=== PATIENT | female | born 1960 | race Caucasian/White ===

== ENCOUNTER 2019-08-06 09:40 | Outpatient (CLI) | payer MEDICARE, SELFPAY ==
[2019-08-06 11:06] LABS: Alanine Aminotransferase 41 U/L (14-59); Albumin Level 3.7 g/dL (3.4-5.0); Alkaline Phosphatase 76 U/L (46-116); Aspartate Amino Transferase 30 U/L (15-37); Bilirubin Direct 0.1 mg/dL (0-0.2); Bilirubin,Total 0.2 mg/dL (0.00-1.00); Cholesterol 179 mg/dL (0-200); HDL Direct 41 mg/dL (40-60); LDL Cholesterol Calculated 104 mg/dL (<130); Total Protein 7.3 g/dL (6.4-8.2); Triglycerides 171 mg/dL (0-150)
== END 2019-08-06 09:41 | disposition home or self-care (01) ==
LOC: CHSLAB 09:43
PROVIDERS: PCP Internal Medicine Cardiovascular Disease; Visit Provider Internal Medicine Cardiovascular Disease
DX: E78.5 Hyperlipidemia, unspecified (principal); E11.69 Type 2 diabetes mellitus with other specified complication
CPT/HCPCS: 36415; 80061; 80076

== ENCOUNTER 2019-09-21 10:28 | Outpatient (CLI) | payer MEDICARE, SELFPAY ==
[2019-09-21 11:21] LABS: Alanine Aminotransferase 48 U/L (14-59); Albumin Level 3.8 g/dL (3.4-5.0); Alkaline Phosphatase 85 U/L (46-116); Aspartate Amino Transferase 45 U/L (15-37); Bilirubin Direct 0.1 mg/dL (0-0.2); Bilirubin,Total 0.3 mg/dL (0.00-1.00); Total Protein 7.7 g/dL (6.4-8.2)
== END 2019-09-21 10:29 | disposition home or self-care (01) ==
LOC: CHSLAB 10:30
PROVIDERS: PCP Internal Medicine; Visit Provider Internal Medicine Gastroenterology
DX: K76.0 Fatty (change of) liver, not elsewhere classified (principal)
CPT/HCPCS: 36415; 80076

== ENCOUNTER 2019-12-10 10:49 | Outpatient (CLI) | payer MEDICARE, SELFPAY ==
[2019-12-10 13:11] LABS: Creatinine Urine 120.44 mg/dL (40-278); MALB Creatinine Ratio 7.2 mg/g (0-30); Microalbumin Urine Random 8.7 mg/L
[2019-12-10 13:45] LABS: Alanine Aminotransferase 43 U/L (14-59); Albumin Level 3.5 g/dL (3.4-5.0); Alkaline Phosphatase 77 U/L (46-116); Anion Gap 13.5 mmol/L (7-16); Aspartate Amino Transferase 34 U/L (15-37); Bilirubin,Total 0.3 mg/dL (0.00-1.00); Blood Urea Nitrogen 13 mg/dL (7-18); Calcium 8.6 mg/dL (8.5-10.1); Carbon Dioxide 31 mmol/L (21-32); Chloride 102 mmol/L (98-108); Cholesterol 179 mg/dL (0-200); Estimated Glomerular Filt Rate > 60; Glucose 115 mg/dL (70-99); HDL Direct 42 mg/dL (40-60); LDL Cholesterol Calculated 104 mg/dL (<130); Osmolality Calculated 295 mOsm/kg (285-295); Potassium 4.5 mmol/L (3.5-5.1); Sodium 142 mmol/L (136-145); Thyroid Stimulating Hormone 1.06 uIU/mL (0.36-3.74); Total Protein 7.2 g/dL (6.4-8.2); Triglycerides 164 mg/dL (0-150); Vitamin B12 409 pg/mL (193-986)
== END 2019-12-10 10:50 | disposition home or self-care (01) ==
PROVIDERS: PCP Internal Medicine; Visit Provider Internal Medicine Endocrinology, Diabetes & Metabolism
DX: G35 Multiple sclerosis (principal); Z79.899 Other long term (current) drug therapy; E11.59 Type 2 diabetes mellitus with other circulatory complications; I10 Essential (primary) hypertension; E78.5 Hyperlipidemia, unspecified
CPT/HCPCS: 36415; 80053; 80061; 82043; 82607; 84443

== ENCOUNTER 2019-12-17 14:38 | Outpatient (CLI) | payer MEDICARE, SELFPAY ==
--- NOTE | ~2019-12-17 | XR_ITS ---
XR hand RT min 3V 12/17/2019 15:07 Indication: Right hand pain Procedure: 3 views right hand Comparison: No prior studies for comparison. Findings: Mild-moderate polyarticular osteoarthritis. Osteopenia. No acute fracture or traumatic jaspal lignment. No erosive changes. No focal soft tissue abnormality. No foreign bodies. Impression: 1: No acute fracture. 2: Mild-moderate polyarticular osteoarthritis. Reviewed, dictated and finalized at location A. Impression: 1: No acute fracture. 2: Mild-moderate polyarticular osteoarthritis.
== END 2019-12-17 14:39 | disposition home or self-care (01) ==
PROVIDERS: PCP Internal Medicine; Visit Provider Internal Medicine
DX: S69.91XA Unspecified injury of right wrist, hand and finger(s), initial encounter (principal)
CPT/HCPCS: 73130

== ENCOUNTER 2019-12-20 15:20 | Emergency (ER) | payer MEDICARE, SELFPAY ==
--- NOTE | ~2019-12-20 | XR_ITS ---
EXAMINATION: XR chest 2V 12/20/2019 15:43 INDICATION: Cough for 2 days PROCEDURE: 2 view chest COMPARISON: Comparison to multiple prior studies sequentially, with oldest reviewed study dated 06/13. FINDINGS: The lungs are clear. The cardiomediastinal silhouette is within normal limits. There are no pleural effusions. There is no pneumothorax suspected. IMPRESSION: 1: NO ACUTE CARDIOPULMONARY DISEASE. Reviewed, dictated and finalized at location A.
[2019-12-20 15:26] VITALS: BP 117/50; PULSE 85; RESP 19; TEMP 36.6; O2SAT 96
--- NOTE | 2019-12-20 16:04 | ECG_ITS ---
Measurements Intervals [place] Rate: 80 P: 54 NE: 160 QRS: -5 QRSD: 134 T: 6 QT: 400 QTc: 462 Interpretive Statements SINUS RHYTHM RIGHT BUNDLE BRANCH BLOCK ABNORMAL ECG Electronically Signed On 12-20-2019 16:31:46 CDT by Deo Caballero D.O.
[2019-12-20 16:25] VITALS: BP 131/76; PULSE 82; RESP 20; O2SAT 91
--- NOTE | 2019-12-20 16:30 | ED.URI ---
HPI - URI/Sore Throat General Chief Complaint: Upper Respiratory Infection Stated Complaint: COUGH, SINUS ISSUES Time Seen by Provider: 12/20/19 15:27 Source: patient Mode of arrival: ambulatory Limitations: no limitations History of Present Illness HPI Narrative: This is a 59 year old female that presents to the ER for cold symptoms x 2 days. Reports cough, congestion and sinus pain. Reports history of chronic sinusitis. Reports she recently ran out of her Singulair. Reports she was told by her PCP to come to the ER to be evaluated for COVID. Reports shortness of breath that is chronic for her. Also reports some substernal chest pain for the last couple of days that is worse with cough. Denies fever or lower extremity edema. Related Data Home Medications Medication Instructions Recorded Confirmed aspirin [Aspir-81] 12/20/19 cholecalciferol (vitamin D3) 125 mcg PO DAILY 12/20/19 12/20/19 [Vitamin D3] cyclobenzaprine 10 mg PO HS 12/20/19 12/20/19 diphenhydramine-acetaminophen tablet 12/20/19 [Allergy Severe] fexofenadine [Reyna Allergy] 180 mg PO DAILY 12/20/19 12/20/19 furosemide 12/20/19 gabapentin 12/20/19 glatiramer [Copaxone] mg SUBCUT 12/20/19 losartan 12/20/19 magnesium oxide 400 mg PO DAILY 12/20/19 12/20/19 metformin 500 mg PO BID 12/20/19 12/20/19 metoprolol succinate PO 12/20/19 montelukast [Singulair] 10 mg PO DAILY 12/20/19 12/20/19 nitrofurantoin macrocrystal 12/20/19 pantoprazole 40 mg PO BID 12/20/19 12/20/19 potassium chloride meq 12/20/19 simvastatin mg 12/20/19 zolpidem [Ambien] 12/20/19 Allergies Allergy/AdvReac Type Severity Reaction Status Date / Time No Known Allergies Allergy Mild Unverified 12/20/19 15:28 Review of Systems Review of Systems: Narrative: CONSTITUTIONAL: Denies fever ENT: Reports rhinorrhea, congestion, sore throat CARDIOVASCULAR: Reports chest pain. Denies edema. RESPIRATORY: Reports cough and dyspnea. All systems reviewed & are unremarkable except as noted in HPI and below PMFSH Social History Social History (Updated 06/10/19 @ 22:41 by Bekah Greene) Smoking status: Never smoker Gender identity (if verbalized by the patient): Female Exam Narrative: Exam Narrative: GENERAL: Well-appearing, well-nourished, and in no acute distress. HEAD: Normocephalic, atraumatic. EYES: EOMI. ENT: Turbinates swollen and pale. Tender palpation of the frontal sinuses bilaterally. Mucous membranes moist. Oropharynx without tonsillar hypertrophy exudate or other lesions. Bilateral TMs pearly brooks non-bulging NECK: Supple. No adenopathy or masses. CHEST: Clear to auscultation. No respiratory distress. No wheezes rales or rhonchi HEART: Regular rate and rhythm. No murmur heard. Normal peripheral pulses. EXTREMITIES: Normal range of motion. No edema. SKIN: Warm, dry, no rash. NEURO: No focal deficits. Alert and oriented x3. PSYCH: Normal mood and affect Course Vital Signs Vital signs: Vital Signs Temperature 97.8 F 12/20/19 15:26 Pulse Rate 85 12/20/19 15:26 Respiratory Rate 19 12/20/19 15:26 Blood Pressure 117/50 L 12/20/19 15:26 Pulse Oximetry 96 12/20/19 15:26 Temperature 97.8 F 12/20/19 15:26 Pulse Rate 85 12/20/19 15:26 Respiratory Rate 19 12/20/19 15:26 Blood Pressure 117/50 L 12/20/19 15:26 Pulse Oximetry 96 12/20/19 15:26 MDM - URI/Sore Throat MDM Narrative Medical decision making narrative: Patient presents to the emergency department for cold symptoms x2 days. She is afebrile and nontoxic-appearing. Oxygen saturation normal on room air. CBC and metabolic panel without concerning findings. EKG without concerning changes. Troponin is negative. Chest x-ray without acute findings. SARS-CoV-2 sent. Able to ambulate in the halls and maintain oxygen saturation. Patient does report history of sinus problems. Will be treated for acute sinusitis. Patient is stable and felt appropriate for further outpatient
[2019-12-20 16:32] VITALS: BP 127/77; PULSE 82; RESP 17; O2SAT 97
[2019-12-20 16:34] LABS: Basophils Percent Auto 0.4 % (0.2-1.2); Eosinophils Absolute Auto 0.2 K/mm3 (0-0.3); Eosinophils Percent Auto 1.9 % (0-4.4); Hematocrit 37.6 % (37.0-47.0); Hemoglobin 12.3 g/dL (12.0-15.0); Immature Granulocyte Absolute 0.04 K/mm3 (0.00-0.031); Immature Granulocyte Percent A 0.4 % (0-0.5); Lymphocytes Absolute Auto 2.23 K/mm3 (0.9-3.2); Lymphocytes Percent Auto 22.4 % (18.3-44.2); Mean Corpuscular HGB Conc 32.7 g/dl (32-36); Mean Corpuscular Hemoglobin 30.6 pg (26-34); Mean Corpuscular Volume 93.5 fl (80-100); Mean Platelet Volume 9.7 fl (7.4-10.4); Monocytes Absolute Auto 0.6 K/mm3 (0.1-0.6); Monocytes Percent Auto 5.7 % (2.6-8.5); Neutrophils Absolute Auto 6.9 K/mm3 (1.3-6.7); Neutrophils Percent Auto 69.2 % (45.5-73.1); Platelet Count Result 232 k/mm3 (150-375); Red Blood Count 4.02 M/mm3 (4.2-5.4); Red Cell Distribution Width 12.9 % (11.5-14.5)
[2019-12-20 16:43] LABS: Partial Thromboplastin Time 28.6 SECONDS (22.3-36.8)
[2019-12-20 16:47] VITALS: BP 121/76; PULSE 80; RESP 16; O2SAT 96
[2019-12-20 16:47] LABS: Alanine Aminotransferase 44 U/L (4-35); Albumin Level 4.2 g/dL (3.5-5.1); Alkaline Phosphatase 85 U/L (38-126); Anion Gap 12.9 mmol/L (7-16); Aspartate Amino Transferase 51 U/L (14-36); Bilirubin,Total 0.3 mg/dL (0.2-1.3); Blood Urea Nitrogen 10 mg/dL (7-17); CRP 2.2 mg/dL (<1.0); Calcium 8.7 mg/dL (8.4-10.2); Carbon Dioxide 28 mmol/L (22-30); Chloride 102 mmol/L (98-107); Estimated CRCL calculation 83 ml/min; Estimated Glomerular Filt Rate > 60; Glucose 112 mg/dL (65-105); Lactate Dehydrogenase 518 U/L (313-618); Potassium 3.9 mmol/L (3.4-5.0); Sodium 139 mmol/L (137-145)
[2019-12-20 16:56] LABS: Troponin I < 0.012 ng/mL (0.000-0.034)
[2019-12-20 17:02] VITALS: BP 119/65; PULSE 79; RESP 18; O2SAT 96
[2019-12-20 18:09] VITALS: BP 117/64; PULSE 66; RESP 17; O2SAT 98
[2019-12-21 02:02] LABS: SARS-CoV-2 RNA PCR Negative
== END 2019-12-20 18:11 | disposition home or self-care (01) ==
PROVIDERS: Physician Assistant; Emergency Provider Emergency Medicine; PCP Internal Medicine
DX: J01.11 Acute recurrent frontal sinusitis (principal); Z20.828 Contact with and (suspected) exposure to other viral communicable diseases; Z79.84 Long term (current) use of oral hypoglycemic drugs; I45.10 Unspecified right bundle-branch block; R06.02 Shortness of breath
CPT/HCPCS: 36415; 71046; 80053; 83615; 84484; 85025; 85610; 85730; 86140; 87635; 93005; 99284; C9803; U0003

== ENCOUNTER 2020-01-24 09:40 | Outpatient (CLI) | payer MEDICARE, SELFPAY ==
--- NOTE | ~2020-01-24 | CT_ITS ---
EXAMINATION: CT sinus wo con DATE: 01/24/2020 10:21 INDICATION: Chronic sinusitis, unspecified TECHNIQUE: Computed tomography (CT) of the paranasal sinuses was performed without intravenous contra st. The dose-length product (DLP) was 257.43 mGy-cm. Iterative reconstruction was used. COMPARISON: 02/21/2004 FINDINGS: There is normal development and pneumatization of the paranasal sinuses. There are surgical changes in the medial wall of the right maxillary sinus. The frontal, sphenoid, ethmoid, and maxilla ry sinuses are clear. The bilateral ostiomeatal complexes are patent. Visualized soft tissues are unr emarkable. There are 2 mm of chronic leftward deviation of the nasal septum. IMPRESSION: 1. 2 mm of chronic leftward deviation of the nasal septum. Reviewed, dictated and finalized at location A.
== END 2020-01-24 09:41 | disposition home or self-care (01) ==
PROVIDERS: PCP Internal Medicine; Visit Provider Otolaryngology
DX: J32.9 Chronic sinusitis, unspecified (principal); J34.2 Deviated nasal septum
CPT/HCPCS: 70486

== ENCOUNTER 2020-03-11 08:25 | Outpatient (CLI) | payer MEDICARE, SELFPAY ==
[2020-03-11 09:31] LABS: Alanine Aminotransferase 39 U/L (14-59); Albumin Level 3.8 g/dL (3.4-5.0); Alkaline Phosphatase 104 U/L (46-116); Aspartate Amino Transferase 27 U/L (15-37); Bilirubin Direct 0.1 mg/dL (0-0.2); Bilirubin,Total 0.3 mg/dL (0.00-1.00); Total Protein 7.5 g/dL (6.4-8.2)
== END 2020-03-11 08:26 | disposition home or self-care (01) ==
LOC: CHSLAB 08:28
PROVIDERS: PCP Internal Medicine
DX: K76.0 Fatty (change of) liver, not elsewhere classified (principal)
CPT/HCPCS: 36415; 80076

== ENCOUNTER 2020-05-19 12:44 | Outpatient (CLI) | payer MEDICARE, SELFPAY ==
[2020-05-19 13:20] LABS: Creatinine Urine < 13.00 mg/dL (40-278); Microalbumin Urine Random < 13.0 mg/L
== END 2020-05-19 12:45 | disposition home or self-care (01) ==
LOC: CHSLAB 12:48
PROVIDERS: PCP Internal Medicine; Visit Provider Internal Medicine Endocrinology, Diabetes & Metabolism
DX: E11.59 Type 2 diabetes mellitus with other circulatory complications (principal); I10 Essential (primary) hypertension
CPT/HCPCS: 82043

== ENCOUNTER 2020-09-27 09:26 | Outpatient (CLI) | payer MEDICARE, SELFPAY ==
[2020-09-27 09:43] LABS: Basophils Absolute Auto 0.03 K/mm3 (0.00-0.10); Basophils Percent Auto 0.4 % (0.0-1.0); Eosinophils Absolute Auto 0.14 K/mm3 (0.02-0.50); Eosinophils Percent Auto 1.8 % (1.0-6.0); Hematocrit 40.5 % (35.0-49.0); Hemoglobin 13.2 g/dL (12.0-15.0); Immature Granulocyte Absolute 0.04 K/mm3 (0.00-0.00); Immature Granulocyte Percent A 0.5 % (0.0-0.0); Lymphocytes Absolute Auto 2.72 K/mm3 (1.10-4.50); Lymphocytes Percent Auto 35.8 % (18.0-42.0); Mean Corpuscular HGB Conc 32.6 g/dL (32.0-36.0); Mean Corpuscular Hemoglobin 31.7 pg (27.0-31.0); Mean Corpuscular Volume 97.1 fL (78.0-102.0); Mean Platelet Volume 9.5 fl (9.2-11.8); Monocytes Absolute Auto 0.38 K/mm3 (0.10-0.90); Neutrophils Absolute Auto 4.3 K/mm3 (1.7-7.2); Neutrophils Percent Auto 56.5 % (50.0-70.0); Platelet Count Result 225 K/mm3 (150-420); Red Blood Count 4.17 M/mm3 (4.20-5.40); Red Cell Distribution Width 12.9 % (11.6-14.4); White Blood Count 7.6 K/mm3 (4.8-10.8)
[2020-09-27 09:49] LABS: Add Urine Microscopic? YES; Appearance Urine Clear (Clear); Bilirubin Urine Negative (Negative); Blood Urine Negative (Negative); Color Urine Yellow (Yellow); Glucose Urine UA 3+ (Negative); Ketones Urine Trace (Negative); Leukocyte Esterase Ur Negative (Negative); Nitrate Urine Negative (Negative); Protein Urine Negative (Negative); Specific Grav Ur 1.015 (1.010-1.020); Urobilinogen Urine 0.2 mg/dL (0.2-1.0)
[2020-09-27 09:53] LABS: Bacteria Urine 1+ /hpf; RBC Urine None seen /hpf (0-2); Squamous Epithelial Cell Urine Moderate /hpf (Few); WBC Urine 0-3 /hpf (0-3)
[2020-09-27 10:03] LABS: Microalbumin Urine Random < 13.0 mg/L
[2020-09-27 10:16] LABS: Hemoglobin A1C 5.7 % (<5.7)
[2020-09-27 10:54] LABS: Alanine Aminotransferase 30 U/L (14-59); Albumin Level 3.6 g/dL (3.4-5.0); Alkaline Phosphatase 94 U/L (46-116); Anion Gap 8 mmol/L (8-16); Aspartate Amino Transferase 11 U/L (15-37); Bilirubin Direct 0.1 mg/dL (0-0.2); Bilirubin,Total 0.3 mg/dL (0.00-1.00); Blood Urea Nitrogen 17 mg/dL (7-18); Calcium 9.1 mg/dL (8.5-10.1); Carbon Dioxide 31 mmol/L (21-32); Chloride 102 mmol/L (98-108); Cholesterol 219 mg/dL (0-200); Estimated Glomerular Filt Rate > 60; Ferritin 30 ng/mL (8-252); Free T3 2.57 pg/mL (2.18-3.98); Free T4 Free Thyroxine 1.14 ng/dL (0.76-1.46); Glucose 129 mg/dL (70-99); HDL Direct 42 mg/dL (40-60); Iron 49 ug/dL (50-170); LDL Cholesterol Calculated 147 mg/dL (<130); NT Pro B Type Natriuretic Pept 89 pg/mL (0-125); Osmolality Calculated 295 mOsm/kg (285-295); Percent Iron Saturation 17 % (12-57); Potassium 3.7 mmol/L (3.5-5.1); Sodium 141 mmol/L (136-145); Thyroid Stimulating Hormone 0.45 uIU/mL (0.36-3.74); Total Protein 7.3 g/dL (6.4-8.2); Triglycerides 148 mg/dL (0-150); Vitamin B12 581 pg/mL (193-986)
[2020-09-30 11:05] LABS: Vitamin D 25 Hydroxy 54 ng/mL (30-100)
== END 2020-09-27 09:27 | disposition home or self-care (01) ==
LOC: CHSLAB 09:31
PROVIDERS: PCP Internal Medicine
DX: K76.0 Fatty (change of) liver, not elsewhere classified (principal); D64.9 Anemia, unspecified; E11.9 Type 2 diabetes mellitus without complications; I42.9 Cardiomyopathy, unspecified; N30.00 Acute cystitis without hematuria; G35 Multiple sclerosis; R06.02 Shortness of breath; E55.9 Vitamin D deficiency, unspecified
CPT/HCPCS: 36415; 80053; 80061; 81001; 82043; 82248; 82306; 82607; 82728; 83036; 83540; 83550; 83880; 84439; 84443; 84481; 85025; 87086; 87088

== ENCOUNTER 2020-10-08 09:11 | Outpatient (CLI) | payer MEDICARE, SELFPAY ==
--- NOTE | 2020-10-08 09:17 | ECHO_ITS ---
Patient Info Name: Fadia Davis Age: 59 years : 1960 Gender: Female Ht: 62 in Wt: 223 lbs BSA: 2.16 m2 HR: 93 bpm BP: 135 / 67 mmHg Heart Rhythm: Sinus Rhythm Technical Quality: Fair Exam Date: 10/08/2020 9:09 AM Exam Location: [facility] Patient Status: Outpatient Admit Date: 10/08/2020 Staff Ordering Physician: José Miguel Page MD Program Professional: Grisel Zhong RDCS Attending Provider: José Miguel Page MD Referring Physician: Camilo DE LEÓN; Exam Type: CA echo doppler color flow Study Info Indications I50.9 - Heart failure, unspecified Complete two-dimensional, color flow and Doppler transthoracic echocardiogram is performed. Strain analysis performed. History/Risk Factors Hypertension: Yes Dyslipidemia: Yes Congenital Heart Disease (CHD): No Diabetic Therapy: Oral Peripheral Arterial Disease (PAD): No Myocardial Infarction ([place]): No Chronic Lung Disease: No Obesity: Yes Renal Disease: No Coronary Artery Disease (CAD) No Congestive Heart Failure (CHF): Hx CHF Cardiomyopathy/LV Systolic Dysfunction: Yes Diabetes Mellitus: Type II COPD: No Tobacco Use: Former Cerebrovascular Disease: No Family History: Diabetes Mellitus, Coronary Artery Disease Deep Vein Thrombosis (DVT): None Dialysis: None Frailty Scale (CSHA): 2: Well Cardiac Arrest: No Summary 1. Complete two-dimensional, color flow and Doppler transthoracic echocardiogram is performed. 2. Left ventricular chamber dimension is normal. 3. Left ventricular systolic function is normal, estimated at 55-60%. 4. The left ventricular diastolic function is grade I diastolic dysfunction. 5. E/e' 14 is mildly elevated. 6. Global longitudinal strain is abnormal at -14.1%. Recommendations * Continue medical therapy for diabetes. Left Ventricle E/e' 14 is mildly elevated. Global longitudinal strain is abnormal at -14.1%. Left ventricular chamber dimension is normal. Left ventricular systolic function is normal, estimated at 55-60%. The left ventricular diastolic function is grade I diastolic dysfunction. Right Ventricle Right ventricular chamber dimension is normal. Right ventricular systolic function is normal. Left Atria Left atrial chamber dimension is normal. Right Atria Right atrial chamber dimension is normal. Aortic Valve The aortic valve is trileaflet. There is no aortic valve stenosis. There is no aortic valve regurgitation. Pulmonic Valve There is no pulmonic regurgitation. Mitral Valve There is no mitral valve stenosis. There is no mitral valve regurgitation. Tricuspid Valve There is no tricuspid valve regurgitation. Pericardium/Pleural There is no pericardial effusion. Inferior Vena Cava Normal inferior vena cava with >50% collapse upon inspiration consistent with normal right atrial pressure, 5 mmHg. Aorta The aortic root size at the sinus of Valsalva is normal. Left Ventricular Outflow Tract Name Value Normal LVOT 2D LVOT Diameter 1.8 cm LVOT Doppler LVOT Peak Velocity
== END 2020-10-08 09:12 | disposition home or self-care (01) ==
LOC: CHSIMG 09:14
PROVIDERS: PCP Internal Medicine; Visit Provider Internal Medicine
DX: I50.9 Heart failure, unspecified (principal)
CPT/HCPCS: 93306

== ENCOUNTER 2020-11-06 15:32 | Outpatient (CLI) | payer MEDICARE, SELFPAY ==
--- NOTE | ~2020-11-06 | XR_ITS ---
EXAMINATION: XR foot LT min 3V DATE: 11/06/2020 15:51 INDICATION: Dorsal lateral left foot pain TECHNIQUE: Dorsoplantar, two oblique and lateral views of the left foot were obtained. COMPARISON: 12/21/2016 FINDINGS: Alignment is normal. No fracture. Polyarticular osteoarthritis throughout the left foot, moderate sev erity at several of the tarsal metatarsal and distal interphalangeal joints and mild at the remaining joints in the left foot as well as the left ankle joint. Moderate-sized Achilles and plantar calcane al spurs. Again seen is a prominent hypertrophic osteophytes extending anteriorly from the dorsolater al aspect of the anterior process of the calcaneus. IMPRESSION: 1. No acute osseous abnormality. 2. Mild to moderate polyarticular osteoarthritis throughout the left foot and ankle most prominent at the tarsometatarsal and distal interphalangeal joints. Reviewed, dictated and finalized at location A. IMPRESSION: 1. No acute osseous abnormality. 2. Mild to moderate polyarticular osteoarthritis throughout the left foot and a nkle most prominent at the tarsometatarsal and distal interphalangeal joints.
== END 2020-11-06 15:33 | disposition home or self-care (01) ==
LOC: CHSIMG 15:35
PROVIDERS: PCP Internal Medicine; Visit Provider Internal Medicine
DX: M79.672 Pain in left foot (principal); M15.9 Polyosteoarthritis, unspecified
CPT/HCPCS: 73630

== ENCOUNTER 2021-01-06 10:11 | Outpatient (CLI) | payer MEDICARE, SELFPAY ==
[2021-01-06 10:25] LABS: Basophils Absolute Auto 0.02 K/mm3 (0.00-0.10); Basophils Percent Auto 0.2 % (0.0-1.0); Eosinophils Absolute Auto 0.11 K/mm3 (0.02-0.50); Eosinophils Percent Auto 1.4 % (1.0-6.0); Hematocrit 40.1 % (35.0-49.0); Hemoglobin 13.1 g/dL (12.0-15.0); Immature Granulocyte Absolute 0.03 K/mm3 (0.00-0.00); Immature Granulocyte Percent A 0.4 % (0.0-0.0); Lymphocytes Absolute Auto 2.54 K/mm3 (1.10-4.50); Lymphocytes Percent Auto 31.6 % (18.0-42.0); Mean Corpuscular HGB Conc 32.7 g/dL (32.0-36.0); Mean Corpuscular Hemoglobin 31.5 pg (27.0-31.0); Mean Corpuscular Volume 96.4 fL (78.0-102.0); Mean Platelet Volume 9.4 fl (9.2-11.8); Monocytes Absolute Auto 0.37 K/mm3 (0.10-0.90); Monocytes Percent Auto 4.6 % (2.0-11.0); Neutrophils Percent Auto 61.8 % (50.0-70.0); Platelet Count Result 242 K/mm3 (150-420); Red Blood Count 4.16 M/mm3 (4.20-5.40); Red Cell Distribution Width 12.6 % (11.6-14.4)
[2021-01-06 10:26] LABS: Add Urine Microscopic? YES; Appearance Urine Clear (Clear); Bilirubin Urine Negative (Negative); Blood Urine Negative (Negative); Color Urine Dark Yellow (Yellow); Glucose Urine UA Negative (Negative); Ketones Urine Trace (Negative); Leukocyte Esterase Ur Negative (Negative); Nitrate Urine Negative (Negative); Protein Urine Negative (Negative); Specific Grav Ur 1.015 (1.010-1.020); Urobilinogen Urine 0.2 mg/dL (0.2-1.0); pH Urine 6.5 (5.0-8.0)
[2021-01-06 10:30] LABS: RBC Urine None seen /hpf (0-2); Squamous Epithelial Cell Urine Moderate /hpf (Few); WBC Urine 0-3 /hpf (0-3)
[2021-01-06 10:31] LABS: Bacteria Urine Trace /hpf
[2021-01-06 11:55] LABS: Alanine Aminotransferase 33 U/L (14-59); Albumin Level 3.8 g/dL (3.4-5.0); Alkaline Phosphatase 104 U/L (46-116); Anion Gap 12 mmol/L (8-16); Aspartate Amino Transferase 17 U/L (15-37); Bilirubin,Total 0.3 mg/dL (0.00-1.00); Blood Urea Nitrogen 11 mg/dL (7-18); Calcium 8.9 mg/dL (8.5-10.1); Carbon Dioxide 28 mmol/L (21-32); Chloride 103 mmol/L (98-108); Cholesterol 187 mg/dL (0-200); Estimated Glomerular Filt Rate > 60; Ferritin 47 ng/mL (8-252); Glucose 126 mg/dL (70-99); HDL Direct 51 mg/dL (40-60); Iron 57 ug/dL (50-170); LDL Cholesterol Calculated 99 mg/dL (<130); Osmolality Calculated 297 mOsm/kg (285-295); Percent Iron Saturation 22 % (12-57); Potassium 4.3 mmol/L (3.5-5.1); Sodium 143 mmol/L (136-145); Total Protein 7.5 g/dL (6.4-8.2); Triglycerides 183 mg/dL (0-150)
== END 2021-01-06 10:12 | disposition home or self-care (01) ==
LOC: CHSLAB 10:13
PROVIDERS: PCP Internal Medicine; Visit Provider Internal Medicine
DX: E11.65 Type 2 diabetes mellitus with hyperglycemia (principal); E78.5 Hyperlipidemia, unspecified; E61.1 Iron deficiency
CPT/HCPCS: 36415; 80053; 80061; 81001; 82728; 83036; 83540; 83550; 85025

== ENCOUNTER 2021-01-31 11:11 | Emergency (ER) | payer MEDICARE, SELFPAY ==
--- NOTE | ~2021-01-31 | XR_ITS ---
EXAMINATION: XR hand LT 2V, XR wrist LT 2V EXAM DATE: 01/31/2021 11:56 (accession [id number]), 01/31/2021 11:58 (accession [id number]) INDICATION: Initial encounter following injury, with pain of the left hand, wrist. TECHNIQUE: Frontal and lateral projections of the left hand. Frontal and lateral projections left w rist. There are no prior studies for comparison. FINDINGS: There is mild left hand polyarticular interphalangeal primary osteoarthritis. There are n o acute fractures or dislocations identified. There is no subcutaneous gas. The soft tissue is unre markable. There are no radiopaque foreign bodies. Scapholunate space maintained. IMPRESSION: 1. Left hand, wrist exam without acute osseous findings. Reviewed, dictated and finalized at location A. IMPRESSION: 1. Left hand, wrist exam without acute osseous findings.
--- NOTE | ~2021-01-31 | XR_ITS ---
EXAMINATION: XR ribs LT 2V EXAM DATE: 01/31/2021 11:57 INDICATION: left rib injury, pain. Initial encounter. TECHNIQUE: Frontal projection of the upper left ribs, frontal projection of the lower left ribs, obli que projection of the left ribs, without chest x-ray(s) for interpretation. Correlation is made to est x-ray 12/20/2019. FINDINGS: There are no displaced acute left rib fractures identified. There is no soft tissue abnor mality seen. IMPRESSION: No displaced left rib fractures. Reviewed, dictated and finalized at location A.
[2021-01-31 11:31] VITALS: BP 125/81; PULSE 84; RESP 16; TEMP 36.9; O2SAT 96
[2021-01-31] MEDS: KETOROLAC (*BKC) 60 MG/2 ML VIAL IM (11:55)
--- NOTE | 2021-01-31 12:16 | ED.FALL ---
HPI - Fall General Chief Complaint: Fall Stated Complaint: fall at 1am, L-sided thumb, wrist and rib pain Source: patient Mode of arrival: ambulatory Limitations: no limitations History of Present Illness HPI Narrative: this is a 60-year-old female that presents after she tripped and fell earlier today causing pain and left rib area, left wrist and thumb area with some point tenderness in the left mid ribs with no shortness of breath no bruising has good range of motion of her left wrist and thumb strong brisk radial pulse on the left with no numbness or tingling no bruising. complaint: fall Onset (ago): hour(s) Fall from: standing Fall witnessed: no Place fall occurred: home Loss of consciousness: none Prolonged down time: no Symptoms prior to fall: none Context: tripped/slipped Related Data Home Medications Medication Instructions Recorded Confirmed aspirin [Aspir-81] 12/20/19 cholecalciferol (vitamin D3) 125 mcg PO DAILY 12/20/19 12/20/19 [Vitamin D3] cyclobenzaprine 10 mg PO HS 12/20/19 12/20/19 furosemide 12/20/19 gabapentin 12/20/19 glatiramer [Copaxone] mg SUBCUT 12/20/19 losartan 12/20/19 magnesium oxide 400 mg PO DAILY 12/20/19 12/20/19 metformin 500 mg PO BID 12/20/19 12/20/19 metoprolol succinate PO 12/20/19 montelukast [Singulair] 10 mg PO DAILY 12/20/19 12/20/19 nitrofurantoin macrocrystal 12/20/19 pantoprazole 40 mg PO BID 12/20/19 12/20/19 potassium chloride meq 12/20/19 simvastatin mg 12/20/19 zolpidem [Ambien] 12/20/19 B-complex with vitamin C 1 tablet PO DAILY 12/27/19 carbamazepine 100 mg 100 mg PO Q12H 12/27/19 capsule,extended release [id number] ferrous sulfate 325 mg (65 mg 325 mg PO DAILY 12/27/19 iron) tablet multivitamin 1 tablet PO DAILY 12/27/19 vit C 250 mg-vit E 90 mg-zinc 40 1 tablet PO BID 12/27/19 mg-copper 1 [id number] capsule Allergies Allergy/AdvReac Type Severity Reaction Status Date / Time lisinopril Allergy Severe cough Verified 04/14/20 08:38 Review of Systems Review of Systems: All systems reviewed & are unremarkable except as noted in HPI and below PMFSH Past Medical History Medical History Cardiomyopathy Deviated septum Finger fracture Headache Nasal polyps Neuritis optic right nerve Ovarian cyst Polyps of both external auditory canals Sinus problem Wears glasses Surgical History Surgical History H/O dilation and curettage H/O nasal septoplasty History of appendectomy History of bladder surgery A&P repair History of cardiac cath Hx of cholecystectomy Family History Family History Mother Acute myocardial infarction Family history of renal failure Family history of type 2 diabetes mellitus Father Family history of type 2 diabetes mellitus Social History Social History Smoking status: Never smoker Second hand tobacco smoke exposure: Yes Alcohol intake: former Substance use: never Gender identity (if verbalized by the patient): Female Exam Const: General: no acute distress and alert Orientation/consciousness: patient oriented x3 HENMT: Head: normal to inspection Eyes: Conjunctivae: conjunctivae normal Pupils: Equal, round and reactive pupils present Neck: Neck: normal visual inspection, no lymphadenopathy and no meningeal signs Chest: Chest palpation & inspection: normal inspection of the chest Other: Point tenderness to left mid rib area with palpation Resp: Effort & Inspection: normal respiratory effort Cardio: Rate: regular rate Rhythm: regular rhythm GI: Auscultation: normal bowel sounds : General: Yes no CVA tenderness Skin: General skin exam: normal color Rashes: no rashes Neuro: General: patient oriented x3 and moves all extremities Extr
== END 2021-01-31 12:22 | disposition home or self-care (01) ==
PROVIDERS: Emergency Provider Emergency Medicine; PCP Internal Medicine
DX: S23.41XA Sprain of ribs, initial encounter (principal); S63.502A Unspecified sprain of left wrist, initial encounter; W01.0XXA Fall on same level from slipping, tripping and stumbling without subsequent striking against object, initial encounter; I42.9 Cardiomyopathy, unspecified
CPT/HCPCS: 71100; 73100; 73120; 96372; 99283; 99284; J1885

== ENCOUNTER 2021-02-02 14:09 | Outpatient (CLI) | payer MEDICARE, SELFPAY ==
--- NOTE | ~2021-02-02 | CT_ITS ---
EXAMINATION: CT wrist LT wo con EXAM DATE: 02/02/2021 14:30 INDICATION: L wrist pain, injury on 01/31/21. Persistent pain. TECHNIQUE: Spiral CT wrist LT wo con was performed left wrist Axial, coronal and sagittal images wer e reviewed. The dose-length product (DLP) for this examination was 395.48 mGy-cm. The exposure was tailored according to patient size (auto mA exposure control), and iterative reconstruction (ASIR) wa s used as additional dose reduction technique. There is no prior study for comparison. FINDINGS: There is acute closed posttraumatic nondisplaced fracture through the tip of the radial sty loid. These are usually treated nonsurgically. Immobilization with splint or cast, and follow-up woul d be appropriate. Carpal and metacarpal bones are unremarkable. IMPRESSION: Acute nondisplaced left radial styloid fracture. Reviewed, dictated and finalized at location B.
== END 2021-02-02 14:10 | disposition home or self-care (01) ==
LOC: CHSIMG 14:10
PROVIDERS: PCP Internal Medicine; Visit Provider Internal Medicine
DX: M25.532 Pain in left wrist (principal); S52.92XA Unspecified fracture of left forearm, initial encounter for closed fracture
CPT/HCPCS: 73200

== ENCOUNTER 2021-02-16 14:02 | Outpatient (CLI) | payer MEDICARE, SELFPAY ==
--- NOTE | ~2021-02-16 | DEXA_ITS ---
Bone Density Report Name: Fadia Davis Age: 60 Sex: Female Ethnicity: White Date of : 1960 Indication: postmenopausal; screening for osteoporosis; Referring Provider: Wily, Sandra Paul Study: Bone densitometry was performed. Exam Date: February 16, 2021 Accession number: [id number] Bone Density: Region BMD T-score Z-score Classification AP Spine(L1, L2, L3) 0.995 -0.2 1.3 Normal Femoral Neck (Left) 0.750 -0.9 0.4 Normal Total Hip (Left) 0.955 0.1 1.1 Normal Femoral Neck (Right) 0.794 -0.5 0.8 Normal Total Hip (Right) 0.963 0.2 1.2 Normal Femoral Neck Mean 0.772 -0.7 0.6 Normal Total Hip Mean 0.959 0.1 1.2 Normal World Health Organization criteria for BMD impression classify patients as: Normal (T-score at or above -1.0), Osteopenia (T-score between -1.0 and -2.5), or Osteoporosis (T-score at or below -2.5). 10-year Fracture Risk: FRAX not reported because: All T-scores for Spine Total, Hip Total, Femoral Neck at or above -1.0 Previous Exams: Region Exam Age BMD T-score BMD Change BMD Change Date g/cm2 vs Baseline vs Previous AP Spine (L1-L3) 02/16/2021 60 0.995 -0.2 0.043 (4.5%)# 0.043 (4.5%)# 09/05/2018 57 0.952 -0.6 Total Hip(Left) 02/16/2021 60 0.955 0.1 -0.081 (-7.8%) -0.081 (-7.8%) 09/05/2018 57 1.036 0.8 Total Hip(Right) 02/16/2021 60 0.963 0.2 -0.004 (-0.4%) -0.004 (-0.4%) 09/05/2018 57 0.967 0.2 *Denotes significance at 95% confidence level, LSC for AP Spine = 0.022 g/cm2, LSC for Total Hip = 0.027 g/cm2 # Denotes dissimilar scan types or analysis methods Clinical Information Provided by Patient: Has used the following medications: Vitamin D No regular weight bearing exercise Does not regularly consume dairy products Drinks caffeinated beverages Onset of menses at age 13 Number of children 2 Impression: The patient has normal bone mass. No significant bone loss was observed. Discussion: BONE DENSITY IS ABOVE THE MINIMUM DESIRABLE LEVEL AT ALL SKELETAL SITES TESTED. This patient?s bone mineral density is above the minimum desirable level (T-score -1.0 or better) at all sites measured. The patient should follow a healthful lifestyle (good nutrition with adequate calcium and vitamin D, and appropriate weight-bearing exercise). Follow-Up: Consider repeating this study in 5 years or sooner if there is some new clinical indication. Reported by: Dr. Nathanael Omalley on
--- NOTE | ~2021-02-16 | XR_ITS ---
XR wrist LT 2V DATE: 02/16/2021 14:50 INDICATION: Distal radial fracture TECHNIQUE: AP and lateral views COMPARISON: 01/21/2021 left wrist 02/02/2021 CT left wrist FINDINGS: There is a fiberglass cast overlying the wrist, obscuring underlying bony detail. No signif icant displacement or angulation is evident the previously reported nondisplaced radial styloid fract ure. Normal alignment. IMPRESSION: No significant displacement at casted linear nondisplaced radial styloid fracture Reviewed, dictated and finalized at location B. IMPRESSION: No significant displacement at casted linear nondisplaced radial st yloid fracture
--- NOTE | ~2021-02-16 | US_ITS ---
EXAMINATION: US pelvic complete w TV DATE: 02/16/2021 14:32 INDICATION: Dysfunctional uterine bleeding TECHNIQUE: Multiple transabdominal and endovaginal sonographic images of the pelvis were obtained. COMPARISON: None. FINDINGS: The uterus measures 6.8 x 2.9 x 3.1 cm. The endometrial complex measures 4 mm. The left ova ry is not visualized however no left adnexal abnormality is seen. The right ovary measures 2.1 x 0.9 x 1.8 cm. There is normal vascular flow in the right ovary. There is no free fluid in the pelvis. IMPRESSION: 1. No sonographic correlate for the patient's symptoms. Reviewed, dictated and finalized at location A.
== END 2021-02-16 14:03 | disposition home or self-care (01) ==
LOC: CHSIMG 14:04
PROVIDERS: PCP Internal Medicine; Visit Provider Nurse Practitioner Family
DX: S52.502D Unspecified fracture of the lower end of left radius, subsequent encounter for closed fracture with routine healing (principal); N93.8 Other specified abnormal uterine and vaginal bleeding; Z78.0 Asymptomatic menopausal state
CPT/HCPCS: 73100; 76830; 76856; 77080

== ENCOUNTER 2021-03-27 10:46 | Outpatient (CLI) | payer MEDICARE, SELFPAY ==
--- NOTE | ~2021-03-27 | XR_ITS ---
EXAMINATION: XR wrist LT min 3V DATE: 03/27/2021 11:04 INDICATION: Left distal radius fracture follow-up TECHNIQUE: Posteroanterior, ulnar deviation, oblique, and lateral views of the left wrist were obtain ed. COMPARISON: 02/16/2021 FINDINGS: The previously described radial styloid fracture is less evident than on comparison examina tions. No acute osseous abnormality is identified. Bone alignment is normal. The soft tissues are unr emarkable. IMPRESSION: 1. Radial styloid fracture with routine healing. Reviewed, dictated and finalized at location B.
== END 2021-03-27 10:47 | disposition home or self-care (01) ==
LOC: CHSIMG 10:48
PROVIDERS: PCP Internal Medicine; Visit Provider Internal Medicine
DX: S52.502D Unspecified fracture of the lower end of left radius, subsequent encounter for closed fracture with routine healing (principal)
CPT/HCPCS: 73110

== ENCOUNTER 2021-06-10 11:59 | Outpatient (CLI) | payer MEDICARE, SELFPAY ==
[2021-06-10 12:14] LABS: Basophils Absolute Auto 0.02 K/mm3 (0.00-0.10); Basophils Percent Auto 0.3 % (0.0-1.0); Eosinophils Absolute Auto 0.11 K/mm3 (0.02-0.50); Eosinophils Percent Auto 1.5 % (1.0-6.0); Hematocrit 39.8 % (35.0-49.0); Hemoglobin 13.1 g/dL (12.0-15.0); Immature Granulocyte Absolute 0.01 K/mm3 (0.00-0.00); Immature Granulocyte Percent A 0.1 % (0.0-0.0); Lymphocytes Absolute Auto 3.02 K/mm3 (1.10-4.50); Lymphocytes Percent Auto 40.6 % (18.0-42.0); Mean Corpuscular HGB Conc 32.9 g/dL (32.0-36.0); Mean Corpuscular Volume 97.3 fL (78.0-102.0); Mean Platelet Volume 9.4 fl (9.2-11.8); Monocytes Absolute Auto 0.42 K/mm3 (0.10-0.90); Monocytes Percent Auto 5.7 % (2.0-11.0); Neutrophils Absolute Auto 3.9 K/mm3 (1.7-7.2); Neutrophils Percent Auto 51.8 % (50.0-70.0); Platelet Count Result 237 K/mm3 (150-420); Red Blood Count 4.09 M/mm3 (4.20-5.40); Red Cell Distribution Width 12.7 % (11.6-14.4); White Blood Count 7.4 K/mm3 (4.8-10.8)
[2021-06-10 12:29] LABS: Add Urine Microscopic? NO; Appearance Urine Clear (Clear); Bilirubin Urine Negative (Negative); Blood Urine Negative (Negative); Color Urine Yellow (Yellow); Glucose Urine UA Negative (Negative); Ketones Urine Negative (Negative); Leukocyte Esterase Ur Negative LEU/UL (Negative); Nitrate Urine Negative (Negative); Protein Urine Negative (Negative); Urobilinogen Urine 0.2 mg/dL (0.2-1.0)
[2021-06-10 14:19] LABS: Alanine Aminotransferase 42 U/L (14-59); Alkaline Phosphatase 109 U/L (46-116); Amylase 21 U/L (25-115); Anion Gap 12 mmol/L (8-16); Aspartate Amino Transferase 25 U/L (15-37); Bilirubin,Total 0.3 mg/dL (0.00-1.00); Blood Urea Nitrogen 13 mg/dL (7-18); Calcium 8.8 mg/dL (8.5-10.1); Carbon Dioxide 29 mmol/L (21-32); Chloride 101 mmol/L (98-108); Estimated Glomerular Filt Rate > 60; Glucose 143 mg/dL (70-99); Lipase 204 U/L (73-393); Osmolality Calculated 296 mOsm/kg (285-295); Sodium 142 mmol/L (136-145); Total Protein 7.7 g/dL (6.4-8.2)
[2021-06-15 15:28] LABS: Hemoglobin A1C 5.9 % (<5.7)
== END 2021-06-10 12:00 | disposition home or self-care (01) ==
LOC: CHSLAB 12:01
PROVIDERS: PCP Internal Medicine; Visit Provider Internal Medicine
DX: R10.9 Unspecified abdominal pain (principal); R73.01 Impaired fasting glucose
CPT/HCPCS: 36415; 80053; 81003; 82150; 83036; 83690; 85025

== ENCOUNTER 2021-06-11 11:13 | Outpatient (CLI) | payer MEDICARE, SELFPAY ==
[2021-06-11 11:39] LABS: Creatinine Urine 15.79 mg/dL (40-278); MALB Creatinine Ratio 82.3 mg/g (0-30); Microalbumin Urine Random < 13.0 mg/L
[2021-06-11 13:59] LABS: Cholesterol 180 mg/dL (0-200); Creatine Kinase 173 U/L (26-192); Ferritin 58 ng/mL (8-252); HDL Direct 50 mg/dL (40-60); Iron 70 ug/dL (50-170); LDL Cholesterol Calculated 94 mg/dL (<130); NT Pro B Type Natriuretic Pept 126 pg/mL (0-125); Triglycerides 180 mg/dL (0-150)
[2021-06-14 06:39] LABS: Vitamin D 25 Hydroxy 35 ng/mL (30-100)
== END 2021-06-11 11:14 | disposition home or self-care (01) ==
LOC: CHSLAB 11:14
PROVIDERS: PCP Internal Medicine; Visit Provider Internal Medicine
DX: E78.2 Mixed hyperlipidemia (principal); I10 Essential (primary) hypertension; I42.9 Cardiomyopathy, unspecified; E55.9 Vitamin D deficiency, unspecified; E61.1 Iron deficiency; I50.9 Heart failure, unspecified
CPT/HCPCS: 36415; 80061; 82043; 82306; 82550; 82728; 83540; 83880

== ENCOUNTER 2021-06-12 08:35 | Outpatient (CLI) | payer MEDICARE, SELFPAY ==
--- NOTE | ~2021-06-12 | CT_ITS ---
EXAMINATION: CT abdomen pelvis w con INDICATION: Generalized abdominal pain TECHNIQUE: Computed tomographic images of the abdomen and pelvis were obtained after the administrati on of 100 cc of Omnipaque 350 intravenous contrast. The dose-length product (DLP) was 1467.24 mGy-cm. Automated exposure control and iterative reconstruction technique were employed. COMPARISON: None available FINDINGS: Minimal dependent atelectasis is present in the lung bases. The heart size is normal. There is a 12 mm soft tissue density in the lower inner left breast. The liver, spleen, pancreas, and adre nal glands are normal. The gallbladder is surgically absent. Cysts of the kidneys measure up to 1.9 c m on the right. There is calcified atherosclerosis of the aorta and many of the other arteries. No pa thologically enlarged abdominal or pelvic lymph nodes are identified. There is no free intraperitonea l gas or evidence of bowel obstruction. There are multiple tiny epigastric hernias containing fat. Th ere is moderate lumbar spondylosis. IMPRESSION: 1. No CT correlate for the patient's symptoms. 2. Multiple tiny epigastric hernias containing fat. 3. Soft tissue density of the lower inner left breast. Correlation with mammographic history is recom mended. Reviewed, dictated and finalized at location F. CARRIER INSPECTOR IMPRESSION: 1. No CT correlate for the patient's symptoms. 2. Multiple tiny epigastric hernias containing fat. 3. Soft tissue density of the lower inner left breast. Correlation with mammogr aphic history is recommended.
== END 2021-06-12 08:36 | disposition home or self-care (01) ==
LOC: CHSIMG 08:36
PROVIDERS: PCP Internal Medicine; Visit Provider Internal Medicine
DX: R10.9 Unspecified abdominal pain (principal)
CPT/HCPCS: 74177; Q9967

== ENCOUNTER 2021-11-11 13:32 | Outpatient (CLI) | payer MEDICARE, SELFPAY ==
--- NOTE | ~2021-11-11 | XR_ITS ---
XR chest 2V DATE: 11/11/2021 14:07 INDICATION: Cough for 3 weeks. Breast cancer. TECHNIQUE: 2 views COMPARISON: 12/20/2019 PA and lateral chest FINDINGS: Normal heart size. Aortic arch calcification. Right Port-A-Cath catheter tip overlies the l ower aspect of the superior vena cava. No pulmonary infiltrate or consolidation, pleural effusion or pulmonary vascular congestion or pneumo thorax is detected. IMPRESSION: No active cardiopulmonary disease Aortic atherosclerosis Right Port-A-Cath Reviewed, dictated and finalized at location A.
[2021-11-11 13:55] LABS: Hematocrit 30.8 % (35.0-49.0); Hemoglobin 10.2 g/dL (12.0-15.0); Mean Corpuscular HGB Conc 33.1 g/dL (32.0-36.0); Mean Corpuscular Hemoglobin 32.7 pg (27.0-31.0); Mean Corpuscular Volume 98.7 fL (78.0-102.0); Mean Platelet Volume 10.1 fl (9.2-11.8); Platelet Count Result 189 K/mm3 (150-420); Red Blood Count 3.12 M/mm3 (4.20-5.40); Red Cell Distribution Width 14.7 % (11.6-14.4); White Blood Count 8.7 K/mm3 (4.8-10.8)
[2021-11-11 14:56] LABS: Band Neutrophils Percent 1 % (0-6); Basophils Percent Manual 0 % (0-1); Eosinophils Percent Manual 0 % (1-6); Lymphocytes Absolute Manual 1.39 K/mm3 (1.1-4.5); Lymphocytes Percent Manual 16 % (18-44); Monocytes Absolute Manual 0.43 K/mm3 (0.1-0.90); Monocytes Percent Manual 5 % (3-9); Neutrophils Absolute Manual 6.69 K/mm3 (1.7-7.2); Neutrophils Percent Manual 76 % (46-73); Total Cells Counted 100
[2021-11-11 14:57] LABS: Metamyelocytes Percent 2 %; Nucleated Red Blood Cells 1 %; Platelet Estimate Adequate (Adequate)
== END 2021-11-11 13:33 | disposition home or self-care (01) ==
LOC: CHSLAB 13:37
PROVIDERS: PCP Internal Medicine; Visit Provider Internal Medicine
DX: R05.9 Cough, unspecified (principal)
CPT/HCPCS: 36415; 71046; 85025

== ENCOUNTER 2021-12-01 11:10 | Outpatient (CLI) | payer MEDICARE, SELFPAY ==
--- NOTE | ~2021-12-01 | XR_ITS ---
XR chest 2V DATE: 12/01/2021 11:54 INDICATION: Cough since November 24, 2021. No fever. TECHNIQUE: PA and lateral views COMPARISON: 11/11/2021 2 view chest FINDINGS: Right Port-A-Cath catheter tip is situated near the superior cavoatrial junction. Normal heart size. Aortic arch calcification. No hilar or mediastinal enlargement. No pulmonary infiltrate or consolidation, pleural effusion or pulmonary vascular congestion or pneumo thorax is detected. Osteopenia. Diffuse idiopathic skeletal hyperostosis of the thoracic spine. IMPRESSION: No active cardiopulmonary disease Aortic atherosclerosis Right Port-A-Cath Reviewed, dictated and finalized at location A.
[2021-12-01 11:31] LABS: Hematocrit 31.7 % (35.0-49.0); Hemoglobin 10.2 g/dL (12.0-15.0); Mean Corpuscular HGB Conc 32.2 g/dL (32.0-36.0); Mean Corpuscular Hemoglobin 32.5 pg (27.0-31.0); Mean Platelet Volume 9.6 fl (9.2-11.8); Platelet Count Result 180 K/mm3 (150-420); Red Blood Count 3.14 M/mm3 (4.20-5.40); Red Cell Distribution Width 15.6 % (11.6-14.4); White Blood Count 10.6 K/mm3 (4.8-10.8)
[2021-12-01 12:03] LABS: Band Neutrophils Percent 6 % (0-6); Basophils Percent Manual 0 % (0-1); Eosinophils Percent Manual 0 % (1-6); Lymphocytes Percent Manual 18 % (18-44); Metamyelocytes Percent 6 %; Monocytes Absolute Manual 0.42 K/mm3 (0.1-0.90); Monocytes Percent Manual 4 % (3-9); Myelocytes Percent 5 %; Neutrophils Percent Manual 61 % (46-73); Platelet Estimate Adequate (Adequate); Total Cells Counted 100
== END 2021-12-01 11:11 | disposition home or self-care (01) ==
LOC: CHSLAB 11:14
PROVIDERS: PCP Internal Medicine; Visit Provider Internal Medicine
DX: R05.9 Cough, unspecified (principal)
CPT/HCPCS: 36415; 71046; 85025

== ENCOUNTER 2021-12-18 13:18 | Outpatient (CLI) | payer MEDICARE, SELFPAY ==
--- NOTE | ~2021-12-18 | XR_ITS ---
EXAMINATION: XR chest 2V 12/18/2021 13:38 INDICATION: Cough. Upper respiratory infection. PROCEDURE: 2 view chest COMPARISON: Comparison to multiple prior studies sequentially, with oldest reviewed study dated 12/19. FINDINGS: The lungs are clear. The cardiomediastinal silhouette is within normal limits. There are no pleural effusions. There is no pneumothorax suspected. IMPRESSION: 1: NO ACUTE CARDIOPULMONARY DISEASE. Reviewed, dictated and finalized at location A.
[2021-12-18 13:30] LABS: Basophils Absolute Auto 0.02 K/mm3 (0.00-0.10); Basophils Percent Auto 0.3 % (0.0-1.0); Eosinophils Absolute Auto 0.15 K/mm3 (0.02-0.50); Eosinophils Percent Auto 2.6 % (1.0-6.0); Hematocrit 34.7 % (35.0-49.0); Hemoglobin 11.3 g/dL (12.0-15.0); Immature Granulocyte Absolute 0.01 K/mm3 (0.00-0.00); Immature Granulocyte Percent A 0.2 % (0.0-0.0); Lymphocytes Percent Auto 31.1 % (18.0-42.0); Mean Corpuscular HGB Conc 32.6 g/dL (32.0-36.0); Mean Corpuscular Hemoglobin 32.8 pg (27.0-31.0); Mean Corpuscular Volume 100.6 fL (78.0-102.0); Mean Platelet Volume 9.4 fl (9.2-11.8); Monocytes Absolute Auto 0.56 K/mm3 (0.10-0.90); Monocytes Percent Auto 9.7 % (2.0-11.0); Neutrophils Absolute Auto 3.2 K/mm3 (1.7-7.2); Neutrophils Percent Auto 56.1 % (50.0-70.0); Platelet Count Result 236 K/mm3 (150-420); Red Blood Count 3.45 M/mm3 (4.20-5.40); Red Cell Distribution Width 14.6 % (11.6-14.4); White Blood Count 5.8 K/mm3 (4.8-10.8)
[2021-12-18 13:54] LABS: Strep Group A RT-PCR Negative (Negative)
[2021-12-18 14:07] LABS: SARS-CoV-2 RNA PCR Negative (Negative)
[2021-12-18 14:49] LABS: Influenza A QL RT-PCR Negative (Negative); Influenza B QL RT-PCR Negative (Negative)
== END 2021-12-18 13:19 | disposition home or self-care (01) ==
LOC: CHSIMG 13:20
PROVIDERS: PCP Internal Medicine; Visit Provider Internal Medicine
DX: R05.9 Cough, unspecified (principal); J06.9 Acute upper respiratory infection, unspecified; Z20.822 Contact with and (suspected) exposure to COVID-19
CPT/HCPCS: 36415; 71046; 85025; 87502; 87651; C9803; U0003; U0005

== ENCOUNTER 2022-02-11 07:05 | Outpatient (CLI) | payer MEDICARE, SELFPAY ==
[2022-02-11 07:31] LABS: Basophils Absolute Auto 0.02 K/mm3 (0.00-0.10); Basophils Percent Auto 0.3 % (0.0-1.0); Eosinophils Absolute Auto 0.16 K/mm3 (0.02-0.50); Eosinophils Percent Auto 2.4 % (1.0-6.0); Hematocrit 36.1 % (35.0-49.0); Hemoglobin 11.7 g/dL (12.0-15.0); Immature Granulocyte Absolute 0.02 K/mm3 (0.00-0.00); Immature Granulocyte Percent A 0.3 % (0.0-0.0); Lymphocytes Absolute Auto 1.69 K/mm3 (1.10-4.50); Lymphocytes Percent Auto 25.4 % (18.0-42.0); Mean Corpuscular HGB Conc 32.4 g/dL (32.0-36.0); Mean Corpuscular Hemoglobin 31.5 pg (27.0-31.0); Mean Platelet Volume 9.5 fl (9.2-11.8); Monocytes Absolute Auto 0.46 K/mm3 (0.10-0.90); Monocytes Percent Auto 6.9 % (2.0-11.0); Neutrophils Absolute Auto 4.3 K/mm3 (1.7-7.2); Neutrophils Percent Auto 64.7 % (50.0-70.0); Platelet Count Result 238 K/mm3 (150-420); Red Blood Count 3.72 M/mm3 (4.20-5.40); Red Cell Distribution Width 12.3 % (11.6-14.4); White Blood Count 6.7 K/mm3 (4.8-10.8)
[2022-02-11 07:46] LABS: Add Urine Microscopic? YES; Appearance Urine Clear (Clear); Bilirubin Urine Negative (Negative); Blood Urine Negative (Negative); Color Urine Yellow (Yellow); Glucose Urine UA Negative (Negative); Ketones Urine Negative (Negative); Leukocyte Esterase Ur Trace LEU/UL (Negative); Nitrate Urine Negative (Negative); Protein Urine Negative (Negative); Specific Grav Ur <= 1.005 (1.010-1.020); Urobilinogen Urine 0.2 mg/dL (0.2-1.0)
[2022-02-11 07:50] LABS: Hemoglobin A1C 5.7 % (<5.7)
[2022-02-11 08:08] LABS: Bacteria Urine Trace /hpf; RBC Urine None seen /hpf (0-2); Squamous Epithelial Cell Urine Moderate /hpf (Few); WBC Urine 0-3 /hpf (0-3)
[2022-02-11 08:23] LABS: Alanine Aminotransferase 24 U/L (14-59); Albumin Level 3.5 g/dL (3.4-5.0); Alkaline Phosphatase 108 U/L (46-116); Anion Gap 7 mmol/L (8-16); Aspartate Amino Transferase 17 U/L (15-37); Bilirubin,Total 0.2 mg/dL (0.00-1.00); Blood Urea Nitrogen 10 mg/dL (7-18); Calcium 8.7 mg/dL (8.5-10.1); Carbon Dioxide 31 mmol/L (21-32); Chloride 101 mmol/L (98-108); Cholesterol 185 mg/dL (0-200); Creatine Kinase 66 U/L (26-192); Estimated Glomerular Filt Rate > 60; Ferritin 38 ng/mL (8-252); Free T3 2.45 pg/mL (2.18-3.98); Free T4 Free Thyroxine 0.89 ng/dL (0.76-1.46); Glucose 112 mg/dL (70-99); HDL Direct 45 mg/dL (40-60); Iron 53 ug/dL (50-170); LDL Cholesterol Calculated 91 mg/dL (<130); NT Pro B Type Natriuretic Pept 128 pg/mL (0-125); Osmolality Calculated 288 mOsm/kg (285-295); Percent Iron Saturation 21 % (12-57); Sodium 139 mmol/L (136-145); Thyroid Stimulating Hormone 1.33 uIU/mL (0.36-3.74); Total Protein 6.9 g/dL (6.4-8.2); Triglycerides 246 mg/dL (0-150); Vitamin B12 275 pg/mL (193-986)
[2022-02-16 12:19] LABS: Vitamin D 25 Hydroxy 38 ng/mL (30-100)
== END 2022-02-11 07:06 | disposition home or self-care (01) ==
LOC: CHSLAB 07:07
PROVIDERS: PCP Internal Medicine; Visit Provider Internal Medicine
DX: E78.2 Mixed hyperlipidemia (principal); E11.9 Type 2 diabetes mellitus without complications; I10 Essential (primary) hypertension; G35 Multiple sclerosis; N30.01 Acute cystitis with hematuria; I50.9 Heart failure, unspecified; E61.1 Iron deficiency; E55.9 Vitamin D deficiency, unspecified
CPT/HCPCS: 36415; 80053; 80061; 81001; 82306; 82550; 82607; 82728; 83036; 83540; 83550; 83880; 84439; 84443; 84481; 85025

== ENCOUNTER 2022-08-02 15:00 | Outpatient (CLI) | payer MEDICARE, SELFPAY ==
--- NOTE | ~2022-08-02 | XR_ITS ---
EXAM: XR knee LT 3V DATE: 08/02/2022 15:24 HISTORY: fall 3 days ago with ant knee pain and difficulty bending . COMPARISON: None available. FINDINGS: Decreased mineralization. Vertically oriented nondisplaced fracture of the patella. No lyt ic or blastic lesion. Moderate left knee osteoarthritis. Quadriceps enthesopathy. No erosion or perio steal change. Mild anterior soft tissue swelling. Moderate volume joint fluid. IMPRESSION: Vertically oriented, nondisplaced fracture of the left patella. Moderate left knee joint effusion. Reviewed, dictated and finalized at location K. IMPRESSION: Vertically oriented, nondisplaced fracture of the left patella. Mod erate left knee joint effusion.
== END 2022-08-02 15:01 | disposition home or self-care (01) ==
PROVIDERS: PCP Internal Medicine; Visit Provider Internal Medicine
DX: S82.092A Other fracture of left patella, initial encounter for closed fracture (principal); M25.462 Effusion, left knee
CPT/HCPCS: 73562

== ENCOUNTER 2022-08-30 10:03 | Outpatient (CLI) | payer MEDICARE, SELFPAY ==
--- NOTE | ~2022-08-30 | XR_ITS ---
Left Knee Technique: AP, lateral, and sunrise views were obtained. Clinical History: Patellar fracture COMPARISON: 08/02/2022 Findings: Vertically oriented nondisplaced fracture of the lateral aspect of the patella again noted on sunrise view, with partial interval healing. Osseous alignment is anatomic. Minimal tricompartment al degenerative change noted. Soft tissues are unremarkable. No joint effusion is seen. Impression: Healing vertically oriented fracture of the patella, nondisplaced. Mild tricompartmental degenerative change. Reviewed, dictated and finalized at location M. Impression: Healing vertically oriented fracture of the patella, nondisplaced. Mild tricompartmental degenerative change.
[2022-08-30 10:20] LABS: Basophils Absolute Auto 0.02 K/mm3 (0.00-0.10); Basophils Percent Auto 0.3 % (0.0-1.0); Eosinophils Absolute Auto 0.08 K/mm3 (0.02-0.50); Eosinophils Percent Auto 1.3 % (1.0-6.0); Hematocrit 35.1 % (35.0-49.0); Hemoglobin 11.6 g/dL (12.0-15.0); Immature Granulocyte Absolute 0.02 K/mm3 (0.00-0.00); Immature Granulocyte Percent A 0.3 % (0.0-0.0); Lymphocytes Absolute Auto 2.07 K/mm3 (1.10-4.50); Lymphocytes Percent Auto 34.6 % (18.0-42.0); Mean Corpuscular Hemoglobin 32.1 pg (27.0-31.0); Mean Corpuscular Volume 97.2 fL (78.0-102.0); Mean Platelet Volume 9.1 fl (9.2-11.8); Monocytes Absolute Auto 0.32 K/mm3 (0.10-0.90); Monocytes Percent Auto 5.3 % (2.0-11.0); Neutrophils Absolute Auto 3.5 K/mm3 (1.7-7.2); Neutrophils Percent Auto 58.2 % (50.0-70.0); Platelet Count Result 194 K/mm3 (150-420); Red Blood Count 3.61 M/mm3 (4.20-5.40); Red Cell Distribution Width 13.1 % (11.6-14.4)
[2022-08-30 10:28] LABS: Appearance Urine Clear (Clear); Bilirubin Urine Negative (Negative); Blood Urine Negative (Negative); Color Urine Yellow (Yellow); Glucose Urine UA Negative (Negative); Ketones Urine Negative (Negative); Leukocyte Esterase Ur 1+ LEU/UL (Negative); Nitrate Urine Negative (Negative); Protein Urine Negative (Negative); Urobilinogen Urine 0.2 mg/dL (0.2-1.0); pH Urine 6.5 (5.0-8.0)
[2022-08-30 10:41] LABS: Add Urine Microscopic? YES; RBC Urine None seen /hpf (0-2)
[2022-08-30 10:42] LABS: Bacteria Urine 1+ /hpf; Renal Epithelial Cells Urine Few /hpf; Squamous Epithelial Cell Urine Few /hpf (Few)
[2022-08-30 11:20] LABS: Alanine Aminotransferase 27 U/L (14-59); Albumin Level 3.4 g/dL (3.4-5.0); Alkaline Phosphatase 84 U/L (46-116); Anion Gap 8 mmol/L (8-16); Aspartate Amino Transferase 17 U/L (15-37); Bilirubin,Total 0.3 mg/dL (0.00-1.00); Blood Urea Nitrogen 9 mg/dL (7-18); Calcium 8.6 mg/dL (8.5-10.1); Carbon Dioxide 31 mmol/L (21-32); Chloride 106 mmol/L (98-108); Cholesterol 165 mg/dL (0-200); Creatine Kinase 69 U/L (26-192); Estimated Glomerular Filt Rate > 60; Ferritin 39 ng/mL (8-252); Glucose 119 mg/dL (70-99); HDL Direct 44 mg/dL (40-60); Iron 56 ug/dL (50-170); LDL Cholesterol Calculated 87 mg/dL (<130); Osmolality Calculated 299 mOsm/kg (285-295); Sodium 145 mmol/L (136-145); Total Protein 7.2 g/dL (6.4-8.2); Triglycerides 172 mg/dL (0-150)
[2022-08-30 11:30] LABS: Hemoglobin A1C 5.8 % (<5.7)
[2022-09-02 17:04] LABS: Vitamin D 25 Hydroxy 39 ng/mL (30-100)
== END 2022-08-30 10:04 | disposition home or self-care (01) ==
LOC: CHSLAB 10:06
PROVIDERS: PCP Internal Medicine; Visit Provider Internal Medicine
DX: E78.2 Mixed hyperlipidemia (principal); E11.42 Type 2 diabetes mellitus with diabetic polyneuropathy; E55.9 Vitamin D deficiency, unspecified; E61.1 Iron deficiency; N39.0 Urinary tract infection, site not specified; S82.002D Unspecified fracture of left patella, subsequent encounter for closed fracture with routine healing
CPT/HCPCS: 36415; 73562; 80053; 80061; 81001; 82306; 82550; 82728; 83036; 83540; 85025; 87077; 87086; 87088; 87186

== ENCOUNTER 2022-09-22 10:28 | Outpatient (CLI) | payer MEDICARE, SELFPAY ==
--- NOTE | ~2022-09-22 | XR_ITS ---
EXAMINATION: XR patella LT DATE: 09/22/2022 10:59 INDICATION: Follow-up patellar fracture from one month prior TECHNIQUE: Lateral and sunrise views of the left patella were obtained. COMPARISON: 08/30/2022 and 08/02/2022 FINDINGS: Again seen is a minimally displaced sagittally oriented fracture at the lateral side of the lateral p atellar facet. There is approximately 1.5 mm fracture gap and 1 mm step-off along the articular armida x. Continued decreasing lucency along the fracture plane suggesting interval healing. No other fractu res identified. Small patellar marginal osteophytes consistent with mild patellofemoral osteoarthriti s. Enthesophytes at the patellar insertion of the distal quadriceps tendon and at the anterior tibial tuberosity insertion of the distal patellar tendon. No left knee joint effusion. IMPRESSION: 1. No significant change in minimal displacement of a healing intra-articular fracture at the lateral patellar facet. Reviewed, dictated and finalized at location B. IMPRESSION: 1. No significant change in minimal displacement of a healing intra-articular f racture at the lateral patellar facet.
== END 2022-09-22 10:29 | disposition home or self-care (01) ==
LOC: CHSIMG 10:31
PROVIDERS: PCP Internal Medicine; Visit Provider Internal Medicine
DX: S82.002D Unspecified fracture of left patella, subsequent encounter for closed fracture with routine healing (principal)
CPT/HCPCS: 73560

== ENCOUNTER 2022-11-10 17:59 | Outpatient (CLI) | payer MEDICARE, SELFPAY ==
[2022-11-10 18:20] LABS: Basophils Absolute Auto 0.03 K/mm3 (0.00-0.10); Basophils Percent Auto 0.4 % (0.0-1.0); Eosinophils Absolute Auto 0.25 K/mm3 (0.02-0.50); Eosinophils Percent Auto 3.2 % (1.0-6.0); Immature Granulocyte Absolute 0.03 K/mm3 (0.00-0.00); Immature Granulocyte Percent A 0.4 % (0.0-0.0); Lymphocytes Absolute Auto 2.56 K/mm3 (1.10-4.50); Lymphocytes Percent Auto 33.2 % (18.0-42.0); Mean Corpuscular HGB Conc 32.4 g/dL (32.0-36.0); Mean Corpuscular Hemoglobin 32.3 pg (27.0-31.0); Mean Corpuscular Volume 99.7 fL (78.0-102.0); Mean Platelet Volume 9.1 fl (9.2-11.8); Monocytes Absolute Auto 0.47 K/mm3 (0.10-0.90); Monocytes Percent Auto 6.1 % (2.0-11.0); Neutrophils Absolute Auto 4.4 K/mm3 (1.7-7.2); Neutrophils Percent Auto 56.7 % (50.0-70.0); Platelet Count Result 229 K/mm3 (150-420); Red Blood Count 3.71 M/mm3 (4.20-5.40); Red Cell Distribution Width 12.8 % (11.6-14.4); White Blood Count 7.7 K/mm3 (4.8-10.8)
[2022-11-10 18:21] LABS: Appearance Urine Clear (Clear); Bilirubin Urine Negative (Negative); Blood Urine Negative (Negative); Color Urine Light Yellow (Yellow); Glucose Urine UA Negative (Negative); Ketones Urine Negative (Negative); Leukocyte Esterase Ur 3+ (Negative); Nitrate Urine Positive (Negative); Protein Urine Negative (Negative); Urobilinogen Urine 0.2 mg/dL (0.2-1.0)
[2022-11-10 18:27] LABS: Add Urine Microscopic? YES; Bacteria Urine 3+ /hpf; RBC Urine 0-2 /hpf (0-2); Squamous Epithelial Cell Urine Rare /hpf (Few)
[2022-11-10 19:09] LABS: Alanine Aminotransferase 31 U/L (14-59); Albumin Level 3.3 g/dL (3.4-5.0); Alkaline Phosphatase 92 U/L (46-116); Anion Gap 8 mmol/L (8-16); Aspartate Amino Transferase 14 U/L (15-37); Bilirubin,Total 0.2 mg/dL (0.00-1.00); Blood Urea Nitrogen 11 mg/dL (7-18); Calcium 8.4 mg/dL (8.5-10.1); Carbon Dioxide 31 mmol/L (21-32); Chloride 101 mmol/L (98-108); Estimated Glomerular Filt Rate > 60; Ferritin 34 ng/mL (8-252); Free T3 2.44 pg/mL (2.18-3.98); Free T4 Free Thyroxine 0.77 ng/dL (0.76-1.46); Glucose 109 mg/dL (70-99); Iron 47 ug/dL (50-170); Magnesium 2.1 mg/dL (1.8-2.4); NT Pro B Type Natriuretic Pept 127 pg/mL (0-125); Osmolality Calculated 290 mOsm/kg (285-295); Sodium 140 mmol/L (136-145); Thyroid Stimulating Hormone 0.77 uIU/mL (0.36-3.74)
--- NOTE | 2022-12-13 11:54 | WPDHOLTEREM ---
Holter/Event Monitor Holter/Event Monitor Date of procedure: 11/10/22 Holter/Event Procedure: Event Monitor Indications: Palpitations Conclusion: 1. 30 day event monitor between 11/10/22-12/09/22. Th is a symptom or auto trigger monitor only. There are 4 available transmissions for analysis. 2. Underlying rhythm is sinus rhythm. HR range 83-101 bpm. 3. There are no premature supraventricular complexes. No supraventricular tachycardia. 4. There are 2 episodes of premature ventricular complexes. No ventricular tachycardia. 5. No significant pauses greater than 2 seconds. 6. Patient reports 1 episode of symptom other than listed which demonstrates sinus rhythm at 98 bpm with a PVC.
== END 2022-11-10 18:00 | disposition home or self-care (01) ==
LOC: CHSLAB 18:02
PROVIDERS: PCP Internal Medicine; Visit Provider Internal Medicine
DX: R00.2 Palpitations (principal); E61.1 Iron deficiency; I42.9 Cardiomyopathy, unspecified; R30.0 Dysuria; I50.9 Heart failure, unspecified
CPT/HCPCS: 36415; 80053; 81001; 82728; 83540; 83735; 83880; 84439; 84443; 84481; 85025; 87077; 87086; 87088; 87186; 93270

== ENCOUNTER 2023-03-01 10:02 | Outpatient (CLI) | payer MEDICARE, SELFPAY ==
[2023-03-01 10:27] LABS: Appearance Urine Clear (Clear); Basophils Absolute Auto 0.03 K/mm3 (0.00-0.10); Basophils Percent Auto 0.4 % (0.0-1.0); Bilirubin Urine 1+ (Negative); Blood Urine Negative (Negative); Eosinophils Absolute Auto 0.16 K/mm3 (0.02-0.50); Eosinophils Percent Auto 2.4 % (1.0-6.0); Glucose Urine UA Negative (Negative); Hematocrit 38.4 % (35.0-49.0); Hemoglobin 12.9 g/dL (12.0-15.0); Immature Granulocyte Absolute 0.03 K/mm3 (0.00-0.00); Immature Granulocyte Percent A 0.4 % (0.0-0.0); Ketones Urine Trace (Negative); Leukocyte Esterase Ur Trace LEU/UL (Negative); Lymphocytes Absolute Auto 2.19 K/mm3 (1.10-4.50); Lymphocytes Percent Auto 32.6 % (18.0-42.0); Mean Corpuscular HGB Conc 33.6 g/dL (32.0-36.0); Mean Corpuscular Hemoglobin 32.4 pg (27.0-31.0); Mean Corpuscular Volume 96.5 fL (78.0-102.0); Mean Platelet Volume 9.1 fl (9.2-11.8); Monocytes Absolute Auto 0.41 K/mm3 (0.10-0.90); Monocytes Percent Auto 6.1 % (2.0-11.0); Neutrophils Absolute Auto 3.9 K/mm3 (1.7-7.2); Neutrophils Percent Auto 58.1 % (50.0-70.0); Nitrate Urine Negative (Negative); Platelet Count Result 224 K/mm3 (150-420); Protein Urine 1+ (Negative); Red Blood Count 3.98 M/mm3 (4.20-5.40); Red Cell Distribution Width 12.2 % (11.6-14.4); Urobilinogen Urine 0.2 mg/dL (0.2-1.0); White Blood Count 6.7 K/mm3 (4.8-10.8); pH Urine 6.5 (5.0-8.0)
[2023-03-01 10:30] LABS: Add Urine Microscopic? YES; Bacteria Urine Trace /hpf; Color Urine Dark Yellow (Yellow); RBC Urine None seen /hpf (0-2); Renal Epithelial Cells Urine Few /hpf; Squamous Epithelial Cell Urine Few /hpf (Few); WBC Urine 0-3 /hpf (0-3)
[2023-03-01 10:43] LABS: Hemoglobin A1C 5.3 % (<5.7)
[2023-03-01 11:07] LABS: Alanine Aminotransferase 27 U/L (14-59); Albumin Level 3.5 g/dL (3.4-5.0); Alkaline Phosphatase 91 U/L (46-116); Anion Gap 9 mmol/L (8-16); Aspartate Amino Transferase 20 U/L (15-37); Bilirubin,Total 0.3 mg/dL (0.00-1.00); Blood Urea Nitrogen 11 mg/dL (7-18); Calcium 9.1 mg/dL (8.5-10.1); Carbon Dioxide 30 mmol/L (21-32); Chloride 101 mmol/L (98-108); Cholesterol 179 mg/dL (0-200); Creatine Kinase 59 U/L (26-192); Estimated Glomerular Filt Rate > 60; Ferritin 47 ng/mL (8-252); Glucose 112 mg/dL (70-99); HDL Direct 41 mg/dL (40-60); Iron 64 ug/dL (50-170); LDL Cholesterol Calculated 94 mg/dL (<130); Osmolality Calculated 290 mOsm/kg (285-295); Sodium 140 mmol/L (136-145); Triglycerides 221 mg/dL (0-150)
[2023-03-03 12:19] LABS: Vitamin D 25 Hydroxy 38 ng/mL (30-100)
== END 2023-03-01 10:03 | disposition home or self-care (01) ==
PROVIDERS: PCP Internal Medicine; Visit Provider Internal Medicine
DX: N39.0 Urinary tract infection, site not specified (principal); E78.2 Mixed hyperlipidemia; E11.42 Type 2 diabetes mellitus with diabetic polyneuropathy; E55.9 Vitamin D deficiency, unspecified; E61.1 Iron deficiency
CPT/HCPCS: 36415; 80053; 80061; 81001; 82306; 82550; 82728; 83036; 83540; 85025

== ENCOUNTER 2023-08-31 07:40 | Outpatient (CLI) | payer MEDICARE, SELFPAY ==
[2023-08-31 08:19] LABS: Basophils Absolute Auto 0.03 K/mm3 (0.00-0.10); Basophils Percent Auto 0.4 % (0.0-1.0); Eosinophils Absolute Auto 0.13 K/mm3 (0.02-0.50); Eosinophils Percent Auto 1.8 % (1.0-6.0); Hematocrit 37.4 % (35.0-49.0); Hemoglobin 12.2 g/dL (12.0-15.0); Immature Granulocyte Absolute 0.02 K/mm3 (0.00-0.00); Immature Granulocyte Percent A 0.3 % (0.0-0.0); Lymphocytes Absolute Auto 2.62 K/mm3 (1.10-4.50); Lymphocytes Percent Auto 36.7 % (18.0-42.0); Mean Corpuscular HGB Conc 32.6 g/dL (32-36); Mean Corpuscular Hemoglobin 32.2 pg (27.0-31.0); Mean Corpuscular Volume 98.7 fL (78.0-102.0); Mean Platelet Volume 9.3 fl (9.2-11.8); Monocytes Absolute Auto 0.44 K/mm3 (0.10-0.90); Monocytes Percent Auto 6.2 % (2.0-11.0); Neutrophils Percent Auto 54.6 % (50.0-70.0); Platelet Count Result 243 K/mm3 (150-420); Red Blood Count 3.79 M/mm3 (4.20-5.40); Red Cell Distribution Width 12.5 % (11.6-14.4); White Blood Count 7.1 K/mm3 (4.8-10.8)
[2023-08-31 08:29] LABS: Appearance Urine Clear (Clear); Bilirubin Urine 1+ (Negative); Blood Urine Negative (Negative); Color Urine Dark Yellow (Yellow); Glucose Urine UA Negative (Negative); Ketones Urine Trace (Negative); Leukocyte Esterase Ur 1+ LEU/UL (Negative); Nitrate Urine Negative (Negative); Protein Urine Trace (Negative); Specific Grav Ur 1.015 (1.010-1.020); Urobilinogen Urine 0.2 mg/dL (0.2-1.0)
[2023-08-31 08:44] LABS: Add Urine Microscopic? YES; Bacteria Urine 1+ /hpf; RBC Urine 0-2 /hpf (0-2); Squamous Epithelial Cell Urine Few /hpf (Few); WBC Urine 0-3 /hpf (0-3)
[2023-08-31 15:17] LABS: Alanine Aminotransferase 27 U/L (14-59); Albumin Level 3.4 g/dL (3.4-5.0); Alkaline Phosphatase 74 U/L (46-116); Anion Gap 4 mmol/L (4-12); Aspartate Amino Transferase 17 U/L (15-37); Bilirubin,Total 0.2 mg/dL (0.00-1.00); Blood Urea Nitrogen 8 mg/dL (7-18); Calcium 8.4 mg/dL (8.5-10.1); Carbon Dioxide 33 mmol/L (21-32); Chloride 105 mmol/L (98-108); Cholesterol 187 mg/dL (0-200); Creatine Kinase 57 U/L (26-192); Estimated Glomerular Filt Rate > 60; Free T3 2.45 pg/mL (2.18-3.98); Free T4 Free Thyroxine 0.72 ng/dL (0.76-1.46); Glucose 102 mg/dL (70-99); HDL Direct 51 mg/dL (40-60); LDL Cholesterol Calculated 99 mg/dL (<130); NT Pro B Type Natriuretic Pept 133 pg/mL (0-125); Osmolality Calculated 292 mOsm/kg (285-295); Potassium 4.1 mmol/L (3.5-5.1); Sodium 142 mmol/L (136-145); Thyroid Stimulating Hormone 1.55 uIU/mL (0.36-3.74); Total Protein 6.5 g/dL (6.4-8.2); Triglycerides 184 mg/dL (0-150)
[2023-08-31 15:51] LABS: Hemoglobin A1C 5.4 % (<5.7)
[2023-09-02 02:00] LABS: Vitamin D 25 Hydroxy 44 ng/mL (30-100)
== END 2023-08-31 07:41 | disposition home or self-care (01) ==
LOC: CHSLAB 07:46
PROVIDERS: PCP Internal Medicine; Visit Provider Internal Medicine
DX: E78.2 Mixed hyperlipidemia (principal); E11.9 Type 2 diabetes mellitus without complications; I10 Essential (primary) hypertension; I42.9 Cardiomyopathy, unspecified; I50.9 Heart failure, unspecified; G35 Multiple sclerosis; E61.1 Iron deficiency; R30.0 Dysuria; E11.42 Type 2 diabetes mellitus with diabetic polyneuropathy; E55.9 Vitamin D deficiency, unspecified; N39.0 Urinary tract infection, site not specified; R82.90 Unspecified abnormal findings in urine
CPT/HCPCS: 36415; 80053; 80061; 81001; 82306; 82550; 83036; 83880; 84439; 84443; 84481; 85025; 87086

== ENCOUNTER 2024-02-01 16:31 | Outpatient (CLI) | payer MEDICARE, SELFPAY ==
[2024-02-01 16:59] LABS: Hematocrit 38.6 % (35.0-49.0); Hemoglobin 12.7 g/dL (12.0-15.0); Mean Corpuscular HGB Conc 32.9 g/dL (32-36); Mean Corpuscular Hemoglobin 31.9 pg (27.0-31.0); Mean Platelet Volume 9.3 fl (9.2-11.8); Platelet Count Result 235 K/mm3 (150-420); Red Blood Count 3.98 M/mm3 (4.20-5.40); Red Cell Distribution Width 12.2 % (11.6-14.4); White Blood Count 8.1 K/mm3 (4.8-10.8)
[2024-02-01 17:33] LABS: Alanine Aminotransferase 27 U/L (14-59); Albumin Level 3.8 g/dL (3.4-5.0); Alkaline Phosphatase 87 U/L (46-116); Anion Gap 6 mmol/L (4-12); Aspartate Amino Transferase 19 U/L (15-37); Bilirubin,Total 0.2 mg/dL (0.00-1.00); Blood Urea Nitrogen 11 mg/dL (7-18); Carbon Dioxide 37 mmol/L (21-32); Chloride 100 mmol/L (98-108); Estimated Glomerular Filt Rate > 60; Glucose 92 mg/dL (70-99); Osmolality Calculated 295 mOsm/kg (285-295); Potassium 3.9 mmol/L (3.5-5.1); Sodium 143 mmol/L (136-145); Total Protein 7.3 g/dL (6.4-8.2)
== END 2024-02-01 16:32 | disposition home or self-care (01) ==
LOC: CHSLAB 16:32
PROVIDERS: PCP Internal Medicine; Visit Provider Internal Medicine
DX: R10.31 Right lower quadrant pain (principal)
CPT/HCPCS: 36415; 80053; 85027

== ENCOUNTER 2024-02-03 07:21 | Outpatient (CLI) | payer MEDICARE, SELFPAY ==
--- NOTE | ~2024-02-03 | CT_ITS ---
EXAMINATION: CT abdomen pelvis w con DATE: 02/03/2024 08:05 INDICATION: Right lower quadrant abdominal pain TECHNIQUE: Computed tomography (CT) of the abdomen and pelvis was performed with 100 mL Omnipaque-350 intravenous contrast. Automated exposure control and iterative reconstruction technique were employe d. The dose-length product was 1098.36 mGy-cm. COMPARISON: 06/12/2021 FINDINGS: Minimal discoid atelectasis/scarring at the lingula. Arch size normal. No pericardial or pleural effu audra. Ill-defined approximately 1.4 cm hypodense lesion in segment IVb of the liver. Gallbladder surg ically absent. Spleen, pancreas and bilateral adrenal glands are normal. Bilateral renal cysts the la rgest on the right measuring 1.5 cm. Small fat-containing umbilical and 2 separate supraumbilical mathew tral hernias. There are few scattered colonic diverticula without adjacent inflammatory stranding. No bowel obstruction. The appendix is not visualized. No pericecal inflammatory change to suggest acute appendicitis. Bladder, anteverted uterus and bilateral adnexa are unremarkable. No free intraperiton eal gas or fluid. No pathologically enlarged abdominal or pelvic lymphadenopathy. Mild lumbar and low er thoracic spondylosis.. IMPRESSION: 1. No acute intra-abdominal/pelvic process. 2. Indeterminate 1.4 cm subtle hypodense lesion in segment IVb of the liver. Recommend further evalua tion with pre and postcontrast MRI. 3. Small fat-containing umbilical and supraumbilical ventral hernias. Reviewed, dictated and finalized at location B. IMPRESSION: 1. No acute intra-abdominal/pelvic process. 2. Indeterminate 1.4 cm subtle hypodense lesion in segment IVb of the liver. Re commend further evaluation with pre and postcontrast MRI. 3. Small fat-containing umbilical and supraumbilical ventral hernias.
== END 2024-02-03 07:22 | disposition home or self-care (01) ==
LOC: CHSIMG 07:23
PROVIDERS: PCP Internal Medicine; Visit Provider Internal Medicine
DX: R10.31 Right lower quadrant pain (principal); K76.9 Liver disease, unspecified; K42.9 Umbilical hernia without obstruction or gangrene
CPT/HCPCS: 74177; Q9967

== ENCOUNTER 2024-02-09 08:12 | Outpatient (CLI) | payer MEDICARE, SELFPAY ==
--- NOTE | ~2024-02-09 | MR_ITS ---
EXAMINATION: MR abdomen wo/w con DATE: 02/09/2024 11:49 INDICATION: Liver lesion. 6 weeks of right upper quadrant abdominal pain. TECHNIQUE: Magnetic resonance imaging (MRI) of the abdomen was performed without and with 20 mL Multi marcial intravenous contrast. Sequences included coronal T2-weighted SS-FSE, coronal and axial FS 2D-F IESTA, axial STIR FSE, axial T2-weighted SS-FSE, axial T2-weighted FS SS-FSE, axial diffusion-weighte d SE, axial dual-echo T1-weighted FSPGR, and axial and coronal T1-weighted LAVA. Postcontrast axial T 1-weighted LAVA images were obtained in a time course. Postcontrast coronal T1-weighted LAVA images w ere obtained. COMPARISON: CT dated 02/03/2024 FINDINGS: Heart size is normal. No pericardial or pleural effusion. Small region of signal dropout on opposed p hase images in segment IVb of the liver corresponding to the hypodense region on prior CT consistent with focal hepatic steatosis. Liver is otherwise normal with no abnormally enhancing lesions. Status post cholecystectomy. Spleen, pancreas and bilateral adrenal glands are normal. Again seen are bilate ral T2 hyperintense nonenhancing renal cysts. No bowel obstruction. No pathologically enlarged abdomi nal lymphadenopathy. Bones are unremarkable with normal marrow signal throughout. Again seen are smal l fat-containing umbilical and supraumbilical ventral hernias. IMPRESSION: 1. Small region of signal dropout on opposed phase images correspond to the hypodense lesion in segme nt IVb of the liver consistent with focal hepatic steatosis. Reviewed, dictated and finalized at location B. IMPRESSION: 1. Small region of signal dropout on opposed phase images correspond to the hyp odense lesion in segment IVb of the liver consistent with focal hepatic steatos is.
== END 2024-02-09 08:13 | disposition home or self-care (01) ==
LOC: CHSIMG 08:15
PROVIDERS: PCP Internal Medicine; Visit Provider Internal Medicine
DX: K76.9 Liver disease, unspecified (principal)
CPT/HCPCS: 74183; A9577

== ENCOUNTER 2024-02-23 08:28 | Outpatient (CLI) | payer MEDICARE, SELFPAY ==
--- NOTE | ~2024-02-23 | MR_ITS ---
MRI of the lumbar spine Clinical History: Back pain Technique: Axial T2-weighted images, and sagittal T1-weighted, T2-weighted, and T2 fat-sat images wer e acquired. Findings: There is no fracture or subluxation of the lumbar spine. Vertebral bodies maintain normal h eight and alignment. There is intraosseous hemangioma in the L1 vertebral body. No suspicious bone ma rrow signal abnormality seen. At L1-L2, there is no disc bulge or herniation. No spinal canal stenosis or neural foraminal narrowin g. At L2-L3, there is no significant disc bulge or herniation. No spinal canal stenosis or neural forami nal narrowing. At L3-L4, there is minimal disc bulge and mild facet arthropathy. No central canal stenosis or neural foraminal narrowing. At L4-L5, there is minimal disc bulge with moderate facet arthropathy. No stephan central canal stenosi s or neural foraminal narrowing. At L5-S1, there is mild disc bulge and mild facet arthropathy. No central canal stenosis or definite neural foraminal narrowing. Paravertebral soft tissues are unremarkable. Impression: Mild degenerative spondylosis. Reviewed, dictated and finalized at location . Impression: Mild degenerative spondylosis.
--- NOTE | ~2024-02-23 | MR_ITS ---
MRI of the thoracic spine Clinical History: Back pain Technique: Axial T2-weighted and gradient images, and sagittal T1-weighted, T2-weighted, and STIR ap ges were acquired. Findings: There is no fracture or subluxation of the thoracic spine. Vertebral bodies maintain normal height and alignment. No bone marrow signal abnormality seen. Intervertebral disc spaces are relatively well preserved throughout the thoracic spine. No significan t disc bulge or herniation identified. No spinal canal stenosis or cord compression identified. Neura l foramina are preserved. No abnormal signal seen in the spinal cord. Paravertebral soft tissues are unremarkable. Impression: Unremarkable exam. Reviewed, dictated and finalized at location . Impression: Unremarkable exam.
== END 2024-02-23 08:29 | disposition home or self-care (01) ==
LOC: CHSIMG 08:30
PROVIDERS: PCP Internal Medicine; Visit Provider Internal Medicine
DX: M54.50 Low back pain, unspecified (principal); M43.06 Spondylolysis, lumbar region
CPT/HCPCS: 72146; 72148

== ENCOUNTER 2024-03-13 11:07 | Outpatient (CLI) | payer MEDICARE, SELFPAY ==
[2024-03-13 11:21] LABS: Basophils Absolute Auto 0.01 K/mm3 (0.00-0.10); Basophils Percent Auto 0.1 % (0.0-1.0); Eosinophils Absolute Auto 0.11 K/mm3 (0.02-0.50); Eosinophils Percent Auto 1.6 % (1.0-6.0); Hematocrit 38.6 % (35.0-49.0); Hemoglobin 12.8 g/dL (12.0-15.0); Immature Granulocyte Absolute 0.02 K/mm3 (0.00-0.00); Immature Granulocyte Percent A 0.3 % (0.0-0.0); Lymphocytes Percent Auto 29.5 % (18.0-42.0); Mean Corpuscular HGB Conc 33.2 g/dL (32-36); Mean Corpuscular Hemoglobin 32.1 pg (27.0-31.0); Mean Corpuscular Volume 96.7 fL (78.0-102.0); Mean Platelet Volume 9.2 fl (9.2-11.8); Monocytes Absolute Auto 0.34 K/mm3 (0.10-0.90); Neutrophils Absolute Auto 4.29 K/mm3 (1.70-7.20); Neutrophils Percent Auto 63.5 % (50.0-70.0); Platelet Count Result 225 K/mm3 (150-420); Red Blood Count 3.99 M/mm3 (4.20-5.40); White Blood Count 6.8 K/mm3 (4.8-10.8)
[2024-03-13 11:22] LABS: Add Urine Microscopic? YES; Appearance Urine Clear (Clear); Bilirubin Urine Negative (Negative); Blood Urine Negative (Negative); Color Urine Light Yellow (Yellow); Glucose Urine UA Negative (Negative); Ketones Urine Trace (Negative); Leukocyte Esterase Ur 3+ LEU/UL (Negative); Nitrate Urine Negative (Negative); Protein Urine 1+ (Negative); Urobilinogen Urine 0.2 mg/dL (0.2-1.0)
[2024-03-13 11:28] LABS: Bacteria Urine Trace /hpf; RBC Urine None seen /hpf (0-2); Squamous Epithelial Cell Urine Rare /hpf (Few); WBC Urine 31-50 /hpf (0-3)
[2024-03-13 11:31] LABS: Creatinine Urine 196.65 mg/dL (40-278); MALB Creatinine Ratio 19.8 mg/g (0-30); Microalbumin Urine Random 39.1 mg/L
[2024-03-13 11:33] LABS: Hemoglobin A1C 5.3 % (<5.7)
[2024-03-13 13:06] LABS: Alanine Aminotransferase 26 U/L (14-59); Albumin Level 3.5 g/dL (3.4-5.0); Alkaline Phosphatase 87 U/L (46-116); Anion Gap 9 mmol/L (4-12); Aspartate Amino Transferase 13 U/L (15-37); Bilirubin,Total 0.3 mg/dL (0.00-1.00); Blood Urea Nitrogen 12 mg/dL (7-18); Calcium 8.8 mg/dL (8.5-10.1); Carbon Dioxide 31 mmol/L (21-32); Chloride 101 mmol/L (98-108); Cholesterol 209 mg/dL (0-200); Estimated Glomerular Filt Rate > 60; Ferritin 55 ng/mL (8-252); Free T4 Free Thyroxine 0.69 ng/dL (0.76-1.46); Glucose 124 mg/dL (70-99); HDL Direct 50 mg/dL (40-60); Iron 81 ug/dL (50-170); LDL Cholesterol Calculated 113 mg/dL (<130); Magnesium 2.6 mg/dL (1.8-2.4); NT Pro B Type Natriuretic Pept 116 pg/mL (0-125); Osmolality Calculated 292 mOsm/kg (285-295); Potassium 4.5 mmol/L (3.5-5.1); Sodium 141 mmol/L (136-145); Thyroid Stimulating Hormone 0.53 uIU/mL (0.36-3.74); Total Protein 7.1 g/dL (6.4-8.2); Triglycerides 228 mg/dL (0-150)
== END 2024-03-13 11:08 | disposition home or self-care (01) ==
PROVIDERS: PCP Internal Medicine; Visit Provider Internal Medicine
DX: I10 Essential (primary) hypertension (principal); I42.9 Cardiomyopathy, unspecified; J32.4 Chronic pansinusitis; E78.2 Mixed hyperlipidemia; I50.9 Heart failure, unspecified; D64.9 Anemia, unspecified; E11.42 Type 2 diabetes mellitus with diabetic polyneuropathy
CPT/HCPCS: 36415; 80053; 80061; 81001; 82043; 82728; 83036; 83540; 83735; 83880; 84439; 84443; 85025; 87086; 87186

== ENCOUNTER 2024-03-28 09:39 | Outpatient (CLI) | payer MEDICARE, SELFPAY ==
[2024-03-28 10:00] LABS: Add Urine Microscopic? YES; Appearance Urine Clear (Clear); Bilirubin Urine Negative (Negative); Blood Urine Negative (Negative); Color Urine Light Yellow (Yellow); Glucose Urine UA Negative (Negative); Ketones Urine Negative (Negative); Leukocyte Esterase Ur Trace (Negative); Nitrate Urine Negative (Negative); Protein Urine Negative (Negative); Specific Grav Ur <= 1.005 (1.010-1.020); Urobilinogen Urine 0.2 mg/dL (0.2-1.0)
[2024-03-28 10:06] LABS: Bacteria Urine Rare /hpf; RBC Urine None seen /hpf (0-2); Squamous Epithelial Cell Urine Rare /hpf (Few); WBC Urine 0-3 /hpf (0-3)
== END 2024-03-28 09:40 | disposition home or self-care (01) ==
LOC: CHSLAB 09:43
PROVIDERS: PCP Internal Medicine; Visit Provider Internal Medicine
DX: N39.0 Urinary tract infection, site not specified (principal)
CPT/HCPCS: 81001; 87086

== ENCOUNTER 2024-07-23 01:46 | Day surgery (SDC) | payer MEDICARE, SELFPAY ==
[2024-07-20 14:22] VITALS: BMI 35.4
[2024-07-23] VITALS (10 sets, daily range): BP systolic 103–132; BP diastolic 53–69; PULSE 72–91; RESP 12–18; TEMP 36.8; O2SAT 96–100; BMI 35.2
[2024-07-23 07:30] LABS: Basophils Percent Auto 0.3 % (0.2-1.2); Eosinophils Absolute Auto 0.1 K/mm3 (0-0.3); Eosinophils Percent Auto 1.7 % (0-4.4); Hematocrit 38.9 % (37.0-47.0); Immature Granulocyte Absolute 0.02 K/mm3 (0.00-0.031); Immature Granulocyte Percent A 0.3 % (0-0.5); Lymphocytes Absolute Auto 2.27 K/mm3 (0.9-3.2); Lymphocytes Percent Auto 34.8 % (18.3-44.2); Mean Corpuscular HGB Conc 33.4 g/dl (32-36); Mean Corpuscular Hemoglobin 32.4 pg (26-34); Mean Platelet Volume 9.2 fl (7.4-10.4); Monocytes Absolute Auto 0.4 K/mm3 (0.1-0.6); Monocytes Percent Auto 6.1 % (2.6-8.5); Neutrophils Absolute Auto 3.7 K/mm3 (1.3-6.7); Neutrophils Percent Auto 56.8 % (45.5-73.1); Platelet Count Result 218 k/mm3 (150-375); Red Blood Count 4.01 M/mm3 (4.2-5.4); Red Cell Distribution Width 12.3 % (11.5-14.5); White Blood Count 6.5 K/mm3 (4.5-10.0)
[2024-07-23 07:41] LABS: Anion Gap 8 mmol/L (4-12); Blood Urea Nitrogen 13 mg/dL (7-17); Carbon Dioxide 33 mmol/L (22-30); Chloride 100 mmol/L (98-107); Estimated CRCL calculation 88 ml/min; Estimated Glomerular Filt Rate > 60; Glucose 99 mg/dL (65-110); Potassium 3.7 mmol/L (3.4-5.0); Sodium 141 mmol/L (137-145)
--- NOTE | 2024-07-23 09:42 | WPDHPUPDATE1 ---
History and Physical Update Update Date/Time: 07/23/24 08:42 History and Physical has been reviewed, including an updated exam of the patient. There are NO changes in the patient's condition. Risks, benefits, and alternatives have been discussed and questions answered. Patient agrees to proceed with procedure.
--- NOTE | 2024-07-23 09:42 | WPDMODSED ---
Moderate Sedation Note-Pt Data Patient Data Allergies Allergy/AdvReac Type Severity Reaction Status Date / Time lisinopril Allergy Severe cough Verified 07/20/24 12:57 adhesive tape Allergy Mild Rash Verified 07/23/24 07:32 Home Medications ?Medication ?Instructions ?Recorded ?Confirmed ?Type aspirin 81 mg tablet,delayed 81 mg PO DAILY 12/20/19 07/23/24 History release (Aspir-) cholecalciferol (vitamin D3) 125 125 mcg PO EVERY OTHER DAY 12/20/19 07/20/24 History mcg (5,000 unit) tablet (Vitamin D3) cyclobenzaprine 10 mg tablet 10 mg PO HS 12/20/19 07/20/24 History furosemide 40 mg tablet 40 mg PO DAILY 12/20/19 07/20/24 History gabapentin 100 mg capsule See Rx Instructions .Route .COMPLEX 12/20/19 07/20/24 History losartan 25 mg tablet 25 mg PO DAILY 12/20/19 07/23/24 History magnesium oxide 400 mg PO BID 12/20/19 07/20/24 History metformin 500 mg tablet 1,000 mg PO HS 12/20/19 07/20/24 History metoprolol succinate 100 mg 100 mg PO DAILY 12/20/19 07/20/24 History tablet,extended release 24 hr montelukast 10 mg tablet 10 mg PO QPM 12/20/19 07/20/24 History (Singulair) pantoprazole 40 mg tablet,delayed 40 mg PO BID 12/20/19 07/20/24 History release zolpidem 5 mg tablet (Ambien) 5 mg PO HS 12/20/19 07/20/24 History B-complex with vitamin C (Super B 1 tablet PO DAILY 12/27/19 07/20/24 History Complex-Vitamin C tablet) carbamazepine 100 mg 100 mg PO Q12H 12/27/19 07/20/24 History capsule,extended release [id number] ferrous sulfate 325 mg (65 mg 325 mg PO DAILY 12/27/19 07/20/24 History iron) tablet (Feosol) vit C 250 mg-vit E 90 mg-zinc 40 1 tablet PO BID 12/27/19 07/20/24 History mg-copper 1 [id number] capsule (PreserVision AREDS-2) anastrozole 1 mg tablet 1 mg PO HS 07/20/24 07/20/24 History atorvastatin 40 mg tablet 40 mg PO QPM 07/20/24 07/23/24 History carbamazepine 200 mg 200 mg PO Q12H 07/20/24 07/20/24 History tablet,extended release,12 hr cetirizine 10 mg capsule 10 mg PO DAILY 07/20/24 07/20/24 History famotidine 20 mg tablet 20 mg PO DAILY PRN nausea 07/20/24 07/20/24 History methenamine hippurate 1 gram tablet 1 g PO BIDAC 07/20/24 07/20/24 History nitroglycerin 0.4 mg sublingual 0.4 mg sublingual Q5M PRN chest 07/20/24 07/20/24 History tablet pain ondansetron HCl 4 mg tablet 4 mg PO TID PRN nausea and vomiting 07/20/24 07/20/24 History semaglutide 2 mg/dose (8 mg/3 mL) 2 mg subcut WEEKLY 07/20/24 07/20/24 History subcutaneous pen injector (Ozempic) sennosides 8.6 mg-docusate sodium 2 tab-cap PO BID 07/20/24 07/20/24 History 50 mg tablet (Senna Plus) Current Medications: Active Medications Sodium Chloride (Normal Saline Iv) 500 mls @ 100 mls/hr IV CONT .Q5H MICHELLE Sedation/Anesthesia: No previous sedation/anesthesia problems (including family history). [facility] Past Medical History Medical History Cardiomyopathy Deviated septum Finger fracture Headache Nasal polyps Neuritis optic right nerve Ovarian cyst Polyps of both external auditory canals Sinus problem Wears glasses Surgical History Surgical History H/O dilation and curettage H/O nasal septoplasty History of appendectomy History of bladder surgery A&P repair History of cardiac cath Hx of cholecystectomy Family History Family History Mother Acute myocardial infarction Family history of renal failure Family history of type 2 diabetes mellitus Father Family history of type 2 diabetes mellitus Social History Social History Smoking status: Never smoker Second hand tobacco smoke exposure: Yes Alcohol intake: former Substance use: never Living arrangements: with family Gender identity (if verbalized by the patient): Female Mod Sed Physical Exam Physical Exam Pre Procedural Exam: Normal: Lungs, Heart Rate and Heart Rhythm Hours since solid foods: 12 Hours since liquid intake: 12 Mallampati Classification: class III Internal Medicine - PN: Obj Da Vital Signs Vital Signs: Vital Signs - 24 hr 07/23/24 07:00 Temperature 36.8 C Pulse Rate 75 Respiratory Rate 16 Blood Pressure 119/69 Pulse Oximetry 99 Oxygen Delivery Room Air Meds/Results Medications: Active Medications Generic Name Dose Route Start Last Admin Trade Name Freq PRN Reason Stop Dose Admin Sodium Chloride 500 mls @ 100 mls/hr 07/20/24 13:50 Normal Saline Iv IV CONT .Q5H MICHELLE Labs 07/23/24 07:18 07/23/24 07:18 Labs: Laboratory Results - last 24 hr 07/23/24 07:18 WBC 6.5 RBC 4.01 L Hgb 13.0 Hct 38.9 MCV 97.0 MCH 32.4 MCHC 33.4 RDW 12.3 Plt Count 218 MPV 9.2 Immature Gran % (Auto) 0.3 Neut % (Auto) 56.8 Lymph % (Auto) 34.8 [place] % (Auto) 6.1 Eos % (Auto) 1.7 Baso % (Auto) 0.3 Lymph # (Auto) 2.27 [place] # (Auto) 0.4 Eos # (Auto) 0.1 Baso # (Auto) 0.0 Abs Immat Gran (auto) 0.02 Absolute Neuts (auto) 3.7 Absolute Nucleated RBC 0.000 Nucleated RBC % 0.0 Sodium 141 Potassium 3.7 Chloride 100 Carbon Dioxide 33 H Anion Gap 8 BUN 13 Creatinine 0.58 L Estim Creat Clear Calc 88 Estimated GFR > 60 Glucose 99 Calcium 9.0 ASA Classification/Sedation ASA Classification/Sedation ASA Class: III Emergent: No Risks: Risks, benefits and alternatives explained and patient/family accepted plan for sedation. Patient re-evaluated immediately prior to sedation.
--- NOTE | 2024-07-23 09:43 | WPDCARDPROC ---
Cardiac Cath Procedure Note Date of procedure:: 07/23/24 Performing physician:: CATHETERIZATION LABORATORY REPORT Procedure Date:07/23/2024 Referring Physician: Dr. Falcon Anesthesia: Versed and Fentanyl were ordered and given in my presence at 0903, procedure ended at 0926. Supervision of nurse, Sera Sandoval, monitored moderate sedation with 2mg Versed and 50mcg Fentanyl was provided for 23 minutes. Pre-op Diagnosis: Chest Pain Post-op Diagnosis: Chest Pain Procedure(s): Left heart catheterization with coronary angiography Access Site: Right radial artery attempted and under ultrasound, vessel is small with intimal/media thickening Conversion to right [employer] Brief History and Clinical Indications: 63-year-old woman with diabetes, hypertension, hyperlipidemia, and coronary artery disease with persistent chest discomfort here to define her coronary anatomy. All risks, benefits and alternatives to left heart catheterization with or without percutaneous coronary intervention was discussed at length with the patient. Risk of complications including but not limited to bleeding, infection, arrhythmia, stroke, worsening kidney function, blood loss, groin hematoma, limb loss, emergency coronary artery bypass grafting, and even were discussed with the patient and all questions were answered. The patient understood and wished to proceed. Time out called, patient name, date of , medical record number, allergies, procedure performed, identify Manuscripts Curator, patient and staff member concurred with accurate data, procedure carried on. Findings: LEFT HEART CATHETERIZATION FINDINGS: 1. Left main: The left main coronary artery is widely patent without any significant obstructive disease. 2. Left anterior descending: The LAD is small vessel that tapers into a submillimeter vessel before reaching the apex. The LAD and the diagonal branches have mild luminal irregularities without any significant obstructive angiographic disease. 3. Left circumflex: The left circumflex artery and the main marginal branches have mild luminal irregularities without any significant obstructive angiographic disease. 4. Right coronary artery: The RCA has mild luminal irregularities without any significant obstructive angiographic disease. The RCA is the dominant vessel. 5. Left ventricle: A. End-diastolic pressure 18 mmHg. B. LV gram deferred. C. No significant gradient across aortic valve on catheter pullback. 6. Opening AO pressure 153/79 and closing AO pressure 144/66 Description of Procedure: Informed consent signed and placed in the chart. Patient transferred to outside laborer room. Prepped and draped in usual sterile fashion. 2% lidocaine injected subcutaneous a and right wrist area. 22 gauge micropuncture needle accessed the right radial artery however, the micropuncture wire did not enter smoothly and was thus withdrawn. A higher access site was obtained with similar resistance to wire entry. Under ultrasound imaging, it was noted that the vessel lumen was small with thick vessel hector. The procedure at this time was converted to femoral approach. 2% lidocaine in right groin area. Micropuncture needle used to access right common femoral artery with Seldinger technique under ultrasound and fluoroscopic guidance. J wire advanced, micropuncture cannula placed. Right iliofemoral angiogram performed, access confirmed and micropuncture cannula exchanged for 5-FR sheath. JL4 diagnostic catheter engaged Left Main Coronary Artery. JR4 diagnostic catheter engaged Right Coronary Artery. Multiple orthogonal angiogram obtained and reviewed 5F Pigtail diagnostic catheter crossed aortic valve to obtain LVEDP, LV angiogram deferred. Hemostasis was achieved by Angioseal Assessment: Mild luminal irregularities. Post Operative Condition: Stable No significant blood loss Disposition: Home Plan: Chest pain is unlikely cardiac in nature. The patient will be monitored in the recovery area. Continue aggressive medical therapy and risk factor modification. Chito Ayala Interventional Cardiology
[2024-07-23] MEDS: SODIUM CHLORIDE 0.9% IV 1,000 ML 125 ML IV CONT (10:11)
== END 2024-07-23 14:45 | disposition home or self-care (01) ==
PROVIDERS: PCP Internal Medicine; Visit Provider Internal Medicine
PROC: 4A023N7 Measurement of Cardiac Sampling and Pressure, Left Heart, Percutaneous Approach (ICD-10-PCS; CPT 93452; principal; 2024-07-23 08:30)
DX: R07.9 Chest pain, unspecified (principal); I25.10 Atherosclerotic heart disease of native coronary artery without angina pectoris; I10 Essential (primary) hypertension; E11.9 Type 2 diabetes mellitus without complications; E78.5 Hyperlipidemia, unspecified
CPT/HCPCS: 36415; 80048; 85025; 93458; C1760; C1769; C1887; C1894; G0269; J1644; J2003; J2250; J2305; J3010; J7030; J7040

== ENCOUNTER 2024-10-18 12:18 | Outpatient (CLI) | payer MEDICARE, SELFPAY ==
--- OUTSIDE RECORDS SUMMARY | 2024-10-18 12:23 | XMS_ITS | Encounter Summary ---
Author Organization [facility] Address [address] [place] [address] Phone Care Team Providers Care Core Assembly Supervisor Name Role Phone José Miguel Page MD Primary Care Provider Esteban Ritter MD Unavailable Juarez Guy MD Unavailable Bill Romo MD Unavailable Anne-Marie Mireles MD PhD Unavaila ble Encounter Details Date Type Department Care Team (Late st Contact Info) Description 10/17/2024 11:30 AM CDT Office Visit [facility] On[facility] [address] [facility] [address] [place] [address] Juarez Guy MD [address] [place], [place] [id number] Malignant neoplasm of lower-inner quadrant of left breast in female, estrogen receptor positive (HCC) Social History Tobacco Use Types Packs/Day Years Used Date Smoking Tobacco: Former Cigarettes 0.8 19.2 0 05/23/1973 - 08/21/1992 Smokeless Tobacco: Never Alcohol Use Standard Drinks/Week Comments Yes 0 (1 standard drink = 0.6 oz pur e alcohol) AUDIT-C Answer Date Recorded Q1: How often do you have a drink containing alc ohol? Monthly or less 07/09/2024 Q2: How many drinks containi ng alcohol do you have on a typical day when you are drinking? 1 or 2 07/09/2024 Frequency of Binge Drinking Not on file 06/23 PHQ-2 Answer Date Recorded PHQ-2 Total Score (If total score is 3 or more points, staff should administer the PHQ-9) 0 02/10/2023 Personal Safety Answer Date Recorded Have you ever been in or are you currently in a harmful physical or emotional relationship or is someone making you feel afraid or unsafe? 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 Gender Identity Female 02/22/2024 11:51 AM CDT Sexual Orientation Straight 08/29/2018 12 :15 PM CDT Occupation Industry Job Start Date Job End Date disabled Not on file Not on file Not on file documented as of this encounter Last Filed Vital Signs Vital Sign Reading Time Taken Comments Blood Pressure 107/73 10/17/2024 11:32 AM CDT Pulse 91 10/17/2024 11:32 AM CDT Temperature 36.7 C (98 F) 10/17/2024 11:32 AM CDT Respiratory Rate 20 10/17/2024 11:32 AM CDT Oxygen Saturation 100% 10/17/2024 11:32 AM CDT Inhaled Oxygen Concentration - - Weight 89.4 kg (197 lb) 10/17/2024 11:32 AM CDT Height - - Body Mass Index 36.03 10/16/2024 9:39 AM CDT documented in this encounter Ordered Prescriptions Prescription Sig Dispense Quantity Refills Last Filled Start Date End Date anastrozole (ARIMIDEX) 1 mg tabletIndications:M alignant neoplasm of lower-inner quadrant of left breast in female, estrogen receptor positive (HCC) Take 1 tablet (1 mg total) by mouth daily 90 tablet 3 10/17/2024 documented in this encounter Progress Notes * Abida Wallace NP - 10/17/2024 11:30 AM CDT CHIEF COMPLAINT/DIAGNOSIS: HR+ HER2 negative early-stage breast cancer Patient Care Team: José Miguel Page MD as PCP - General (Internal Medicine) Esteban Ritter MD as Consulting Physician (Cardiology) Juarez Guy MD as Consulting Physician (Medical Oncology) Bill Romo MD as Radiation Oncologist (Radiation Oncology) Anne-Marie Mireles MD PhD as Surgeon (Surgical Oncology) HISTORY OF PRESENT ILLNESS: Fadia Davis is a 63 y.o. postmenopausal female with DM, mild systolic heart failure, depression, and multiple sclerosis. Her current cancer history is as follows: She had a screening mammogram on 12/29/20 that showed a possible asymmetry in her left breat. However, diagnostic imaging was benign. On 06/12/21, a CT scan was performed for abdominal pain and a suspicious left breast lesion was incidentally detected. This was followed by further diagnostic imaging on 07/01/21 that demonstrated a 10 mm mass at the 6:30 position, approximately 9 cm from the nipple. Nosuspicious lymph nodes were visualized. Core needle biopsy demonstrated invasive ductal carcinoma, ER positive (8/8), OH positive (4/8), HER2 negative. On 08/07/21, a left partial mastectomy with sentinel lymph node biopsy was performed. Tumor measured 12 mm. No lymph nodes were involved (0/3). Pathological staging was [id number]. Oncotype score was 26. Received adjuvant systemic therapy with Tcx4 completed November 20 2021 then received adjuvant xrt completed January 08, 2022, she then initiated anastrozole 01/26/22. INTERVAL HISTORY Fadia presents today for routine follow up on endocrine therapy. She is tolerating anastrozole well. Denies any particular side effects. She is due for zometa today. No new bone pain, chest pain, shortness of breath, headache, fevers or chills. Repeat dexa last April showed Osteopenia. Last had breast imaging done in January that was benign. Labs reviewed and labs meet the recommended treatment parameters to proceed with therapy. REVIEW OF SYSTEMS: As per interval history/HPI. All other systems negative. PAST MEDICAL HISTORY: Past Medical History: Diagnosis Date Anemia Breast cancer (HCC) Cardiomyopathy (HCC) Cardiomyopathy (HCC) Cataract CHF (congestive heart failure) (HCC) Depression Dysphagia Gastroesophageal reflux disease acid reflux Headache Heart disease cardiomyopathy HX OTHER MEDICAL sinus headaches HX OTHER MEDICAL cardiomyopathy HX OTHER MEDICAL Arrhythmias freq PVC's with h/o ablation HX OTHER MEDICAL MS HX OTHER MEDICAL Claustrophobic; Comments: [facility] 12/18/2013 - Hyperlipidemia Hyperlipidemia Hypertension Hypertension Liver disease Motion sickness Multiple sclerosis (HCC) Multiple Sclerosis Neuromuscular disorder (HCC) Multiple Scelrosis Obesity Overweight PONV (postoperative nausea and vomiting) Sleep apnea CPAP (kind of hit and miss, not every night) Smoking Quit in Type 2 diabetes mellitus (HCC) 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 She had a uterine ablation in 2008 for heavy menses, breast fed Yes , hormone replacement therapy No PAST SURGICAL HISTORY: Past Surgical History: Procedure Laterality Date ABDOMINAL SURGERY Gallbladder 1990 APPENDECTOMY 1980 BLADDER SURGERY 1995 a & p repair BREAST BIOPSY Left 07/08/2021 CARDIAC CATHETERIZATION 2006 CARDIAC ELECTROPHYSIOLOGY MAPPING AND ABLATION 2007 CARPAL TUNNEL RELEASE Bilateral 03/2015, 11/2014 right first then left CATARACT EXTRACTION Right 05/28/2021 CATARACT EXTRACTION W/ INTRAOCULAR LENS IMPLANT Left 07/30/2021 SECTION 1992 SECTION 05/18/93 CHOLECYSTECTOMY 1981 COLONOSCOPY last one 07/2020 few ENDOMETRIAL ABLATION 2005 uterine ablation ESOPHAGOGASTRODUODENOSCOPY last one 05/2018 multiple ESOPHAGOGASTRODUODENOSCOPY 06/2021 MASTECTOMY PARTIAL / LUMPECTOMY Left 07/2021 MASTECTOMY, PARTIAL 2020 OTHER SURGICAL HISTORY 2006 adhesions, lap. OTHER SURGICAL HISTORY 2012 spinal tap, x2 OTHER SURGICAL HISTORY last on 06/01/21 multiple, botox injections, urinary incontinence PORTACATH PLACEMENT 08/2021 SEPTOPLASTY 1991 TUBAL LIGATION 1994 UPPER GASTROINTESTINAL ENDOSCOPY 07/09/2024 difficulty swallowing meat/ GERD- hx esophgeral cancer FAMILY HISTORY: Brother with gastroesophageal cancer. Brother with prostate cancer. Sister with metastatic breast cancer. at age 60. 6 total siblings. Parents of cardiac issues. No cancer. SOCIAL HISTORY: Disabled. with 4 children (2 biological and 2 step daughters). Smoked 1.5 PPD x 15 years. Quit in 1992. Drinks socially 0-1 drinks per week. ALLERGIES: Allergies Allergen Reactions Adhesive Rash Nylon tape/ Paper tape is OK Adhesive Tape-Silicones Rash Latex Rash Lisinopril Cough MEDICATIONS: Current Outpatient Medications: anastrozole (ARIMIDEX) 1 mg tablet aspirin 81 mg chewable tablet atorvastatin (LIPITOR) 40 mg tablet carBAMazepine XR (TEGretol XR) 100 mg 12 hr tablet carBAMazepine XR (TEGretol XR) 200 mg 12 hr tablet cetirizine 10 mg capsule cholecalciferol (VITAMIN D3) 5,000 unit tablet cyclobenzaprine (FLEXERIL) 10 mg tablet ergocalciferol (VITAMIN D) 50,000 unit capsule famotidine (PEPCID) 20 mg tablet ferrous sulfate 325 mg (65 mg of elemental iron) tablet furosemide (LASIX) 40 mg tablet gabapentin (NEURONTIN) 100 mg capsule LORazepam (ATIVAN) 0.5 mg tablet losartan (COZAAR) 25 mg tablet magnesium oxide 400 mg capsule melatonin 10 mg capsule metFORMIN XR (GLUCOPHAGE XR) 500 mg 24 hr tablet methenamine (HIPREX) 1 gram tablet metoprolol XL (TOPROL-XL) 100 mg 24 hr tablet montelukast (SINGULAIR) 10 mg tablet Mounjaro 15 mg/0.5 mL pen injector injection multivitamin capsule nitrofurantoin monohydrate (MACROBID) 100 mg capsule nitroglycerin (NITROSTAT) 0.4 mg SL tablet onabotulinumtoxin A (Botox) 100 unit recon soln Ozempic 2 mg/dose (8 mg/3 mL) pen injector injection pantoprazole DR (PROTONIX) 40 mg EC tablet saliva stimulant agent (Biotene Moisturizing Mouth) spray,non-aerosol vit C/E/Zn/coppr/lutein/zeaxan (PRESERVISION AREDS-2 ORAL) zoledronic acid 4 mg recon soln zolpidem (AMBIEN) 5 mg tablet No current facility-administered medications for this visit. Facility-Administered Medications Ordered in Other Visits: zoledronic acid 4 mg/100 mL (premix) 4 mg, 4 mg, intravenous, Once PHYSICAL EXAM: Vitals BP 107/73 (BP Location: Right arm) Pulse 91 Temp 36.7 ??C (98 ??F) (Oral) Resp 20 Wt 89.4 kg (197 lb) LMP 04/02/2005 (Approximate) SpO2 100% BMI 36.03 kg/m?? ECO - Symptomatic but completely ambulatory CONSTITUTIONAL: Appears generally well; well developed, well nourished HEENT: Sclera anicteric, oropharynx clear without visible lesions LYMPHATICS: No palpable cervical, supraclavicular or axillary adenopathy CARDIOVASCULAR: Regular rate and rhythm. No edema. RESPIRATORY: Lungs are clear to ausculation GASTROINTESTINAL: Abdomen is soft, non tender, no masses appreciated. There is no hepatomegaly. MUSCULOSKELETAL: Normal muscle tone. SKIN: No rashes or lesions. NEUROLOGIC: No focal motor or sensory deficits. Gait and speech are normal. PSYCHIATRIC: Mood and affect are normal. BREAST/CHEST WALL: Bilateral breasts/chest wall without abnormal skin changes or masses present. Noaxillary lymphadenopathy LABS: I have reviewed the pertinent laboratory studies including those documented below Lab Results Component Value Date WBC 5.72 10/17/2024 HGB 13.0 10/17/2024 HCT 38.3 10/17/2024 MCV 94.1 10/17/2024 LABPLAT 238 10/17/2024 Chemistry Component Value Date/Time SODIUM 142 10/17/2024 1039 POTASSIUM 4.2 10/17/2024 1039 POTASSIUM 4.3 09/09/2016 2000 CHLORIDE 103 10/17/2024 1039 CO2 30 10/17/2024 1039 BUNSER 9 10/17/2024 1039 CREATININE 0.73 10/17/2024 1039 CREATININE 0.81 09/27/2020 0937 GLUCOSE 95 10/17/2024 1039 Component Value Date/Time CALCIUM 9.2 10/17/2024 1039 ALKPHOS 90 10/17/2024 1039 AST 22 10/17/2024 1039 ALT 22 10/17/2024 1039 BILITOT 0.2 10/17/2024 1039 PATHOLOGY: Pathology results were personally reviewed by me and are summarized in the HPI and noted below 07/08/21: DIAGNOSIS: Breast, left, core biopsy: - Invasive ductal carcinoma - Intermediate grade (Godwin score of 7) - Nuclear score 3/3 - Tubular score 3/3 - Mitotic score 1/3 (6 mitoses in 10 high-power york; microscopic field diameter = 0.55 mm) - 0.6 cm - Lymphvascular invasion not identified - Calcifications not identified - Necrosis not identified - Minimal lymphocytic response - Immunohistochemical prognostic markers: - ER positive (Nitesh score: proportion 5/5 + intensity 3/3 = 8) - OH positive (Nitesh score: proportion 2/5 + intensity 2/3 = 4) - Her-2 pending at [facility]; result to be reported in an addendum 08/07/21: Diagnosis: A. Breast, left, wire-guided partial mastectomy - Invasive ductal carcinoma - Greatest microscopic dimension = 12 mm - Histologic grade = 2/3 (score: tub3 + nuc2 + mit1 = 6/9) - Positive for lymphovascular invasion, focal - Surgical margins positive: posterior over a distance of 4 mm, discontinuous - Also 1 mm from anterior - Biopsy site changes with clips - See synoptic report B. Lymph node, left axillary, sentinel, excision - No evidence of malignancy in three nodes (0/3) RADIOLOGY: Breast imaging including mammogram and ultrasound were personally reviewed and are summarized in the HPI and noted below 05/09/24 Dexa scan SUMMARY: Bone mineral density shows evidence of low bone mass at the proximal femur and moderately increased fracture risk (Osteopenia). There has been a significant increase in bone density since previous measurement. Diagnostic mmg 01/26/24 IMPRESSION: 1. Posttreatment changes of left breast conservation therapy. No new suspicious abnormality in EITHER breast on mammogram. 2. No sonographic abnormality in the subareolar left breast. SEQUENCING: Germline: Tissue: Blood: ASSESSMENT AND PLANS: Fadia Davis is a 63 y.o. postmenopausal woman early- stage HR+ HER2 negative breast cancer. [id number] with Oncotype 26 She completed adjuvant TC x4 cycles November 20, 2021 and radiation therapy January 08, 2022. She initiated AI January 26 2022. She was initiated on zometa and is tolerating this well. She is currently without evidence of disease. Her exam is benign. I reassured her that based on my clinical examination there is no evidence of any recurrent diseaseor new abnormalities. I encouraged her to resume her breast self-examinations on a monthly basis and to alert me of any changes. Today we discussed the indication for Breast Cancer Index testing to help us determine if she wouldbenefit from extended endocrine therapy and she was agreeable to this testing. We discussed the patient's readiness to transition to survivorship clinic. We will follow up with her BCI results. If the results come back as she would not benefit than she could be done with Anastrozole January2027. Plan was discussed with the primary oncologist Dr. Guy and we are in agreement. PLAN Continue anastrozole, which was started 01/2022. Tentative plan for 5 years of therapy. Bci testing ordered 2. Zometa Q6 months. Due today. Continue calcium and vitamin d. 3. Continue annual mammogram. 4. Dexa next due April 2026 Comorbid conditions: -Congestive heart failure - EF in the mid 40s. Follows with cardiology -Type II DM -Depression -NAFLD -Multiple sclerosis -Osteopenia - repeat DEXA due 03/2024. Currently on zometa. RTC in 6 months in survivorship clinic Abida Wallace, MSN, ADAPTIVE PHYSICAL EDUCATION SPECIALIST, AGNP-C Nurse Practitioner, Medical Oncology [facility] documented in this encounter Plan of Treatment Scheduled Orders Name Type Priority Associated Diagnoses Orde r Schedule Comprehensive metabolic panel Lab Routine Malignant neoplasm of lower-inner quadrant of left breast in female, estrogen receptor positive (HCC) Expected: 04/26/2025, Expires: 10/12/2025 CBC with auto differential Lab Routine Malignant neoplasm of lower-inner quadrant of left breast in female, estrogen receptor positive (HCC) Expected: 04/26/2025, Expires: 10/12/2025 documented as of this encounter Visit Diagnoses Diagnosis Malignant neoplasm of lower-inner quadrant of left breast in female, estrogen receptor positive (HCC) documented in this encounter Discontinued Medications Medication Sig Discontinue Reason Start Date End Da te anastrozole (ARIMIDEX) 1 mg tabletIndications:Malign ant neoplasm of lower-inner quadrant of left breast in female, estrogen receptor positive (HCC) TAKE ONE TABLET BY MOUTH DAILY Reorder 12/12/2023 10/12/2024 documented as of this encounter Orders Appointment Requests Count Last Ordered Date Fi rst Ordered Date INFUSION APPT REQUEST 60 MIN 1 10/17/2024 [facility] CLINIC APPOINTMENT REQUEST 2 025 ON[facility] LAB APPOINTMENT 1 10/17/2024 documented in this encounter Care Teams Core Assembly Supervisor Relationship Specialty Start Date End Date José Miguel Page MD PCP - General Internal Medicine 09/05/18 Esteban Ritter MD Consulting Physician Cardiology 06/18/21 Juarez Guy MD [address] [place] [address] Consulting Physician Medical Oncology 08/31/21 Bill Romo MD [address] [facility] [address] [place], [place] [id number] Radiation Oncologist Radiation Oncology 09/11/21 Anne-Marie Mireles MD PhD [address] [facility] [id number] [place], [place] [phone] Surgeon Surgical Oncology 09/11/21 documented as of this encounter
--- OUTSIDE RECORDS SUMMARY | 2024-10-18 12:23 | XMS_ITS | Encounter Summary ---
Author Organization [facility] Address [address] [place] [address] Care Team Providers Care Senior Support Analyst Name Role Phone José Miguel Page MD Primary Care Provider Esteban Ritter MD Unavailable Juarez Guy MD Unavailable Bill Romo MD Unavailable Anne-Marie Mireles MD PhD Unavaila ble Encounter Details Date Type Department Care Team (Late st Contact Info) Description 10/17/2024 Telephone [facility] Care [address] [facility] [address], [place] [address] Yves Munoz MD [address] [facility] [address] [place] [address] Social History Tobacco Use Types Packs/Day Years [...] on file 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 Gender Identity Female 02/22/2024 11:51 AM CDT Sexual Orientation Straight 08/29/2018 12 :15 PM CDT Occupation Industry Job Start Date Job End Date disabled Not on file Not on file Not on file documented as of this encounter Miscellaneous Notes * Telephone Encounter - Laura Reynoso MA - 10/17/2024 7:08 AM CDT Faxed referral to Dr Milligan office [phone] as requested * Telephone Encounter - Laura Reynoso MA - 10/17/2024 7:08 AM CDT ----- Message from Yves Munoz MD sent at 10/16/2024 4:16 PM CDT ----- Regarding: Fax orthopedic referral Please fax the referral to orthopedic surgery to the office of Dr. Tariq Milligan at documented in this encounter Plan of Treatment Not on file documented as of this encounter Visit Diagnoses Not on filedocumented in this encounter Care Teams Senior Support Analyst Relationship Specialty Start Date End Date José Miguel Page MD PCP - General Internal Medicine 09/05/18 Esteban Ritter MD Consulting Physician Cardiology 06/18/21 Juarez Guy MD [address] [place] [address] Consulting Physician Medical Oncology 08/31/21 Bill Romo MD [address] [facility] [address] [place] [address] Radiation Oncologist Radiation Oncology 09/11/21 Anne-Marie Mireles MD PhD [address] [facility] [phone] [place] [address] Surgeon Surgical Oncology 09/11/21 documented as of this encounter
--- OUTSIDE RECORDS SUMMARY | 2024-10-18 12:23 | XMS_ITS | Encounter Summary ---
Author Organization [facility] Address [address] [place] [address] Care Team Providers Care Acid Regenerator Name Role Phone José Miguel Page MD Primary Care Provider Esteban Ritter MD Unavailable [phone] Juarez Guy MD Unavailable Bill Romo MD Unavailable Anne-Marie Mireles MD PhD Unavaila ble Reason for Visit * Reason Onset Date Comments orthopedics 10/17/2024 Schedule an apt Encounter Details Date Type Department Care Team (Late st Contact Info) Description 10/17/2024 Telephone [facility] [address] [place] [address] [place] [phone] Tariq Milligan MD [phone] [address] orthopedics (Schedule an apt) Social History Tobacco Use Types Packs/Day Years [...] on file 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 Milligan, called to schedule an apt and advised that Dr. Milligan is retiring in February. Pt is going to speak with her PCP and see how she should proceed. documented in this encounter Plan of Treatment Not on file documented as of this encounter Visit Diagnoses Not on filedocumented in this encounter Care Teams Acid Regenerator Relationship Specialty Start Date End Date José Miguel Page MD PCP - General Internal Medicine 09/05/18 Esteban Ritter MD Consulting Physician Cardiology 06/18/21 Juarez Guy MD [address] [place] [address] Consulting Physician Medical Oncology 08/31/21 Bill Romo MD [address] [facility] [address] [place] [address] Radiation Oncologist Radiation Oncology 09/11/21 Anne-Marie Mireles MD PhD [address] [facility] [phone] [place] [address] Surgeon Surgical Oncology 09/11/21 documented as of this encounter
--- OUTSIDE RECORDS SUMMARY | 2024-10-18 12:23 | XMS_ITS | Encounter Summary ---
Author Organization [facility] Healthcare Address [address] [place] [address] Care Team Providers Care Bobbin Washer Name Role Phone José Miguel Page MD Primary Care Provider [phone] Esteban Ritter MD Unavailable [phone] Juarez Guy MD Unavailable Bill Romo MD Unavailable Anne-Marie Mireles MD PhD Unavaila ble Reason for Visit * Episode Based Medications (Routine) - Authorized Specialty Diagnoses / Procedures Referred By Contac t Referred To Contact Diagnoses Malignant neoplasm of lower-inner quadrant of left breast in female, estrogen receptor positive (HCC) senior care current use 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 inhibitor Bone disorder Procedures [place] ZOLEDRONIC ACID 1MG Juarez Guy MD [address] [place] [address] Phone: tel: fax: [facility] [address] [facility] Advanced Medicine 7th [place] [address] Phone: tel: Referral ID Status Reason Start Date Expiration Date V isits Requested Visits Authorized [id number] Authorized 01/22/2022 12/20/2025 1 12 Encounter Details Date Type Department Care Team (Late st Contact Info) Description 10/17/2024 1:00 PM CDT Infusion [facility] - Infusion [address] [facility] [address] [place] [address] senior care current use 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 inhibitor (Primary Dx); Malignant neoplasm of lower-inner quadrant of left breast in female, estrogen receptor positive (HCC); Bone disorder Social History Tobacco Use Types Packs/Day Years [...] on file 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 female who presents for treatment 6 zometa Pre-treatment Nursing Assessment Nursing Assessment LOC: Alert, Awake Fatigue: None Any falls since your last visit?: No Orientation: Oriented x4 Behavior: Calm Speech: Clear Language: No aphasia Vision: At baseline Peripheral Neuropathy: No Oral Mucosa Grade: Normal (0) Pt states has potential to be ?: No Shortness of Breath?: No Lungs auscultated PRN: No Pt is on oxygen?: No Cough: Absent Appetite: Good Have You Recently Lost Weight Without Trying?: No Have you been eating poorly because of a decreased appetite?: No Malnutrition Screening Tool (MST) Score: 0 Nausea/Vomiting: No Abdomen: Soft Diarrhea: No Constipation: No Skin Condition/Temp: Warm, Dry Swelling: No Additional Notes: Encounter Vitals BP: 107/73 (10/17/2024 11:32 AM) Pulse: 91 (10/17/2024 11:32 AM) Resp: 20 (10/17/2024 11:32 AM) Temp: 36.7 ??C (98 ??F) (10/17/2024 11:32 AM) Temp src: Oral (10/17/2024 11:32 AM) SpO2: 100 % (10/17/2024 11:32 AM) Weight: 89.4 kg (197 lb) (10/17/2024 11:32 AM) Height: 157.5 cm (5' 2) (10/16/2024 9:39 AM) Pain Score: 0 - No pain Treatment Patient: met treatment parameters Pre blood return: Franca Davis tolerated treatment well. Patient was frequently observed and monitored throughout the administration of their treatment. Additional Notes: Post blood return: Brisk IV access post infusion: NS Patient Education Treatment Education: Information/teaching given to patient including symptom management, process and procedure related to today's visit, and when to notify MD Response: Verbalizes understanding Discharge Plan Discharge instructions given to patient. Future appointments given and reviewed with treatment plan. 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 If creatinine clearance is between 50 and 60 mL/min administer 3.5 mg dose. If creatinine clearance is between 40 and 49 mL/min administer 3.3 mg dose. If creatinine clearance is between 30-39 ml/min administer 3 mg dose. If creatinine clearance is less than 30 ml/min Hold Dose of Zometa and notify MD/MICHAEL If Ca++ < 7.0 , Notify MDIndications:Malignant neoplasm of lower-inner quadrant of left breast in female, estrogen receptor positive (HCC),senior care current use 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 inhibitor,Bone disorder New Bag 10/17/2024 3:25 PM CDT 4 mg 200 mL/ hr documented in this encounter Orders Medications Ordered That Michael ht Not Have Been Administered Count Last Ordered Date First Ordered Date zoledronic acid 4 mg/100 mL (premix) 4 mg 1 10/17/2024 Appointment Requests Count Last Ordered Date Fi rst Ordered Date ONCBCN INFUSION APPT REQUEST 1 10/17/2024 documented in this encounter Care Teams Bobbin Washer Relationship Specialty Start Date End Date José Miguel Page MD PCP - General Internal Medicine 09/05/18 Esteban Ritter MD Consulting Physician Cardiology 06/18/21 Juarez Guy MD [address] [place] [address] Consulting Physician Medical Oncology 08/31/21 Bill Romo MD [address] [facility] [address] [place] [address] Radiation Oncologist Radiation Oncology 09/11/21 Anne-Marie Mireles MD PhD [id number] [place] [address] Surgeon Surgical Oncology 09/11/21 documented as of this encounter
--- OUTSIDE RECORDS SUMMARY | 2024-10-18 12:23 | XMS_ITS | Clinical Summary ---
Author Organization [facility] Administrative Offices Address [address] [place] [id number] Care Team Providers Care Mails Supervisor Name Role Phone José Miguel Page MD Primary Care Provider + Active Problems No known active problems Social History Tobacco Use Types Packs/Day Years Used Date Smoking Tobacco: Never Assessed Comments Unknown Sex and Gender Information Value Date Recorded Sex Assigned at Not on file Legal Sex Female 1:23 PM CDT Gender Identity Not on file Sexual Orientation Not on file Plan of Treatment Health Maintenance Due Date Last Done Comments DIABETES ANNUAL FOOT EXAM 10/25/1977 DIABETES ANNUAL RETINAL EXAM 10/25/1977 DIABETES MICROALBUMIN ANNUAL SCREEN 10/25/1977 LDL CHOLESTEROL ANNUAL 10/25/1977 DTAP/TDAP/TD VACCINES (1 - Tdap) 10/25/1978 HPV/Cotest (21-29) 10/25/1980 CERVICAL CANCER SCREENING 10/25/1989 HPV/Cotest (30-65) 10/25/1989 PAP SMEAR 10/25/1989 BREAST CANCER SCREENING 1999 COLORECTAL SCREENING 10/25/2004 Colorectal Cancer Screening 10/25/2004 FIT-DNA Q 3 years 10/25/2004 FIT/FOBT Q 1 year 10/25/2004 Flex Sig/CT Colonography Q 5 years 10/25/2004 ZOSTER VACCINE (1 of 2) 10/25/2009 DIABETES HBA1C Q 6 MONTHS 11/09/2019 05/10/2019, INFLUENZA VACCINE (#1) 2023 RSV VACCINE (60+ or ) (1 - 1-dose 75+ series) 10/25/2034 Insurance MEDICARE PART A AND B [employer] MEDICARE SUPP AESSI Care Teams Mails Supervisor Relationship Specialty Start Date End Date José Miguel Page MD [address] [place] [phone] PCP - General Internal Medicine 10/31/18
--- OUTSIDE RECORDS SUMMARY | 2024-10-18 12:23 | XMS_ITS | Encounter Summary ---
Author Organization [facility] Healthcare Address [address] [place] [address] Care Team Providers Care Supervisor Model Making Name Role Phone José Miguel Page MD Primary Care Provider Esteban Ritter MD Unavailable [phone] Juarez Guy MD Unavailable Bill Romo MD Unavailable Anne-Marie Mireles MD PhD Unavaila ble Encounter Details Date Type Department Care Team (Late st Contact Info) Description 10/17/2024 10:30 AM CDT Lab [facility] - Lab Collection [address] [facility] [address] [place] [address] Malignant neoplasm of lower-inner quadrant of left [...] on file 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 Gender Identity Female 02/22/2024 11:51 AM CDT Sexual Orientation Straight 08/29/2018 12 :15 PM CDT Occupation Industry Job Start Date Job End Date disabled Not on file Not on file Not on file documented as of this encounter Plan of Treatment Not on file documented as of this encounter Procedures Procedure Name Priority Date/Time Associated Diagnosis Comments EGFR Routine 10/17/2024 10:39 AM CDT Malignant neoplasm of lower-inner quadrant of left breast in female, estrogen receptor positive (HCC) DIFFERENTIAL AUTO Routine 10/17/2024 10: 39 AM CDT Malignant neoplasm of lower-inner quadrant of left breast in female, estrogen receptor positive (HCC) CBC WITH AUTO DIFFERENTIAL Routine 10/17/2024 10:39 AM CDT Malignant neoplasm of lower-inner quadrant of left breast in female, estrogen receptor positive (HCC) COMPREHENSIVE METABOLIC PANEL Routine 10/17/2024 10:39 AM CDT Malignant neoplasm of lower-inner quadrant of left breast in female, estrogen receptor positive (HCC) documented in this encounter Results * eGFR (10/17/2024 10:39 AM CDT) eGFR >90 >=60 mL/min/1. 73 m2 Comment: Interpretive Data Reference Interval Normal >/= 90 mL/min/1.73m2 Mildly decreased* 60 - 89 mL/min/1.73m2 Mildly to moderately decreased 45 - 59 mL/min/1.73m2 Moderately to severely decreased 30 - 44 mL/min/1.73m2 Severely decreased 15 - 29 mL/min/1.73m2 Kidney Failure < 15 mL/min/1.73m2 *Relative to young adult level Estimated glomerular filtration rate is determined by the 2020 CKD-EPI equation recommended by the National Kidney Foundation (A Unifying Approach to GFR Estimation: Recommendations of the NKF-ASK Task Force on Reassessing the Inclusion of Race in Diagnosing Kidney Disease, JASN 2020). The CKD-EPI equation should not be used for patients with unstable renal function and has not been validated in children and those over 70. Current interpretive data was last reviewed 2021. Blood 10/17/2024 10:3 9 AM CDT 10/17/2024 10:49 AM CDT us Juarez Guy MD LAB BLOOD ORDERAB LES Final Result [facility] Department [place] [address] * Differential, auto (10/17/2024 10:39 AM CDT) Neutrophil abs 3.14 1.50 - 6.50 K/cumm Comment:Testing performed by : [facility], [address] [place], [place] [phone] Lymphocyte abs 2.03 0.80 - 3.30 K/cumm [facility] Comment:Testing performed by : [facility], [address] [place] [phone] Monocyte abs 0.44 0.20 - 0.80 K/cumm [facility] Comment:Testing performed by : [facility], [address] [place] [address] Eosinophil abs 0.10 0.00 - 0.50 K/cumm [facility] Comment:Testing performed by : [facility], [address] [place] [address] Basophil abs 0.02 0.00 - 0.10 K/cumm [facility] Comment:Testing performed by : [facility], [address] [place] [phone] Neutrophil pct 54.9 % [facility] Comment: Interpretive Data Percent cell count reference ranges are not reported, since discordance with absolute values may lead to misinterpretation of CBC data. Current Interpretive Data was last revised on 2017. Testing performed by: [facility], [address] [place] [phone] Lymphocyte pct 35.4 % [facility] Comment: Interpretive Data Percent cell count reference ranges are not reported, since discordance with absolute values may lead to misinterpretation of CBC data. Current Interpretive Data was last revised on 2017. Testing performed by: [facility], [address] [place] [phone] Monocyte pct 7.6 % [facility] Comment: Interpretive Data Percent cell count reference ranges are not reported, since discordance with absolute values may lead to misinterpretation of CBC data. Current Interpretive Data was last revised on 2017. Testing performed by: [facility], [address] [place] [phone] Eosinophil pct 1.7 % [facility] Comment: Interpretive Data Percent cell count reference ranges are not reported, since discordance with absolute values may lead to misinterpretation of CBC data. Current Interpretive Data was last revised on 2017. Testing performed by: [facility], [address] [place] [phone] Basophil pct 0.3 % [facility] Comment: Interpretive Data Percent cell count reference ranges are not reported, since discordance with absolute values may lead to misinterpretation of CBC data. Current Interpretive Data was last revised on 2017. Testing performed by: [facility], [address] [place] [phone] Blood 10/17/2024 10:3 9 AM CDT 10/17/2024 10:49 AM CDT us Juarez Guy MD LAB BLOOD ORDERAB LES Final Result [facility] [place] [address] * CBC with auto differential (10/17/2024 10:39 AM CDT) WBC 5.72 3.80 - 9.90 K/cumm Comment:Testing performed by : [facility], [address] [place] [address] Hgb 13.0 11.9 - 15.5 g/dL [facility] Comment:Testing performed by : [facility], [address] [place] [address] Hct 38.3 35.6 - 45.5 % [facility] Comment:Testing performed by : [facility], [address] [place] [address] Plt 238 150 - 400 K/cumm [facility] Comment:Testing performed by : [facility], [address] [place] [address] MPV 7.3 6.8 - 10.4 fL [facility] Comment:Testing performed by : [facility], [address] [place] [address] RBC 4.07 3.90 - 5.20 M/cumm [facility] Comment:Testing performed by : [facility], [address] [place] [address] MCV 94.1 81.3 - 96.4 fL [facility] Comment:Testing performed by : [facility], [address] [place] [address] MCH 31.9 27.1 - 33.3 pg [facility] Comment:Testing performed by : [facility], [address] [place] [address] MCHC 33.9 32.3 - 35.7 g/dL [facility] Comment:Testing performed by : [facility], [address] [place] [address] RDW CV 12.3 11.1 - 14.9 % [facility] Comment:Testing performed by : [facility], [address] [place] [address] NRBC abs 0.00 0.00 - 0.01 K/cumm [facility] Comment:Testing performed by : [facility], [address] [place] [phone] Blood 10/17/2024 10:3 9 AM CDT 10/17/2024 10:49 AM CDT Juarez Guy MD LAB BLOOD ORDERAB LES Final Result [facility] [place] [address] * Comprehensive metabolic panel (10/17/2024 10:39 AM CDT) Sodium 142 135 - 145 mmol/L Potassium, pl 4.2 3.3 - 4.9 mmol/L [facility] Chloride 103 97 - 110 mmol/L [facility] CO2 30 22 - 32 mmol/L [facility] Anion gap 9 2 - 15 mmol/L [facility] BUN 9 6 - 25 mg/dL [facility] Creatinine 0.73 0.60 - 1.10 mg/dL [facility] Glucose 95 70 - 199 mg/dL [facility] Comment: Interpretive Data Fasting glucose >/= 126 mg/dl is diagnostic for diabetes. Fasting is defined as no caloric intake for at least 8 hours. Fasting glucose between 100 mg/dl to 125 mg/dl is diagnostic of prediabetes. In a patient with classic symptoms of hyperglycemia or hyperglycemic crisis, a random glucose >/= 200 mg/dl is diagnostic for diabetes. In the absence of unequivocal hyperglycemia, results should be confirmed by repeat testing. The classification and Diagnosis of Diabetes Diabetes Care 202; 46: S19-S40. Current interpretive data was last revised 2022. Calcium 9.2 8.5 - 10.3 mg/dL [facility] Bilirubin, total 0.2 0.1 - 1.2 mg/dL [facility] Protein, pl 7.6 6.5 - 8.5 g/dL [facility] Albumin 4.3 3.5 - 5.0 g/dL [facility] Alk phos 90 40 - 130 Units/L [facility] ALT 22 7 - 45 Units/L [facility] AST 22 10 - 45 Units/L [facility] Blood 10/17/2024 10:3 9 AM CDT 10/17/2024 10:49 AM CDT Juarez Guy MD LAB BLOOD ORDERAB LES Final Result [facility] Department [place] [address] documented in this encounter Visit Diagnoses Diagnosis Malignant neoplasm of lower-inner quadrant of left breast in female, estrogen receptor positive (HCC) documented in this encounter Orders Appointment Requests Count Last Ordered Date Fi rst Ordered Date ONCBCN LAB APPOINTMENT 1 10/17/2024 documented in this encounter Care Teams Supervisor Model Making Relationship Specialty Start Date End Date José Miguel Page MD PCP - General Internal Medicine 09/05/18 Esteban Ritter MD Consulting Physician Cardiology 06/18/21 Juarez Guy MD [address] [place] [address] Consulting Physician Medical Oncology 08/31/21 Bill Romo MD [address] [facility] [address] [place] [address] Radiation Oncologist Radiation Oncology 09/11/21 Anne-Marie Mireles MD PhD [address] [facility] [phone] [place] [address] Surgeon Surgical Oncology 09/11/21 documented as of this encounter
--- OUTSIDE RECORDS SUMMARY | 2024-10-18 12:24 | XMS_ITS | Clinical Summary ---
Author Organization [facility] Address [address] [place] [address] Care Team Providers Care Secretary To The Vice President Name Role Phone José Miguel Page MD Primary Care Provider Esteban Ritter MD Unavailable [phone] Juarez Guy MD Unavailable Bill Romo MD Unavailable Anne-Marie Mireles MD PhD Unavaila ble Allergies Active Allergy Reactions Criticality Noted Date Comments Adhesive Rash Medium 11/02/2018 Nylon tape/ Paper tape is OK Adhesive Tape-Silicones Rash Medium 10/16/2024 Latex Rash Medium 10/16/2024 Lisinopril Cough Low 01/25/2019 Medications magnesium oxide 400 mg capsule take 1 by Oral route 2 times every day 0 0 09/04/19 16 Active aspirin 81 mg chewable tablet chew 1 tablet by oral route every day 0 0 09/04/19 16 Active cholecalciferol (VITAMIN D3) 5,000 unit tablet take 1 po QD 0 0 09/04/19 16 Active montelukast (SINGULAIR) 10 mg tablet take 1 tablet by oral route every day in the evening 0 0 09/04/19 16 Active ferrous sulfate 325 mg (65 mg of elemental iron) tabletIndications :Iron Deficiency Anemia Take 1 tablet (65 mg of elemental iron total) by mouth daily with breakfast Active cyclobenzaprine (FLEXERIL) 10 mg tabletIndications :Muscle Spasm Take 1 tablet (10 mg total) by mouth nightly 05/17/20 19 Active gabapentin (NEURONTIN) 100 mg capsuleIndication s:Neuropathic Pain Take by mouth 2 (two) times a day Take 1 capsule during the day and 6 capsules at night Active vit C/E/Zn/coppr/lute in/zeaxan (PRESERVISION AREDS-2 ORAL)Indications: supplement Take 1 tablet by mouth 2 (two) times a day 11/29/19 20 Active atorvastatin (LIPITOR) 40 mg tabletIndications :hyperlipidemia Take 1 tablet (40 mg total) by mouth nightly 10/04/19 21 Active cetirizine 10 mg capsuleIndication s:Allergic Rhinitis Take 10 mg by mouth every morning Active metFORMIN XR (GLUCOPHAGE XR) 500 mg 24 hr tabletIndications :type 2 diabetes mellitus Take 1 tablet (500 mg total) by mouth daily 02/20/20 21 Active multivitamin capsuleIndication s:Vitamin Deficiency Prevention Take 1 capsule by mouth every morning Active nitroglycerin (NITROSTAT) 0.[address] 1 tablet (0.4 mg total) under the tongue every 5 (five) minutes as needed for chest pain Max 3 doses. 30 tablet 3 09/06/19 24 2025 Active methenamine (HIPREX) 1 gram tablet Take 1 tablet (1 g total) by mouth 2 (two) times a day with meals 10/03/19 24 Active Ozempic 2 mg/dose (8 mg/3 mL) pen injector injection 09/16/19 24 Active zolpidem (AMBIEN) 5 mg tablet 09/26/19 24 Active metoprolol XL (TOPROL-XL) 100 mg 24 hr tabletIndications :Nonischemic cardiomyopathy (HCC) TAKE 1 TABLET BY MOUTH EVERY DAY 90 tablet 3 12/12/19 24 Active losartan (COZAAR) 25 mg tabletIndications :Nonischemic cardiomyopathy (HCC) TAKE 1 TABLET BY MOUTH EVERY DAY IN THE MORNING 90 tablet 3 12/12/19 24 Active furosemide (LASIX) 40 mg tablet Take 1 tablet (40 mg total) by mouth every morning 90 tablet 3 02/27/20 24 Active zoledronic acid 4 mg recon soln Infuse into a venous catheter every 6 (six) months Active pantoprazole DR (PROTONIX) 40 mg EC tablet Take 1 tablet (40 mg total) by mouth daily 30 tablet 11 05/29/19 25 Active famotidine (PEPCID) 20 mg tablet Take 1 tablet (20 mg total) by mouth daily Take daily or as needed for nausea/post- meal nausea 30 tablet 11 05/29/19 25 Active carBAMazepine XR (TEGretol XR) 200 mg 12 hr tablet TAKE ONE TABLET BY MOUTH TWICE A DAY 60 tablet 5 07/18/19 25 Active nitrofurantoin monohydrate (MACROBID) 100 mg capsule Take 1 capsule (100 mg total) by mouth as needed 05/14/20 24 Active carBAMazepine XR (TEGretol XR) 100 mg 12 hr tablet TAKE ONE TABLET BY MOUTH TWICE A DAY WITH 200 MG TABLET 60 tablet 1 09/21/19 25 Active Mounjaro 15 mg/0.5 mL pen injector injection Inject 0.5 mL (15 mg total) under the skin once a week 09/03/19 25 Active anastrozole (ARIMIDEX) 1 mg tabletIndications :Malignant neoplasm of lower-inner quadrant of left breast in female, estrogen receptor positive (HCC) Take 1 tablet (1 mg total) by mouth daily 90 tablet 3 10/18/19 25 Active onabotulinumtoxin A (Botox) 100 unit recon soln 100 (100 UNIT) Active melatonin 10 mg capsule Take by mouth Active ergocalciferol (VITAMIN D) 50,000 unit capsule Take 1 capsule (50,000 Units total) by mouth every other day Active saliva stimulant agent (Biotene Moisturizing Mouth) spray,non-aerosol Take by mouth Active LORazepam (ATIVAN) 0.5 mg tablet Take 1-2 tablets (0.5-1 mg total) by mouth as needed for anxiety 1-2 by mouth 30 minutes prior to MRI for claustrophob ia/anxiety. Can take another pill 30 minutes after initial pill if symptoms persists 3 tablet 10/17/19 25 Active anastrozole (ARIMIDEX) 1 mg tabletIndications :Malignant neoplasm of lower-inner quadrant of left breast in female, estrogen receptor positive (HCC) TAKE ONE TABLET BY MOUTH DAILY 30 tablet 11 12/12/19 24 2024 Discontinued(R eorder) carBAMazepine XR (TEGretol XR) 100 mg 12 hr tablet TAKE ONE TABLET BY MOUTH TWICE A DAY WITH 200 MG TABLET 60 tablet 1 08/07/19 25 2024 Discontinued Active Problems Problem Noted Date Diagnosed Date Coronary artery disease of n ative artery of [place] heart with stable angina pectoris 07/11/2024 RBBB 07/11/2024 Dyssynergic defecation 06/26/2024 MAYRA (stress urinary incontinence, female) 2024 Pelvic floor dysfunction 06/26/2024 Nausea without vomiting 05/29/2024 Assessment & Plan (05/29/2024 11:11 AM ALUMINUM CONTAINER TESTER): Broad differential for longstanding nausea. Patient reports this has been present since her breast cancer treatment. Could be medication related. Requires periodic Zofran. Recommend EGD to further assess, as above. If EGD is unremarkable, would recommend GES given DM history. Would recommend refraining from Zofran use given QTc 486 on EKG 01/2024. Patient understood. Instead, can try trial of Pepcid 20 mg daily / as needed for post-meal related nausea. Constipation 05/29/2024 Assessment & Plan (05/29/2024 10:41 AM ALUMINUM CONTAINER TESTER): Alternating constipation with episodes of fecal smearing/incontinence. She also reports bladder incontinence for which she receives Botox injections for. Suspect a component of opioid induced constipation, given she takes narcotics for back pain daily. Recent TSH WNL. Patient advised to refrain from using stimulant laxative daily. Instead, recommend MiraLAX daily. May start with 1-2 capfuls per day to help produce normal, daily BMs. Increase fluid intake and daily exercise/movement. Patient advised to follow up if her symptoms do not improve with above recommendations. She is due for colonoscopy in 2025, however can consider doing earlier if ongoing issues/symptoms. Right sided abdominal pain 05/29/2024 Assessment & Plan (05/29/2024 10:56 AM ALUMINUM CONTAINER TESTER): Intermittent. Worse with movement. Associated low back pain and flank pain. Exam today is non-tender and benign. Recent work up has included UA, lab work and extensive back and abdominal imaging. Imaging detailed below. Patient brought in outside lab and imaging reports with her today and I reviewed them. No acute intra-abdominal process or infectious etiology found. Patient is s/p CCY. Suspect her pain is largely related to referred back pain as she states pain is worse with movement and improves after she takes her pain medication. Monitor symptoms and follow up with her PCP. 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 06/2021 Bone disorder 01/22/2022 Dehydration 09/25/2021 Trigeminal neuralgia 09/19/2021 Numbness of toes 09/19/2021 Malignant neoplasm of lower- inner quadrant of left breast in female, estrogen receptor positive 09/04/2021 Cancer Staging:Clinical stage from 07/08/2021:Stage IA(cT1, cN0, cM0, G3, ER+, AL+, HER2-) - Unsigned Pathologic stage from 08/07/2021:Stage IA(pT1c, pN0(sn), cM0, G3, ER+, AL+, HER2- ) - Unsigned Generalized abdominal pain 06/18/2021 Overview (06/18/2021): Added automatically from request for surgery [id number] H/O cardiomyopathy 11/14/2020 Chronic heart failure with preserved ejection fr action 11/14/2020 Other optic atrophy, right eye 10/16/2020 Assessment & Plan (03/21/2023 11:02 AM CDT): From previous optic neuritis, no pain or visual changes No sign of active inflammation both eyes (OU) , stable RNFL both eyes (OU) , monitor Assessment & Plan (03/04/2022 8:56 AM CDT): From previous optic neuritis, no pain or visual changes No sign of active inflammation both eyes (OU) Assessment & Plan (03/16/2021 5:57 PM CDT): Patient aware this will limit her visual potential OD Still wants to proceed with OD first Assessment & Plan (10/16/2020 3:03 PM CDT): From previous optic neuritis, no pain or visual changes No sign of active inflammation both eyes (OU) Fecal smearing 07/29/2020 Assessment & Plan (05/29/2024 11:08 AM ALUMINUM CONTAINER TESTER): Fecal incontinence with urge incontinence and passage of liquid/solid stool. Last visit was recommended to try fiber supplement. She cannot tolerate Metamucil, makes her feel sick/vomit. Discussed other ways to increase daily fiber intake. Could also try pill or gummy form of Metamucil. Recommend and discussed further work up with anorectal manometry. Ordered today. Further recommendations pending results. Colonoscopy due in 2025, can consider earlier if ongoing issues/symptoms despite today's recommendations. Pseudophakia of both eyes 11/28/2019 Assessment & Plan (03/26/2024 12:42 PM ALUMINUM CONTAINER TESTER): Lenses centered and stable with clear capsules, monitor Assessment & Plan (03/21/2023 11:02 AM CDT): Lenses centered and stable with clear capsules, monitor Assessment & Plan (03/04/2022 8:55 AM CDT): Lenses centered and stable with clear capsules, monitor Assessment & Plan (08/31/2021 3:56 PM CDT): POM#1 s/p CEIOL OS - doing well with no concerns - denies pain - follow with Dr. Keene Assessment & Plan (08/10/2021 7:36 AM CDT): POW1 Extraction Cataract - Phacoemulsification And Lens Implant - Left Postoperative instructions were given. The patient is to use: Taper PF 3-2-1 D/C Moxi Signs, symptoms of retinal detachment, tear, hole, and endophthalmitis and hypotony were reviewed and the patient is to call immediately for concerns. They can resume normal activity. We discussed that things should improve until they stabilize. Should there be any worsening of pain, vision, or redness the patient is to call. Assessment & Plan (07/31/2021 10:32 AM ALUMINUM CONTAINER TESTER): POD1 Extraction Cataract - Phacoemulsification And Lens Implant - Left Doing well. IOP and VA as expected Postoperative instructions were given. The patient is to use: ofloxacin QID X 1 week OS Prednisolone Acetate 1% QID OS Patient is to wear the shield at bedtime X 1 week. Signs, symptoms of retinal detachment, tear, hole, and endophthalmitis were reviewed and the patient is to call immediately for concerns. We discussed that things should improve until they stabilize. Should there be any worsening of pain, vision, or redness the patient is to call. Followup 1 week or sooner for concerns. Assessment & Plan (07/06/2021 2:12 PM ALUMINUM CONTAINER TESTER): POM#1 s/p CEIOL OD - doing well with no concerns - denies pain - off all drops - pleased with vision - CEIOL OS scheduled for July Assessment & Plan (06/05/2021 10:48 AM ALUMINUM CONTAINER TESTER): POW1 Extraction Cataract - Phacoemulsification And Lens Implant - Right Postoperative instructions were given. The patient is to use: Taper PF 3-2-1 D/C Moxi Signs, symptoms of retinal detachment, tear, hole, and endophthalmitis and hypotony were reviewed and the patient is to call immediately for concerns. They can resume normal activity. We discussed that things should improve until they stabilize. Should there be any worsening of pain, vision, or redness the patient is to call. Assessment & Plan (05/29/2021 8:14 AM ALUMINUM CONTAINER TESTER): POD1 Extraction Cataract - Phacoemulsification And Lens Implant - Right Postoperative instructions were given. The patient is to use: ofloxacin QID X 1 week Prednisolone Acetate 1% QID Patient is to wear the shield at bedtime X 1 week. Signs, symptoms of retinal detachment, tear, hole, and endophthalmitis were reviewed and the patient is to call immediately for concerns. We discussed that things should improve until they stabilize. Should there be any worsening of pain, vision, or redness the patient is to call. Followup 1 week or sooner for concerns. Assessment & Plan (03/16/2021 5:55 PM CDT): VS both eyes OD then OS The patient understands the risks, benefits, alternatives and wishes to proceed with cataract surgery. We discussed the target and the patient elects target plano. We discussed toric and multifocal lens options as well as laser assisted wounds however I prefer a manual technique here. The patient understands glasses are a possibility and is comfortable proceeding with a monofocal lens. Discussed risk of bleeding, infection, need for another surgery and rarely vision loss. Flomax: no Dilation: 8mm Need for perioperative steroids: no Book Phaco/IOL/ right then left eye. Assessment & Plan (10/16/2020 3:01 PM CDT): Visually significant, refer for cataract extraction (CE) Ou Assessment & Plan (11/28/2019 5:12 PM CDT): Not visually significant ou Drusen (degenerative) of macula, left eye 2019 Assessment & Plan (03/21/2023 11:01 AM CDT): No sign of wet changes Areds/amsler reccommended Assessment & Plan (03/04/2022 8:54 AM CDT): No sign of wet changes Areds/amsler reccommended Assessment & Plan (10/16/2020 3:01 PM CDT): No sign of wet changes Areds/amsler reccommended Assessment & Plan (11/28/2019 5:14 PM CDT): No sign of wet changes Areds reccommended Abnormal findings on diagnostic imaging of latia t 11/02/2018 Esophageal dysphagia 06/13/2018 Overview (06/13/2018): Added automatically from request for surgery [id number] Assessment & Plan (05/29/2024 10:16 AM ALUMINUM CONTAINER TESTER): Longstanding dysphagia symptoms. Prior EGDs and manometry testing were unrevealing. Symptoms suspected to possibly be related to her multiple sclerosis. Recent modified barium swallow study detailed below. Subsequent [facility] evaluation - per their note unremarkable oropharyngeal swallow function. Suspect symptoms may be related to GERD or esophageal dysphagia. Rec f/u with GI. GERD seems well controlled with Pantoprazole. She has daily nausea which requires Zofran. Recommend updating EGD to further assess. The procedure risks including, but not limited to perforation infection bleeding and anesthetic complications were discussed and the patient verbalized understanding and agreed to proceed. Other dysphagia 11/08/2017 Non-alcoholic fatty liver disease 11/08/2017 Assessment & Plan (05/29/2024 10:46 AM ALUMINUM CONTAINER TESTER): Seen on previous imaging. With normal LFTs. Recent CT imaging in January 2024 revealed indeterminate 1.4 cm hypodense lesion in segment IVb of liver. However, subsequent MRI of abdomen confirmed this is focal hepatic steatosis. LFTs continue to remain normal. Discussed fatty liver and possible progression into fibrosis or cirrhosis and recommend FibroScan today to assess for underlying fibrosis. Patient declined. Fatty liver recommendations discussed today: Weight loss (weight loss up to 3-5% of body weight can improve fat in the liver and up to 10% can improve inflammation) Diet and exersise Mediterranean diet is recommended. This is a diet high in fruits and vegetables and low in red meat. We also recommend eating fish instead of red meat. Increased black coffee consumption (2-4 cups per day) also helps improve fat deposition in the liver. Increase physical activity and set a weight loss goal through exercise and nutrition Assessment & Plan (09/24/2019 7:32 PM CDT): Stable with relatively normal liver biochemistries. I stressed the importance of weight loss is the most effective means of decreasing hepatic fat. Ongoing hepatic fat can result in hepatic inflammation and subsequent hepatic fibrosis. I gave her a goal of losing 10-20 lb in the next year. She will return on an annual basis or when clinically indicated. Assessment & Plan (09/26/2018 11:30 AM CDT): Stable. The presence of normal liver enzymes is consistent with a lack of hepatic inflammation. However, I stressed the importance of weight loss as the most dependable means of decreasing hepatic fat. I gave her a weight loss goal of 15- 20 lb over the course of the next year through a combination of caloric restriction and an exercise program. Mixed diabetic hyperlipidemi a associated with type 2 diabetes mellitus ([facility]) 10/27/2017 Assessment & Plan (11/01/2019 10:04 AM CDT): Goal of treatment , LDL cholesterol less than 100 ( less than 70 in patients with history of heart attacks and / or strokes ) NonHDL cholesterol ( total cholesterol minus HDL cholesterol ) goal less than 130 ( less than 100 in patients with history of heart attacks and / or strokes ) Low cholesterol, low fat diet was discussed and advised. Daily exercise On statin therapy Not at goal Recheck fasting lipids Assessment & Plan (05/09/2018 11:27 AM ALUMINUM CONTAINER TESTER): Goal of treatment , LDL cholesterol less than 100 ( less than 70 in patients with history of heart attacks and / or strokes ) NonHDL cholesterol ( total cholesterol minus HDL cholesterol ) goal less than 130 ( less than 100 in patients with history of heart attacks and / or strokes ) Low cholesterol, low fat diet was discussed and advised. Daily exercise On statin therapy Check TSH, CMP Assessment & Plan (10/27/2017 11:35 AM CDT): Goal of treatment , LDL cholesterol less than 100 ( less than 70 in patients with history of heart attacks and / or strokes ) NonHDL cholesterol ( total cholesterol minus HDL cholesterol ) goal less than 130 ( less than 100 in patients with history of heart attacks and / or strokes ) Low cholesterol, low fat diet was discussed and advised. Daily exercise On statin therapy Gastroesophageal reflux disease without esophagi tis 04/07/2017 Assessment & Plan (05/29/2024 10:22 AM ALUMINUM CONTAINER TESTER): Currently well controlled. Recommend decreasing Pantoprazole to once daily dosing and see how she does. EGD is recommended as above for dysphagia and nausea. Patient educated on lifestyle modification including avoiding known dietary triggers (acidic foods, alcohol, carbonated beverages), sit upright after eating, avoid large meals before bed, and elevate head of bed. Morbid obesity with BMI of 40.0-44.9, adult 10/21 Awareness of heartbeats 08/31/2016 Overview (10/15/2016): Palpitations Chest heaviness 01/27/2016 Overview (08/27/2016): Chest pain of uncertain etiology Nonischemic cardiomyopathy (CMS/HCC) 09/09/2015 Type 2 diabetes mellitus with hyperglycemia 08/21 Assessment & Plan (03/26/2024 12:42 PM ALUMINUM CONTAINER TESTER): No diabetic retinopathy (DR) . Stressed importance of tight blood glucose control/ diet/exercise and A1C <7% to reduce the risk of diabetic complications. Report sent to PCP/endo. Assessment & Plan (03/21/2023 11:02 AM CDT): No diabetic retinopathy (DR) . Stressed importance of tight blood glucose control/ diet/exercise and A1C <7% to reduce the risk of diabetic complications. Report sent to PCP/endo. Assessment & Plan (03/04/2022 8:56 AM CDT): No diabetic retinopathy (DR) . Stressed importance of tight blood glucose control/ diet/exercise and A1C <7% to reduce the risk of diabetic complications. Report sent to PCP/endo. Assessment & Plan (10/16/2020 3:02 PM CDT): No diabetic retinopathy (DR) . Stressed importance of tight blood glucose control/ diet/exercise and A1C <7% to reduce the risk of diabetic complications. Report sent to PCP/endo. Assessment & Plan (05/08/2020 12:20 PM ALUMINUM CONTAINER TESTER): Will add Lo pt with CHF SE discussed Pt to call if any Might d/c metformin Assessment & Plan (11/28/2019 5:13 PM CDT): No diabetic retinopathy (DR) . Stressed importance of tight blood glucose control/ diet/exercise and A1C <7% to reduce the risk of diabetic complications. Report sent to PCP/endo. Assessment & Plan (11/01/2019 10:05 AM CDT): Hba1c was Lab Results Component Value Date HGBA1C 6.2 11/01/2019 today, indicating adequate DM control 1800 calorie, consistent carb diet recommended, no more than 3-45 grams of carbs per meal, avoiding concentrated sweet drinks and rapid absorption carbs. 25-45 min daily aerobic and resistance exercise recommended Medications: Continue Metformin Assessment & Plan (05/10/2019 2:49 PM ALUMINUM CONTAINER TESTER): Hba1c was Lab Results Component Value Date HGBA1C 5.5 05/10/2019 today, indicating adequate DM control 1800 calorie, consistent carb diet recommended, no more than 3-45 grams of carbs per meal, avoiding concentrated sweet drinks and rapid absorption carbs. 25-45 min daily aerobic and resistance exercise recommended Medications: Continue Metformin Assessment & Plan (11/09/2018 12:20 PM CDT): Hba1c was Lab Results Component Value Date HGBA1C 5.8 % 11/09/2018 today, indicating Adequate DM control 1800 calorie, consistent carb diet recommended 25-45 min daily aerobic and resistance exercise recommended Prevention and treatment of hyypoglcyemia discussed. Oral medications: continue Metformin Assessment & Plan (05/09/2018 11:26 AM ALUMINUM CONTAINER TESTER): Hba1c was Lab Results Component Value Date HGBA1C 6.1 05/09/2018 today, indicating adequate DM control 1800 calorie, consistent carb diet recommended 25-45 min daily aerobic and resistance exercise recommended Prevention and treatment of hyypoglcyemia discussed. Blood glucose monitoring with fingers sticks 1-2 x day . Oral medications: continue Metformin Obesity with body mass index 30 or greater 08/03 Overview (08/27/2016): Obesity (BMI 35.0-39.9 without comorbidity) Abnormal liver function tests 03/03/2015 Overview (08/27/2016): Elevated liver function tests PVC's (premature ventricular contractions) 03/03 Overview (08/27/2016): PVC's (premature ventricular contractions) Multiple sclerosis 10/09/2014 Overview (08/13/2024): MS Medication History: RRMS Symptom onset/Diagnosis:1998 ON 1. 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 She reports that since her last visit she has been largely stable. She reports ongoing left Achilles pain which has painful both with movement and touch. She also reports some residual intermittent shock-like sensations in her right lower extremity, balance issues, bladder symptoms, and ongoing cognitive issues. She takes gabapentin 100 mg in the morning and 600 mg at night, carbamazepine 300 mg twice daily for trigeminal neuralgia, Flexeril 10 mg at night, and pinprick daily for UTI prevention. She also gets Botox injections by Urology every three months with good benefit. Her neurological exam shows some difficulty with gait but no new deficits. We discussed ongoing management of her multiple sclerosis. Given the lack of clinical evidence of new disease activity recommended continuing to monitor the patient off disease modifying therapy. We discussed a referral to Orthopedic surgery for further evaluation of her left ankle pain. We will place a referral and provide the patient with a number to call and schedule an appointment. I will continue the patient on gabapentin 100 mg in the morning and 600 mg at night, carbamazepine 300 mg twice daily, Flexeril 10 mg at night, and Zyprexa daily for UTI prevention. We will obtain an updated brain and cervical MRI for further evaluation of new disease activity. The patient is currently taking vitamin-D 5000 units every other day. Counseled her to follow up with her PCP to determine the appropriate dose. I will see the patient back in follow up instructed her to reach out if any questions arise before next visit. Assessment & Plan (10/16/2020 3:03 PM CDT): Pt states has been in remission for years Carpal tunnel syndrome 10/09/2014 Meralgia paresthetica 10/07/2014 Overview (08/27/2016): Meralgia paresthetica of right side Obstructive sleep apnea 07/18/2014 Overview (08/27/2016): Obstructive sleep apnea syndrome Hypersomnia with sleep apnea 07/18/2014 Overview (08/27/2016): Hypersomnia with sleep apnea Hypertension associated with diabetes 11/22/2013 Overview (08/27/2016): HTN (hypertension), benign Assessment & Plan (05/08/2020 12:20 PM ALUMINUM CONTAINER TESTER): Goal blood pressure is less than 140/85 Low salt diet was discussed andd recommended The importance of daily aerobic exercise was also emphasized. Continue current meds, including MICHAEL-I or ARB, e.g. Losartan Check microalbumin Assessment & Plan (11/01/2019 10:05 AM CDT): Goal blood pressure is less than 140/85 Low salt diet recommended Daily aerobic exercise Continue current meds, including MICHAEL-I or ARB Check microalbumin Assessment & Plan (05/10/2019 2:50 PM ALUMINUM CONTAINER TESTER): Goal blood pressure is less than 140/85 Low salt diet recommended Daily aerobic exercise Continue current meds, including MICHAEL-I or ARB Assessment & Plan (11/09/2018 12:20 PM CDT): Goal blood pressure is less than 140/85 Low salt diet recommended Daily aerobic exercise Continue current meds, including MICHAEL-I or ARB Assessment & Plan (05/09/2018 11:26 AM ALUMINUM CONTAINER TESTER): Goal blood pressure is less than 140/85 Low salt diet recommended Daily aerobic exercise Continue current meds, including MICHAEL-I or ARB Check microalbumin Assessment & Plan (10/27/2017 11:35 AM CDT): Goal blood pressure is less than 140/85 Low salt diet recommended Daily aerobic exercise Continue current meds, including MICHAEL-I or ARB Shortness of breath 11/22/2013 Overview (08/27/2016): Dyspnea Disease of spinal cord 12/12/2012 Overview (08/25/2016): Myelopathy Unspecified optic neuritis 12/12/2012 Overview (08/25/2016): Optic neuritis Assessment & Plan (03/26/2024 12:42 PM ALUMINUM CONTAINER TESTER): Residual optic atrophy right eye (OD) No sign of active inflammation both eyes (OU) Assessment & Plan (11/28/2019 5:12 PM CDT): Residual optic atrophy right eye (OD) No sign of active inflammation both eyes (OU) Impaired cognition 12/12/2012 Overview (08/26/2016): Cognitive impairment Resolved Problems Problem Noted Date Diagnosed Date Resolved Date Encounter for [facility] 09/10/2021 09/06/2023 Breast cancer 07/17/2021 09/22/2021 Overview (07/17/2021): Added automatically from request for surgery [id number] Fecal smearing 01/31/2020 09/06/2023 Encounter for screening colonoscopy 11/08/2017 09/06/2023 Dyslipidemia associated with type 2 diabetes mellitus ([facility]) 08/31/2016 11/25/2021 Overview (10/15/2016): DM type 2 with diabetic dyslipidemia Assessment & Plan (05/10/2019 2:50 PM ALUMINUM CONTAINER TESTER): .Goal of treatment , LDL cholesterol less than 100 ( less than 70 in patients with history of heart attacks and / or strokes ) NonHDL cholesterol ( total cholesterol minus HDL cholesterol ) goal less than 130 ( less than 100 in patients with history of heart attacks and / or strokes ) Low cholesterol, low fat diet was discussed and advised. Daily exercise Increase Pravachol to 40 mg daily Assessment & Plan (04/19/2017 11:32 AM ALUMINUM CONTAINER TESTER): Hba1c was 5.7 today, indicating adequate DM control 1800 calorie, consistent carb diet recommended 30 min daily aerobic and resistance exercise recommended Prevention and treatment of hyypoglcyemia discussed. Blood glucose monitoring with fingers sticks 1-2 x day . Foot care was discussed. Body mass index 40+ - severely obese 01/27/2016 09/19/2021 Overview (08/27/2016): Morbid obesity with BMI of 40.0-44.9, adult Hyperlipidemia 09/09/2015 11/25/2021 Assessment & Plan (04/19/2017 11:31 AM ALUMINUM CONTAINER TESTER): Goal of treatment , LDL cholesterol less than 100 ( less than 70 in patients with history of heart attacks and / or strokes ) NonHDL cholesterol goal less than 130 ( less than 100 in patients with history of heart attacks and / or strokes ) Continue statin therapy Nonalcoholic steatohepatitis (VALDEZ) 09/08/2015 09/26/2018 Sleep apnea 10/09/2014 03/16/2022 Chronic combined systolic an d diastolic heart failure, NYHA class 2 11/22/2013 11/14/2020 Overview (08/27/2016): Chronic diastolic heart failure Encounters Date Type Department Care Team Description 10/17/2024 1:00 PM CDT Infusion [facility] - Infusion [address] [facility] [place], [place] Floor [address] [place] [address]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 current use 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 inhibitor (Primary Dx); Malignant neoplasm of lower-inner quadrant of left breast in female, estrogen receptor positive (HCC); Bone disorder 10/17/2024 11:30 AM CDT Office Visit [facility] Oncology [address] [facility] Floor [address] [place] [id number] Juarez Guy MD Malignant neoplasm of lower-inner quadrant of left breast in female, estrogen receptor positive (HCC) 10/17/2024 10:30 AM CDT Lab [facility] - Lab Collection [address] [facility] [place] [place] Floor [address] [place] [address] Malignant neoplasm of lower-inner quadrant of left breast in female, estrogen receptor positive (HCC) 10/17/2024 Telephone [facility] [address] [place] [address] Tariq Milligan MD orthopedics (Schedule an apt) 10/17/2024 Telephone [facility] [address] [place] [address] Yves Munoz MD 10/16/2024 10:00 AM CDT Office Visit [facility] [place] [facility] [address] [phone] Yves Munoz MD Multiple sclerosis (HCC) (Primary Dx); Acute left ankle pain 09/21/2024 2:45 PM CDT Office Visit [facility] Cardiology at [address] [place] [address] Kael Falcon MD 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 (Primary Dx); Hypertension associated with diabetes (CMS/HCC); Mixed diabetic hyperlipidemia associated with type 2 diabetes mellitus (CMS/HCC) (HCC); Nonischemic cardiomyopathy (CMS/HCC) (HCC); PVC's (premature ventricular contractions); Obstructive sleep apnea 09/18/2024 Telephone [facility] [place] [facility] [address] [phone] Ofelia Saavedra MD 08/13/2024 10:00 AM CDT Office Visit [address] [phone] Ofelia Saavedra MD Multiple sclerosis (HCC) (Primary Dx); Encounter for medication management; Falls infrequently; Dysphagia, unspecified type 07/21/2024 Results Follow-Up [facility] Gastroenterology at [address], [place] [phone] Markus Becerra MD Surgical pathology from Last 3 Months Immunizations Immunization Administration Dates Next Due Influenza, Quadrivalent, Spl it, Preservative Free, Intramuscular 01/22/2021,03/07/2019 Pfizer SARS-CoV-2 Monovalent Vaccination (12+ Yrs) PURPLE 08/01/2020,07/11/2020 ZOSTER Recombinant 04/07/2020,03/07/2019 Surgical History Surgery Date Site/Laterality Comments CHOLECYSTECTOMY 05/23/1980 - 05/22/1981 SECTION 05/23/1992 - 05/22/1993 ENDOMETRIAL ABLATION 05/23/2004 - 05/22/2005 uterine ablation CARDIAC CATHETERIZATION 05/23/2005 - 05/22/2006 TUBAL LIGATION 05/23/1994 - 05/22/1995 APPENDECTOMY 05/23/1980 - 05/22/1981 COLONOSCOPY last one 07/2020 few CARPAL TUNNEL RELEASE 03/2015, 11/2014 Bilateral right first then left SEPTOPLASTY 05/23/1991 - 05/22/1992 ESOPHAGOGASTRODUODENOSCOPY last one 05/2018 multiple CATARACT EXTRACTION 05/28/2021 Right BLADDER SURGERY 05/23/1994 - 05/22/1995 a & p repair OTHER SURGICAL HISTORY 05/23/2005 - 05/22/2006 adhesions, lap. OTHER SURGICAL HISTORY 05/23/2012 - 05/22/2013 spinal tap, x2 CARDIAC ELECTROPHYSIOLOGY MA PPING AND ABLATION 05/23/2006 - 05/22/2007 OTHER SURGICAL HISTORY last on 06/01/21 multiple, botox injections, urinary incontinence BREAST BIOPSY 07/08/2021 Left CATARACT EXTRACTION W/ INTRAOCULAR LENS IMPLANT 07/30/2021 Left MASTECTOMY, PARTIAL 05/23/2020 - 05/22/2021 ESOPHAGOGASTRODUODENOSCOPY 06/23/2021 - 07/20/2021 MASTECTOMY PARTIAL / LUMPECTOMY 07/21/2021 - 08/20/2021 Left PORTACATH PLACEMENT 08/21/2021 - 09/19/2021 SECTION 05/18/93 ABDOMINAL SURGERY Gallbladder 1990 UPPER GASTROINTESTINAL ENDOSCOPY 07/09/2024 difficulty swallowing meat/ GERD- hx esophgeral cancer Medical History Medical History Date Comments Gastroesophageal reflux disease acid reflux Hx Other Medical sinus headaches Hx Other Medical cardiomyopathy Hypertension Hypertension Hyperlipidemia Hyperlipidemia Hx Other Medical Arrhythmias kasey q PVC's with h/o ablation Hx Other Medical MS Multiple sclerosis (HCC) Multipl e Sclerosis Hx Other Medical Claustrophobic; Comments: GFC 12/18/2013 - PONV (postoperative nausea a nd vomiting) Anemia Dysphagia Liver disease CHF (congestive heart failur e) (HCC) Cardiomyopathy (HCC) Cardiomyopathy (HCC) Headache Depression Type 2 diabetes mellitus (HCC) Overweight Heart disease cardiomyopathy Neuromuscular disorder (HCC) Multiple Scelrosis Smoking Quit in Motion sickness Sleep apnea CPAP (kind of hi t and miss, not every night) Breast cancer (HCC) Cataract Obesity Family History Medical History Relation Name Comments Prostate cancer Brother 1 esohageal cancer Brother 1 Cancer Brother 2 Jace Mays Cancer Brother 3 Huber Mays Cardiomyopathy Father Jace Mays Cardio myopathy; Cause of : Cardiomyopathy Diabetes Father Jace Mays Diabetes mellitus; Heart disease Father Jace Mays Skin cancer Father Jace Mays Heart disease Maternal Grandfather Aftab Celis Arthritis Mother Barb Mays Diabetes Mother Barb Mays Diabetes m ellitus; Heart attack Mother Barb Mays Myocardial Infarction; Hypertension Mother Barb Mays Hypertensi on; Kidney disease Mother Barb Mays Obesity Mother Barb Mays Stent Mother Barb Mays Coronary S tent Placement; Cancer Mother's Brother 1 Bird Celis COPD Mother's Brother 2 Sabas Celis Cancer Other 1 Family history of Cancer; Diabetes Other 2 Family history of Diabetes mellitus; Hypertension Other 3 Family history of Hypertension; Breast cancer Sister 1 Cancer Sister 2 Malina Torres Diabetes Sister 2 Malina Torres Heart disease Sister 2 Malina Torres Kidney disease Sister 2 Mlaina Torres Anesthesia problems Neg Hx Endometrial cancer Neg Hx Ovarian cancer Neg Hx Thyroid cancer Neg Hx Relation Name Status Comments Brother 1 Brother 2 Jace Mays Brother 3 Huber Davon Father Jace Mays Maternal Grandfather Aftab Celis Mother Barb Mays Alive Mother's Brother 1 Bird Celis Mother's Brother 2 Sabas Celis Other 1 Other 2 Other 3 Sister 1 Sister 2 Malina Torres Social History Tobacco Use Types Packs/Day Years Used Date Smoking Tobacco: Former Cigarettes 0.8 19.2 0 05/23/1973 - 08/21/1992 Smokeless Tobacco: Never Tobacco Cessation:Counseling Given: Not Answered Alcohol Use Standard Drinks/Week Comments Yes 0 [...] on file Legal Sex Female 9:07 AM ALUMINUM CONTAINER TESTER Gender Identity Female 02/22/2024 11:51 AM CDT Sexual Orientation Straight 08/29/2018 12 :15 PM CDT Occupation Industry Job Start Date Job End Date disabled Not on file Not on file Not on file Obstetrics History Para Term AB IAB SAB Ectopic Multiple Livin g Live Births 2 2 2 Date Outcome GA Total Labor Labor/2nd/3rd Weight Sex Type Anes PTL Agnes A1 A5 Name Clin Term Term Last Filed Vital Signs Vital Sign Reading Time Taken Comments Blood Pressure 107/73 10/17/2024 11:32 AM CDT Pulse 91 10/17/2024 11:32 AM CDT Temperature 36.7 C (98 F) 10/17/2024 11:32 AM CDT Respiratory Rate 20 10/17/2024 11:32 AM CDT Oxygen Saturation 100% 10/17/2024 11:32 AM CDT Inhaled Oxygen Concentration - - Weight 89.4 kg (197 lb) 10/17/2024 11:32 AM CDT Height 157.5 cm (5' 2) 10/16/2024 9:39 AM CDT Body Mass Index 36.03 10/16/2024 9:39 AM CDT Plan of Treatment Health Maintenance Due Date Last Done Comments Cervical Cancer Screening 1960 DTaP/Tdap/Td Vaccine (1 - Tdap) 10/25/1970 Hepatitis B Screening 10/25/1977 Regular Well Visit/Exam 18-64 10/25/1977 Pneumococcal vaccine <65 (1 of 2 - PCV) 10/25/1978 Foot Exam 10/31/2020 11/01/2019, 10/21, 05/10/2019, Additional history exists Hemoglobin A1C 03/30/2021 09/27/2020, 04/22, 11/01/2019, Additional history exists Albumin Creatinine Ratio, Urine 09/27/2021 , 05/19/2020 Covid-19 Vaccine (2023-2 5 season) 2024 04/07/2021, 08/01/2020, 07/11/2020 Depression Screening 02/11/2024 02/10/2023, 02/11/2022, 02/12/2021, Additional history exists Influenza Vaccine (Season Ended) 2025 01/23/20, 03/07/2019 Breast Cancer Screening-Mammogram 01/25/2025 01/26/2024, 02/03/2023, 02/18/2022, Additional history exists Dilated Eye Exam 03/26/2025 03/26/2024, , 03/04/2022, Additional history exists Lipid Panel 09/21/2025 09/21/2024, 08/21, 03/01/2023, Additional history exists eGFR 10/17/2025 10/17/2024, 03/24, 04/03/2024, Additional history exists Colon Cancer Screening-Colonoscopy 08/13/2030 08/13/2020 Hepatitis C Screening Completed 04/03/2015 Zoster Vaccine Completed 04/07/2020, 03/07/2019 Colon Cancer Screening-CT Colonography Discontinued 08/13/2020 Colon Cancer Screening-DNA Stool Discontinued 08/14/19 Colon Cancer Screening-FIT Discontinued 08/13/2020 Colon Cancer Screening-Sigmoidoscopy Discontinued 08/13/2020 Medical Devices Implanted Type Area Gps Navigation Installer Device Identifier Shelf Expiration Date Model / Serial / Lot [employer] Peripheral Vascular Powerport Clearvue Airguard 8fr 1 Lumen Lightweight Intermediate Latex Free [id number] - [id number] Implanted:Qty: 1 on 09/14/2021 by Anne-Marie Mireles MD PhD at [facility] Catheter Right: Clavicle [employer] [id number] 06/22/2022 [id number] / / [id number] Description:Right mid clavic ular region in the IJ [employer] [id number] - [id number] - [id number] Implanted:Qty: 1 on 05/28/2021 by Sarah Correa MD at [facility] Lens Right: Eye [employer] [id number] 11/20/2023 [id number] / [id number] / [id number] Description:[id number] 21.5D Righ t eye [employer] [id number] - [id number] - [id number] Implanted:Qty: 1 on 07/30/2021 by Sarah Correa MD at [facility] Lens Left: Lens [employer] [id number] 11/20/2023 [id number] / [id number] / Bard Peripheral Vascular [id number] Ghiatas 20ga 20cm 7cm Beaded Needle Breast Wire Localization - [id number] Implanted:Qty: 1 on 08/07/2021 at [facility] Peripheral Vascular [id number] / / Procedures Procedure Name Priority Date/Time Associated Diagnosis Comments EGFR Routine 10/17/2024 10:39 AM CDT Malignant neoplasm of lower-inner quadrant of left breast in female, estrogen receptor positive (HCC) DIFFERENTIAL AUTO Routine 10/17/2024 10:39 AM CDT Malignant neoplasm [...] breast in female, estrogen receptor positive (HCC) POCT LIPID PANEL Routine 09/21/2024 2:46 PM CDT 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 DIAGNOSTIC MAMMOGRAM BILATERAL W SHERMAN Schedule Routine, Read Routine (OP Routine) 01/26/2024 11:07 AM CDT Encounter for follow-up surveillance of breast cancer History of partial mastectomy of left breast Hx of lymph node excision Malignant neoplasm of lower-inner quadrant of left breast in female, estrogen receptor positive (HCC) Vascular insufficiency Encounter for postoperative wound check Malignant neoplasm of left female breast, unspecified estrogen receptor status, unspecified site of breast (HCC) HEMOGLOBIN A1C Routine 09/27/2020 9:37 AM CDT ALBUMIN CREATININE RATIO, URINE Routine 09/27/2020 9:37 AM CDT COLONOSCOPY 08/13/2020 12:02 PM CDT DIABETIC EYE EXAM Routine 12/27/2018 SERUM HEPATITIS PANEL Routine 04/03/2015 7:47 AM ALUMINUM CONTAINER TESTER from Last 3 Months or Most Recently Relevant to Health Maintenance Results * eGFR (10/17/2024 10:39 AM CDT) [...] LAB BLOOD ORDERAB LES Final Result [facility] [place] [address] * Differential, auto (10/17/2024 10:39 AM CDT) Neutrophil abs 3.14 1.50 - 6.50 K/cumm Comment:Testing performed by : [facility], [address] [place], [place] [id number] Lymphocyte abs 2.03 0.80 - 3.30 K/cumm [facility] Comment:Testing performed by : [facility], [address] [place], [place] [id number] Monocyte abs 0.44 0.20 - 0.80 K/cumm [facility] Comment:Testing performed by : [facility], [address] [place], [place] [id number] Eosinophil abs 0.10 0.00 - 0.50 K/cumm [facility] Comment:Testing performed by : [facility], [address] [place], [place] [id number] Basophil abs 0.02 0.00 - 0.10 K/cumm [facility] Comment:Testing performed by : [facility], [address] [place], [place] [id number] Neutrophil pct 54.9 % [facility] Comment: Interpretive Data Percent cell count reference ranges are not reported, since discordance with absolute values may lead to misinterpretation of CBC data. Current Interpretive Data was last revised on 2017. Testing performed by: [facility], [address] [place], [place] [id number] Lymphocyte pct 35.4 % [facility] Comment: Interpretive Data Percent cell count reference ranges are not reported, since discordance with absolute values may lead to misinterpretation of CBC data. Current Interpretive Data was last revised on 2017. Testing performed by: [facility], [address] [place], [place] [id number] Monocyte pct 7.6 % [facility] Comment: Interpretive Data Percent cell count reference ranges are not reported, since discordance with absolute values may lead to misinterpretation of CBC data. Current Interpretive Data was last revised on 2017. Testing performed by: [facility], [address] [place], [place] [id number] Eosinophil pct 1.7 % [facility] Comment: Interpretive Data Percent cell count reference ranges are not reported, since discordance with absolute values may lead to misinterpretation of CBC data. Current Interpretive Data was last revised on 2017. Testing performed by: [facility], [address] [place] [address] Basophil pct 0.3 % CERY[facility] Comment: Interpretive Data Percent cell count reference ranges are not reported, since discordance with absolute values may lead to misinterpretation of CBC data. Current Interpretive Data was last revised on 2017. Testing performed by: [facility], [address] [place] [address] Blood 10/17/2024 10:3 9 AM CDT 10/17/2024 10:49 AM CDT Juarez Guy MD LAB BLOOD ORDERAB LES Final Result [facility] Department [place] [address] * CBC with auto differential (10/17/2024 10:39 AM CDT) WBC 5.72 3.80 - 9.90 K/cumm Comment:Testing performed by : [facility], [address] [place] [address] Hgb 13.0 11.9 - 15.5 g/dL [facility] Comment:Testing performed by : [facility], [address] [place] [address] Hct 38.3 35.6 - 45.5 % [facility] Comment:Testing performed by : [facility], [address] [place] [address] Plt 238 150 - 400 K/cumm [facility] Comment:Testing performed by : [facility], [address] [place] [address] MPV 7.3 6.8 - 10.4 fL [facility] Comment:Testing performed by : [facility], [address] [place] [address] RBC 4.07 3.90 - 5.20 M/cumm [facility] Comment:Testing performed by : [facility], [address] [place] [address] MCV 94.1 81.3 - 96.4 fL [facility] Comment:Testing performed by : [facility], [address] [place] [address] MCH 31.9 27.1 - 33.3 pg [facility] Comment:Testing performed by : [facility], [address] [place] [address] MCHC 33.9 32.3 - 35.7 g/dL [facility] Comment:Testing performed by : [facility], [address] [place] [address] RDW CV 12.3 11.1 - 14.9 % [facility] Comment:Testing performed by : [facility], [address] [place] [address] NRBC abs 0.00 0.00 - 0.01 K/cumm [facility] Comment:Testing performed by : [facility], [address] [place] [address] Blood 10/17/2024 10:3 9 AM CDT 10/17/2024 10:49 AM CDT Juarez Guy MD LAB BLOOD ORDERAB LES Final Result [facility] Department [place] [address] * Comprehensive metabolic panel (10/17/2024 10:39 AM CDT) Sodium 142 135 - 145 mmol/L Potassium, pl 4.2 3.3 - 4.9 mmol/L [facility] Chloride 103 97 - 110 mmol/L [facility] CO2 30 22 - 32 mmol/L [facility] Anion gap 9 2 - 15 mmol/L [facility] BUN 9 6 - 25 mg/dL [facility] Creatinine 0.73 0.60 - 1.10 mg/dL [facility] Glucose 95 70 - 199 mg/dL [facility] Comment: Interpretive Data Fasting glucose [...] classification and Diagnosis of Diabetes Diabetes Care 2021; 46: S19-S40. Current interpretive data was last revised 2022. Calcium 9.2 8.5 - 10.3 mg/dL [facility] Bilirubin, total 0.2 0.1 - 1.2 mg/dL [facility] Protein, pl 7.6 6.5 - 8.5 g/dL [facility] Albumin 4.3 3.5 - 5.0 g/dL [facility] Alk phos 90 40 - 130 Units/L [facility] ALT 22 7 - 45 Units/L [facility] AST 22 10 - 45 Units/L [facility] Blood 10/17/2024 10:3 9 AM CDT 10/17/2024 10:49 AM CDT us Juarez Guy MD LAB BLOOD ORDERAB LES Final Result [facility] Department [place] [address] * (ABNORMAL) POCT lipid panel (09/21/2024 2:46 PM CDT) Cholesterol, POC 180 <200 MG/DL HDL, POC 40 >=40 mg/dL Triglycerides, POC 237(A) <=149 mg/dL LDL Cholesterol POC 93 <=129 mg/dL Chol/HDL Ratio, POC 4.5 NONE Non-HDL Cholesterol, POC 140 NONE mg/dL Cholesterol Total, POC 180 30 - 199 mg/dL Capillary blood 09/21/2024 2 :46 PM CDT us Kael Falcon MD POINT OF CARE TEST ORDERA BLES Final Result * Diagnostic Mammogram Bilateral W Sherman (01/26/2024 11:07 AM CDT) Anatomical Region Laterality Modality Breast Bilateral Mammography 01/26/2024 1:21 PM CDT Impressions 01/26/2024 1:23 PM CDT 1. Posttreatment changes of left breast conservation therapy. No new suspicious abnormality in EITHER breast on mammogram. 2. No sonographic abnormality in the subareolar left breast. OVERALL FINAL ASSESSMENT: BI-RADS Category 2: Benign. RECOMMENDATION: Annual screening mammography is recommended. Dictated by: Moriah Newton MD The radiology attending physician has personally reviewed this study, and had reviewed and/or edited this written report and agrees with it. Electronically signed by: Anay Thibodeaux M.D. Narrative 01/26/2024 1:23 PM CDT EXAMINATION: BILATERAL DIGITAL DIAGNOSTIC MAMMOGRAM INCLUDING CAD AND BILATERAL DIGITAL BREAST TOMOSYNTHESIS; LEFT BREAST SONOGRAM HISTORY: 63-year-old woman with history of left breast invasive ductal carcinoma status post breast conservation therapy in 2021. She presents for annual diagnostic mammography. At time of exam patient notes intermittent left nipple inversion. COMPARISON: Diagnostic mammogram 02/03/2023 and multiple priors TECHNIQUE: Full field digital mammographic views of BOTH breasts were performed, including computer aided detection (CAD) and BILATERAL digital breast tomosynthesis (DBT). Directed ultrasound evaluation of the LEFT breast was performed. BREAST PARENCHYMAL COMPOSITION: There are scattered areas of fibroglandular density. MAMMOGRAM FINDINGS: In the left breast, there are changes of previous breast conservation therapy. No new suspicious abnormality in the LEFT breast. There is no new suspicious abnormality in the RIGHT breast. SONOGRAM FINDINGS: Targeted ultrasound images of the subareolar left breast were obtained. There is no focal abnormal solid or cystic lesion suggestive of malignancy in the area of recent concern. Procedure Note Anay Thibodeaux MD - 01/26/2024 EXAMINATION: BILATERAL DIGITAL DIAGNOSTIC MAMMOGRAM INCLUDING CAD AND BILATERAL DIGITAL BREAST TOMOSYNTHESIS; LEFT BREAST SONOGRAM HISTORY: 63-year-old woman with history of left breast invasive ductal carcinoma status post breast conservation therapy in 2021. She presents for annual diagnostic mammography. At time of exam patient notes intermittent left nipple inversion. COMPARISON: Diagnostic mammogram 02/03/2023 and multiple priors TECHNIQUE: Full field digital mammographic views of BOTH breasts were performed, including computer aided detection (CAD) and BILATERAL digital breast tomosynthesis (DBT). Directed ultrasound evaluation of the LEFT breast was performed. BREAST PARENCHYMAL COMPOSITION: There are scattered areas of fibroglandular density. MAMMOGRAM FINDINGS: In the left breast, there are changes of previous breast conservation therapy. No new suspicious abnormality in the LEFT breast. There is no new suspicious abnormality in the RIGHT breast. SONOGRAM FINDINGS: Targeted ultrasound images of the subareolar left breast were obtained. There is no focal abnormal solid or cystic lesion suggestive of malignancy in the area of recent concern. IMPRESSION: 1. Posttreatment changes of left breast conservation therapy. No new suspicious abnormality in EITHER breast on mammogram. 2. No sonographic abnormality in the subareolar left breast. OVERALL FINAL ASSESSMENT: BI-RADS Category 2: Benign. RECOMMENDATION: Annual screening mammography is recommended. Dictated by: Moriah Newton MD The radiology attending physician has personally reviewed this study, and had reviewed and/or edited this written report and agrees with it. Electronically signed by: Anay Thibodeaux M.D. Anne-Marie Mireles MD PhD IMG MAMMO PROCEDURES Final Result * Albumin Creatinine Ratio, Urine (09/27/2020 9:37 AM CDT) SCRIBED Creatinine, Urine 117.80 40 - 278 EXTERNAL LAB SCRIBED Microalbumin <13.0 n/e - n/e EXTERNAL LAB SCRIBED Microalb/Creat Ratio 11.0 0 - 30.0 EXTERNAL LAB Urine Historical Provider LAB URINE ORDERABLES Edit ed Result - Final EXTERNAL LAB * Hemoglobin A1c (09/27/2020 9:37 AM CDT) SCRIBED Hemoglobin A1c 5.7 0.0 - 5.7 EXTERNAL LAB Blood specimen (specimen) us Historical Provider LAB BLOOD ORDERABLES Edit ed Result - Final EXTERNAL LAB * COLONOSCOPY (08/13/2020 12:02 PM CDT) Anatomical Region Laterality Modality Other Narrative Procedure Note Markus Becerra MD - 08/13/2020 12:02 PM CDT [facility] Patient Name: Fadia Welch Procedure Date: 08/13/2020 12:02 PM Date of : 1960 Admit Type: Outpatient Age: 59 Gender: Female Note Status: Finalized Attending MD: Markus Becerra M.D. Procedure Date: 08/13/2020 Procedure: Colonoscopy Indications: Screening for colorectal malignant neoplasm, Last colonoscopy 10 years ago Providers: Markus Becerra M.D., Melo Smith M.D. (Anesthesia Staff), Cassandra Overton RN Referring MD: José Miguel Page MD Medicines: Monitored Anesthesia Care Complications: No immediate complications. Estimated Blood Loss: Estimated blood loss: none. Procedure: Pre-Anesthesia Assessment: - Airway Examination: normal oropharyngeal airwayand neck mobility. - Respiratory Examination: clear to auscultation. - ASA Grade Assessment: III - A patient with severe systemic disease. - After reviewing the risks and benefits, thepatient was deemed in satisfactory condition to undergo the procedure. - The risks and benefits of the procedure and the sedation options and risks were discussed with the patient. All questions were answered and informed consent was obtained. After I obtained informed consent, the scope was passed under direct vision. Throughout theprocedure, the patient's blood pressure, pulse, and oxygen saturations were monitored continuously. The scopewas passed under direct vision. The Colonoscope was introduced through the anus and advanced to the the cecum, identified by the appendiceal orifice, ileocecal valve and palpation. The colonoscopy was performed without difficulty. The patient tolerated the procedure well. The quality of the bowel preparation was good. The quality of the bowel preparation was evaluated using the BBPS (BostonBowel Preparation Scale) with scores of: Right Colon = 2 (minor amount of residual staining, small fragmentsof stool and/or opaque liquid, but mucosa seen well), Transverse Colon = 3 (entire mucosa seen well withno residual staining, small fragments of stool oropaque liquid) and Left Colon = 3 (entire mucosa seen well with no residual staining, small fragments of stoolor opaque liquid). The total BBPS score equals 8. The quality of the bowel preparation was good. Thebowel preparation used was SUPREP via split dose instruction. Bowel prep was administered using asplit dose. Findings: The perianal and digital rectal examinations were normal. A 2 mm polyp was found in the cecum. The polyp was sessile. The polyp was removed with a cold biopsy forceps. Resection and retrieval were complete. Estimated blood loss: none. The retroflexed view of the distal rectum and anal verge was normaland showed no anal or rectal abnormalities. Impression: - One 2 mm polyp in the cecum, removed with a cold biopsy forceps. Resected and retrieved. - The distal rectum and anal verge are normal on retroflexion view. Recommendation: - Discharge patient to home (ambulatory). - Await pathology results. - Repeat colonoscopy in 5 years for surveillance. Procedure Code(s): --- Professional --- 57938, Colonoscopy, flexible; with biopsy, singleor multiple Diagnosis Code(s): --- Professional --- Z12.11, Encounter for screening for malignantneoplasm of colon K63.5, Polyp of colon CPT copyright 2019 [employer]. All rights reserved. The codes documented in this report are preliminary and upon jinriksha driver reviewmay be revised to meet current compliance requirements. Electronically signed by Markus Becerra MD Markus Becerra M.D. 08/13/2020 12:37:39 PM Number of Addenda: 0 Note Initiated On: 08/13/2020 12:02 PM Markus Becerra MD ENDOSCOPY PROCEDURES Final Resul t * Diabetic Eye Exam (12/27/2018) Historical Provider HEALTH MAINTENANCE Edited Result - Final * Serum Hepatitis panel (04/03/2015 7:47 AM ALUMINUM CONTAINER TESTER) HBV surface ag Negative Negative HISTO RICAL RESULTS HBV core ab, IgM Negative Negative HISTORICAL RESULTS HCV ab Negative Negative HISTORICAL RESULTS HAV ab, IgM Negative Negative HISTORIC AL RESULTS Serum 04/03/2015 7:47 AM ALUMINUM CONTAINER TESTER Narrative HISTORICAL RESULTS - 04/03/2015 10:47 AM ALUMINUM CONTAINER TESTER Send Duplicate Reports to: Thomas Chanel [address] [place] [address] [address]us Becerra MD LAB BLOOD ORDERABLES Final Resul t HISTORICAL RESULTS from Last 3 Months or Most Recently Relevant to Health Maintenance Insurance T SENIOR SUPPLEMENT MEDICARE MEDICARE [employer]ET[employer] SENIOR SUPPLEMENT MEDICARE AET[employer] SENIOR SUPPLEMENT Care Teams Secretary To The Vice President Relationship Specialty Start Date End Date José Miguel Page MD PCP - General Internal Medicine 09/05/18 Esteban Ritter MD Consulting Physician Cardiology 06/18/21 Juarez Guy MD [address] [place], [place] [id number] Consulting Physician Medical Oncology 08/31/21 Bill Romo MD [address] [facility] [address] [place], [place] [phone] Radiation Oncologist Radiation Oncology 09/11/21 Anne-Marie Mireles MD PhD [id number] [place] [address] Surgeon Surgical Oncology 09/11/21
--- OUTSIDE RECORDS SUMMARY | 2024-10-18 12:24 | XMS_ITS | Referral Summary ---
Author Organization [facility] Address [address] [place] [address] Care Team Providers Care Government Relations Analyst Name Role Phone José Miguel Page MD Primary Care Provider Esteban Ritter MD Unavailable Juarez Guy MD Unavailable Bill Rmoo MD Unavailable Anne-Marie Mireles MD PhD Unavaila ble Encounters Date Type Department Care Team Description 10/17/2024 Telephone [facility] [address] [place] [address] Tariq Milligan MD orthopedics (Schedule an apt) 10/17/2024 Telephone [facility] [address] [place] [address] Yves Munoz MD 10/17/2024 1:00 PM CDT Infusion [facility] [place] - [facility]fusion [address] [facility] [address] [place] [address] alf current use 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 inhibitor (Primary Dx); Malignant neoplasm of lower-inner quadrant of left breast in female, estrogen receptor positive (HCC); Bone disorder 10/17/2024 10:30 AM CDT Lab [facility] - Lab Collection [address] [facility] [address] [place] [address] Malignant neoplasm of lower-inner quadrant of left breast in female, estrogen receptor positive (HCC) 10/17/2024 11:30 AM CDT Office Visit [facility] [address] [place] [address] Juarez Guy MD Malignant neoplasm of lower-inner quadrant of left breast in female, estrogen receptor positive (HCC) 10/16/2024 10:00 AM CDT Office Visit [facility] [address] [phone] Yves Munoz MD Multiple sclerosis (HCC) (Primary Dx); Acute left ankle pain 09/21/2024 2:45 PM CDT Office Visit [facility] Cardiology at [address] [place] [address] Kael Falcon MD 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); Hypertension associated with diabetes (CMS/HCC); Mixed diabetic hyperlipidemia associated with type 2 diabetes mellitus (CMS/HCC) (HCC); Nonischemic cardiomyopathy (CMS/HCC) (HCC); PVC's (premature ventricular contractions); Obstructive sleep apnea 09/18/2024 Telephone [facility] [place] [address] [place] [phone] Ofelia Saavedra MD 08/13/2024 10:00 AM CDT Office Visit [facility] [address] [place] [address] [address], [place] [phone] Ofelia Saavedra MD Multiple sclerosis (HCC) (Primary Dx); Encounter for medication management; Falls infrequently; Dysphagia, unspecified type 07/21/2024 Results Follow-Up [facility] Gastroenterology at [address] [place] [phone] Markus Becerra MD Surgical pathology from Last 3 Months Allergies Active Allergy Reactions Criticality Noted Date [...] artery disease of n ative artery of jackson heart with stable angina pectoris 07/11/2024 RBBB 07/11/2024 Dyssynergic defecation 06/26/2024 MAYRA (stress urinary incontinence, female) 2024 Pelvic floor dysfunction 06/26/2024 Nausea without vomiting 05/29/2024 Assessment & Plan (05/29/2024 11:11 AM CAN FEEDER): Broad differential for longstanding nausea. Patient reports [...] 05/29/2024 Assessment & Plan (05/29/2024 10:41 AM CAN FEEDER): Alternating constipation with episodes of fecal smearing/incontinence. [...] 05/29/2024 Assessment & Plan (05/29/2024 10:56 AM CAN FEEDER): Intermittent. Worse with movement. 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 06/2021 Bone disorder 01/22/2022 Dehydration 09/25/2021 Trigeminal neuralgia 09/19/2021 Numbness of toes 09/19/2021 Malignant neoplasm of lower- inner quadrant of left breast in female, estrogen receptor positive 09/04/2021 Cancer Staging:Clinical stage from 07/08/2021:Stage IA(cT1, cN0, cM0, G3, ER+, OH+, HER2-) - Unsigned Pathologic stage from 08/07/2021:Stage IA(pT1c, pN0(sn), cM0, G3, ER+, OH+, HER2- ) - Unsigned Generalized abdominal pain 06/18/2021 Overview (06/18/2021): Added automatically from request for surgery [id number] H/O cardiomyopathy 11/14/2020 Chronic heart failure with [...] 07/29/2020 Assessment & Plan (05/29/2024 11:08 AM CAN FEEDER): Fecal incontinence with urge incontinence and passage [...] 11/28/2019 Assessment & Plan (03/26/2024 12:42 PM CAN FEEDER): Lenses centered and stable with clear capsules, [...] call. Assessment & Plan (07/31/2021 10:32 AM CAN FEEDER): POD1 Extraction Cataract - Phacoemulsification And Lens [...] concerns. Assessment & Plan (07/06/2021 2:12 PM CAN FEEDER): POM#1 s/p CEIOL OD - doing well with no concerns - denies pain - off all drops - pleased with vision - CEIOL OS scheduled for July Assessment & Plan (06/05/2021 10:48 AM CAN FEEDER): POW1 Extraction Cataract - Phacoemulsification And Lens [...] call. Assessment & Plan (05/29/2021 8:14 AM CAN FEEDER): POD1 Extraction Cataract - Phacoemulsification And Lens [...] (06/13/2018): Added automatically from request for surgery [id number] Assessment & Plan (05/29/2024 10:16 AM CAN FEEDER): Longstanding dysphagia symptoms. Prior EGDs and manometry testing were unrevealing. Symptoms suspected to possibly be related to her multiple sclerosis. Recent modified barium swallow study detailed below. Subsequent [employer] evaluation - per their note unremarkable oropharyngeal [...] 11/08/2017 Assessment & Plan (05/29/2024 10:46 AM CAN FEEDER): Seen on previous imaging. With normal LFTs. [...] a associated with type 2 diabetes mellitus ([facility]) 10/27/2017 Assessment & Plan (11/01/2019 [...] lipids Assessment & Plan (05/09/2018 11:27 AM CAN FEEDER): Goal of treatment , LDL cholesterol less [...] 04/07/2017 Assessment & Plan (05/29/2024 10:22 AM CAN FEEDER): Currently well controlled. Recommend decreasing Pantoprazole to [...] 08/21 Assessment & Plan (03/26/2024 12:42 PM CAN FEEDER): No diabetic retinopathy (DR) . Stressed importance [...] PCP/endo. Assessment & Plan (05/08/2020 12:20 PM CAN FEEDER): Will add Lo pt with CHF SE [...] Metformin Assessment & Plan (05/10/2019 2:49 PM CAN FEEDER): Hba1c was Lab Results Component Value Date [...] Metformin Assessment & Plan (05/09/2018 11:26 AM CAN FEEDER): Hba1c was Lab Results Component Value Date [...] Symptom onset/Diagnosis:1998 ON 1. Copaxone: 2012-07/2022 funding glitch 10/2022-06/2023 Assessment & Plan (10/16/2024 10:43 AM [...] benign Assessment & Plan (05/08/2020 12:20 PM CAN FEEDER): Goal blood pressure is less than 140/85 [...] microalbumin Assessment & Plan (05/10/2019 2:50 PM CAN FEEDER): Goal blood pressure is less than 140/85 Low salt diet recommended Daily aerobic exercise Continue current meds, including MICHAEL-I or ARB Assessment & Plan (11/09/2018 12:20 PM CDT): Goal blood pressure is less than 140/85 Low salt diet recommended Daily aerobic exercise Continue current meds, including MICHAEL-I or ARB Assessment & Plan (05/09/2018 11:26 AM CAN FEEDER): Goal blood pressure is less than 140/85 [...] neuritis Assessment & Plan (03/26/2024 12:42 PM CAN FEEDER): Residual optic atrophy right eye (OD) No sign of active inflammation both eyes (OU) Assessment & Plan (11/28/2019 5:12 PM CDT): Residual optic atrophy right eye (OD) No sign of active inflammation both eyes (OU) Impaired cognition 12/12/2012 Overview (08/26/2016): Cognitive impairment Resolved Problems Problem Noted Date Diagnosed Date Resolved Date Encounter for person [facility] 09/10/2021 09/06/2023 Breast cancer 07/17/2021 09/22/2021 Overview (07/17/2021): Added automatically from request for surgery [id number] Fecal smearing 01/31/2020 09/06/2023 Encounter for screening colonoscopy 11/08/2017 09/06/2023 Dyslipidemia associated with type 2 diabetes mellitus (CMS/HCC) 08/31/2016 11/25/2021 Overview (10/15/2016): DM type 2 with diabetic dyslipidemia Assessment & Plan (05/10/2019 2:50 PM CAN FEEDER): .Goal of treatment , LDL cholesterol less [...] daily Assessment & Plan (04/19/2017 11:32 AM CAN FEEDER): Hba1c was 5.7 today, indicating adequate DM [...] 11/25/2021 Assessment & Plan (04/19/2017 11:31 AM CAN FEEDER): Goal of treatment , LDL cholesterol less [...] 11/14/2020 Overview (08/27/2016): Chronic diastolic heart failure Immunizations Immunization Administration Dates Next Due Influenza, Quadrivalent, Spl it, Preservative Free, Intramuscular 01/22/2021,03/07/2019 Pfizer SARS-CoV-2 Monovalent Vaccination (12+ Yrs) PURPLE 08/01/2020,07/11/2020 ZOSTER Recombinant 04/07/2020,03/07/2019 Social History Tobacco Use Types Packs/Day Years [...] on file Legal Sex Female 9:07 AM CAN FEEDER Gender Identity Female 02/22/2024 11:51 AM CDT Sexual Orientation Straight 08/29/2018 12 :15 PM CDT Occupation Industry Job Start Date Job End Date disabled Not on file Not on file Not on file Last Filed Vital Signs Vital Sign Reading [...] 10/16/2024 9:39 AM CDT Plan of Treatment Not on file Medical Devices Implanted Type Area Automotive Parts Manager Device Identifier Shelf Expiration Date Model / Serial / Lot [employer] Peripheral Vascular Powerport Clearvue Airguard 8fr 1 Lumen Lightweight Intermediate Latex Free [id number] - [id number] Implanted:Qty: 1 on 09/14/2021 by Anne-Marie Mireles MD PhD at [facility] Catheter Right: Clavicle [employer] [id number] 06/22/2022 [id number] / / [id number] Description:Right mid clavic ular region in the IJ [employer] [id number] - [id number] - [id number] Implanted:Qty: 1 on 05/28/2021 by Sarah Correa MD at [facility] Lens Right: Eye [employer] [id number] 11/20/2023 [id number] / [id number] / [id number] Description:[id number] 21.5D Righ t eye [employer] [id number] - [id number] - [id number] Implanted:Qty: 1 on 07/30/2021 by Sarah Correa MD at [facility] Lens Left: Lens [employer] [id number] 11/20/2023 [id number] / [id number] / Bard Peripheral Vascular [id number] Ghiatas 20ga 20cm 7cm Beaded Needle Breast Wire Localization - [id number] Implanted:Qty: 1 on 08/07/2021 at [facility] [id number] / / Procedures Procedure Name Priority Date/Time [...] 2:46 PM CDT 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 DIAGNOSTIC MAMMOGRAM [...] SERUM HEPATITIS PANEL Routine 04/03/2015 7:47 AM CAN FEEDER from Last 3 Months or Most Recently [...] MD LAB BLOOD ORDERAB LES Final Result [facility] Department [place] [address] * Differential, auto (10/17/2024 10:39 AM CDT) Neutrophil abs 3.14 1.50 - 6.50 K/cumm Comment:Testing performed by : [facility], [address] [place], [place] [phone] Lymphocyte abs 2.03 0.80 - 3.30 K/cumm [facility] Comment:Testing performed by : [facility], [address] [place], [place] [phone] Monocyte abs 0.44 0.20 - 0.80 K/cumm [facility] Comment:Testing performed by : [facility], [address] [place], [place] [phone] Eosinophil abs 0.10 0.00 - 0.50 K/cumm [facility] Comment:Testing performed by : [facility], [address] [place] [phone] Basophil abs 0.02 0.00 - 0.10 K/cumm [facility] Comment:Testing performed by : [facility], [address] [place] [phone] Neutrophil pct 54.9 % [facility] Comment: Interpretive Data Percent cell count reference ranges are not reported, since discordance with absolute values may lead to misinterpretation of CBC data. Current Interpretive Data was last revised on 2017. Testing performed by: [facility], [address] [place] [phone] Lymphocyte pct 35.4 % [facility] Comment: Interpretive Data Percent cell count reference ranges are not reported, since discordance with absolute values may lead to misinterpretation of CBC data. Current Interpretive Data was last revised on 2017. Testing performed by: [facility], [address] [place] [phone] Monocyte pct 7.6 % [facility] Comment: Interpretive Data Percent cell count reference ranges are not reported, since discordance with absolute values may lead to misinterpretation of CBC data. Current Interpretive Data was last revised on 2017. Testing performed by: [facility], [address] [place] [phone] Eosinophil pct 1.7 % [facility] Comment: Interpretive Data Percent cell count reference ranges are not reported, since discordance with absolute values may lead to misinterpretation of CBC data. Current Interpretive Data was last revised on 2017. Testing performed by: [facility], [address] [place] [phone] Basophil pct 0.3 % [facility] Comment: Interpretive Data Percent cell count reference ranges are not reported, since discordance with absolute values may lead to misinterpretation of CBC data. Current Interpretive Data was last revised on 2017. Testing performed by: [facility], [address] [place] [phone] Blood 10/17/2024 10:3 9 AM CDT 10/17/2024 10:49 AM CDT Juarez Guy MD LAB BLOOD ORDERAB LES Final Result [facility] Department [place] [address] * CBC with auto differential (10/17/2024 10:39 AM CDT) WBC 5.72 3.80 - 9.90 K/cumm Comment:Testing performed by : [facility], [address] [place] [phone] Hgb 13.0 11.9 - 15.5 g/dL [facility] Comment:Testing performed by : [facility], [address] [place] [address] Hct 38.3 35.6 - 45.5 % [facility] Comment:Testing performed by : [facility], [address] [place] [address] Plt 238 150 - 400 K/cumm [facility] Comment:Testing performed by : [facility], [address] [place] [address] MPV 7.3 6.8 - 10.4 fL [facility] Comment:Testing performed by : [facility], [address] [place], [place] [phone] RBC 4.07 3.90 - 5.20 M/cumm [facility] Comment:Testing performed by : [facility], [address] [place] [address] MCV 94.1 81.3 - 96.4 fL [facility] Comment:Testing performed by : [facility], [address] [place] [address] MCH 31.9 27.1 - 33.3 pg [facility] Comment:Testing performed by : [facility], [address] [place] [address] MCHC 33.9 32.3 - 35.7 g/dL [facility] Comment:Testing performed by : [facility], [address] [place] [address] RDW CV 12.3 11.1 - 14.9 % [facility] Comment:Testing performed by : [facility], [address] [place] [address] NRBC abs 0.00 0.00 - 0.01 K/cumm [facility] Comment:Testing performed by : [facility], [address] [place] [address] Blood 10/17/2024 10:3 9 AM CDT 10/17/2024 10:49 AM CDT Juarez Guy MD LAB BLOOD ORDERAB LES Final Result [facility] Department [place] [address] * Comprehensive metabolic panel (10/17/2024 10:39 AM CDT) Sodium 142 135 - 145 mmol/L Potassium, pl 4.2 3.3 - 4.9 mmol/L [facility] Chloride 103 97 - 110 mmol/L [facility] CO2 30 22 - 32 mmol/L [facility] Anion gap 9 2 - 15 mmol/L [facility] BUN 9 6 - 25 mg/dL [facility] Creatinine 0.73 0.60 - 1.10 mg/dL [facility] Glucose 95 70 - 199 mg/dL [facility] Comment: Interpretive Data Fasting glucose >/= 126 [...] 2022. Calcium 9.2 8.5 - 10.3 mg/dL [facility] Bilirubin, total 0.2 0.1 - 1.2 mg/dL [facility] Protein, pl 7.6 6.5 - 8.5 g/dL [facility] Albumin 4.3 3.5 - 5.0 g/dL [facility] Alk phos 90 40 - 130 Units/L [facility] ALT 22 7 - 45 Units/L [facility] AST 22 10 - 45 Units/L [facility] Blood 10/17/2024 10:3 9 AM CDT 10/17/2024 10:49 AM CDT us Juarez Guy MD LAB BLOOD ORDERAB LES Final Result [facility] Department [place] [address] * (ABNORMAL) POCT lipid panel (09/21/2024 2:46 [...] Electronically signed by: Anay Thibodeaux M.D. Anne-Marie Mirelse MD PhD IMG MAMMO PROCEDURES Final Result * Albumin Creatinine Ratio, Urine (09/27/2020 9:37 AM CDT) SCRIBED Creatinine, Urine 117.80 40 - 278 EXTERNAL LAB SCRIBED Microalbumin <13.0 n/e - n/e EXTERNAL LAB SCRIBED Microalb/Creat Ratio 11.0 0 - 30.0 EXTERNAL LAB Urine Historical Provider MD LAB URINE ORDERABLES Edit ed Result - Final Performing Organization Address [facility] de Phone Number EXTERNAL LAB * Hemoglobin A1c (09/27/2020 9:37 AM CDT) SCRIBED Hemoglobin A1c 5.7 0.0 - 5.7 EXTERNAL LAB Blood specimen (specimen) Historical Provider MD LAB BLOOD ORDERABLES Edit ed Result - Final Performing Organization Address [facility] de Phone Number EXTERNAL LAB * COLONOSCOPY (08/13/2020 12:02 PM CDT) Anatomical Region Laterality Modality Other Narrative Procedure Note Markus Becerra MD - 08/13/2020 12:02 PM CDT [facility] Endoscopy Lab Patient Name: Fadia Welch Procedure [...] for surveillance. Procedure Code(s): --- Professional --- 01389, Colonoscopy, flexible; with biopsy, singleor multiple Diagnosis Code(s): --- Professional --- Z12.11, Encounter for screening for malignantneoplasm of colon K63.5, Polyp of colon CPT copyright 2019 [employer]. All rights reserved. The codes documented in this report are preliminary and upon principal military analyst reviewmay be revised to meet current compliance requirements. Electronically signed by Markus Becerra MD Markus Becerra M.D. 08/13/2020 12:37:39 PM Number of Addenda: 0 Note Initiated On: 08/13/2020 12:02 PM Markus Becerra MD ENDOSCOPY PROCEDURES Final Resul t * Diabetic Eye Exam (12/27/2018) Historical Provider HEALTH MAINTENANCE Edited Result - Final * Serum Hepatitis panel (04/03/2015 7:47 AM CAN FEEDER) HBV surface ag Negative Negative HISTO RICAL RESULTS HBV core ab, IgM Negative Negative HISTORICAL RESULTS HCV ab Negative Negative HISTORICAL RESULTS HAV ab, IgM Negative Negative HISTORIC AL RESULTS Serum 04/03/2015 7:47 AM CAN FEEDER Narrative HISTORICAL RESULTS - 04/03/2015 10:47 AM CAN FEEDER Send Duplicate Reports to: Thomas Chanel [address] [place] [address] us Markus Becerra MD LAB BLOOD ORDERABLES Final Resul t HISTORICAL RESULTS from Last 3 Months or Most Recently Relevant to Health Maintenance Insurance [facility] MEDICARE MEDICARE AETNA SENIOR SUPPLEMENT MEDICARE AETNA SENIOR SUPPLEMENT Care Teams Government Relations Analyst Relationship Specialty Start Date End Date José Miguel Page MD PCP - General Internal Medicine 09/05/18 Esteban Ritter MD Consulting Physician Cardiology 06/18/21 Juarez Guy MD [address] [place] [address] Consulting Physician Medical Oncology 08/31/21 [place] [address] [place] [address] # LL LL [address] [place] [address] Radiation Oncologist Radiation Oncology 09/11/21 Anne-Marie iMreles MD PhD [address] [facility] [id number] [place] [address] Surgeon Surgical Oncology 09/11/21
--- OUTSIDE RECORDS SUMMARY | 2024-10-18 12:24 | XMS_ITS ---
Author Organization [facility] Address [address] [place] [address] Care Team Providers Care Corn Crop Supervisor Name Role Phone José Miguel Page MD Primary Care Provider Esteban Ritter MD Unavailable [phone] Juarez Guy MD Unavailable Bill Romo MD Unavailable Anne-Marie Mireles MD PhD Unavaila ble Active Problems Problem Noted Date Diagnosed Date Coronary artery disease of n ative artery of [place] heart with stable angina pectoris 07/11/2024 RBBB 07/11/2024 Dyssynergic defecation 06/26/2024 MAYRA (stress urinary incontinence, female) 2024 Pelvic floor dysfunction 06/26/2024 Nausea without vomiting 05/29/2024 Assessment & Plan (05/29/2024 11:11 AM ESTIMATION MANAGER): Broad differential for longstanding nausea. Patient reports [...] 05/29/2024 Assessment & Plan (05/29/2024 10:41 AM ESTIMATION MANAGER): Alternating constipation with episodes of fecal smearing/incontinence. [...] 05/29/2024 Assessment & Plan (05/29/2024 10:56 AM ESTIMATION MANAGER): Intermittent. Worse with movement. 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 06/2021 Bone disorder 01/22/2022 Dehydration 09/25/2021 Trigeminal neuralgia 09/19/2021 Numbness of toes 09/19/2021 Malignant neoplasm of lower- inner quadrant of left breast in female, estrogen receptor positive 09/04/2021 Cancer Staging:Clinical stage from 07/08/2021:Stage IA(cT1, cN0, cM0, G3, ER+, ME+, HER2-) - Unsigned Pathologic stage from 08/07/2021:Stage IA(pT1c, pN0(sn), cM0, G3, ER+, ME+, HER2- ) - Unsigned Generalized abdominal pain 06/18/2021 Overview (06/18/2021): Added automatically from request for surgery [id number] H/O cardiomyopathy 11/14/2020 Chronic heart failure with [...] 07/29/2020 Assessment & Plan (05/29/2024 11:08 AM ESTIMATION MANAGER): Fecal incontinence with urge incontinence and passage [...] 11/28/2019 Assessment & Plan (03/26/2024 12:42 PM ESTIMATION MANAGER): Lenses centered and stable with clear capsules, [...] call. Assessment & Plan (07/31/2021 10:32 AM ESTIMATION MANAGER): POD1 Extraction Cataract - Phacoemulsification And Lens [...] concerns. Assessment & Plan (07/06/2021 2:12 PM ESTIMATION MANAGER): POM#1 s/p CEIOL OD - doing well with no concerns - denies pain - off all drops - pleased with vision - CEIOL OS scheduled for July Assessment & Plan (06/05/2021 10:48 AM ESTIMATION MANAGER): POW1 Extraction Cataract - Phacoemulsification And Lens [...] call. Assessment & Plan (05/29/2021 8:14 AM ESTIMATION MANAGER): POD1 Extraction Cataract - Phacoemulsification And Lens [...] reccommended Abnormal findings on diagnostic imaging of breas t 11/02/2018 Esophageal dysphagia 06/13/2018 Overview (06/13/2018): Added automatically from request for surgery [id number] Assessment & Plan (05/29/2024 10:16 AM ESTIMATION MANAGER): Longstanding dysphagia symptoms. Prior EGDs and manometry testing were unrevealing. Symptoms suspected to possibly be related to her multiple sclerosis. Recent modified barium swallow study detailed below. Subsequent FLEET SERVICE MANAGER evaluation - per their note unremarkable oropharyngeal [...] 11/08/2017 Assessment & Plan (05/29/2024 10:46 AM ESTIMATION MANAGER): Seen on previous imaging. With normal LFTs. [...] a associated with type 2 diabetes mellitus ([facility]) 10/27/2017 Assessment & Plan (11/01/2019 10:04 AM [...] lipids Assessment & Plan (05/09/2018 11:27 AM ESTIMATION MANAGER): Goal of treatment , LDL cholesterol less [...] 04/07/2017 Assessment & Plan (05/29/2024 10:22 AM ESTIMATION MANAGER): Currently well controlled. Recommend decreasing Pantoprazole to [...] 08/21 Assessment & Plan (03/26/2024 12:42 PM ESTIMATION MANAGER): No diabetic retinopathy (DR) . Stressed importance [...] PCP/endo. Assessment & Plan (05/08/2020 12:20 PM ESTIMATION MANAGER): Will add Lo, pt with CHF SE discussed Pt to [...] Metformin Assessment & Plan (05/10/2019 2:49 PM ESTIMATION MANAGER): Hba1c was Lab Results Component Value Date [...] Metformin Assessment & Plan (05/09/2018 11:26 AM ESTIMATION MANAGER): Hba1c was Lab Results Component Value Date [...] benign Assessment & Plan (05/08/2020 12:20 PM ESTIMATION MANAGER): Goal blood pressure is less than 140/85 [...] microalbumin Assessment & Plan (05/10/2019 2:50 PM ESTIMATION MANAGER): Goal blood pressure is less than 140/85 Low salt diet recommended Daily aerobic exercise Continue current meds, including MICHAEL-I or ARB Assessment & Plan (11/09/2018 12:20 PM CDT): Goal blood pressure is less than 140/85 Low salt diet recommended Daily aerobic exercise Continue current meds, including MICHAEL-I or ARB Assessment & Plan (05/09/2018 11:26 AM ESTIMATION MANAGER): Goal blood pressure is less than 140/85 [...] neuritis Assessment & Plan (03/26/2024 12:42 PM ESTIMATION MANAGER): Residual optic atrophy right eye (OD) No sign of active inflammation both eyes (OU) Assessment & Plan (11/28/2019 5:12 PM CDT): Residual optic atrophy right eye (OD) No sign of active inflammation both eyes (OU) Impaired cognition 12/12/2012 Overview (08/26/2016): Cognitive impairment Current Treatment and Therapy Plans IV Maintenance Therapy Plan* Plan Start Date:10/14/2023 Plan Provider:Juarez Guy MD Linked Problems Malignant neoplasm of lower- inner quadrant of left breast in female, estrogen receptor positive (HCC) Treatment Medications No medications scheduled. Zoledronic Acid (ZOMETA) Infusion* Plan Start Date:04/02/2022 Plan Provider:Juarez Guy MD Linked Problems Malignant neoplasm of lower- inner quadrant of left breast in female, estrogen receptor positive (HCC)group home current use 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 inhibitorBone disorder Treatment Medications No medications scheduled. Past Treatment and Therapy Plans Line Care Plan Name Start Date Discontinue Date Treatment Medications Discontinue Reason Plan Provider IV MAINTENANCE THERAPY PLAN 09/18/2021 08/02/2023 No medications scheduled. Automatic discontinuation of dormant plans Osmar Scott MD Oncology Chemotherapy Treatment Plan Name Start Date Discontinue Date Treatment Medications Discontinue Reason Plan Provider Cycles TC: (DOCEtaxe l / Cyclophos phamide) 21 Day Cycles - Breast 2 01/22/2022 cycloPHOSphamide IVPB in 250 mL (vial 200 mg/mL)([id number])DOCEta xel (TAXOTERE) IVPB in 250 mL (vial 20mg/mL) Therapy Complete Juarez Guy MD 4 of 4 cycles started Radiation Treatments * Course [id number]/25/2021 - 01/08/2022 Treatment Period Energy Fraction Dose Fractions Total Dose Plans Planned L BRS BOOST 01/04/2022 - 01/08/2022 200 5 / 1,000 PRN L BRST 12/25/2021 - 01/01/2022 520 5 / 2,600 Reference Points Delivered L BRS BOOST_1000 01/04/2022 - 01/08/2022 1,000 PRNE L [id number]_[id number] 12/25/2021 - 01/01/2022 2,600 Lifetime Dose Tracking * Chemical Lifetime Dose Automatic Entry Manual Entr y Fluoro Time 1.838 minutes 1.838 minutes 0 minutes cyclophosphamide 2,401.027 mg/m2 (5,120 mg) 2,401.027 mg/m2 (5,120 mg) 0 mg/m2 (0 mg) Air kerma at the reference point (Ka,r) 12.98 mGy 12.98 mGy 0 mGy DLP 930 mGycm 930 mGycm 0 mGycm Resolved Problems Problem Noted Date Diagnosed Date Resolved Date Encounter for person [facility] 09/10/2021 09/06/2023 Breast cancer 07/17/2021 09/22/2021 Overview (07/17/2021): Added automatically from request for surgery [id number] Fecal smearing 01/31/2020 09/06/2023 Encounter for screening colonoscopy 11/08/2017 09/06/2023 Dyslipidemia associated with type 2 diabetes mellitus ([facility]) 08/31/2016 11/25/2021 Overview (10/15/2016): DM type 2 with diabetic dyslipidemia Assessment & Plan (05/10/2019 2:50 PM ESTIMATION MANAGER): .Goal of treatment , LDL cholesterol less [...] daily Assessment & Plan (04/19/2017 11:32 AM ESTIMATION MANAGER): Hba1c was 5.7 today, indicating adequate DM [...] 11/25/2021 Assessment & Plan (04/19/2017 11:31 AM ESTIMATION MANAGER): Goal of treatment , LDL cholesterol less [...]
[2024-10-18 12:33] LABS: Basophils Absolute Auto 0.02 K/mm3 (0.00-0.10); Basophils Percent Auto 0.3 % (0.0-1.0); Eosinophils Absolute Auto 0.09 K/mm3 (0.02-0.50); Eosinophils Percent Auto 1.3 % (1.0-6.0); Hematocrit 39.9 % (35.0-49.0); Hemoglobin 13.1 g/dL (12.0-15.0); Immature Granulocyte Absolute 0.03 K/mm3 (0.00-0.00); Immature Granulocyte Percent A 0.4 % (0.0-0.0); Lymphocytes Absolute Auto 2.72 K/mm3 (1.10-4.50); Lymphocytes Percent Auto 39.2 % (18.0-42.0); Mean Corpuscular HGB Conc 32.8 g/dL (32-36); Mean Corpuscular Volume 97.6 fL (78.0-102.0); Mean Platelet Volume 9.1 fl (9.2-11.8); Monocytes Absolute Auto 0.48 K/mm3 (0.10-0.90); Monocytes Percent Auto 6.9 % (2.0-11.0); Neutrophils Percent Auto 51.9 % (50.0-70.0); Platelet Count Result 258 K/mm3 (150-420); Red Blood Count 4.09 M/mm3 (4.20-5.40); Red Cell Distribution Width 11.9 % (11.6-14.4); White Blood Count 6.9 K/mm3 (4.8-10.8)
[2024-10-18 12:44] LABS: Add Urine Microscopic? NO; Appearance Urine Clear (Clear); Bilirubin Urine Negative (Negative); Blood Urine Negative (Negative); Color Urine Light Yellow (Yellow); Glucose Urine UA Negative (Negative); Ketones Urine Negative (Negative); Leukocyte Esterase Ur Negative (Negative); Nitrate Urine Negative (Negative); Protein Urine Negative (Negative); Urobilinogen Urine 0.2 mg/dL (0.2-1.0); pH Urine 6.5 (5.0-8.0)
[2024-10-18 12:47] LABS: Hemoglobin A1C 5.2 % (<5.7)
[2024-10-18 13:00] LABS: Alanine Aminotransferase 27 U/L (6-35); Albumin Level 4.4 g/dL (3.5-5.1); Alkaline Phosphatase 84 U/L (38-126); Anion Gap 5 mmol/L (4-12); Aspartate Amino Transferase 32 U/L (14-36); Bilirubin,Total 0.3 mg/dL (0.2-1.3); Blood Urea Nitrogen 13 mg/dL (7-17); Calcium 8.7 mg/dL (8.4-10.2); Carbon Dioxide 32 mmol/L (22-30); Chloride 103 mmol/L (98-107); Cholesterol 192 mg/dL (0-200); Estimated Glomerular Filt Rate > 60; Glucose 96 mg/dL (65-110); HDL Direct 47 mg/dL; LDL Cholesterol Calculated 89 mg/dL (<130); Osmolality Calculated 290 mOsm/kg (285-295); Potassium 3.9 mmol/L (3.4-5.0); Sodium 140 mmol/L (137-145); Total Protein 7.4 g/dL (6.3-8.2); Triglycerides 282 mg/dL (<150)
[2024-10-18 13:09] LABS: NT Pro B Type Natriuretic Pept 144 pg/mL (19.9-100)
[2024-10-18 13:17] LABS: Free T4 Free Thyroxine 1.15 ng/dL (0.78-2.19)
[2024-10-18 13:57] LABS: Free T3 4.95 pg/mL (2.18-3.98)
== END 2024-10-18 12:19 | disposition home or self-care (01) ==
LOC: CHSLAB 12:21
PROVIDERS: PCP Internal Medicine; Visit Provider Internal Medicine
DX: I42.9 Cardiomyopathy, unspecified (principal); I10 Essential (primary) hypertension; E11.9 Type 2 diabetes mellitus without complications; E78.2 Mixed hyperlipidemia; N30.00 Acute cystitis without hematuria; E03.4 Atrophy of thyroid (acquired); R00.2 Palpitations; I50.9 Heart failure, unspecified
CPT/HCPCS: 36415; 80053; 80061; 81003; 83036; 83880; 84439; 84443; 84481; 85025; 87086; 87088

== ENCOUNTER 2024-10-30 14:42 | Outpatient (CLI) | payer MEDICARE, SELFPAY ==
--- NOTE | ~2024-10-30 | XR_ITS ---
2 views of the left calcaneus Clinical history heel pain FINDINGS: No acute fracture or dislocation seen. Plantar calcaneal spur present. There is minimal ent hesopathic change at the Achilles tendon insertion. There is mild degenerative change of the naviculo cuneiform articulation. Soft tissues are unremarkable. IMPRESSION: No acute abnormality seen. Plantar calcaneal spur and additional degenerative change, as above. Reviewed, dictated and finalized at location .
--- OUTSIDE RECORDS SUMMARY | 2024-10-30 16:13 | XMS_ITS | Clinical Summary ---
Author Organization [facility] Administrative Offices Address [address] [place] [id number] Care Team Providers Care Vp Scientific Name Role Phone José Miguel Page MD [...] 10/25/1977 DTAP/TDAP/TD VACCINES (1 - Tdap) 10/25/1978 PNEUMOCOCCAL VACCINE 50+ YEA RS (1 of 2 - PCV) 10/25/1978 BREAST CANCER SCREENING 1999 COLORECTAL SCREENING 10/25/2004 Colorectal Cancer Screening 10/25/2004 FIT-DNA Q 3 years 10/25/2004 FIT/FOBT Q 1 year 10/25/2004 Flex Sig/CT Colonography Q 5 years 10/25/2004 ZOSTER VACCINE (1 of 2) 10/25/2009 DIABETES HBA1C Q 6 MONTHS 11/09/2019 05/10/2019, INFLUENZA VACCINE (#1) 2023 OSTEOPOROSIS SCREENING 10/25/2024 RSV VACCINE (60+ or ) (1 - 1-dose 75+ series) 10/25/2034 Insurance MEDICARE PART A AND B [employer] MEDICARE SUPP AESSI Care Teams Vp Scientific Relationship Specialty Start Date End Date José Miguel Page MD [address] [place] [address] PCP - General Internal Medicine 10/31/18
--- OUTSIDE RECORDS SUMMARY | 2024-10-30 16:13 | XMS_ITS | Clinical Summary ---
Author Organization [facility] Address [address] [place] [address] Care Team Providers Care Vacation Planner Name Role Phone José Miguel Page MD Primary Care Provider Esteban Ritter MD Unavailable [phone] Juarez Guy MD Unavailable Bill Romo MD [...] 325 mg (65 mg of elemental iron) tabletIndications: Iron Deficiency Anemia Take 1 tablet (65 mg of elemental iron total) by mouth daily with breakfast Active cyclobenzaprine (FLEXERIL) 10 mg tabletIndications: Muscle Spasm Take 1 tablet (10 mg total) by mouth nightly 05/17/20 19 Active gabapentin (NEURONTIN) 100 mg capsuleIndications :Neuropathic Pain Take by mouth 2 (two) times a day Take 1 capsule during the day and 6 capsules at night Active vit C/E/Zn/coppr/lutei n/zeaxan (PRESERVISION AREDS-2 ORAL)Indications:s upplement Take 1 tablet by mouth 2 (two) times a day 11/29/19 20 Active atorvastatin (LIPITOR) 40 mg tabletIndications: hyperlipidemia Take 1 tablet (40 mg total) by mouth nightly 10/04/19 21 Active cetirizine 10 mg capsuleIndications :Allergic Rhinitis Take 10 mg by mouth every morning Active metFORMIN XR (GLUCOPHAGE XR) 500 mg 24 hr tabletIndications: type 2 diabetes mellitus Take 1 tablet (500 mg total) by mouth daily 02/20/20 21 Active multivitamin capsuleIndications :Vitamin Deficiency Prevention Take 1 capsule by mouth every morning Active nitroglycerin (NITROSTAT) 0.[address] 1 tablet (0.4 mg total) under the tongue every 5 (five) minutes as needed for chest pain Max 3 doses. 30 tablet 3 09/06/19 24 026 Active methenamine (HIPREX) 1 gram tablet Take 1 tablet (1 g total) by mouth 2 (two) times a day with meals 10/03/19 24 Active Ozempic 2 mg/dose (8 mg/3 mL) pen injector injection 09/16/19 24 Active zolpidem (AMBIEN) 5 mg tablet 09/26/19 24 Active metoprolol XL (TOPROL-XL) 100 mg 24 hr tabletIndications: Nonischemic cardiomyopathy (HCC) TAKE 1 TABLET BY MOUTH EVERY DAY 90 tablet 3 12/12/19 24 Active losartan (COZAAR) 25 mg tabletIndications: Nonischemic cardiomyopathy (HCC) TAKE 1 TABLET BY MOUTH [...] daily Take daily or as needed for nausea/post-m eal nausea 30 tablet 11 05/29/19 25 Active [...] 09/03/19 25 Active anastrozole (ARIMIDEX) 1 mg tabletIndications: Malignant neoplasm of lower-inner quadrant of left [...] mouth 30 minutes prior to MRI for claustrophobi a/anxiety. Can take another pill 30 minutes after initial pill if symptoms persists 3 tablet 10/17/19 25 Active anastrozole (ARIMIDEX) 1 mg tabletIndications: Malignant neoplasm of lower-inner quadrant of left breast in female, estrogen receptor positive (HCC) TAKE ONE TABLET BY MOUTH DAILY 30 tablet 11 12/12/19 24 025 Discontin ued(Reord er) Active Problems Problem Noted Date Diagnosed Date Coronary artery disease of n ative artery of [place] heart with stable angina pectoris 07/11/2024 RBBB 07/11/2024 Dyssynergic defecation 06/26/2024 MAYRA (stress urinary incontinence, female) 2024 Pelvic floor dysfunction 06/26/2024 Nausea without vomiting 05/29/2024 Assessment & Plan (05/29/2024 11:11 AM WOOL FLEECE GRADER): Broad differential for longstanding nausea. Patient reports [...] 05/29/2024 Assessment & Plan (05/29/2024 10:41 AM WOOL FLEECE GRADER): Alternating constipation with episodes of fecal smearing/incontinence. [...] 05/29/2024 Assessment & Plan (05/29/2024 10:56 AM WOOL FLEECE GRADER): Intermittent. Worse with movement. 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 06/2021 Bone disorder 01/22/2022 Dehydration 09/25/2021 Trigeminal neuralgia 09/19/2021 Numbness of toes 09/19/2021 Malignant neoplasm of lower- inner quadrant of left breast in female, estrogen receptor positive 09/04/2021 Cancer Staging:Clinical stage from 07/08/2021:Stage IA(cT1, cN0, cM0, G3, ER+, [place]+, HER2-) - Unsigned Pathologic stage from 08/07/2021:Stage IA(pT1c, pN0(sn), cM0, G3, ER+, [place]+, HER2- ) - Unsigned Generalized abdominal pain 06/18/2021 Overview (06/18/2021): Added automatically from request for surgery [id number] H/O cardiomyopathy 11/14/2020 Chronic heart failure with [...] 07/29/2020 Assessment & Plan (05/29/2024 11:08 AM WOOL FLEECE GRADER): Fecal incontinence with urge incontinence and passage [...] 11/28/2019 Assessment & Plan (03/26/2024 12:42 PM WOOL FLEECE GRADER): Lenses centered and stable with clear capsules, [...] call. Assessment & Plan (07/31/2021 10:32 AM WOOL FLEECE GRADER): POD1 Extraction Cataract - Phacoemulsification And Lens [...] concerns. Assessment & Plan (07/06/2021 2:12 PM WOOL FLEECE GRADER): POM#1 s/p CEIOL OD - doing well with no concerns - denies pain - off all drops - pleased with vision - CEIOL OS scheduled for July Assessment & Plan (06/05/2021 10:48 AM WOOL FLEECE GRADER): POW1 Extraction Cataract - Phacoemulsification And Lens [...] call. Assessment & Plan (05/29/2021 8:14 AM WOOL FLEECE GRADER): POD1 Extraction Cataract - Phacoemulsification And Lens [...] (06/13/2018): Added automatically from request for surgery [id number] Assessment & Plan (05/29/2024 10:16 AM WOOL FLEECE GRADER): Longstanding dysphagia symptoms. Prior EGDs and manometry testing were unrevealing. Symptoms suspected to possibly be related to her multiple sclerosis. Recent modified barium swallow study detailed below. Subsequent MANUFACTURING QUALITY MANAGER evaluation - per their note unremarkable [...] 11/08/2017 Assessment & Plan (05/29/2024 10:46 AM WOOL FLEECE GRADER): Seen on previous imaging. With normal LFTs. [...] a associated with type 2 diabetes mellitus (CMS/HCC) 10/27/2017 Assessment & Plan (11/01/2019 10:04 AM [...] lipids Assessment & Plan (05/09/2018 11:27 AM WOOL FLEECE GRADER): Goal of treatment , LDL cholesterol less [...] 04/07/2017 Assessment & Plan (05/29/2024 10:22 AM WOOL FLEECE GRADER): Currently well controlled. Recommend decreasing Pantoprazole to [...] 08/21 Assessment & Plan (03/26/2024 12:42 PM WOOL FLEECE GRADER): No diabetic retinopathy (DR) . Stressed importance [...] PCP/endo. Assessment & Plan (05/08/2020 12:20 PM WOOL FLEECE GRADER): Will add Lo pt with CHF SE [...] Metformin Assessment & Plan (05/10/2019 2:49 PM WOOL FLEECE GRADER): Hba1c was Lab Results Component Value Date [...] Metformin Assessment & Plan (05/09/2018 11:26 AM WOOL FLEECE GRADER): Hba1c was Lab Results Component Value Date [...] benign Assessment & Plan (05/08/2020 12:20 PM WOOL FLEECE GRADER): Goal blood pressure is less than 140/85 [...] microalbumin Assessment & Plan (05/10/2019 2:50 PM WOOL FLEECE GRADER): Goal blood pressure is less than 140/85 Low salt diet recommended Daily aerobic exercise Continue current meds, including MICHAEL-I or ARB Assessment & Plan (11/09/2018 12:20 PM CDT): Goal blood pressure is less than 140/85 Low salt diet recommended Daily aerobic exercise Continue current meds, including MICHAEL-I or ARB Assessment & Plan (05/09/2018 11:26 AM WOOL FLEECE GRADER): Goal blood pressure is less than 140/85 [...] neuritis Assessment & Plan (03/26/2024 12:42 PM WOOL FLEECE GRADER): Residual optic atrophy right eye (OD) No sign of active inflammation both eyes (OU) Assessment & Plan (11/28/2019 5:12 PM CDT): Residual optic atrophy right eye (OD) No sign of active inflammation both eyes (OU) Impaired cognition 12/12/2012 Overview (08/26/2016): Cognitive impairment Resolved Problems Problem Noted Date Diagnosed Date Resolved Date Encounter for person [facility] 09/10/2021 09/06/2023 Breast cancer 07/17/2021 09/22/2021 Overview (07/17/2021): Added automatically from request for surgery [id number] Fecal smearing 01/31/2020 09/06/2023 Encounter for screening colonoscopy 11/08/2017 09/06/2023 Dyslipidemia associated with type 2 diabetes mellitus ([facility]) 08/31/2016 11/25/2021 Overview (10/15/2016): DM type 2 with diabetic dyslipidemia Assessment & Plan (05/10/2019 2:50 PM WOOL FLEECE GRADER): .Goal of treatment , LDL cholesterol less [...] daily Assessment & Plan (04/19/2017 11:32 AM WOOL FLEECE GRADER): Hba1c was 5.7 today, indicating adequate DM [...] 11/25/2021 Assessment & Plan (04/19/2017 11:31 AM WOOL FLEECE GRADER): Goal of treatment , LDL cholesterol less [...] Encounters Date Type Department Care Team Description 2024 7:12 PM CDT - 2024 11:59 PM CDT Hospital Encounter [facility] [address] [place] [address] Discharge Disposition: Discharge to home or self care 10/17/2024 1:00 PM CDT Infusion [facility] [address] [facility] [address] [place] [address] 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 [address] [facility] [address] [place] [address] Juarez Guy MD Malignant neoplasm of lower-inner quadrant of left breast in female, estrogen receptor positive (HCC) 10/17/2024 10:30 AM CDT Lab [facility] - Lab Collection [address] [facility] [address] [place] [address] Malignant neoplasm of lower-inner quadrant of left breast in female, estrogen receptor positive (HCC) 10/17/2024 Telephone [facility] [address] [facility] [address] [place] [phone] Tariq Milligan MD orthopedics (Schedule an apt) 10/17/2024 Telephone [facility] [address] [place] [address] [address] [address] Yves Munoz MD 10/16/2024 10:00 AM CDT Office Visit [facility] [address] [place] [address] [address] Yves Munoz MD Multiple sclerosis (HCC) (Primary Dx); Acute left ankle pain 09/21/2024 2:45 PM CDT Office Visit [facility]iology at [address] [place] [address] Kael Falcon MD Coronary artery disease of [place] artery of [place] heart with stable angina pectoris (Primary Dx); Hypertension associated with diabetes (CMS/HCC); Mixed diabetic hyperlipidemia associated with type 2 diabetes mellitus (CMS/HCC) (HCC); Nonischemic cardiomyopathy (CMS/HCC) (HCC); PVC's (premature ventricular contractions); Obstructive sleep apnea 09/18/2024 Telephone [facility] [address] [place] [phone] Ofelia Saavedra MD 08/13/2024 10:00 AM CDT Office Visit [facility] [address] [place] [phone] Ofelia Saavedra MD Multiple sclerosis (HCC) (Primary Dx); Encounter for medication management; Falls infrequently; Dysphagia, unspecified type from Last 3 Months Immunizations Immunization Administration [...] 2 Jace Mays Cancer Brother 3 Huber Davon Cardiomyopathy Father Jace Mays Cardio myopathy; Cause [...] 2 Malina Torres Kidney disease Sister 2 Malina Torres Anesthesia problems Neg Hx Endometrial cancer [...] on file Legal Sex Female 9:07 AM WOOL FLEECE GRADER Gender Identity Female 02/22/2024 11:51 AM CDT [...] - Tdap) 10/25/1970 Hepatitis B Screening 10/25/1977 Pneumococcal vaccine 65+ (1 of 2 - PCV) 10/25/1978 Foot Exam 10/31/2020 11/01/2019, 10/21, 05/10/2019, Additional history exists Hemoglobin A1C 03/30/2021 09/27/2020, 04/22, 11/01/2019, Additional history exists Albumin Creatinine Ratio, Urine 09/27/2021 , 05/19/2020 Covid-19 Vaccine (2023-2 5 season) 2024 04/07/2021, 08/01/2020, 07/11/2020 Depression Screening 02/11/2024 02/10/2023, 02/11/2022, 02/12/2021, Additional history exists Well Visit 65+ 10/25/2024 Influenza Vaccine (Season Ended) 2025 01/23/20, 03/07/2019 Breast Cancer Screening-Mammogram 01/25/2025 01/26/2024, 02/03/2023, 02/18/2022, Additional history exists Dilated Eye Exam 03/26/2025 03/26/2024, , 03/04/2022, Additional history exists Fall Risk Assessment 07/09/2025 07/09/2024, 09/11/19 22 Lipid Panel 09/21/2025 09/21/2024, 08/21, 03/01/2023, Additional history exists eGFR 10/17/2025 10/17/2024, 03/24, 04/03/2024, Additional history exists Osteoporosis Screening-Bone Density Scan 05/09/2026 05/09/2024, 04/02/2022 Colon Cancer Screening-Colonoscopy 08/13/2030 08/13/2020 Hepatitis C Screening Completed 04/03/2015 Zoster Vaccine Completed 04/07/2020, 03/07/2019 Colon Cancer Screening-CT Colonography Discontinued 08/13/2020 Colon Cancer Screening-DNA Stool Discontinued 08/14/19 Colon Cancer Screening-FIT Discontinued 08/13/2020 Colon Cancer Screening-Sigmoidoscopy Discontinued 08/13/2020 Medical Devices Implanted Type Area Burnisher Device Identifier Shelf Expiration Date Model / Serial / Lot [employer] Peripheral Vascular Powerport Clearvue Airguard 8fr 1 Lumen Lightweight Intermediate Latex Free [id number] - [id number] Implanted:Qty: 1 on 09/14/2021 by Anne-Marie Mireles MD PhD at [facility] Catheter Right: Clavicle [employer] [id number] 06/22/2022 [id number] / / [id number] Description:Right mid clavic ular region in the IJ [employer] [id number] - [id number] - [id number] Implanted:Qty: 1 on 05/28/2021 by Sarah Correa MD at [facility] Lens Right: Eye [employer] [id number] 11/20/2023 [id number] / [id number] / [id number] Description:[id number] 21.5D Righ t eye [employer] [id number] - [id number] - [id number] Implanted:Qty: 1 on 07/30/2021 by Sarah Correa MD at [facility] Lens Left: Lens [employer] [id number] 11/20/2023 [id number] / [id number] 21 / Bard Peripheral Vascular 02360 Ghiatas 20ga 20cm 7cm Beaded Needle Breast Wire Localization - [id number] Implanted:Qty: 1 on 08/07/2021 at [facility] Peripheral Vascular [id number] / / Procedures Procedure Name Priority Date/Time Associated Diagnosis Comments MISC PATH REFER Routine 10/29/2024 1:02 PM CDT EGFR Routine 10/17/2024 10:39 AM CDT Malignant [...] 2:46 PM CDT Coronary artery disease of [place] artery of [place] heart with stable angina pectoris DEXA AXIAL SKELETON BONE DENSITY 1 OR MORE SITES Schedule Routine, Read Routine (OP Routine) 05/09/2024 8:38 AM WOOL FLEECE GRADER 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 Malignant neoplasm of lower-inner quadrant of left breast in female, estrogen receptor positive (HCC) DIAGNOSTIC MAMMOGRAM BILATERAL W SHERMAN Schedule Routine, [...] SERUM HEPATITIS PANEL Routine 04/03/2015 7:47 AM WOOL FLEECE GRADER from Last 3 Months or Most Recently [...] ORDERAB LES Final Result GLENNA STACK [facility] Department [place] [address] * Differential, auto (10/17/2024 10:39 AM CDT) Neutrophil abs 3.14 1.50 - 6.50 K/cumm Comment:Testing performed by : [facility], [address] [place] [phone] Lymphocyte abs 2.03 0.80 - 3.30 K/cumm CERNER BJ Comment:Testing performed by : [facility], [address] [place], [place] [phone] Monocyte abs 0.44 0.20 - 0.80 K/cumm CERNER BJ Comment:Testing performed by : [facility], [address] [place], [place] [phone] Eosinophil abs 0.10 0.00 - 0.50 K/cumm CERNER BJ Comment:Testing performed by : [facility], [address] [place] [phone] Basophil abs 0.02 0.00 - 0.10 K/cumm CERNER BJ Comment:Testing performed by : [facility] [place], [address] [place] [phone] Neutrophil pct 54.9 % CERNER BJ Comment: Interpretive Data Percent cell count reference ranges are not reported, since discordance with absolute values may lead to misinterpretation of CBC data. Current Interpretive Data was last revised on 2017. Testing performed by: [facility] [place], [address] [place] [phone] Lymphocyte pct 35.4 % CERNER BJ Comment: Interpretive Data Percent cell count reference ranges are not reported, since discordance with absolute values may lead to misinterpretation of CBC data. Current Interpretive Data was last revised on 2017. Testing performed by: [facility] [place], [address] [place] [address] Monocyte pct 7.6 % GLENNA STACK Comment: Interpretive Data Percent cell count reference ranges are not reported, since discordance with absolute values may lead to misinterpretation of CBC data. Current Interpretive Data was last revised on 2017. Testing performed by: [facility] [place], [address] [place] [address] Eosinophil pct 1.7 % GLENNA STACK Comment: Interpretive Data Percent cell count reference ranges are not reported, since discordance with absolute values may lead to misinterpretation of CBC data. Current Interpretive Data was last revised on 2017. Testing performed by: [facility] [place], [address] [place] [address] Basophil pct 0.3 % GLENNA STACK Comment: Interpretive Data Percent cell count reference ranges are not reported, since discordance with absolute values may lead to misinterpretation of CBC data. Current Interpretive Data was last revised on 2017. Testing performed by: [facility] [place], [address] [place] [address] Blood 10/17/2024 10:3 9 AM CDT 10/17/2024 10:49 AM CDT us Juarez Guy MD LAB BLOOD ORDERAB LES Final Result [facility] Department [place] [address] * CBC with auto differential (10/17/2024 10:39 AM CDT) WBC 5.72 3.80 - 9.90 K/cumm Comment:Testing performed by : [facility] [place], [address] [place] [address] Hgb 13.0 11.9 - 15.5 g/dL GLENNA STACK Comment:Testing performed by : [facility] [place], [address] [place] [address] Hct 38.3 35.6 - 45.5 % GLENNA STACK Comment:Testing performed by : [facility] [place], [address] [place] [address] Plt 238 150 - 400 K/cumm CERNER BJ Comment:Testing performed by : [facility] [place], [address] [place] [address] MPV 7.3 6.8 - 10.4 fL CERNER BJ Comment:Testing performed by : [facility] [place], [address] [place] [address] RBC 4.07 3.90 - 5.20 M/cumm CERNER BJ Comment:Testing performed by : [facility] [place], [address] [place] [address] MCV 94.1 81.3 - 96.4 fL CERNER BJ Comment:Testing performed by : [facility] [place], [address] [place] [address] MCH 31.9 27.1 - 33.3 pg CERNER BJ Comment:Testing performed by : [facility] [place], [address] [place] [address] MCHC 33.9 32.3 - 35.7 g/dL CERNER BJ Comment:Testing performed by : [facility] [place], [address] [place] [address] RDW CV 12.3 11.1 - 14.9 % CERNER [facility] Comment:Testing performed by : [facility] [place], [address] [place] [address] NRBC abs 0.00 0.00 - 0.01 K/cumm CERNER [facility] Comment:Testing performed by : [facility] [place], [address] [place] [address] Blood 10/17/2024 10:3 9 AM CDT 10/17/2024 10:49 AM CDT us Juarez Guy MD LAB BLOOD ORDERAB LES Final Result [facility] Department [place] [address] * Comprehensive metabolic panel (10/17/2024 10:39 AM CDT) Sodium 142 135 - 145 mmol/L Potassium, pl 4.2 3.3 - 4.9 mmol/L [facility] Chloride 103 97 - 110 mmol/L [facility] CO2 30 22 - 32 mmol/L [facility] Anion gap 9 2 - 15 mmol/L [facility] BUN 9 6 - 25 mg/dL [facility] Creatinine 0.73 0.60 - 1.10 mg/dL [facility] Glucose 95 70 - 199 mg/dL [facility] Comment: Interpretive Data Fasting glucose >/= 126 [...] 2022. Calcium 9.2 8.5 - 10.3 mg/dL [facility] Bilirubin, total 0.2 0.1 - 1.2 mg/dL [facility] Protein, pl 7.6 6.5 - 8.5 g/dL [facility] Albumin 4.3 3.5 - 5.0 g/dL [facility] Alk phos 90 40 - 130 Units/L [facility] ALT 22 7 - 45 Units/L [facility] AST 22 10 - 45 Units/L [facility] Blood 10/17/2024 10:3 9 AM CDT 10/17/2024 10:49 AM CDT us Juarez Guy MD LAB BLOOD ORDERAB LES Final Result [facility] Department [place] [address] * (ABNORMAL) POCT lipid panel (09/21/2024 2:46 [...] CARE TEST ORDERA BLES Final Result * Dexa Axial Skeleton Bone Density 1 or 2 Site (05/09/2024 8:38 AM WOOL FLEECE GRADER) Anatomical Region Laterality Modality Body N/A Radiographic Yessy ging Narrative 05/09/2024 2:47 PM WOOL FLEECE GRADER Patient Name: Fadia Welch Date of : 1960 Date of scan: 05/09/2024 Bone mineral density was performed on a Holo[employer]ze Discovery Densitometer. Based on machine cross-calibration and precision studies the least significant changes of this densitometer is 0.024 g/cm2 at the spine, 0.020 g/cm2 at the total proximal femur, and 0.014g/cm2 at the forearm. HISTORY: This is a 63 y.o. postmenopausal female with a history of breast cancer, low bone mass, and vitamin D deficiency. She reports that she quit smoking about 31 years ago. Her smoking use included cigarettes. She started smoking about 50 years ago. She has a 14.4 pack-year smoking history. She has never used smokeless tobacco. Currently on treatment with vitamin D, zoledronic acid (Zometa), aromatase inhibitor, and diuretics and current complaint of arm pain, back pain, neck pain, and leg pain. INDICATIONS: Menopause status, treatment monitoring, vitamin D deficiency, aromatase inhibitor therapy, and history of low bone mass. FINDINGS: BONE MINERAL DENSITY OF THE LUMBAR SPINE Bone Mineral Density (BMD) of the lumbar spine was measured from L1-L4 and the average density was calculated to be 0.964 gm/cm2. This corresponds to a T-score (standard deviations from the mean of young adults) of -0.8. When compared to the previous study of 04/02/2022 there has been a 0.033 gm/cm (3.5%) increase in bone density that is considered significant. BONE MINERAL DENSITY OF THE PROXIMAL FEMUR Bone Mineral Density (BMD) of the left hip total was found to be 0.986 gm/cm2. This corresponds to a T-score standard deviations from the mean of young adults of 0.4. Femoral neck is 0.591 gm/cm2 with a T-score (standard deviations from the mean of young adults) of -2.3. When compared to the previous study of 04/02/2022 there has been no significant changes in bone density. SUMMARY: Bone mineral density shows evidence of low bone mass at the proximal femur and moderately increased fracture risk (Osteopenia). There has been a significant increase in bone density since previous measurement. ADDITIONAL COMMENTS: Postmenopausal Women and Men Over 50: Diagnostic criteria: Osteoporosis: BMD at or below -2.5 T-score; Osteopenia (low bone mass): BMD between -1.0 and -2.5 T-score. If the patient has a history of a fragility fracture, a fracture that occurred with trauma equivalent to a fall from a standing position or less, then the diagnosis is osteoporosis regardless of bone density. The history and data sections of the bone mineral density scan were prepared by Marni Alvarado(Ericka)(Svitlana)(BD) CBDT who is accredited by the International Society of Clinical Densitometry. The overall patient assessment and scan interpretation were performed by Madi Noe M.D. who is certified by the International Society of Clinical Densitometry. [id number] Juarez Guy MD IM DXA PROCEDURE S Final Result * Diagnostic Mammogram Bilateral W [...] it. Electronically signed by: Anay Thibodeaux M.D. Result [facility] Anne-Marie Mireles MD PhD IMG MAMMO PROCEDURES Final Result * Albumin Creatinine Ratio, Urine (09/27/2020 9:37 AM CDT) SCRIBED Creatinine, Urine 117.80 40 - 278 EXTERNAL LAB SCRIBED Microalbumin <13.0 n/e - n/e EXTERNAL LAB SCRIBED Microalb/Creat Ratio 11.0 0 - 30.0 EXTERNAL LAB Urine Result [facility] Historical Provider LAB URINE ORDERABLES Edit ed Result - Final Performing Organization Address [facility]/ZIP Co de Phone Number EXTERNAL LAB * Hemoglobin A1c (09/27/2020 9:37 AM CDT) SCRIBED Hemoglobin A1c 5.7 0.0 - 5.7 EXTERNAL LAB Blood specimen (specimen) Historical Provider LAB BLOOD ORDERABLES Edit ed Result - Final EXTERNAL LAB * COLONOSCOPY (08/13/2020 12:02 PM CDT) Anatomical Region Laterality Modality Other Narrative Procedure Note Markus Becerra MD - 08/13/2020 12:02 PM CDT [facility] Patient Name: Fadia Welch Procedure [...] for surveillance. Procedure Code(s): --- Professional --- 90687, Colonoscopy, flexible; with biopsy, singleor multiple Diagnosis Code(s): --- Professional --- Z12.11, Encounter for screening for malignantneoplasm of colon K63.5, Polyp of colon CPT copyright 2019 [employer]. All rights reserved. The codes documented in this report are preliminary and upon senior sales consultant reviewmay be revised to meet current compliance requirements. Electronically signed by Markus Becerra MD Markus Becerra M.D. 08/13/2020 12:37:39 PM Number of Addenda: 0 Note Initiated On: 08/13/2020 12:02 PM Markus Becerra MD ENDOSCOPY PROCEDURES Final Resul t * Diabetic Eye Exam (12/27/2018) Historical Provider HEALTH MAINTENANCE Edited Result - Final * Serum Hepatitis panel (04/03/2015 7:47 AM WOOL FLEECE GRADER) HBV surface ag Negative Negative HISTO RICAL RESULTS HBV core ab, IgM Negative Negative HISTORICAL RESULTS HCV ab Negative Negative HISTORICAL RESULTS HAV ab, IgM Negative Negative HISTORIC AL RESULTS Serum 04/03/2015 7:47 AM WOOL FLEECE GRADER Narrative HISTORICAL RESULTS - 04/03/2015 10:47 AM WOOL FLEECE GRADER Send Duplicate Reports to: Thomas Chanel [address] [place] [address] Markus Becerra MD LAB BLOOD ORDERABLES Final Resul t HISTORICAL RESULTS from Last 3 Months or Most Recently Relevant to Health Maintenance Insurance [employer] SENIOR SUPPLEMENT MEDICARE Member Subscriber Plan / Payer (Ef fective 2012-Present) Name:FADIA WELCH Member ID:[id number] Relation to Subscriber:Self Name:Fadia Welch Subscriber ID:[id number] Payer ID:[id number] Group ID:Not on file Type:MEDICARE TRADITIONAL Address: [place] [id number] MEDICARE AET SENIOR SUPPLEMENT MEDICARE AET[employer] SENIOR SUPPLEMENT Care Teams Vacation Planner Relationship Specialty Start Date End Date José Miguel Page MD PCP - General Internal Medicine 09/05/18 Esteban Ritter MD Consulting Physician Cardiology 06/18/21 Juarez Guy MD [address] [place] [address] Consulting Physician Medical Oncology 08/31/21 Bill Romo MD [address] [facility] [address] [place] [address] Radiation Oncologist Radiation Oncology 09/11/21 Anne-Marie Mireles MD PhD [address] [facility] [id number] [place] [address] Surgeon Surgical Oncology 09/11/21
--- OUTSIDE RECORDS SUMMARY | 2024-10-30 16:14 | XMS_ITS ---
Author Organization [facility] Address [address] [place] [address] Care Team Providers Care Concrete Inspector Name Role Phone José Miguel Page MD Primary Care Provider [phone] Esteban Ritter MD Unavailable [phone] Juarez Guy MD Unavailable Bill Romo MD Unavailable Anne-Marie Mireles MD PhD Unavaila ble Active Problems Problem Noted Date Diagnosed Date Coronary artery disease of n ative artery of [place] heart with stable angina pectoris 07/11/2024 RBBB 07/11/2024 Dyssynergic defecation 06/26/2024 MAYRA (stress urinary incontinence, female) 2024 Pelvic floor dysfunction 06/26/2024 Nausea without vomiting 05/29/2024 Assessment & Plan (05/29/2024 11:11 AM WELL REACTIVATOR OPERATOR): Broad differential for longstanding nausea. Patient reports [...] 05/29/2024 Assessment & Plan (05/29/2024 10:41 AM WELL REACTIVATOR OPERATOR): Alternating constipation with episodes of fecal smearing/incontinence. [...] 05/29/2024 Assessment & Plan (05/29/2024 10:56 AM WELL REACTIVATOR OPERATOR): Intermittent. Worse with movement. 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 06/2021 Bone disorder 01/22/2022 Dehydration 09/25/2021 Trigeminal neuralgia 09/19/2021 Numbness of toes 09/19/2021 Malignant neoplasm of lower- inner quadrant of left breast in female, estrogen receptor positive 09/04/2021 Cancer Staging:Clinical stage from 07/08/2021:Stage IA(cT1, cN0, cM0, G3, ER+, VA+, HER2-) - Unsigned Pathologic stage from 08/07/2021:Stage IA(pT1c, pN0(sn), cM0, G3, ER+, VA+, HER2- ) - Unsigned Generalized abdominal pain 06/18/2021 Overview (06/18/2021): Added automatically from request for surgery [id number] H/O cardiomyopathy 11/14/2020 Chronic heart failure with [...] 07/29/2020 Assessment & Plan (05/29/2024 11:08 AM WELL REACTIVATOR OPERATOR): Fecal incontinence with urge incontinence and passage [...] 11/28/2019 Assessment & Plan (03/26/2024 12:42 PM WELL REACTIVATOR OPERATOR): Lenses centered and stable with clear capsules, [...] call. Assessment & Plan (07/31/2021 10:32 AM WELL REACTIVATOR OPERATOR): POD1 Extraction Cataract - Phacoemulsification And Lens [...] concerns. Assessment & Plan (07/06/2021 2:12 PM WELL REACTIVATOR OPERATOR): POM#1 s/p CEIOL OD - doing well with no concerns - denies pain - off all drops - pleased with vision - CEIOL OS scheduled for July Assessment & Plan (06/05/2021 10:48 AM WELL REACTIVATOR OPERATOR): POW1 Extraction Cataract - Phacoemulsification And Lens [...] call. Assessment & Plan (05/29/2021 8:14 AM WELL REACTIVATOR OPERATOR): POD1 Extraction Cataract - Phacoemulsification And Lens [...] (06/13/2018): Added automatically from request for surgery [id number] Assessment & Plan (05/29/2024 10:16 AM WELL REACTIVATOR OPERATOR): Longstanding dysphagia symptoms. Prior EGDs and manometry testing were unrevealing. Symptoms suspected to possibly be related to her multiple sclerosis. Recent modified barium swallow study detailed below. Subsequent CENTRAL SUPPLY NURSE evaluation - per their note unremarkable oropharyngeal [...] 11/08/2017 Assessment & Plan (05/29/2024 10:46 AM WELL REACTIVATOR OPERATOR): Seen on previous imaging. With normal LFTs. [...] a associated with type 2 diabetes mellitus ([facility]) 10/27/2017 Assessment & Plan (11/01/2019 [...] lipids Assessment & Plan (05/09/2018 11:27 AM WELL REACTIVATOR OPERATOR): Goal of treatment , LDL cholesterol less [...] 04/07/2017 Assessment & Plan (05/29/2024 10:22 AM WELL REACTIVATOR OPERATOR): Currently well controlled. Recommend decreasing Pantoprazole to [...] 08/21 Assessment & Plan (03/26/2024 12:42 PM WELL REACTIVATOR OPERATOR): No diabetic retinopathy (DR) . Stressed importance [...] PCP/endo. Assessment & Plan (05/08/2020 12:20 PM WELL REACTIVATOR OPERATOR): Will add Lo, pt with CHF SE [...] Metformin Assessment & Plan (05/10/2019 2:49 PM WELL REACTIVATOR OPERATOR): Hba1c was Lab Results Component Value Date [...] Metformin Assessment & Plan (05/09/2018 11:26 AM WELL REACTIVATOR OPERATOR): Hba1c was Lab Results Component Value Date [...] benign Assessment & Plan (05/08/2020 12:20 PM WELL REACTIVATOR OPERATOR): Goal blood pressure is less than 140/85 [...] microalbumin Assessment & Plan (05/10/2019 2:50 PM WELL REACTIVATOR OPERATOR): Goal blood pressure is less than 140/85 Low salt diet recommended Daily aerobic exercise Continue current meds, including MICHAEL-I or ARB Assessment & Plan (11/09/2018 12:20 PM CDT): Goal blood pressure is less than 140/85 Low salt diet recommended Daily aerobic exercise Continue current meds, including MICHAEL-I or ARB Assessment & Plan (05/09/2018 11:26 AM WELL REACTIVATOR OPERATOR): Goal blood pressure is less than 140/85 [...] neuritis Assessment & Plan (03/26/2024 12:42 PM WELL REACTIVATOR OPERATOR): Residual optic atrophy right eye (OD) No [...] left breast in female, estrogen receptor positive (HCC)[facility] current use 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 inhibitorBone disorder Treatment [...] Diagnosed Date Resolved Date Encounter for person [facility] 09/10/2021 09/06/2023 Breast cancer 07/17/2021 09/22/2021 Overview (07/17/2021): Added automatically from request for surgery [id number] Fecal smearing 01/31/2020 09/06/2023 Encounter for screening colonoscopy 11/08/2017 09/06/2023 Dyslipidemia associated with type 2 diabetes mellitus ([facility]) 08/31/2016 11/25/2021 Overview (10/15/2016): DM type 2 with diabetic dyslipidemia Assessment & Plan (05/10/2019 2:50 PM WELL REACTIVATOR OPERATOR): .Goal of treatment , LDL cholesterol less [...] daily Assessment & Plan (04/19/2017 11:32 AM WELL REACTIVATOR OPERATOR): Hba1c was 5.7 today, indicating adequate DM [...] 11/25/2021 Assessment & Plan (04/19/2017 11:31 AM WELL REACTIVATOR OPERATOR): Goal of treatment , LDL cholesterol less [...]
--- OUTSIDE RECORDS SUMMARY | 2024-10-30 16:14 | XMS_ITS | Referral Summary ---
Author Organization [facility] Address [address] [place] [address] Care Team Providers Care Service Parts Driver Name Role Phone José Miguel Page MD Primary Care Provider Esteban Ritter MD Unavailable [phone] Juarez Guy MD Unavailable Bill Romo MD Unavailable Anne-Marie Mireles MD PhD Unavaila ble Encounters Date Type Department Care Team Description 2024 7:12 PM CDT - 2024 11:59 PM CDT Hospital Encounter [facility] [address] [place] [address] Discharge Disposition: Discharge to home or self care 10/17/[address] [facility] [address] [place] [address] Tariq Milligan MD orthopedics (Schedule an apt) 10/17/2024 Telephone [facility] [address] [place] [address] Yves Munoz MD 10/17/2024 1:00 PM CDT Infusion [facility] [place] - [facility]fusion [address] [facility] [address] [place] [address] 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 (Primary Dx); Malignant neoplasm of lower-inner quadrant of left breast in female, estrogen receptor positive (HCC); Bone disorder 10/17/2024 10:30 AM CDT Lab [facility] - Lab Collection [address] [facility] [address] [place] [address] Malignant neoplasm of lower-inner quadrant of left breast in female, estrogen receptor positive (HCC) 10/17/2024 11:30 AM CDT Office Visit [facility] [address] [facility] [address] [place] [address] Juarez Guy MD Malignant neoplasm of lower-inner quadrant of left breast in female, estrogen receptor positive (HCC) 10/16/2024 10:00 AM CDT Office Visit [facility] in [address] [address] Yves Munoz MD Multiple sclerosis (HCC) (Primary Dx); Acute left ankle pain 09/21/2024 2:45 PM CDT Office Visit [facility] at [address] [place] [address] Kael Falcon MD 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); Hypertension associated with diabetes (CMS/HCC); Mixed diabetic hyperlipidemia associated with type 2 diabetes mellitus (CMS/HCC) (HCC); Nonischemic cardiomyopathy (CMS/HCC) (HCC); PVC's (premature ventricular contractions); Obstructive sleep apnea 09/18/2024 Telephone [facility] in Care [address] [place] [address] [place] [phone] Ofelia Saavedra MD 08/13/2024 10:00 AM CDT Office Visit [facility] in Care [address] [place] [address] [place] [phone] Ofelia Saavedra MD Multiple sclerosis (HCC) (Primary Dx); Encounter for medication management; Falls infrequently; Dysphagia, unspecified type from Last 3 Months Allergies Active Allergy [...] artery disease of n ative artery of jena heart with stable angina pectoris 07/11/2024 RBBB 07/11/2024 Dyssynergic defecation 06/26/2024 MAYRA (stress urinary incontinence, female) 2024 Pelvic floor dysfunction 06/26/2024 Nausea without vomiting 05/29/2024 Assessment & Plan (05/29/2024 11:11 AM RETAIL CASHIER ASSOCIATE): Broad differential for longstanding nausea. Patient reports [...] 05/29/2024 Assessment & Plan (05/29/2024 10:41 AM RETAIL CASHIER ASSOCIATE): Alternating constipation with episodes of fecal smearing/incontinence. [...] 05/29/2024 Assessment & Plan (05/29/2024 10:56 AM RETAIL CASHIER ASSOCIATE): Intermittent. Worse with movement. Associated low back [...] follow-up surveillance of breast c ancer 01/26/2022 detention current use 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 inhibitor 06/2021 Bone disorder 01/22/2022 Dehydration 09/25/2021 Trigeminal neuralgia 09/19/2021 Numbness of toes 09/19/2021 Malignant neoplasm of lower- inner quadrant of left breast in female, estrogen receptor positive 09/04/2021 Cancer Staging:Clinical stage from 07/08/2021:Stage IA(cT1, cN0, cM0, G3, ER+, GA+, HER2-) - Unsigned Pathologic stage from 08/07/2021:Stage IA(pT1c, pN0(sn), cM0, G3, ER+, GA+, HER2- ) - Unsigned Generalized abdominal pain 06/18/2021 Overview (06/18/2021): Added automatically from request for surgery [id number] H/O cardiomyopathy 11/14/2020 Chronic heart failure with [...] 07/29/2020 Assessment & Plan (05/29/2024 11:08 AM RETAIL CASHIER ASSOCIATE): Fecal incontinence with urge incontinence and passage [...] 11/28/2019 Assessment & Plan (03/26/2024 12:42 PM RETAIL CASHIER ASSOCIATE): Lenses centered and stable with clear capsules, [...] call. Assessment & Plan (07/31/2021 10:32 AM RETAIL CASHIER ASSOCIATE): POD1 Extraction Cataract - Phacoemulsification And Lens [...] concerns. Assessment & Plan (07/06/2021 2:12 PM RETAIL CASHIER ASSOCIATE): POM#1 s/p CEIOL OD - doing well with no concerns - denies pain - off all drops - pleased with vision - CEIOL OS scheduled for July Assessment & Plan (06/05/2021 10:48 AM RETAIL CASHIER ASSOCIATE): POW1 Extraction Cataract - Phacoemulsification And Lens [...] call. Assessment & Plan (05/29/2021 8:14 AM RETAIL CASHIER ASSOCIATE): POD1 Extraction Cataract - Phacoemulsification And Lens [...] Abnormal findings on diagnostic imaging of latia khan 11/02/2018 Esophageal dysphagia 06/13/2018 Overview (06/13/2018): Added automatically from request for surgery [id number] Assessment & Plan (05/29/2024 10:16 AM RETAIL CASHIER ASSOCIATE): Longstanding dysphagia symptoms. Prior EGDs and manometry testing were unrevealing. Symptoms suspected to possibly be related to her multiple sclerosis. Recent modified barium swallow study detailed below. Subsequent OFFICE MACHINE SERVICER evaluation - per their note unremarkable oropharyngeal [...] 11/08/2017 Assessment & Plan (05/29/2024 10:46 AM RETAIL CASHIER ASSOCIATE): Seen on previous imaging. With normal LFTs. [...] a associated with type 2 diabetes mellitus ([facility]) 10/27/2017 Assessment & Plan (11/01/2019 10:04 AM [...] lipids Assessment & Plan (05/09/2018 11:27 AM RETAIL CASHIER ASSOCIATE): Goal of treatment , LDL cholesterol less [...] 04/07/2017 Assessment & Plan (05/29/2024 10:22 AM RETAIL CASHIER ASSOCIATE): Currently well controlled. Recommend decreasing Pantoprazole to [...] 08/21 Assessment & Plan (03/26/2024 12:42 PM RETAIL CASHIER ASSOCIATE): No diabetic retinopathy (DR) . Stressed importance [...] PCP/endo. Assessment & Plan (05/08/2020 12:20 PM RETAIL CASHIER ASSOCIATE): Will add Lo pt with CHF SE [...] Metformin Assessment & Plan (05/10/2019 2:49 PM RETAIL CASHIER ASSOCIATE): Hba1c was Lab Results Component Value Date [...] Metformin Assessment & Plan (05/09/2018 11:26 AM RETAIL CASHIER ASSOCIATE): Hba1c was Lab Results Component Value Date [...] benign Assessment & Plan (05/08/2020 12:20 PM RETAIL CASHIER ASSOCIATE): Goal blood pressure is less than 140/85 [...] microalbumin Assessment & Plan (05/10/2019 2:50 PM RETAIL CASHIER ASSOCIATE): Goal blood pressure is less than 140/85 Low salt diet recommended Daily aerobic exercise Continue current meds, including MICHAEL-I or ARB Assessment & Plan (11/09/2018 12:20 PM CDT): Goal blood pressure is less than 140/85 Low salt diet recommended Daily aerobic exercise Continue current meds, including MICHAEL-I or ARB Assessment & Plan (05/09/2018 11:26 AM RETAIL CASHIER ASSOCIATE): Goal blood pressure is less than 140/85 [...] neuritis Assessment & Plan (03/26/2024 12:42 PM RETAIL CASHIER ASSOCIATE): Residual optic atrophy right eye (OD) No sign of active inflammation both eyes (OU) Assessment & Plan (11/28/2019 5:12 PM CDT): Residual optic atrophy right eye (OD) No sign of active inflammation both eyes (OU) Impaired cognition 12/12/2012 Overview (08/26/2016): Cognitive impairment Resolved Problems Problem Noted Date Diagnosed Date Resolved Date Encounter for person [facility] 09/10/2021 09/06/2023 Breast cancer 07/17/2021 09/22/2021 Overview (07/17/2021): Added automatically from request for surgery [id number] Fecal smearing 01/31/2020 09/06/2023 Encounter for screening colonoscopy 11/08/2017 09/06/2023 Dyslipidemia associated with type 2 diabetes mellitus (CMS/HCC) 08/31/2016 11/25/2021 Overview (10/15/2016): DM type 2 with diabetic dyslipidemia Assessment & Plan (05/10/2019 2:50 PM RETAIL CASHIER ASSOCIATE): .Goal of treatment , LDL cholesterol less [...] daily Assessment & Plan (04/19/2017 11:32 AM RETAIL CASHIER ASSOCIATE): Hba1c was 5.7 today, indicating adequate DM [...] 11/25/2021 Assessment & Plan (04/19/2017 11:31 AM RETAIL CASHIER ASSOCIATE): Goal of treatment , LDL cholesterol less [...] on file Legal Sex Female 9:07 AM RETAIL CASHIER ASSOCIATE Gender Identity Female 02/22/2024 11:51 AM CDT [...] on file Medical Devices Implanted Type Area Belly Dump Driver Device Identifier Shelf Expiration Date Model / Serial / Lot [employer] Peripheral [employer] Powerport Clearvue Airguard 8fr 1 Lumen Lightweight Intermediate Latex Free [id number] - [id number] Implanted:Qty: 1 on 09/14/2021 by Anne-Marie Mireles MD PhD at [facility] Catheter Right: Clavicle [employer] [id number] 06/22/2022 [id number] / / [id number] Description:Right mid clavic ular region in the IJ [employer] [id number] - [id number] - [id number] Implanted:Qty: 1 on 05/28/2021 by Sarah Correa MD at [facility] Lens Right: Eye [employer] [id number] 11/20/2023 [id number] / [id number] / [id number] Description:[id number] 21.5D Righ t eye [employer] [id number] - [id number] - [id number] Implanted:Qty: 1 on 07/30/2021 by Sarah Correa MD at [facility] Lens Left: Lens [employer] [id number] 11/20/2023 [id number] / [id number] / Bard Peripheral V[employer] 96880 Ghiatas 20ga 20cm 7cm Beaded Needle Breast Wire Localization - [id number] Implanted:Qty: 1 on 08/07/2021 at [facility] Peripheral Vascular [id number] / / Procedures Procedure Name Priority Date/Time [...] 2:46 PM CDT 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 DEXA AXIAL SKELETON BONE DENSITY 1 OR MORE SITES Schedule Routine, Read Routine (OP Routine) 05/09/2024 8:38 AM RETAIL CASHIER ASSOCIATE detention current use 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 inhibitor Malignant neoplasm [...] SERUM HEPATITIS PANEL Routine 04/03/2015 7:47 AM RETAIL CASHIER ASSOCIATE from Last 3 Months or Most Recently [...] MD LAB BLOOD ORDERAB LES Final Result [facility] Department [place] [address] * Differential, auto (10/17/2024 10:39 AM CDT) Neutrophil abs 3.14 1.50 - 6.50 K/cumm Comment:Testing performed by : [facility], [address] [place], [place] [phone] Lymphocyte abs 2.03 0.80 - 3.30 K/cumm CERNER BJ Comment:Testing performed by : [facility], [address] [place] [phone] Monocyte abs 0.44 0.20 - 0.80 K/cumm CERNER BJ Comment:Testing performed by : [facility], [address] [place] [address] Eosinophil abs 0.10 0.00 - 0.50 K/cumm CERNER BJ Comment:Testing performed by : [facility], [address] [place] [phone] Basophil abs 0.02 0.00 - 0.10 K/cumm CERNER BJ Comment:Testing performed by : [facility], [address] [place] [phone] Neutrophil pct 54.9 % CERNER BJ Comment: Interpretive Data Percent cell count reference ranges are not reported, since discordance with absolute values may lead to misinterpretation of CBC data. Current Interpretive Data was last revised on 2017. Testing performed by: [facility], [address] [place] [phone] Lymphocyte pct 35.4 % CERYAMIL STACK Comment: Interpretive Data Percent cell count reference ranges are not reported, since discordance with absolute values may lead to misinterpretation of CBC data. Current Interpretive Data was last revised on 2017. Testing performed by: [facility], [address] [place] [phone] Monocyte pct 7.6 % CERYAMIL STACK Comment: Interpretive Data Percent cell count reference ranges are not reported, since discordance with absolute values may lead to misinterpretation of CBC data. Current Interpretive Data was last revised on 2017. Testing performed by: [facility], [address] [place] [phone] Eosinophil pct 1.7 % CERYAMIL STACK Comment: Interpretive Data Percent cell count reference ranges are not reported, since discordance with absolute values may lead to misinterpretation of CBC data. Current Interpretive Data was last revised on 2017. Testing performed by: [facility], [address] [place] [phone] Basophil pct 0.3 % CERYAMIL STACK Comment: Interpretive Data Percent cell count reference ranges are not reported, since discordance with absolute values may lead to misinterpretation of CBC data. Current Interpretive Data was last revised on 2017. Testing performed by: [facility], [address] [place] [phone] Blood 10/17/2024 10:3 9 AM CDT 10/17/2024 10:49 AM CDT us Juarez Guy MD LAB BLOOD ORDERAB LES Final Result JOSEPHYAMIL SREEKANTHChristina [facility] Department [place] [address] * CBC with auto differential (10/17/2024 10:39 AM CDT) WBC 5.72 3.80 - 9.90 K/cumm Comment:Testing performed by : [facility], [address] [place] [address] Hgb 13.0 11.9 - 15.5 g/dL CERNER BJ Comment:Testing performed by : [facility], [address] [place] [address] Hct 38.3 35.6 - 45.5 % CERNER BJ Comment:Testing performed by : [facility], [address] [place] [address] Plt 238 150 - 400 K/cumm CERNER BJ Comment:Testing performed by : [facility], [address] [place] [address] MPV 7.3 6.8 - 10.4 fL CERNER BJ Comment:Testing performed by : [facility], [address] [place], [place] [phone] RBC 4.07 3.90 - 5.20 M/cumm CERNER BJ Comment:Testing performed by : [facility], [address] [place] [address] MCV 94.1 81.3 - 96.4 fL CERNER BJ Comment:Testing performed by : [facility], [address] [place] [address] MCH 31.9 27.1 - 33.3 pg CERNER BJ Comment:Testing performed by : [facility], [address] [place] [address] MCHC 33.9 32.3 - 35.7 g/dL CERNER BJ Comment:Testing performed by : [facility], [address] [place] [address] RDW CV 12.3 11.1 - 14.9 % CERNER BJ Comment:Testing performed by : [facility], [address] [place] [address] NRBC abs 0.00 0.00 - 0.01 K/cumm CERNER BJ Comment:Testing performed by : [facility], [address] [place] [address] Blood 10/17/2024 10:3 9 AM CDT 10/17/2024 10:49 AM CDT us Juarez Guy MD LAB BLOOD ORDERAB LES Final Result [facility] Department [place] [address] * Comprehensive metabolic panel (10/17/2024 10:39 AM CDT) [facility] Sodium 142 135 - 145 mmol/L Potassium, pl 4.2 3.3 - 4.9 mmol/L [facility] Chloride 103 97 - 110 mmol/L CERNER [facility] CO2 30 22 - 32 mmol/L [facility] Anion gap 9 2 - 15 mmol/L [facility] BUN 9 6 - 25 mg/dL [facility] Creatinine 0.73 0.60 - 1.10 mg/dL [facility] Glucose 95 70 - 199 mg/dL [facility] Comment: Interpretive Data Fasting glucose [...] 2022. Calcium 9.2 8.5 - 10.3 mg/dL CERNER [facility] Bilirubin, total 0.2 0.1 - 1.2 mg/dL [facility] Protein, pl 7.6 6.5 - 8.5 g/dL [facility] Albumin 4.3 3.5 - 5.0 g/dL [facility] Alk phos 90 40 - 130 Units/L CERNER BJ ALT 22 7 - 45 Units/L [facility] AST 22 10 - 45 Units/L [facility] Blood 10/17/2024 10:3 9 AM CDT 10/17/2024 10:49 AM CDT us Juarez Guy MD LAB BLOOD ORDERAB LES Final Result GLENNA EVANS [facility] Department [place] [address] * (ABNORMAL) POCT lipid panel (09/21/2024 2:46 PM CDT) Cholesterol, POC 180 <200 MG/DL HDL, POC 40 >=40 mg/dL Triglycerides, POC 237(A) <=149 mg/dL LDL Cholesterol POC 93 <=129 mg/dL Chol/HDL Ratio, POC 4.5 NONE Non-HDL Cholesterol, POC 140 NONE mg/dL Cholesterol Total, POC 180 30 - 199 mg/dL Capillary blood 09/21/2024 2 :46 PM CDT Kael Falcon MD POINT OF CARE TEST ORDERA BLES Final Result * Dexa Axial Skeleton Bone Density 1 or 2 Site (05/09/2024 8:38 AM RETAIL CASHIER ASSOCIATE) Anatomical Region Laterality Modality Body N/A Radiographic Yessy ging Narrative 05/09/2024 2:47 PM RETAIL CASHIER ASSOCIATE Patient Name: Fadia Welch Date of : 1960 Date of scan: 05/09/2024 Bone mineral density was performed on a [email or web address] Discovery Densitometer. Based on machine cross-calibration and [...] mineral density scan were prepared by Marni Salmeron)(Svitlana)(BD) CBDT who is accredited by the International Society of Clinical Densitometry. The overall patient assessment and scan interpretation were performed by Madi Noe M.D. who is certified by the International Society of Clinical Densitometry. [id number] us Juarez Guy MD IMTracy DXA PROCEDURE S Final Result * Diagnostic [...] Becerra MD - 08/13/2020 12:02 PM CDT [facility] Patient Name: Fadia eWlch Procedure Date: 08/13/2020 12:02 PM Date of [...] for surveillance. Procedure Code(s): --- Professional --- 25434, Colonoscopy, flexible; with biopsy, singleor multiple Diagnosis Code(s): --- Professional --- Z12.11, Encounter for screening for malignantneoplasm of colon K63.5, Polyp of colon CPT copyright 2019 [employer]. All rights reserved. The codes documented in this report are preliminary and upon assistant corporate secretary reviewmay be revised to meet current compliance requirements. Electronically signed by Markus Becerra MD Markus Becerra M.D. 08/13/2020 12:37:39 PM Number of Addenda: 0 Note Initiated On: 08/13/2020 12:02 PM Markus Becerra MD ENDOSCOPY PROCEDURES Final Resul t * Diabetic Eye Exam (12/27/2018) Historical Provider HEALTH MAINTENANCE Edited Result - Final * Serum Hepatitis panel (04/03/2015 7:47 AM RETAIL CASHIER ASSOCIATE) HBV surface ag Negative Negative HISTO RICAL RESULTS HBV core ab, IgM Negative Negative HISTORICAL RESULTS HCV ab Negative Negative HISTORICAL RESULTS HAV ab, IgM Negative Negative HISTORIC AL RESULTS Serum 04/03/2015 7:47 AM RETAIL CASHIER ASSOCIATE Narrative HISTORICAL RESULTS - 04/03/2015 10:47 AM RETAIL CASHIER ASSOCIATE Send Duplicate Reports to: Thomas Chanel [address] [place] [address] Markus Becerra MD LAB BLOOD ORDERABLES Final Resul t HISTORICAL RESULTS from Last 3 Months or Most Recently Relevant to Health Maintenance Insurance [employer] SENIOR SUPPLEMENT MEDICARE MEDICARE [employer] SENIOR SUPPLEMENT MEDICARE [employer] SENIOR SUPPLEMENT Care Teams Service Parts Driver Relationship Specialty Start Date End Date José Miguel Page MD PCP - General Internal Medicine 09/05/18 Esteban Ritter MD Consulting Physician Cardiology 06/18/21 Juarez Guy MD [address] [place] [address] Consulting Physician Medical Oncology 08/31/21 Bill Romo MD [address] [facility] [address] [place] [address] Radiation Oncologist Radiation Oncology 09/11/21 Anne-Marie Mireles MD PhD [address] [facility] [phone] [place] [address] Surgeon Surgical Oncology 09/11/21
== END 2024-10-30 14:43 | disposition home or self-care (01) ==
PROVIDERS: PCP Internal Medicine; Visit Provider Internal Medicine
DX: M79.672 Pain in left foot (principal); M77.32 Calcaneal spur, left foot
CPT/HCPCS: 73650

== ENCOUNTER 2024-11-22 14:23 | Outpatient (CLI) | payer MEDICARE, SELFPAY ==
--- NOTE | ~2024-11-22 | MR_ITS ---
MRI of the left ankle Clinical history: Pain Technique: Coronal proton-density and proton-density fat-sat images, axial proton-density and proton- density fat-sat images, and sagittal proton-density and proton-density fat-sat images were acquired. Findings: Syndesmotic ligaments are intact. Anterior and posterior talofibular ligament, and calcaneo fibular ligament are intact. Deltoid ligament. Medial flexor tendons, peroneus longus tendon, and anterior extensor tendons are intact. Probable neli gitudinal split tear of the peroneus brevis tendon at the level of the lateral malleolar tip. There i s mild tendinosis of the distal Achilles tendon. Plantar fascia intact. There is mild soft tissue edema superior to the posterior calcaneal body with mild fluid distention of the retrocalcaneal bursa. No osteochondral defect of the talar dome seen. Questionable minimal amorphous edema in the posterior calcaneus. Joint spaces are preserved minimal degenerative changes. No significant joint effusion. Impression: Mild distal Achilles tendinosis with mild retrocalcaneal bursitis. Possible minimal amorphous calcane al marrow edema which could indicate Dianne's syndrome. Probable longitudinal split tear of the peroneus brevis tendon at the level of the lateral malleolar tip. Reviewed, dictated and finalized at location . Impression: Mild distal Achilles tendinosis with mild retrocalcaneal bursitis. Possible min imal amorphous calcaneal marrow edema which could indicate Dianne's syndrome. Probable longitudinal split tear of the peroneus brevis tendon at the level of the lateral malleolar tip.
--- OUTSIDE RECORDS SUMMARY | 2024-11-22 14:28 | XMS_ITS | Referral Summary ---
Author Organization [facility] Address [address] [place] [address] Care Team Providers Care Team Primary Care Physician Name Role Phone José Miguel Page MD Primary Care Provider Esteban Ritter MD Unavailable Juarez Guy MD Unavailable Bill Romo MD Unavailable Anne-Marie Mireles MD PhD Unavaila ble Encounters Date Type Department Care Team Description 11/13/2024 7:25 AM CDT - 11/13/2024 11:59 PM CDT Hospital Encounter [facility] - Imaging [address] [place] [phone] Multiple sclerosis (HCC) Discharge Disposition: Discharge to home or self care 11/13/2024 7:25 AM CDT - 11/13/2024 11:59 PM CDT Hospital Encounter [facility] - Imaging [address] [place] [phone] Multiple sclerosis (HCC) Discharge Disposition: Discharge to home or self care 11/07/[address] [facility] [facility] Floor [address] [place] [address] Abida Wallace NP 11/02/2024 Orders Only [facility] Scanning, Provider 2024 7:12 PM CDT - 2024 11:59 PM CDT Hospital Encounter [facility] [address] [place] [address] Discharge Disposition: Discharge to home or self care 10/17/2024 Telephone [facility] [address] [place] [address] Tariq Milligan MD orthopedics (Schedule an apt) 10/17/2024 Telephone [facility] [address] [place] [address] Yves Munoz MD 10/17/2024 1:00 PM CDT Infusion [facility] - Infusion [address] [facility] Floor [address] [place] [address] 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cology [address] [facility] Floor [address] [place] [address] Juarez Guy MD Malignant neoplasm of lower-inner quadrant of left breast in female, estrogen receptor positive (HCC) 10/16/2024 10:00 AM CDT Office Visit [facility] [address] [facility] [address] [place] [address] Yves Munoz MD Multiple sclerosis (HCC) (Primary Dx); Acute left ankle pain 09/21/2024 2:45 PM CDT Office Visit [facility] Cardiology at [address] [place] [address] Kael Falcon MD 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 (Primary Dx); Hypertension associated with diabetes (CMS/HCC); Mixed diabetic hyperlipidemia associated with type 2 diabetes mellitus (CMS/HCC) (HCC); Nonischemic cardiomyopathy (CMS/HCC) (HCC); PVC's (premature ventricular contractions); Obstructive sleep apnea 09/18/2024 Telephone [facility] [place] [facility] [address] [address] Ofelia Saavedra MD from Last 3 Months Allergies Active Allergy [...] every day 0 0 09/04/19 16 Active montelukast (SINGULAIR) [...] a day with meals 10/03/19 24 Active zolpidem (AMBIEN) 5 mg tablet [...] by mouth as needed 05/14/20 24 Active Mounjaro 15 mg/0.5 mL pen injector [...] 10 mg capsule Take by mouth Active LORazepam (ATIVAN) 0.5 mg tablet Take 1-2 tablets (0.5-1 mg total) by mouth as needed for anxiety 1-2 by mouth 30 minutes prior to MRI for claustrophob ia/anxiety. Can take another pill 30 minutes after initial pill if symptoms persists 3 tablet 10/17/19 25 Active carBAMazepine XR (TEGretol XR) 100 mg 12 hr tablet TAKE ONE TABLET BY MOUTH TWICE A DAY WITH 200 MG TABLET 60 tablet 3 11/22/19 25 Active cholecalciferol (VITAMIN D3) 5,000 unit tablet take 1 po QD 0 0 09/04/19 16 2024 Discontinued(T herapy completed) Ozempic 2 mg/dose (8 mg/3 mL) pen injector injection 09/16/19 24 2024 Discontinued(T herapy completed) carBAMazepine XR (TEGretol XR) 100 mg 12 hr tablet TAKE ONE TABLET BY MOUTH TWICE A DAY WITH 200 MG TABLET 60 tablet 1 09/21/19 25 2024 Discontinued ergocalciferol (VITAMIN D) 50,000 unit capsule Take 1 capsule (50,000 Units total) by mouth every other day 2024 Discontinued(T herapy completed) saliva stimulant agent (Biotene Moisturizing Mouth) spray,non-aerosol Take by mouth 2024 Discontinued(T herapy completed) Active Problems Problem Noted Date Diagnosed Date Coronary artery disease of n ative artery of tonawanda heart with stable angina pectoris 07/11/2024 RBBB 07/11/2024 Dyssynergic defecation 06/26/2024 MAYRA (stress urinary incontinence, female) 2024 Pelvic floor dysfunction 06/26/2024 Nausea without vomiting 05/29/2024 Assessment & Plan (05/29/2024 11:11 AM MANAGER MONEY): Broad differential for longstanding nausea. Patient reports [...] 05/29/2024 Assessment & Plan (05/29/2024 10:41 AM MANAGER MONEY): Alternating constipation with episodes of fecal smearing/incontinence. [...] 05/29/2024 Assessment & Plan (05/29/2024 10:56 AM MANAGER MONEY): Intermittent. Worse with movement. 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 06/2021 Bone disorder 01/22/2022 Dehydration 09/25/2021 Trigeminal neuralgia 09/19/2021 Numbness of toes 09/19/2021 Malignant neoplasm of lower- inner quadrant of left breast in female, estrogen receptor positive 09/04/2021 Cancer Staging:Clinical stage from 07/08/2021:Stage IA(cT1, cN0, cM0, G3, ER+, OR+, HER2-) - Unsigned Pathologic stage from 08/07/2021:Stage IA(pT1c, pN0(sn), cM0, G3, ER+, OR+, HER2- ) - Unsigned Generalized abdominal pain 06/18/2021 Overview (06/18/2021): Added automatically from request for surgery [id number] H/O cardiomyopathy 11/14/2020 Chronic heart failure with [...] 07/29/2020 Assessment & Plan (05/29/2024 11:08 AM MANAGER MONEY): Fecal incontinence with urge incontinence and passage [...] 11/28/2019 Assessment & Plan (03/26/2024 12:42 PM MANAGER MONEY): Lenses centered and stable with clear capsules, [...] call. Assessment & Plan (07/31/2021 10:32 AM MANAGER MONEY): POD1 Extraction Cataract - Phacoemulsification And Lens [...] concerns. Assessment & Plan (07/06/2021 2:12 PM MANAGER MONEY): POM#1 s/p CEIOL OD - doing well with no concerns - denies pain - off all drops - pleased with vision - CEIOL OS scheduled for July Assessment & Plan (06/05/2021 10:48 AM MANAGER MONEY): POW1 Extraction Cataract - Phacoemulsification And Lens [...] call. Assessment & Plan (05/29/2021 8:14 AM MANAGER MONEY): POD1 Extraction Cataract - Phacoemulsification And Lens [...] (06/13/2018): Added automatically from request for surgery [id number] Assessment & Plan (05/29/2024 10:16 AM MANAGER MONEY): Longstanding dysphagia symptoms. Prior EGDs and manometry testing were unrevealing. Symptoms suspected to possibly be related to her multiple sclerosis. Recent modified barium swallow study detailed below. 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 With normal LFTs. [...] a associated with type 2 diabetes mellitus ([facility]) 10/27/2017 Assessment & Plan (11/01/2019 10:04 AM [...] lipids Assessment & Plan (05/09/2018 11:27 AM MANAGER MONEY): Goal of treatment , LDL cholesterol less [...] 04/07/2017 Assessment & Plan (05/29/2024 10:22 AM MANAGER MONEY): Currently well controlled. Recommend decreasing Pantoprazole to [...] 08/21 Assessment & Plan (03/26/2024 12:42 PM MANAGER MONEY): No diabetic retinopathy (DR) . Stressed importance [...] PCP/endo. Assessment & Plan (05/08/2020 12:20 PM MANAGER MONEY): Will add Lo pt with CHF SE [...] Metformin Assessment & Plan (05/10/2019 2:49 PM MANAGER MONEY): Hba1c was Lab Results Component Value Date [...] Metformin Assessment & Plan (05/09/2018 11:26 AM MANAGER MONEY): Hba1c was Lab Results Component Value Date [...] benign Assessment & Plan (05/08/2020 12:20 PM MANAGER MONEY): Goal blood pressure is less than 140/85 [...] microalbumin Assessment & Plan (05/10/2019 2:50 PM MANAGER MONEY): Goal blood pressure is less than 140/85 Low salt diet recommended Daily aerobic exercise Continue current meds, including MICHAEL-I or ARB Assessment & Plan (11/09/2018 12:20 PM CDT): Goal blood pressure is less than 140/85 Low salt diet recommended Daily aerobic exercise Continue current meds, including MICHAEL-I or ARB Assessment & Plan (05/09/2018 11:26 AM MANAGER MONEY): Goal blood pressure is less than 140/85 [...] neuritis Assessment & Plan (03/26/2024 12:42 PM MANAGER MONEY): Residual optic atrophy right eye (OD) No sign of active inflammation both eyes (OU) Assessment & Plan (11/28/2019 5:12 PM CDT): Residual optic atrophy right eye (OD) No sign of active inflammation both eyes (OU) Impaired cognition 12/12/2012 Overview (08/26/2016): Cognitive impairment Resolved Problems Problem Noted Date Diagnosed Date Resolved Date Encounter for person [facility] 09/10/2021 09/06/2023 Breast cancer 07/17/2021 09/22/2021 Overview (07/17/2021): Added automatically from request for surgery [id number] Fecal smearing 01/31/2020 09/06/2023 Encounter for screening colonoscopy 11/08/2017 09/06/2023 Dyslipidemia associated with type 2 diabetes mellitus (CMS/HCC) 08/31/2016 11/25/2021 Overview (10/15/2016): DM type 2 with diabetic dyslipidemia Assessment & Plan (05/10/2019 2:50 PM MANAGER MONEY): .Goal of treatment , LDL cholesterol less [...] daily Assessment & Plan (04/19/2017 11:32 AM MANAGER MONEY): Hba1c was 5.7 today, indicating adequate DM [...] 11/25/2021 Assessment & Plan (04/19/2017 11:31 AM MANAGER MONEY): Goal of treatment , LDL cholesterol less [...] on file Legal Sex Female 9:07 AM MANAGER MONEY Gender Identity Female 02/22/2024 11:51 AM CDT [...] CDT Inhaled Oxygen Concentration - - Weight 89.8 kg (198 lb) 11/13/2024 7:55 AM CDT Height 157.5 cm (5' 2) 10/16/2024 9:39 AM CDT Body Mass Index 36.21 10/16/2024 9:39 AM CDT Plan of Treatment Not on file Medical Devices Implanted Type Area Dance Studio Manager Device Identifier Shelf Expiration Date Model / Serial / Lot [employer] Powerport Clearvue Airguard 8fr 1 Lumen Lightweight Intermediate Latex Free [id number] - [id number] Implanted:Qty: 1 on 09/14/2021 by Anne-Marie Mireles MD PhD at [facility] Catheter Right: Clavicle [employer] [id number] 06/22/2022 [id number] / / [id number] Description:Right mid clavic ular region in the IJ [employer] [id number] - [id number] - [id number] Implanted:Qty: 1 on 05/28/2021 by Sarah Correa MD at [facility] Lens Right: Eye [employer] [id number] 11/20/2023 [id number] / [id number] / [id number] Description:[id number] 21.5D Righ t eye [employer] [id number] - [id number] - [id number] Implanted:Qty: 1 on 07/30/2021 by Sarah Correa MD at [facility] Lens Left: Lens [employer] [id number] 11/20/2023 [id number] / [id number] / [employer] [id number] Ghiatas 20ga 20cm 7cm Beaded Needle Breast Wire Localization - [id number] Implanted:Qty: 1 on 08/07/2021 at [facility] [employer] [id number] / / Procedures Procedure Name Priority Date/Time Associated Diagnosis Comments MRI CERVICAL SPINE W WO CONTRAST Routine 11/13/2024 9:18 AM CDT Multiple sclerosis (HCC) MRI BRAIN W WO CONTRAST Routine 11/13/2024 9:11 AM CDT Multiple sclerosis (HCC) SCAN - PATHOLOGY 11/02/2024 MISC PATH REFER Routine 10/29/2024 1:02 PM [...] 2:46 PM CDT 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 DEXA AXIAL SKELETON BONE DENSITY 1 OR MORE SITES Schedule Routine, Read Routine (OP Routine) 05/09/2024 8:38 AM MANAGER MONEY care home current use 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 inhibitor Malignant neoplasm [...] SERUM HEPATITIS PANEL Routine 04/03/2015 7:47 AM MANAGER MONEY from Last 3 Months or Most Recently Relevant to Health Maintenance Results * MRI Cervical Spine W WO Contrast (11/13/2024 9:18 AM CDT) Anatomical Region Laterality Modality Spine N/A Magnetic Resonan ce 11/13/2024 10:2 3 AM CDT Impressions 11/13/2024 10:23 AM CDT 1. Motion degraded exam. 2. No large cervical spinal cord lesion or abnormal enhancement. 3. Evaluation for smaller cervical spinal cord lesions is limited by motion. Electronically signed by: Javier Hart M.D. Narrative 11/13/2024 10:23 AM CDT MRI CERVICAL SPINE W WO CONTRAST 11/13/2024 8:15 AM CLINICAL INDICATION: Multiple sclerosis. COMPARISON: MRI cervical spine dated 11/22/2018. TECHNIQUE: Multiplanar multisequence MRI of the cervical spine was performed without and with contrast. 18 mL of gadoterate meglumine was administered intravenously. A 3 Dolores magnet was used. Portions of the study are degraded by motion. FINDINGS: There is preservation of normal vertebral body alignment. There is no compression deformity. There is a C4 vertebral body hemangioma. There is minimal loss of disc space height at multiple levels. The prevertebral soft tissues are normal. There are no acute findings in the soft tissues of the neck. There is a nodule along the right thyroid lobe near the isthmus measuring 0.8 cm. There are no large cervical spinal cord lesions or abnormal areas of enhancement along the cervical spinal cord. Evaluation for smaller spinal cord lesions is limited by motion degradation. There is a small disc bulge at C6-7. There is no high-grade central stenosis. Procedure Note Javier Hart MD - 11/13/2024 MRI CERVICAL SPINE W WO CONTRAST 11/13/2024 8:15 AM CLINICAL INDICATION: Multiple sclerosis. COMPARISON: MRI cervical spine dated 11/22/2018. TECHNIQUE: Multiplanar multisequence MRI of the cervical spine was performed without and with contrast. 18 mL of gadoterate meglumine was administered intravenously. A 3 Dolores magnet was used. Portions of the study are degraded by motion. FINDINGS: There is preservation of normal vertebral body alignment. There is no compression deformity. There is a C4 vertebral body hemangioma. There is minimal loss of disc space height at multiple levels. The prevertebral soft tissues are normal. There are no acute findings in the soft tissues of the neck. There is a nodule along the right thyroid lobe near the isthmus measuring 0.8 cm. There are no large cervical spinal cord lesions or abnormal areas of enhancement along the cervical spinal cord. Evaluation for smaller spinal cord lesions is limited by motion degradation. There is a small disc bulge at C6-7. There is no high-grade central stenosis. IMPRESSION: 1. Motion degraded exam. 2. No large cervical spinal cord lesion or abnormal enhancement. 3. Evaluation for smaller cervical spinal cord lesions is limited by motion. Electronically signed by: Javier Hart M.D. Yves Munoz MD [facility] MRI PROCEDURES Fi nal Result * MRI Brain W WO Contrast (11/13/2024 9:11 AM CDT) Anatomical Region Laterality Modality Head and Neck N/A Magnetic Resonan ce 11/13/2024 10:2 4 AM CDT Impressions 11/13/2024 10:24 AM CDT 1. Multiple white matter lesions, some of which are less intense in appearance compared with prior MRI brain dated 10/27/2023, which could be related to motion. 2. No new white matter lesions or abnormal enhancement. Electronically signed by: Javier Hart M.D. Narrative 11/13/2024 10:24 AM CDT MRI BRAIN W WO CONTRAST 11/13/2024 9:00 AM CLINICAL INDICATION: Multiple sclerosis, for follow-up. COMPARISON: MRI of brain dated 10/27/2023. TECHNIQUE: Multiplanar multisequence MRI of the brain was performed without and with contrast. 18 mL of gadoterate meglumine was administered intravenously. A 3 Dolores magnet was used. T2* sequence was performed. Portions of the study are degraded by motion. FINDINGS: The ventricles and cortical sulci are stable in size and configuration. There is no acute infarct, mass/mass effect or midline shift. There are multiple tiny subcortical and periventricular white matter lesions. Some of the lesions are less intense compared with prior MRI. For example, lesions posterior to the corpus callosum bilaterally are less intense on the current study. Some of the lesions demonstrate a Central Vein Sign. There are no new white matter lesions or abnormal enhancement. The basal cisterns are patent. The sellar and suprasellar structures are normal. There are no acute findings in the posterior fossa. There is preservation of normal flow voids in the major intracranial vessels. The paranasal sinuses and mastoid air cells are clear. There are no acute findings in the orbits. Procedure Note Javier Hart MD - 11/13/2024 MRI BRAIN W WO CONTRAST 11/13/2024 9:00 AM CLINICAL INDICATION: Multiple sclerosis, for follow-up. COMPARISON: MRI of brain dated 10/27/2023. TECHNIQUE: Multiplanar multisequence MRI of the brain was performed without and with contrast. 18 mL of gadoterate meglumine was administered intravenously. A 3 Dolores magnet was used. T2* sequence was performed. Portions of the study are degraded by motion. FINDINGS: The ventricles and cortical sulci are stable in size and configuration. There is no acute infarct, mass/mass effect or midline shift. There are multiple tiny subcortical and periventricular white matter lesions. Some of the lesions are less intense compared with prior MRI. For example, lesions posterior to the corpus callosum bilaterally are less intense on the current study. Some of the lesions demonstrate a Central Vein Sign. There are no new white matter lesions or abnormal enhancement. The basal cisterns are patent. The sellar and suprasellar structures are normal. There are no acute findings in the posterior fossa. There is preservation of normal flow voids in the major intracranial vessels. The paranasal sinuses and mastoid air cells are clear. There are no acute findings in the orbits. IMPRESSION: 1. Multiple white matter lesions, some of which are less intense in appearance compared with prior MRI brain dated 10/27/2023, which could be related to motion. 2. No new white matter lesions or abnormal enhancement. Electronically signed by: Javier Hart M.D. us Yves Munoz MD IMG MRI PROCEDURES Fi nal Result * SCAN - PATHOLOGY (11/02/2024) us Provider Scanning Final Result * Misc Path Refer (10/29/2024 1:02 PM CDT) Pathologist [facility] Desired Testing Breast Cancer Index Performing Lab [facility] Specimen Collected Date 07/08/21 [facility] Path Result See scanned report [facility] Tissue 10/29/2024 1:02 PM CDT 11/03/2024 3:06 PM CDT us Juarez Guy MD LAB BLOOD ORDERAB LES Final Result [facility] [address] [place] [address] * eGFR (10/17/2024 10:39 AM CDT) Pathologist [facility] eGFR >90 >=60 mL/min/1. 73 m2 Comment: [...] of Race in Diagnosing Kidney Disease, JASN 202). The CKD-EPI equation should not be used for patients with unstable renal function and has not been validated in children and those over 70. Current interpretive data was last reviewed 2021. Blood 10/17/2024 10:3 9 AM CDT 10/17/2024 10:49 AM CDT us Juarez Guy MD LAB BLOOD ORDERAB LES Final Result [facility] [place] [address] * Differential, auto (10/17/2024 10:39 AM CDT) Neutrophil abs 3.14 1.50 - 6.50 K/cumm Comment:Testing performed by : [facility], [address] [place] [phone] Lymphocyte abs 2.03 0.80 - 3.30 K/cumm CERYAMIL STACK Comment:Testing performed by : [facility], [address] [place], [place] [phone] Monocyte abs 0.44 0.20 - 0.80 K/cumm CERYAMIL STACK Comment:Testing performed by : [facility], [address] [place], [place] [phone] Eosinophil abs 0.10 0.00 - 0.50 K/cumm GLENNA STACK Comment:Testing performed by : [facility], [address] [place] [phone] Basophil abs 0.02 0.00 - 0.10 K/cumm CERYAMIL STACK Comment:Testing performed by : [facility], [address] [place] [phone] Neutrophil pct 54.9 % CERYAMIL BJ Comment: Interpretive Data Percent cell count reference ranges are not reported, since discordance with absolute values may lead to misinterpretation of CBC data. Current Interpretive Data was last revised on 2017. Testing performed by: [facility], [address] [place] [phone] Lymphocyte pct 35.4 % CERNER BJ Comment: Interpretive Data Percent cell count reference ranges are not reported, since discordance with absolute values may lead to misinterpretation of CBC data. Current Interpretive Data was last revised on 2017. Testing performed by: [facility], [address] [place] [phone] Monocyte pct 7.6 % CERNER BJ Comment: Interpretive Data Percent cell count reference ranges are not reported, since discordance with absolute values may lead to misinterpretation of CBC data. Current Interpretive Data was last revised on 2017. Testing performed by: [facility], [address] [place] [phone] Eosinophil pct 1.7 % GLENNA STACK Comment: Interpretive Data Percent cell count reference ranges are not reported, since discordance with absolute values may lead to misinterpretation of CBC data. Current Interpretive Data was last revised on 2017. Testing performed by: [facility], [address] [place] [phone] Basophil pct 0.3 % GLENNA STACK Comment: Interpretive Data Percent cell count reference ranges are not reported, since discordance with absolute values may lead to misinterpretation of CBC data. Current Interpretive Data was last revised on 2017. Testing performed by: [facility], [address] [place] [phone] Blood 10/17/2024 10:3 9 AM CDT 10/17/2024 10:49 AM CDT Juarez Guy MD LAB BLOOD ORDERAB LES Final Result GLENNA STACK [facility] [place] [address] * CBC with auto differential (10/17/2024 10:39 AM CDT) WBC 5.72 3.80 - 9.90 K/cumm Comment:Testing performed by : [facility], [address] [place] [phone] Hgb 13.0 11.9 - 15.5 g/dL GLENNA EVANS Comment:Testing performed by : [facility], [address] [place] [phone] Hct 38.3 35.6 - 45.5 % GLENNA STACK Comment:Testing performed by : [facility], [address] [place] [address] Plt 238 150 - 400 K/cumm CERYAMIL [facility] Comment:Testing performed by : [facility], [address] [place] [address] MPV 7.3 6.8 - 10.4 fL CERYAMIL BJ Comment:Testing performed by : [facility], [address] [place] [address] RBC 4.07 3.90 - 5.20 M/cumm CERYAMIL BJ Comment:Testing performed by : [facility], [address] [place] [address] MCV 94.1 81.3 - 96.4 fL CERYAMIL BJ Comment:Testing performed by : [facility], [address] [place] [address] MCH 31.9 27.1 - 33.3 pg CERYAMIL [facility] Comment:Testing performed by : [facility], [address] [place] [address] MCHC 33.9 32.3 - 35.7 g/dL CERYAMIL BJ Comment:Testing performed by : [facility], [address] [place] [address] RDW CV 12.3 11.1 - 14.9 % [facility] Comment:Testing performed by : [facility], [address] [place] [address] NRBC abs 0.00 0.00 - 0.01 K/cumm [facility] Comment:Testing performed by : [facility], [address] [place] [address] Blood 10/17/2024 10:3 9 AM CDT 10/17/2024 10:49 AM CDT us Juarez Guy MD LAB BLOOD ORDERAB LES Final Result [facility] [place] [address] * Comprehensive metabolic panel (10/17/2024 10:39 AM CDT) Sodium 142 135 - 145 mmol/L Potassium, pl 4.2 3.3 - 4.9 mmol/L [facility] Chloride 103 97 - 110 mmol/L [facility] CO2 30 22 - 32 mmol/L [facility] Anion gap 9 2 - 15 mmol/L [facility] BUN 9 6 - 25 mg/dL [facility] Creatinine 0.73 0.60 - 1.10 mg/dL [facility] Glucose 95 70 - 199 mg/dL [facility] Comment: Interpretive Data Fasting glucose >/= [...] 2022. Calcium 9.2 8.5 - 10.3 mg/dL [facility] Bilirubin, total 0.2 0.1 - 1.2 mg/dL [facility] Protein, pl 7.6 6.5 - 8.5 g/dL [facility] Albumin 4.3 3.5 - 5.0 g/dL [facility] Alk phos 90 40 - 130 Units/L [facility] ALT 22 7 - 45 Units/L [facility] AST 22 10 - 45 Units/L [facility] Blood 10/17/2024 10:3 9 AM CDT 10/17/2024 10:49 AM CDT us Juarez Guy MD LAB BLOOD ORDERAB LES Final Result [facility] [place] [address] * (ABNORMAL) POCT lipid panel (09/21/2024 2:46 [...] 1 or 2 Site (05/09/2024 8:38 AM MANAGER MONEY) Anatomical Region Laterality Modality Body N/A Radiographic Yessy ging Narrative 05/09/2024 2:47 PM MANAGER MONEY Patient Name: Fadia Welch Date of : 1960 Date of scan: 05/09/2024 Bone mineral density was performed on a HoloSiriusDecisions Discovery Densitometer. Based on machine cross-calibration and [...] mineral density scan were prepared by Marni Alvarado(Ericka)(Svitlana)() CBDT who is accredited by the International Society of Clinical Densitometry. The overall patient assessment and scan interpretation were performed by Madi Noe M.D. who is certified by the International Society of Clinical Densitometry. [id number] Juarez Guy MD [facility] DXA PROCEDURE S Final Result * Diagnostic [...] 0 - 30.0 EXTERNAL LAB Urine Result [facility] Historical Provider LAB URINE ORDERABLES Edit ed Result - Final Performing Organization Address [facility] Co de Phone Number EXTERNAL LAB * Hemoglobin A1c (09/27/2020 9:37 AM CDT) SCRIBED Hemoglobin A1c 5.7 0.0 - 5.7 EXTERNAL LAB Blood specimen (specimen) Historical Provider LAB BLOOD ORDERABLES Edit ed Result - Final EXTERNAL LAB * COLONOSCOPY (08/13/2020 12:02 PM CDT) Anatomical Region Laterality Modality Other Narrative Procedure Note Markus Becerra MD - 08/13/2020 12:02 PM CDT [facility] Endoscopy Lab Patient Name: Fadia [...] for surveillance. Procedure Code(s): --- Professional --- 55247, Colonoscopy, flexible; with biopsy, singleor multiple Diagnosis Code(s): --- Professional --- Z12.11, Encounter for screening for malignantneoplasm of colon K63.5, Polyp of colon CPT copyright 2019 [employer]. All rights reserved. The codes documented in this report are preliminary and upon certified coder reviewmay be revised to meet current compliance requirements. Electronically signed by Markus Becerra MD Markus Becerra M.D. 08/13/2020 12:37:39 PM Number of Addenda: 0 Note Initiated On: 08/13/2020 12:02 PM Markus Becerra MD ENDOSCOPY PROCEDURES Final Resul t * Diabetic Eye Exam (12/27/2018) Historical Provider HEALTH MAINTENANCE Edited Result - Final * Serum Hepatitis panel (04/03/2015 7:47 AM MANAGER MONEY) HBV surface ag Negative Negative HISTO RICAL RESULTS HBV core ab, IgM Negative Negative HISTORICAL RESULTS HCV ab Negative Negative HISTORICAL RESULTS HAV ab, IgM Negative Negative HISTORIC AL RESULTS Serum 04/03/2015 7:47 AM MANAGER MONEY Narrative HISTORICAL RESULTS - 04/03/2015 10:47 AM MANAGER MONEY Send Duplicate Reports to: Thomas Chanel [address] [place] [address] Markus Becerra MD LAB BLOOD ORDERABLES Final Resul t HISTORICAL RESULTS from Last 3 Months or Most Recently Relevant to Health Maintenance Insurance AET[employer] SENIOR SUPPLEMENT MEDICARE [facility]IC[facility] MEDICARE AETNA SENIOR SUPPLEMENT Care Teams Team Primary Care Physician Relationship Specialty Start Date End Date José Miguel Page MD PCP - General Internal Medicine 09/05/18 Esteban Ritter MD Consulting Physician Cardiology 06/18/21 Juarez Guy MD [address] [place] [address] Consulting Physician Medical Oncology 08/31/21 Bill Romo MD [address] [facility] [address] [place] [address] Radiation Oncologist Radiation Oncology 09/11/21 Anne-Marie Mireles MD PhD [address] [facility] [id number] [place] [address] Surgeon Surgical Oncology 09/11/21
--- OUTSIDE RECORDS SUMMARY | 2024-11-22 14:28 | XMS_ITS | Clinical Summary ---
Author Organization [facility] Address [address] [place] [id number] Care Team Providers Care Carburizing Furnace Operator Name Role Phone José Miguel Page MD [...] DIABETES HBA1C Q 6 MONTHS 11/09/2019 05/10/2019, OSTEOPOROSIS SCREENING 10/25/2024 INFLUENZA VACCINE (#1) 2024 RSV VACCINE (60+ or ) (1 - 1-dose 75+ series) 10/25/2034 Insurance MEDICARE PART A AND B AET[employer] MEDICARE SUPP AESSI Care Teams Carburizing Furnace Operator Relationship Specialty Start Date End Date José Miguel Page MD [address] [place] [address] PCP - General Internal Medicine 10/31/18
--- OUTSIDE RECORDS SUMMARY | 2024-11-22 14:28 | XMS_ITS ---
Author Organization [facility] Address [address] [place] [address] Care Team Providers Care Corporate Travel Counselor Name Role Phone José Miguel Page MD Primary Care Provider Esteban Ritter MD Unavailable Juarez Guy MD Unavailable Bill Romo MD Unavailable Anne-Marie Mireles MD PhD Unavaila ble Active Problems Problem Noted Date Diagnosed Date Coronary artery disease of n ative artery of [place] heart with stable angina pectoris 07/11/2024 RBBB 07/11/2024 Dyssynergic defecation 06/26/2024 MAYRA (stress urinary incontinence, female) 2024 Pelvic floor dysfunction 06/26/2024 Nausea without vomiting 05/29/2024 Assessment & Plan (05/29/2024 11:11 AM HIGH DENSITY FINISHING OPERATOR): Broad differential for longstanding nausea. Patient [...] 05/29/2024 Assessment & Plan (05/29/2024 10:41 AM HIGH DENSITY FINISHING OPERATOR): Alternating constipation with episodes of fecal [...] 05/29/2024 Assessment & Plan (05/29/2024 10:56 AM HIGH DENSITY FINISHING OPERATOR): Intermittent. Worse with movement. Associated low [...] follow-up surveillance of breast c ancer 01/26/2022 continuous churn buttermaker current use 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 inhibitor 06/2021 Bone disorder 01/22/2022 Dehydration 09/25/2021 Trigeminal neuralgia 09/19/2021 Numbness of toes 09/19/2021 Malignant neoplasm of lower- inner quadrant of left breast in female, estrogen receptor positive 09/04/2021 Cancer Staging:Clinical stage from 07/08/2021:Stage IA(cT1, cN0, cM0, G3, ER+, FL+, HER2-) - Unsigned Pathologic stage from 08/07/2021:Stage IA(pT1c, pN0(sn), cM0, G3, ER+, FL+, HER2- ) - Unsigned Generalized abdominal pain 06/18/2021 Overview (06/18/2021): Added automatically from request for surgery [id number] H/O cardiomyopathy 11/14/2020 Chronic heart failure with [...] 07/29/2020 Assessment & Plan (05/29/2024 11:08 AM HIGH DENSITY FINISHING OPERATOR): Fecal incontinence with urge incontinence and [...] 11/28/2019 Assessment & Plan (03/26/2024 12:42 PM HIGH DENSITY FINISHING OPERATOR): Lenses centered and stable with clear [...] call. Assessment & Plan (07/31/2021 10:32 AM HIGH DENSITY FINISHING OPERATOR): POD1 Extraction Cataract - Phacoemulsification And [...] concerns. Assessment & Plan (07/06/2021 2:12 PM HIGH DENSITY FINISHING OPERATOR): POM#1 s/p CEIOL OD - doing well with no concerns - denies pain - off all drops - pleased with vision - CEIOL OS scheduled for July Assessment & Plan (06/05/2021 10:48 AM HIGH DENSITY FINISHING OPERATOR): POW1 Extraction Cataract - Phacoemulsification And [...] call. Assessment & Plan (05/29/2021 8:14 AM HIGH DENSITY FINISHING OPERATOR): POD1 Extraction Cataract - Phacoemulsification And [...] (06/13/2018): Added automatically from request for surgery [id number] Assessment & Plan (05/29/2024 10:16 AM HIGH DENSITY FINISHING OPERATOR): Longstanding dysphagia symptoms. Prior EGDs and manometry testing were unrevealing. Symptoms suspected to possibly be related to her multiple sclerosis. Recent modified barium swallow study detailed below. Subsequent FX ARTIST evaluation - per their note unremarkable oropharyngeal [...] 11/08/2017 Assessment & Plan (05/29/2024 10:46 AM HIGH DENSITY FINISHING OPERATOR): Seen on previous imaging. With normal [...] a associated with type 2 diabetes mellitus ([facility]) 10/27/2017 Assessment & Plan (11/01/2019 10:04 AM [...] lipids Assessment & Plan (05/09/2018 11:27 AM HIGH DENSITY FINISHING OPERATOR): Goal of treatment , LDL cholesterol [...] 04/07/2017 Assessment & Plan (05/29/2024 10:22 AM HIGH DENSITY FINISHING OPERATOR): Currently well controlled. Recommend decreasing Pantoprazole [...] 08/21 Assessment & Plan (03/26/2024 12:42 PM HIGH DENSITY FINISHING OPERATOR): No diabetic retinopathy (DR) . Stressed [...] PCP/endo. Assessment & Plan (05/08/2020 12:20 PM HIGH DENSITY FINISHING OPERATOR): Will add Lo, pt with CHF [...] Metformin Assessment & Plan (05/10/2019 2:49 PM HIGH DENSITY FINISHING OPERATOR): Hba1c was Lab Results Component Value [...] Metformin Assessment & Plan (05/09/2018 11:26 AM HIGH DENSITY FINISHING OPERATOR): Hba1c was Lab Results Component Value [...] benign Assessment & Plan (05/08/2020 12:20 PM HIGH DENSITY FINISHING OPERATOR): Goal blood pressure is less than [...] microalbumin Assessment & Plan (05/10/2019 2:50 PM HIGH DENSITY FINISHING OPERATOR): Goal blood pressure is less than 140/85 Low salt diet recommended Daily aerobic exercise Continue current meds, including MICHAEL-I or ARB Assessment & Plan (11/09/2018 12:20 PM CDT): Goal blood pressure is less than 140/85 Low salt diet recommended Daily aerobic exercise Continue current meds, including MICHAEL-I or ARB Assessment & Plan (05/09/2018 11:26 AM HIGH DENSITY FINISHING OPERATOR): Goal blood pressure is less than [...] neuritis Assessment & Plan (03/26/2024 12:42 PM HIGH DENSITY FINISHING OPERATOR): Residual optic atrophy right eye (OD) [...] left breast in female, estrogen receptor positive (HCC)penitentiary current use 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 inhibitorBone disorder Treatment [...] Diagnosed Date Resolved Date Encounter for person [facility] 09/10/2021 09/06/2023 Breast cancer 07/17/2021 09/22/2021 Overview (07/17/2021): Added automatically from request for surgery [id number] Fecal smearing 01/31/2020 09/06/2023 Encounter for screening colonoscopy 11/08/2017 09/06/2023 Dyslipidemia associated with type 2 diabetes mellitus ([facility]) 08/31/2016 11/25/2021 Overview (10/15/2016): DM type 2 with diabetic dyslipidemia Assessment & Plan (05/10/2019 2:50 PM HIGH DENSITY FINISHING OPERATOR): .Goal of treatment , LDL cholesterol [...] daily Assessment & Plan (04/19/2017 11:32 AM HIGH DENSITY FINISHING OPERATOR): Hba1c was 5.7 today, indicating adequate [...] 11/25/2021 Assessment & Plan (04/19/2017 11:31 AM HIGH DENSITY FINISHING OPERATOR): Goal of treatment , LDL cholesterol [...]
--- OUTSIDE RECORDS SUMMARY | 2024-11-22 14:28 | XMS_ITS | Encounter Summary ---
Author Organization [facility] Address [address] [place] [address] Phone Care Team Providers Care Pattern Weaver Name Role Phone José Miguel Page MD Primary Care Provider [phone] Esteban Ritter MD Unavailable [phone] Juarez Guy MD Unavailable Bill Romo MD Unavailable Anne-Marie Mireles MD PhD Unavaila ble Encounter Details Date Type Department Care Team (Latest Contact Info) Description 07/08/2021 Orders Only [facility] Scanning, Provider Social History Tobacco Use Types Packs/Day Years Used Date Smoking Tobacco: Former Cigarettes 1.5 19 1 974 - 1992 Smokeless Tobacco: Never Alcohol Use Standard Drinks/Week Comments Yes 0 (1 standard drink = 0.6 oz pur e alcohol) AUDIT-C Answer Date Recorded Q1: How often do you have a drink containing alc ohol? Monthly or less 06/29/2021 Q2: How many drinks containi ng alcohol do you have on a typical day when you are drinking? 1 or 2 06/29/2021 Q3: How often do you have si x or more drinks on one occasion? Never 06/29/2021 PHQ-2 Answer Date Recorded PHQ-2 Total Score (If total score is 3 or more points, staff should administer the PHQ-9) 0 02/12/2021 Comments No Sex and Gender Information Value Date Recorded Sex Assigned at Not on file Legal Sex Female 9:07 AM CREAM DUMPER Gender Identity Female 02/22/2024 11:51 AM CDT Sexual Orientation Straight 08/29/2018 12 :15 PM CDT Occupation Industry Job Start Date Job End Date disabled Not on file Not on file Not on file documented as of this encounter Plan of Treatment Not on file documented as of this encounter Procedures Procedure Name Priority Date/Time Associated Diagnosis Comments SCAN - PATHOLOGY 07/08/2021 documented in this encounter Results * SCAN - PATHOLOGY (07/08/2021) us Provider Scanning Final Result documented in this encounter Visit Diagnoses Not on filedocumented in this encounter Care Teams Pattern Weaver Relationship Specialty Start Date End Date José Miguel Page MD PCP - General Internal Medicine 09/05/18 Esteban Ritter MD Consulting Physician Cardiology 06/18/21 Juarez Guy MD [address] [place] [address] Consulting Physician Medical Oncology 08/31/21 Bill Rmoo MD [address] [facility] [address] [place] [address] Radiation Oncologist Radiation Oncology 09/11/21 Anne-Marie Mireles MD PhD [address] [facility] [id number] [place] [address] Surgeon Surgical Oncology 09/11/21 documented as of this encounter
--- OUTSIDE RECORDS SUMMARY | 2024-11-22 14:28 | XMS_ITS | Clinical Summary ---
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 Patient reports [...] 05/29/2024 Assessment & Plan (05/29/2024 10:41 AM PICKER PACKER): Alternating constipation with episodes of fecal smearing/incontinence. [...] 05/29/2024 Assessment & Plan (05/29/2024 10:56 AM PICKER PACKER): Intermittent. Worse with movement. Associated low back [...] follow-up surveillance of breast c ancer 01/26/2022 residential current use 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 inhibitor 06/2021 Bone disorder 01/22/2022 Dehydration 09/25/2021 Trigeminal neuralgia 09/19/2021 Numbness of toes 09/19/2021 Malignant neoplasm of lower- inner quadrant of left breast in female, estrogen receptor positive 09/04/2021 Cancer Staging:Clinical stage from 07/08/2021:Stage IA(cT1, cN0, cM0, G3, ER+, KY+, HER2-) - Unsigned Pathologic stage from 08/07/2021:Stage IA(pT1c, pN0(sn), cM0, G3, ER+, KY+, HER2- ) - Unsigned Generalized abdominal pain 06/18/2021 Overview (06/18/2021): Added automatically from request for surgery [id number] H/O cardiomyopathy 11/14/2020 Chronic heart failure with [...] 07/29/2020 Assessment & Plan (05/29/2024 11:08 AM PICKER PACKER): Fecal incontinence with urge incontinence and passage [...] 11/28/2019 Assessment & Plan (03/26/2024 12:42 PM PICKER PACKER): Lenses centered and stable with clear capsules, [...] call. Assessment & Plan (07/31/2021 10:32 AM PICKER PACKER): POD1 Extraction Cataract - Phacoemulsification And Lens [...] concerns. Assessment & Plan (07/06/2021 2:12 PM PICKER PACKER): POM#1 s/p CEIOL OD - doing well with no concerns - denies pain - off all drops - pleased with vision - CEIOL OS scheduled for July Assessment & Plan (06/05/2021 10:48 AM PICKER PACKER): POW1 Extraction Cataract - Phacoemulsification And Lens [...] call. Assessment & Plan (05/29/2021 8:14 AM PICKER PACKER): POD1 Extraction Cataract - Phacoemulsification And Lens [...] (06/13/2018): Added automatically from request for surgery [id number] Assessment & Plan (05/29/2024 10:16 AM PICKER PACKER): Longstanding dysphagia symptoms. Prior EGDs and manometry testing were unrevealing. Symptoms suspected to possibly be related to her multiple sclerosis. Recent modified barium swallow study detailed below. Subsequent [facility] [employer] evaluation - per their note unremarkable oropharyngeal [...] 11/08/2017 Assessment & Plan (05/29/2024 10:46 AM PICKER PACKER): Seen on previous imaging. With normal LFTs. [...] a associated with type 2 diabetes mellitus ([facility]) 10/27/2017 Assessment & Plan (11/01/2019 10:04 [...] lipids Assessment & Plan (05/09/2018 11:27 AM PICKER PACKER): Goal of treatment , LDL cholesterol less [...] 04/07/2017 Assessment & Plan (05/29/2024 10:22 AM PICKER PACKER): Currently well controlled. Recommend decreasing Pantoprazole to [...] 08/21 Assessment & Plan (03/26/2024 12:42 PM PICKER PACKER): No diabetic retinopathy (DR) . Stressed importance [...] PCP/endo. Assessment & Plan (05/08/2020 12:20 PM PICKER PACKER): Will add Lo pt with CHF SE [...] Metformin Assessment & Plan (05/10/2019 2:49 PM PICKER PACKER): Hba1c was Lab Results Component Value Date [...] Metformin Assessment & Plan (05/09/2018 11:26 AM PICKER PACKER): Hba1c was Lab Results Component Value Date [...] benign Assessment & Plan (05/08/2020 12:20 PM PICKER PACKER): Goal blood pressure is less than 140/85 [...] microalbumin Assessment & Plan (05/10/2019 2:50 PM PICKER PACKER): Goal blood pressure is less than 140/85 Low salt diet recommended Daily aerobic exercise Continue current meds, including MICHAEL-I or ARB Assessment & Plan (11/09/2018 12:20 PM CDT): Goal blood pressure is less than 140/85 Low salt diet recommended Daily aerobic exercise Continue current meds, including MICHAEL-I or ARB Assessment & Plan (05/09/2018 11:26 AM PICKER PACKER): Goal blood pressure is less than 140/85 [...] neuritis Assessment & Plan (03/26/2024 12:42 PM PICKER PACKER): Residual optic atrophy right eye (OD) No sign of active inflammation both eyes (OU) Assessment & Plan (11/28/2019 5:12 PM CDT): Residual optic atrophy right eye (OD) No sign of active inflammation both eyes (OU) Impaired cognition 12/12/2012 Overview (08/26/2016): Cognitive impairment Resolved Problems Problem Noted Date Diagnosed Date Resolved Date Encounter for [facility] 09/10/2021 09/06/2023 Breast cancer 07/17/2021 09/22/2021 Overview (07/17/2021): Added automatically from request for surgery [id number] Fecal smearing 01/31/2020 09/06/2023 Encounter for screening colonoscopy 11/08/2017 09/06/2023 Dyslipidemia associated with type 2 diabetes mellitus (CMS/HCC) 08/31/2016 11/25/2021 Overview (10/15/2016): DM type 2 with diabetic dyslipidemia Assessment & Plan (05/10/2019 2:50 PM PICKER PACKER): .Goal of treatment , LDL cholesterol less [...] daily Assessment & Plan (04/19/2017 11:32 AM PICKER PACKER): Hba1c was 5.7 today, indicating adequate DM [...] 11/25/2021 Assessment & Plan (04/19/2017 11:31 AM PICKER PACKER): Goal of treatment , LDL cholesterol less [...] - 11/13/2024 11:59 PM CDT Hospital Encounter [facility] - Imaging [address] [place] [phone] Multiple sclerosis (HCC) Discharge Disposition: Discharge to home or self care 11/13/2024 7:25 AM CDT - 11/13/2024 11:59 PM CDT Hospital Encounter [facility] - Imaging [address] [place] [phone] Multiple sclerosis (HCC) Discharge Disposition: Discharge to home or self care 11/07/2024 Telephone [facility] [address] [place] [address] Abida Wallace NP 11/02/2024 Orders Only [facility] Scanning, Provider 2024 7:12 PM CDT - 2024 11:59 PM CDT Hospital Encounter [address] [phone] Discharge Disposition: Discharge to home or self care 10/17/2024 1:00 PM CDT Infusion [facility] - Infusion [address] [facility] [address] [place] [address] residential current use 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 inhibitor (Primary Dx); Malignant neoplasm of lower-inner quadrant of left breast in female, estrogen receptor positive (HCC); Bone disorder 10/17/2024 11:30 AM CDT Office Visit [facility] [address] [place] [phone] Juarez Guy MD Malignant neoplasm of lower-inner quadrant of left breast in female, estrogen receptor positive (HCC) 10/17/2024 10:30 AM CDT Lab [facility] - Lab Collection [address] [place] [address] Malignant neoplasm of lower-inner quadrant of left breast in female, estrogen receptor positive (HCC) 10/17/2024 Telephone [facility] [address] [place] [phone] Tariq Milligan MD orthopedics (Schedule an apt) 10/17/2024 Telephone [facility] [address] [place] [phone] Yves Munoz MD 10/16/2024 10:00 AM CDT Office Visit [facility] [address] [place] [phone] Yves Munoz MD Multiple sclerosis (HCC) (Primary Dx); Acute left ankle pain 09/21/2024 2:45 PM CDT Office Visit [facility] Cardiology at [address] [place] [address] Kael Falcon MD Coronary artery disease of [place] artery of [place] heart with stable angina pectoris (Primary Dx); Hypertension associated with diabetes (CMS/HCC); Mixed diabetic hyperlipidemia associated with type 2 diabetes mellitus (CMS/HCC) (HCC); Nonischemic cardiomyopathy (CMS/HCC) (HCC); PVC's (premature ventricular contractions); Obstructive sleep apnea 09/18/2024 Telephone [facility] [address] [place] [phone] Ofelia Saavedra MD from Last 3 Months Immunizations Immunization Administration [...] e Sclerosis Hx Other Medical Claustrophobic; Comments: [facility] 12/18/2013 - PONV (postoperative nausea a nd vomiting) Anemia Dysphagia Liver disease CHF (congestive heart failur e) (HCC) Cardiomyopathy (HCC) Cardiomyopathy (HCC) Headache Depression Type 2 diabetes mellitus (HCC) Overweight Heart disease cardiomyopathy Neuromuscular disorder (HCC) Multiple Scelrosis Smoking Quit in 93 Motion sickness Sleep apnea CPAP (kind of [...] Barb Mays Hypertensi on; Kidney disease Mother Babr Mays Obesity Mother Barb Mays Stent Mother [...] Brother 2 Jace Mays Brother 3 Huber Mays Father Jace Mays Maternal Grandfather Aftab Celis [...] on file Legal Sex Female 9:07 AM PICKER PACKER Gender Identity Female 02/22/2024 11:51 AM CDT [...] exists Well Visit 65+ 10/25/2024 Influenza Vaccine (#1) 2025 01/22/2021, 2018 Breast Cancer Screening-Mammogram 01/25/2025 01/26/2024, 02/03/2023, 02/18/2022, [...] Discontinued 08/13/2020 Medical Devices Implanted Type Area Epic Ambulatory Analyst Device Identifier Shelf Expiration Date Model / Serial / Lot Bard Peripheral Vascular Powerport Clearvue Airguard 8fr 1 Lumen Lightweight Intermediate Latex Free [id number] - [id number] Implanted:Qty: 1 on 09/14/2021 by Anne-Marie Mireles MD PhD at [facility] Medicine Catheter Right: Clavicle [employer] Per[employer] [id number] 06/22/2022 [id number] / / [id number] Description:Right mid clavic ular region in the IJ [employer] [id number] - [id number] - [id number] Implanted:Qty: 1 on 05/28/2021 by Sarah Correa MD at [facility] Medicine Lens Right: Eye [employer] [id number] 11/20/2023 [id number] / [id number] / [id number] Description:[id number] 21.5D Righ t eye [employer] [id number] - [id number] - [id number] Implanted:Qty: 1 on 07/30/2021 by Sarah Correa MD at [facility] Medicine Lens Left: Lens [employer] [id number] 11/20/2023 [id number] / [id number] / Bard Peripheral Vascular [id number] Ghiatas 20ga 20cm 7cm Beaded Needle Breast Wire Localization - [id number] Implanted:Qty: 1 on 08/07/2021 at [facility] Peripheral Vascular [id number] / / Procedures Procedure Name Priority Date/Time [...] 2:46 PM CDT Coronary artery disease of [place] artery of [place] heart with stable angina pectoris DEXA AXIAL SKELETON BONE DENSITY 1 OR MORE SITES Schedule Routine, Read Routine (OP Routine) 05/09/2024 8:38 AM PICKER PACKER 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 Electronically signed by: Mari Menjivar 11/13/2024 10:23 AM CDT MRI CERVICAL SPINE [...] by: Javier Hart M.D. Yves Munoz MD [facility] MRI PROCEDURES Fi nal Result * MRI [...] enhancement. Electronically signed by: Javier Hart M.D. Yves Munoz MD IM MRI PROCEDURES Fi nal Result * SCAN - PATHOLOGY (11/02/2024) us Provider Scanning Final Result * Misc Path Refer (10/29/2024 1:02 PM CDT) Desired Testing Breast Cancer Index Performing Lab [facility] Specimen Collected Date 07/08/21 [facility] Path Result See scanned report [facility] Tissue 10/29/2024 1:02 PM CDT 11/03/2024 3:06 PM CDT us Juarez Guy MD LAB BLOOD ORDERAB LES Final Result [facility] [address] Department [place] [address] * eGFR (10/17/2024 10:39 AM CDT) eGFR [...] LAB BLOOD ORDERAB LES Final Result [facility] [address] [facility] Department [place] [address] * Differential, auto (10/17/2024 10:39 AM CDT) Neutrophil abs 3.14 1.50 - 6.50 K/cumm Comment:Testing performed by : [facility], [address] [place], [place] [phone] Lymphocyte abs 2.03 0.80 - 3.30 K/cumm [facility] Comment:Testing performed by : [facility], [address] [place], [place] [phone] Monocyte abs 0.44 0.20 - 0.80 K/cumm [facility] Comment:Testing performed by : [facility], [address] [place], [place] [phone] Eosinophil abs 0.10 0.00 - 0.50 K/cumm [facility] Comment:Testing performed by : [facility], [address] [place], [place] [phone] Basophil abs 0.02 0.00 - 0.10 K/cumm [facility] Comment:Testing performed by : [facility], [address] [place], [place] [phone] Neutrophil pct 54.9 % [facility] Comment: Interpretive Data Percent cell count reference ranges are not reported, since discordance with absolute values may lead to misinterpretation of CBC data. Current Interpretive Data was last revised on 2017. Testing performed by: [facility], [address] [place], [place] [phone] Lymphocyte pct 35.4 % [facility] Comment: Interpretive Data Percent cell count reference ranges are not reported, since discordance with absolute values may lead to misinterpretation of CBC data. Current Interpretive Data was last revised on 2017. Testing performed by: [facility], [address] [place] [phone] Monocyte pct 7.6 % [facility] Comment: Interpretive Data Percent cell count reference ranges are not reported, since discordance with absolute values may lead to misinterpretation of CBC data. Current Interpretive Data was last revised on 2017. Testing performed by: [facility], [address] [place], [place] [phone] Eosinophil pct 1.7 % [facility] Comment: Interpretive Data Percent cell count reference ranges are not reported, since discordance with absolute values may lead to misinterpretation of CBC data. Current Interpretive Data was last revised on 2017. Testing performed by: [facility], [address] [place] [address] Basophil pct 0.3 % [facility] Comment: Interpretive Data Percent cell count reference ranges are not reported, since discordance with absolute values may lead to misinterpretation of CBC data. Current Interpretive Data was last revised on 2017. Testing performed by: [facility], [address] [place] [address] Blood 10/17/2024 10:3 9 AM CDT 10/17/2024 10:49 AM CDT us Juarez Guy MD LAB BLOOD ORDERAB LES Final Result [facility] Department [place] [address] * CBC with auto differential (10/17/2024 10:39 AM CDT) WBC 5.72 3.80 - 9.90 K/cumm Comment:Testing performed by : [facility], [address] [place] [address] Hgb 13.0 11.9 - 15.5 g/dL [facility] Comment:Testing performed by : [facility], [address] [place] [address] Hct 38.3 35.6 - 45.5 % [facility] Comment:Testing performed by : [facility], [address] [place] [address] Plt 238 150 - 400 K/cumm [facility] Comment:Testing performed by : [facility], [address] [place] [address] MPV 7.3 6.8 - 10.4 fL [facility] Comment:Testing performed by : [facility], [address] [place] [address] RBC 4.07 3.90 - 5.20 M/cumm [facility] Comment:Testing performed by : [facility], [address] [place] [address] MCV 94.1 81.3 - 96.4 fL [facility] Comment:Testing performed by : [facility], [address] [place] [address] MCH 31.9 27.1 - 33.3 pg [facility] Comment:Testing performed by : [facility], [address] [place] [address] MCHC 33.9 32.3 - 35.7 g/dL [facility] Comment:Testing performed by : [facility], [address] [place] [address] RDW CV 12.3 11.1 - 14.9 % [facility] Comment:Testing performed by : [facility], [address] [place] [address] NRBC abs 0.00 0.00 - 0.01 K/cumm [facility] Comment:Testing performed by : [facility], [address] [place] [address] Blood 10/17/2024 10:3 9 AM CDT 10/17/2024 10:49 AM CDT us Juarez Guy MD LAB BLOOD ORDERAB LES Final Result [facility] [address] [facility] Department [place] [address] * Comprehensive metabolic panel (10/17/2024 10:39 AM CDT) Sodium 142 135 - 145 mmol/L Potassium, pl 4.2 3.3 - 4.9 mmol/L [facility] Chloride 103 97 - 110 mmol/L [facility] CO2 30 22 - 32 mmol/L [facility] Anion gap 9 2 - 15 mmol/L [facility] BUN 9 6 - 25 mg/dL [facility] Creatinine 0.73 0.60 - 1.10 mg/dL [facility] Glucose 95 70 - 199 mg/dL [facility] Comment: Interpretive Data Fasting glucose [...] 2022. Calcium 9.2 8.5 - 10.3 mg/dL [facility] Bilirubin, total 0.2 0.1 - 1.2 mg/dL [facility] Protein, pl 7.6 6.5 - 8.5 g/dL [facility] Albumin 4.3 3.5 - 5.0 g/dL [facility] Alk phos 90 40 - 130 Units/L [facility] ALT 22 7 - 45 Units/L [facility] AST 22 10 - 45 Units/L [facility] Blood 10/17/2024 10:3 9 AM CDT 10/17/2024 10:49 AM CDT us Juarez Guy MD LAB BLOOD ORDERAB LES Final Result [facility] Department [place] [address] * (ABNORMAL) POCT lipid panel (09/21/2024 2:46 [...] 1 or 2 Site (05/09/2024 8:38 AM PICKER PACKER) Anatomical Region Laterality Modality Body N/A Radiographic Yessy ging Narrative 05/09/2024 2:47 PM PICKER PACKER Patient Name: Fadia Welch Date of : 1960 Date of scan: 05/09/2024 Bone mineral density was performed on a HoloKar[employer] Discovery Densitometer. Based on machine cross-calibration and [...] by the International Society of Clinical Densitometry. [id number] us Juarez Guy MD IMG DXA PROCEDURE S Final Result * Diagnostic [...] screening mammography is recommended. Dictated by: Moriah Netwon MD The radiology attending physician has personally [...] 0 - 30.0 EXTERNAL LAB Urine Result [facility] Historical Provider LAB URINE ORDERABLES Edit ed Result - Final Performing Organization Address City/[facility] Co de Phone Number EXTERNAL LAB * Hemoglobin A1c (09/27/2020 9:37 AM CDT) SCRIBED Hemoglobin A1c 5.7 0.0 - 5.7 EXTERNAL LAB Blood specimen (specimen) Result [facility] Historical Provider LAB BLOOD ORDERABLES Edit ed Result - Final EXTERNAL LAB * COLONOSCOPY (08/13/2020 12:02 PM CDT) Anatomical Region Laterality Modality Other Narrative Procedure Note Markus Becerra MD - 08/13/2020 12:02 PM CDT [facility] Patient Name: Fadia Welch Procedure [...] for surveillance. Procedure Code(s): --- Professional --- 99172, Colonoscopy, flexible; with biopsy, singleor multiple Diagnosis Code(s): --- Professional --- Z12.11, Encounter for screening for malignantneoplasm of colon K63.5, Polyp of colon CPT copyright 2019 [employer]. All rights reserved. The codes documented in this report are preliminary and upon electronics installer reviewmay be revised to meet current compliance requirements. Electronically signed by Markus Becerra MD Markus Becerra M.D. 08/13/2020 12:37:39 PM Number of Addenda: 0 Note Initiated On: 08/13/2020 12:02 PM us Markus Becerra MD ENDOSCOPY PROCEDURES Final Resul t * Diabetic Eye Exam (12/27/2018) us Historical Provider HEALTH MAINTENANCE Edited Result - Final * Serum Hepatitis panel (04/03/2015 7:47 AM PICKER PACKER) HBV surface ag Negative Negative HISTO RICAL RESULTS HBV core ab, IgM Negative Negative HISTORICAL RESULTS HCV ab Negative Negative HISTORICAL RESULTS HAV ab, IgM Negative Negative HISTORIC AL RESULTS Serum 04/03/2015 7:47 AM PICKER PACKER Narrative HISTORICAL RESULTS - 04/03/2015 10:47 AM PICKER PACKER Send Duplicate Reports to: Thomas Chanel [address] [place] [address] Markus Becerra MD LAB BLOOD ORDERABLES Final Resul t HISTORICAL RESULTS from Last 3 Months or Most Recently Relevant to Health Maintenance Insurance AETNA SENIOR [facility] MEDICARE MEDICARE AET SENIOR SUPPLEMENT MEDICARE AETNA SENIOR SUPPLEMENT Care Teams Infantry Weapons Officer Relationship Specialty Start Date End Date José Miguel Page MD PCP - General Internal Medicine 09/05/18 Esteban Ritter MD Consulting Physician Cardiology 06/18/21 Juarez Guy MD [address] [place] [address] Consulting Physician Medical Oncology 08/31/21 Bill Romo MD [address] [facility] # [address] [place] [address] Radiation Oncologist Radiation Oncology 09/11/21 Anne-Marie Mireles MD PhD [address] [facility] [phone] [place] [address] Surgeon Surgical Oncology 09/11/21
== END 2024-11-22 14:24 | disposition home or self-care (01) ==
PROVIDERS: PCP Internal Medicine; Visit Provider Internal Medicine
DX: M79.672 Pain in left foot (principal); M25.572 Pain in left ankle and joints of left foot; M76.62 Achilles tendinitis, left leg
CPT/HCPCS: 73721

== ENCOUNTER 2024-12-18 09:18 | Outpatient (CLI) | payer MEDICARE, SELFPAY ==
--- OUTSIDE RECORDS SUMMARY | 2024-12-18 09:33 | XMS_ITS | Referral Summary ---
Author Organization [facility] Address [address] [place] [address] Care Team Providers Care Workforce Planner Name Role Phone José Miguel Page MD Primary Care Provider Esteban Ritter MD Unavailable [phone] Juarez Guy MD Unavailable Bill Romo MD Unavailable Anne-Marie Mireles MD PhD Unavaila ble Encounters Date Type Department Care Team Description 11/13/2024 7:25 AM CDT - 11/13/2024 11:59 PM CDT Hospital Encounter [facility] - Imaging [address] [place] [phone] Multiple sclerosis (HCC) Discharge Disposition: Discharge to home or self care 11/13/2024 7:25 AM CDT - 11/13/2024 11:59 PM CDT Hospital Encounter [facility] - Imaging [address] [place] [phone] Multiple sclerosis (HCC) Discharge Disposition: Discharge to home or self care 11/07/2024 Telephone [facility] [facility] Floor 8 [place] [address] Abida Wallace NP 11/02/2024 Orders Only [facility] Scanning, Provider 2024 7:12 PM CDT - 2024 11:59 PM CDT Hospital Encounter [facility] [address] [place] [address] Discharge Disposition: Discharge to home or self care 10/17/2024 Telephone [facility] [address] [facility] [address] [place] [address] Tariq Milligan MD orthopedics (Schedule an apt) 10/17/2024 Telephone [facility] [address] [facility] [address] [place] [address] Yves Munoz MD 10/17/2024 1:00 PM CDT Infusion [facility] - Infusion [address] [facility] Floor 6 [place] [address] 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 Oncology [address] [facility] Floor 8 [place] [address] Juarez Guy MD Malignant neoplasm of lower-inner quadrant of left breast in female, estrogen receptor positive (HCC) 10/16/2024 10:00 AM CDT Office Visit [facility] [address] [facility] [address] [place] [address] Yves Munoz MD Multiple sclerosis (HCC) (Primary Dx); Acute left ankle pain 09/21/2024 2:45 PM CDT Office Visit 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 (Primary Dx); Hypertension associated with diabetes (CMS/HCC); Mixed diabetic hyperlipidemia associated with type 2 diabetes mellitus (CMS/HCC) (HCC); Nonischemic cardiomyopathy (CMS/HCC) (HCC); PVC's (premature ventricular contractions); Obstructive sleep apnea 09/18/2024 Telephone [facility] [address] [address] Ofelia Saavedra MD from Last [...] (AMBIEN) 5 mg tablet 09/26/19 24 Active furosemide (LASIX) 40 mg tablet [...] TABLET 60 tablet 3 11/22/19 25 Active metoprolol XL (TOPROL-XL) 100 mg 24 hr tabletIndications :Nonischemic cardiomyopathy (HCC) TAKE 1 TABLET BY MOUTH EVERY DAY 90 tablet 3 12/04/19 25 Active losartan (COZAAR) 25 mg tabletIndications :Nonischemic cardiomyopathy (HCC) TAKE 1 TABLET BY MOUTH EVERY DAY IN THE MORNING 90 tablet 3 12/04/19 25 Active metoprolol XL (TOPROL-XL) 100 mg 24 hr tabletIndications :Nonischemic cardiomyopathy (HCC) TAKE 1 TABLET BY MOUTH EVERY DAY 90 tablet 3 12/12/19 24 025 Discontinued losartan (COZAAR) 25 mg tabletIndications :Nonischemic cardiomyopathy (HCC) TAKE 1 TABLET BY MOUTH EVERY DAY IN THE MORNING 90 tablet 3 12/12/19 24 025 Discontinued carBAMazepine XR (TEGretol XR) 100 mg 12 hr tablet TAKE ONE TABLET BY MOUTH TWICE A DAY WITH 200 MG TABLET 60 tablet 1 09/21/19 25 025 Discontinued Active Problems Problem Noted Date Diagnosed Date Coronary artery disease of n ative artery of assiniboine and sioux heart with stable angina pectoris 07/11/2024 RBBB 07/11/2024 Dyssynergic defecation 06/26/2024 MAYRA (stress urinary incontinence, female) 2024 Pelvic floor dysfunction 06/26/2024 Nausea without vomiting 05/29/2024 Assessment & Plan (05/29/2024 11:11 AM SENIOR ERP CONSULTANT): Broad differential for longstanding nausea. Patient reports [...] 05/29/2024 Assessment & Plan (05/29/2024 10:41 AM SENIOR ERP CONSULTANT): Alternating constipation with episodes of fecal smearing/incontinence. [...] 05/29/2024 Assessment & Plan (05/29/2024 10:56 AM SENIOR ERP CONSULTANT): Intermittent. Worse with movement. Associated low back [...] follow-up surveillance of breast c ancer 01/26/2022 retirement current use 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 inhibitor 06/2021 Bone disorder 01/22/2022 Dehydration 09/25/2021 Trigeminal neuralgia 09/19/2021 Numbness of toes 09/19/2021 Malignant neoplasm of lower- inner quadrant of left breast in female, estrogen receptor positive 09/04/2021 Cancer Staging:Clinical stage from 07/08/2021:Stage IA(cT1, cN0, cM0, G3, ER+, MT+, HER2-) - Unsigned Pathologic stage from 08/07/2021:Stage IA(pT1c, pN0(sn), cM0, G3, ER+, MT+, HER2- ) - Unsigned Generalized abdominal pain 06/18/2021 Overview (06/18/2021): Added automatically from request for surgery [id number] H/O cardiomyopathy 11/14/2020 Chronic heart failure with [...] 07/29/2020 Assessment & Plan (05/29/2024 11:08 AM SENIOR ERP CONSULTANT): Fecal incontinence with urge incontinence and passage [...] 11/28/2019 Assessment & Plan (03/26/2024 12:42 PM SENIOR ERP CONSULTANT): Lenses centered and stable with clear capsules, [...] call. Assessment & Plan (07/31/2021 10:32 AM SENIOR ERP CONSULTANT): POD1 Extraction Cataract - Phacoemulsification And Lens [...] concerns. Assessment & Plan (07/06/2021 2:12 PM SENIOR ERP CONSULTANT): POM#1 s/p CEIOL OD - doing well with no concerns - denies pain - off all drops - pleased with vision - CEIOL OS scheduled for July Assessment & Plan (06/05/2021 10:48 AM SENIOR ERP CONSULTANT): POW1 Extraction Cataract - Phacoemulsification And Lens [...] call. Assessment & Plan (05/29/2021 8:14 AM SENIOR ERP CONSULTANT): POD1 Extraction Cataract - Phacoemulsification And Lens [...] (06/13/2018): Added automatically from request for surgery [id number] Assessment & Plan (05/29/2024 10:16 AM SENIOR ERP CONSULTANT): Longstanding dysphagia symptoms. Prior EGDs and manometry testing were unrevealing. Symptoms suspected to possibly be related to her multiple sclerosis. Recent modified barium swallow study detailed below. Subsequent [facility] evaluation - per their note unremarkable oropharyngeal [...] 11/08/2017 Assessment & Plan (05/29/2024 10:46 AM SENIOR ERP CONSULTANT): Seen on previous imaging. With normal LFTs. [...] a associated with type 2 diabetes mellitus ([facility]) 10/27/2017 Assessment & Plan [...] lipids Assessment & Plan (05/09/2018 11:27 AM SENIOR ERP CONSULTANT): Goal of treatment , LDL cholesterol less [...] 04/07/2017 Assessment & Plan (05/29/2024 10:22 AM SENIOR ERP CONSULTANT): Currently well controlled. Recommend decreasing Pantoprazole to [...] 08/21 Assessment & Plan (03/26/2024 12:42 PM SENIOR ERP CONSULTANT): No diabetic retinopathy (DR) . Stressed importance [...] PCP/endo. Assessment & Plan (05/08/2020 12:20 PM SENIOR ERP CONSULTANT): Will add Lo pt with CHF SE [...] Metformin Assessment & Plan (05/10/2019 2:49 PM SENIOR ERP CONSULTANT): Hba1c was Lab Results Component Value Date [...] Metformin Assessment & Plan (05/09/2018 11:26 AM SENIOR ERP CONSULTANT): Hba1c was Lab Results Component Value Date [...] benign Assessment & Plan (05/08/2020 12:20 PM SENIOR ERP CONSULTANT): Goal blood pressure is less than 140/85 [...] microalbumin Assessment & Plan (05/10/2019 2:50 PM SENIOR ERP CONSULTANT): Goal blood pressure is less than 140/85 Low salt diet recommended Daily aerobic exercise Continue current meds, including MICHAEL-I or ARB Assessment & Plan (11/09/2018 12:20 PM CDT): Goal blood pressure is less than 140/85 Low salt diet recommended Daily aerobic exercise Continue current meds, including MICHAEL-I or ARB Assessment & Plan (05/09/2018 11:26 AM SENIOR ERP CONSULTANT): Goal blood pressure is less than 140/85 [...] neuritis Assessment & Plan (03/26/2024 12:42 PM SENIOR ERP CONSULTANT): Residual optic atrophy right eye (OD) No sign of active inflammation both eyes (OU) Assessment & Plan (11/28/2019 5:12 PM CDT): Residual optic atrophy right eye (OD) No sign of active inflammation both eyes (OU) Impaired cognition 12/12/2012 Overview (08/26/2016): Cognitive impairment Resolved Problems Problem Noted Date Diagnosed Date Resolved Date Encounter for person [facility] 09/10/2021 09/06/2023 Breast cancer 07/17/2021 09/22/2021 Overview (07/17/2021): Added automatically from request for surgery [id number] Fecal smearing 01/31/2020 09/06/2023 Encounter for screening colonoscopy 11/08/2017 09/06/2023 Dyslipidemia associated with type 2 diabetes mellitus ([facility]) 08/31/2016 11/25/2021 Overview (10/15/2016): DM type 2 with diabetic dyslipidemia Assessment & Plan (05/10/2019 2:50 PM SENIOR ERP CONSULTANT): .Goal of treatment , LDL cholesterol less [...] daily Assessment & Plan (04/19/2017 11:32 AM SENIOR ERP CONSULTANT): Hba1c was 5.7 today, indicating adequate DM [...] 11/25/2021 Assessment & Plan (04/19/2017 11:31 AM SENIOR ERP CONSULTANT): Goal of treatment , LDL cholesterol less [...] on file Legal Sex Female 9:07 AM SENIOR ERP CONSULTANT Gender Identity Female 02/22/2024 11:51 AM CDT [...] on file Medical Devices Implanted Type Area Mule Developer Device Identifier Shelf Expiration Date Model / Serial / Lot [employer] Powerport Clearvue Airguard 8fr 1 Lumen Lightweight Intermediate Latex Free [id number] - [id number] Implanted:Qty: 1 on 09/14/2021 by Anne-Marie Mireles MD PhD at [facility] Catheter Right: Clavicle [employer] [id number] 06/22/2022 [id number] / / [id number] Description:Right mid clavic ular region in the IJ [employer] [id number] - [id number] - [id number] Implanted:Qty: 1 on 05/28/2021 by Sarah Correa MD at [facility] Medicine Lens Right: Eye [employer] [id number] 11/20/2023 [id number] / [id number] / [id number] Description:[id number] 21.5D Righ t eye [employer] [id number] - [id number] - [id number] Implanted:Qty: 1 on 07/30/2021 by Sarah Correa MD at [facility] Lens Left: Lens [employer] [id number] 11/20/2023 [id number] / [id number] / [employer] 60049 Ghiatas 20ga 20cm 7cm Beaded Needle Breast Wire Localization - [id number] Implanted:Qty: 1 on 08/07/[address] 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 Yves Munoz MD IMG MRI PROCEDURES Fi nal Result * SCAN - PATHOLOGY (11/02/2024) Provider Scanning Final Result * Misc Path Refer (10/29/2024 1:02 PM CDT) [facility] Desired Testing Breast Cancer Index Performing Lab [facility] Specimen Collected Date 07/08/21 [facility] Path Result See scanned report [facility] Tissue 10/29/2024 1:02 PM CDT 11/03/2024 3:06 PM CDT us Juarez Guy MD LAB BLOOD ORDERAB LES Final Result [facility] [address] Department [place] [address] * eGFR (10/17/2024 10:39 AM CDT) [facility] eGFR >90 >=60 mL/min/1. 73 m2 Comment: [...] LAB BLOOD ORDERAB LES Final Result [facility] [address] [facility] [place] [address] * Differential, auto (10/17/2024 10:39 AM CDT) Neutrophil abs 3.14 1.50 - 6.50 K/cumm Comment:Testing performed by : [facility], [address] [place] [phone] Lymphocyte abs 2.03 0.80 - 3.30 K/cumm [facility] Comment:Testing performed by : [facility], [address] [place] [address] Monocyte abs 0.44 0.20 - 0.80 K/cumm [facility] Comment:Testing performed by : [facility], [address] [place] [address] Eosinophil abs 0.10 0.00 - 0.50 K/cumm [facility] Comment:Testing performed by : [facility], [address] [place] [address] Basophil abs 0.02 0.00 - 0.10 K/cumm [facility] Comment:Testing performed by : [facility], [address] [place] [phone] Neutrophil pct 54.9 % [facility] Comment: Interpretive Data Percent cell count reference ranges are not reported, since discordance with absolute values may lead to misinterpretation of CBC data. Current Interpretive Data was last revised on 2017. Testing performed by: [facility], [address] [place] [phone] Lymphocyte pct 35.4 % [facility] Comment: Interpretive Data Percent cell count reference ranges are not reported, since discordance with absolute values may lead to misinterpretation of CBC data. Current Interpretive Data was last revised on 2017. Testing performed by: [facility], [address] [place] [phone] Monocyte pct 7.6 % [facility] Comment: Interpretive Data Percent cell count reference ranges are not reported, since discordance with absolute values may lead to misinterpretation of CBC data. Current Interpretive Data was last revised on 2017. Testing performed by: [facility], [address] [place] [phone] Eosinophil pct 1.7 % [facility] Comment: Interpretive Data Percent cell count reference ranges are not reported, since discordance with absolute values may lead to misinterpretation of CBC data. Current Interpretive Data was last revised on 2017. Testing performed by: [facility], [address] [place] [address] Basophil pct 0.3 % [facility] Comment: Interpretive Data Percent cell count reference ranges are not reported, since discordance with absolute values may lead to misinterpretation of CBC data. Current Interpretive Data was last revised on 2017. Testing performed by: [facility], [address] [place] [address] Blood 10/17/2024 10:3 9 AM CDT 10/17/2024 10:49 AM CDT Juarez Guy MD LAB BLOOD ORDERAB LES Final Result [facility] [address] [facility] Department [place] [address] * CBC with auto differential (10/17/2024 10:39 AM CDT) WBC 5.72 3.80 - 9.90 K/cumm Comment:Testing performed by : [facility], [address] [place] [address] Hgb 13.0 11.9 - 15.5 g/dL [facility] Comment:Testing performed by : [facility], [address] [place] [address] Hct 38.3 35.6 - 45.5 % [facility] Comment:Testing performed by : [facility], [address] [place] [address] Plt 238 150 - 400 K/cumm [facility] Comment:Testing performed by : [facility], [address] [place] [address] MPV 7.3 6.8 - 10.4 fL [facility] Comment:Testing performed by : [facility], [address] [place] [address] RBC 4.07 3.90 - 5.20 M/cumm [facility] Comment:Testing performed by : [facility], [address] [place] [address] MCV 94.1 81.3 - 96.4 fL [facility] Comment:Testing performed by : [facility], [address] [place] [address] MCH 31.9 27.1 - 33.3 pg [facility] Comment:Testing performed by : [facility], [address] [place] [address] MCHC 33.9 32.3 - 35.7 g/dL [facility] Comment:Testing performed by : [facility], [address] [place] [address] RDW CV 12.3 11.1 - 14.9 % [facility] Comment:Testing performed by : [facility], [address] [place] [address] NRBC abs 0.00 0.00 - 0.01 K/cumm [facility] Comment:Testing performed by : [facility], [address] [place] [address] Blood 10/17/2024 10:3 9 AM CDT 10/17/2024 10:49 AM CDT us Juarez Guy MD LAB BLOOD ORDERAB LES Final Result [facility] [address] [facility] Department [place] [address] * Comprehensive metabolic panel (10/17/2024 10:39 AM CDT) Sodium 142 135 - 145 mmol/L Potassium, pl 4.2 3.3 - 4.9 mmol/L [facility] Chloride 103 97 - 110 mmol/L [facility] CO2 30 22 - 32 mmol/L [facility] Anion gap 9 2 - 15 mmol/L [facility] BUN 9 6 - 25 mg/dL [facility] Creatinine 0.73 0.60 - 1.10 mg/dL [facility] Glucose 95 70 - 199 mg/dL [facility] Comment: Interpretive Data Fasting glucose >/= [...] 2022. Calcium 9.2 8.5 - 10.3 mg/dL [facility] Bilirubin, total 0.2 0.1 - 1.2 mg/dL [facility] Protein, pl 7.6 6.5 - 8.5 g/dL [facility] Albumin 4.3 3.5 - 5.0 g/dL [facility] Alk phos 90 40 - 130 Units/L [facility] ALT 22 7 - 45 Units/L [facility] AST 22 10 - 45 Units/L [facility] Blood 10/17/2024 10:3 9 AM CDT 10/17/2024 10:49 AM CDT us Juarez Guy MD LAB BLOOD ORDERAB LES Final Result [facility] [place] [address] * (ABNORMAL) POCT lipid panel (09/21/2024 2:46 [...] 1 or 2 Site (05/09/2024 8:38 AM SENIOR ERP CONSULTANT) Anatomical Region Laterality Modality Body N/A Radiographic Yessy ging Narrative 05/09/2024 2:47 PM SENIOR ERP CONSULTANT Patient Name: Fadia Welch Date of : 1960 Date of scan: 05/09/2024 Bone mineral density was performed on a [employer] Discovery Densitometer. Based on machine cross-calibration and [...] by the International Society of Clinical Densitometry. [id number] Juarez Guy MD IMG DXA PROCEDURE S [...] and agrees with it. Electronically signed by: Mari Putnam 01/26/2024 1:23 PM CDT EXAMINATION: BILATERAL DIGITAL [...] 0 - 30.0 EXTERNAL LAB Urine Result [facility] Historical Provider MD LAB URINE ORDERABLES Edit ed Result - Final Performing Organization Address [facility] Co de Phone Number EXTERNAL LAB * Hemoglobin A1c (09/27/2020 9:37 AM CDT) SCRIBED Hemoglobin A1c 5.7 0.0 - 5.7 EXTERNAL LAB Blood specimen (specimen) Historical Provider MD LAB BLOOD ORDERABLES Edit ed Result - Final Performing Organization Address [facility]/ZIP Co de Phone Number EXTERNAL LAB * COLONOSCOPY (08/13/2020 12:02 PM CDT) Anatomical Region Laterality Modality Other Narrative Procedure Note Markus Becerra MD - 08/13/2020 12:02 PM CDT [facility] Endoscopy Lab Patient Name: Fadia Welch [...] for surveillance. Procedure Code(s): --- Professional --- 83380, Colonoscopy, flexible; with biopsy, singleor multiple Diagnosis Code(s): --- Professional --- Z12.11, Encounter for screening for malignantneoplasm of colon K63.5, Polyp of colon CPT copyright 2019 [employer] [place] [employer]. All rights reserved. The codes documented in this report are preliminary and upon artist mannequin coloring reviewmay be revised to meet current compliance requirements. Electronically signed by Markus Becerra MD Markus Becerra M.D. 08/13/2020 12:37:39 PM Number of Addenda: 0 Note Initiated On: 08/13/2020 12:02 PM Markus Becerra MD ENDOSCOPY PROCEDURES Final Resul t * Diabetic Eye Exam (12/27/2018) Historical Provider HEALTH MAINTENANCE Edited Result - Final * Serum Hepatitis panel (04/03/2015 7:47 AM SENIOR ERP CONSULTANT) HBV surface ag Negative Negative HISTO RICAL RESULTS HBV core ab, IgM Negative Negative HISTORICAL RESULTS HCV ab Negative Negative HISTORICAL RESULTS HAV ab, IgM Negative Negative HISTORIC AL RESULTS Serum 04/03/2015 7:47 AM SENIOR ERP CONSULTANT Narrative HISTORICAL RESULTS - 04/03/2015 10:47 AM SENIOR ERP CONSULTANT Send Duplicate Reports to: Thomas Chanel [address] [place] [address] Markus Becerra MD LAB BLOOD ORDERABLES Final Resul t HISTORICAL RESULTS from Last 3 Months or Most Recently Relevant to Health Maintenance Insurance AENA SENIOR [facility] MEDICARE MEDICARE AET SENIOR SUPPLEMENT MEDICARE AETNA SENIOR SUPPLEMENT Care Teams Workforce Planner Relationship Specialty Start Date End Date José Miguel Page MD PCP - General Internal Medicine 09/05/18 Esteban Ritter MD Consulting Physician Cardiology 06/18/21 Juarez Guy MD [address] [place] [address] Consulting Physician Medical Oncology 08/31/21 Bill Romo MD [address] [facility] [address] [facility] [address] [place] [address] Radiation Oncologist Radiation Oncology 09/11/21 Anne-Marie Mireles MD PhD [address] [facility] [id number] [place] [address] Surgeon Surgical Oncology 09/11/21
--- OUTSIDE RECORDS SUMMARY | 2024-12-18 09:33 | XMS_ITS ---
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 Patient reports [...] 05/29/2024 Assessment & Plan (05/29/2024 10:41 AM RADIOLOGY TEACHER): Alternating constipation with episodes of fecal smearing/incontinence. [...] 05/29/2024 Assessment & Plan (05/29/2024 10:56 AM RADIOLOGY TEACHER): Intermittent. Worse with movement. 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 06/2021 Bone disorder 01/22/2022 Dehydration 09/25/2021 Trigeminal neuralgia 09/19/2021 Numbness of toes 09/19/2021 Malignant neoplasm of lower- inner quadrant of left breast in female, estrogen receptor positive 09/04/2021 Cancer Staging:Clinical stage from 07/08/2021:Stage IA(cT1, cN0, cM0, G3, ER+, MI+, HER2-) - Unsigned Pathologic stage from 08/07/2021:Stage IA(pT1c, pN0(sn), cM0, G3, ER+, MI+, HER2- ) - Unsigned Generalized abdominal pain 06/18/2021 Overview (06/18/2021): Added automatically from request for surgery [id number] H/O cardiomyopathy 11/14/2020 Chronic heart failure with [...] 07/29/2020 Assessment & Plan (05/29/2024 11:08 AM RADIOLOGY TEACHER): Fecal incontinence with urge incontinence and passage [...] 11/28/2019 Assessment & Plan (03/26/2024 12:42 PM RADIOLOGY TEACHER): Lenses centered and stable with clear capsules, [...] call. Assessment & Plan (07/31/2021 10:32 AM RADIOLOGY TEACHER): POD1 Extraction Cataract - Phacoemulsification And Lens [...] concerns. Assessment & Plan (07/06/2021 2:12 PM RADIOLOGY TEACHER): POM#1 s/p CEIOL OD - doing well with no concerns - denies pain - off all drops - pleased with vision - CEIOL OS scheduled for July Assessment & Plan (06/05/2021 10:48 AM RADIOLOGY TEACHER): POW1 Extraction Cataract - Phacoemulsification And Lens [...] call. Assessment & Plan (05/29/2021 8:14 AM RADIOLOGY TEACHER): POD1 Extraction Cataract - Phacoemulsification And Lens [...] (06/13/2018): Added automatically from request for surgery [id number] Assessment & Plan (05/29/2024 10:16 AM RADIOLOGY TEACHER): Longstanding dysphagia symptoms. Prior EGDs and manometry testing were unrevealing. Symptoms suspected to possibly be related to her multiple sclerosis. Recent modified barium swallow study detailed below. Subsequent CUSTOMER QUALITY ENGINEER evaluation - per their note unremarkable oropharyngeal [...] 11/08/2017 Assessment & Plan (05/29/2024 10:46 AM RADIOLOGY TEACHER): Seen on previous imaging. With normal LFTs. [...] a associated with type 2 diabetes mellitus ([facility]) 10/27/2017 Assessment & Plan [...] lipids Assessment & Plan (05/09/2018 11:27 AM RADIOLOGY TEACHER): Goal of treatment , LDL cholesterol less [...] 04/07/2017 Assessment & Plan (05/29/2024 10:22 AM RADIOLOGY TEACHER): Currently well controlled. Recommend decreasing Pantoprazole to [...] 08/21 Assessment & Plan (03/26/2024 12:42 PM RADIOLOGY TEACHER): No diabetic retinopathy (DR) . Stressed importance [...] PCP/endo. Assessment & Plan (05/08/2020 12:20 PM RADIOLOGY TEACHER): Will add Lo, pt with CHF SE [...] Metformin Assessment & Plan (05/10/2019 2:49 PM RADIOLOGY TEACHER): Hba1c was Lab Results Component Value Date [...] Metformin Assessment & Plan (05/09/2018 11:26 AM RADIOLOGY TEACHER): Hba1c was Lab Results Component Value Date [...] benign Assessment & Plan (05/08/2020 12:20 PM RADIOLOGY TEACHER): Goal blood pressure is less than 140/85 [...] microalbumin Assessment & Plan (05/10/2019 2:50 PM RADIOLOGY TEACHER): Goal blood pressure is less than 140/85 Low salt diet recommended Daily aerobic exercise Continue current meds, including MICHAEL-I or ARB Assessment & Plan (11/09/2018 12:20 PM CDT): Goal blood pressure is less than 140/85 Low salt diet recommended Daily aerobic exercise Continue current meds, including MICHAEL-I or ARB Assessment & Plan (05/09/2018 11:26 AM RADIOLOGY TEACHER): Goal blood pressure is less than 140/85 [...] neuritis Assessment & Plan (03/26/2024 12:42 PM RADIOLOGY TEACHER): Residual optic atrophy right eye (OD) No [...] left breast in female, estrogen receptor positive (HCC)assisted current use 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 inhibitorBone disorder Treatment [...] Date Resolved Date Encounter for person [facility] 09/10/2021 09/06/2023 Breast cancer 07/17/2021 09/22/2021 Overview (07/17/2021): Added automatically from request for surgery [id number] Fecal smearing 01/31/2020 09/06/2023 Encounter for screening colonoscopy 11/08/2017 09/06/2023 Dyslipidemia associated with type 2 diabetes mellitus ([facility]) 08/31/2016 11/25/2021 Overview (10/15/2016): DM type 2 with diabetic dyslipidemia Assessment & Plan (05/10/2019 2:50 PM RADIOLOGY TEACHER): .Goal of treatment , LDL cholesterol less [...] daily Assessment & Plan (04/19/2017 11:32 AM RADIOLOGY TEACHER): Hba1c was 5.7 today, indicating adequate DM [...] 11/25/2021 Assessment & Plan (04/19/2017 11:31 AM RADIOLOGY TEACHER): Goal of treatment , LDL cholesterol less [...]
--- OUTSIDE RECORDS SUMMARY | 2024-12-18 09:33 | XMS_ITS | Clinical Summary ---
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 Patient reports [...] 05/29/2024 Assessment & Plan (05/29/2024 10:41 AM FUEL PILOT ENGINEER): Alternating constipation with episodes of fecal smearing/incontinence. [...] 05/29/2024 Assessment & Plan (05/29/2024 10:56 AM FUEL PILOT ENGINEER): Intermittent. Worse with movement. 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, estrogen receptor positive 09/04/2021 Cancer Staging:Clinical stage from 07/08/2021:Stage IA(cT1, cN0, cM0, G3, ER+, HI+, HER2-) - Unsigned Pathologic stage from 08/07/2021:Stage IA(pT1c, pN0(sn), cM0, G3, ER+, HI+, HER2- ) - Unsigned Generalized abdominal pain 06/18/2021 Overview (06/18/2021): Added automatically from request for surgery [id number] H/O cardiomyopathy 11/14/2020 Chronic heart failure with [...] 07/29/2020 Assessment & Plan (05/29/2024 11:08 AM FUEL PILOT ENGINEER): Fecal incontinence with urge incontinence and passage [...] 11/28/2019 Assessment & Plan (03/26/2024 12:42 PM FUEL PILOT ENGINEER): Lenses centered and stable with clear capsules, [...] call. Assessment & Plan (07/31/2021 10:32 AM FUEL PILOT ENGINEER): POD1 Extraction Cataract - Phacoemulsification And Lens [...] concerns. Assessment & Plan (07/06/2021 2:12 PM FUEL PILOT ENGINEER): POM#1 s/p CEIOL OD - doing well with no concerns - denies pain - off all drops - pleased with vision - CEIOL OS scheduled for July Assessment & Plan (06/05/2021 10:48 AM FUEL PILOT ENGINEER): POW1 Extraction Cataract - Phacoemulsification And Lens [...] call. Assessment & Plan (05/29/2021 8:14 AM FUEL PILOT ENGINEER): POD1 Extraction Cataract - Phacoemulsification And Lens [...] (06/13/2018): Added automatically from request for surgery [id number] Assessment & Plan (05/29/2024 10:16 AM FUEL PILOT ENGINEER): Longstanding dysphagia symptoms. Prior EGDs and manometry testing were unrevealing. Symptoms suspected to possibly be related to her multiple sclerosis. Recent modified barium swallow study detailed below. Subsequent TOUR BUS DRIVER/GUIDE evaluation - per their note unremarkable oropharyngeal [...] 11/08/2017 Assessment & Plan (05/29/2024 10:46 AM FUEL PILOT ENGINEER): Seen on previous imaging. With normal LFTs. [...] lipids Assessment & Plan (05/09/2018 11:27 AM FUEL PILOT ENGINEER): Goal of treatment , LDL cholesterol less [...] 04/07/2017 Assessment & Plan (05/29/2024 10:22 AM FUEL PILOT ENGINEER): Currently well controlled. Recommend decreasing Pantoprazole to [...] 08/21 Assessment & Plan (03/26/2024 12:42 PM FUEL PILOT ENGINEER): No diabetic retinopathy (DR) . Stressed importance [...] PCP/endo. Assessment & Plan (05/08/2020 12:20 PM FUEL PILOT ENGINEER): Will add Lo pt with CHF SE [...] Metformin Assessment & Plan (05/10/2019 2:49 PM FUEL PILOT ENGINEER): Hba1c was Lab Results Component Value Date [...] Metformin Assessment & Plan (05/09/2018 11:26 AM FUEL PILOT ENGINEER): Hba1c was Lab Results Component Value Date [...] benign Assessment & Plan (05/08/2020 12:20 PM FUEL PILOT ENGINEER): Goal blood pressure is less than 140/85 [...] microalbumin Assessment & Plan (05/10/2019 2:50 PM FUEL PILOT ENGINEER): Goal blood pressure is less than 140/85 Low salt diet recommended Daily aerobic exercise Continue current meds, including MICHAEL-I or ARB Assessment & Plan (11/09/2018 12:20 PM CDT): Goal blood pressure is less than 140/85 Low salt diet recommended Daily aerobic exercise Continue current meds, including MICHAEL-I or ARB Assessment & Plan (05/09/2018 11:26 AM FUEL PILOT ENGINEER): Goal blood pressure is less than 140/85 [...] neuritis Assessment & Plan (03/26/2024 12:42 PM FUEL PILOT ENGINEER): Residual optic atrophy right eye (OD) No sign of active inflammation both eyes (OU) Assessment & Plan (11/28/2019 5:12 PM CDT): Residual optic atrophy right eye (OD) No sign of active inflammation both eyes (OU) Impaired cognition 12/12/2012 Overview (08/26/2016): Cognitive impairment Resolved Problems Problem Noted Date Diagnosed Date Resolved Date Encounter for person [facility] 09/10/2021 09/06/2023 Breast cancer 07/17/2021 09/22/2021 Overview (07/17/2021): Added automatically from request for surgery [id number] Fecal smearing 01/31/2020 09/06/2023 Encounter for screening colonoscopy 11/08/2017 09/06/2023 Dyslipidemia associated with type 2 diabetes mellitus (CMS/HCC) 08/31/2016 11/25/2021 Overview (10/15/2016): DM type 2 with diabetic dyslipidemia Assessment & Plan (05/10/2019 2:50 PM FUEL PILOT ENGINEER): .Goal of treatment , LDL cholesterol less [...] daily Assessment & Plan (04/19/2017 11:32 AM FUEL PILOT ENGINEER): Hba1c was 5.7 today, indicating adequate DM [...] 11/25/2021 Assessment & Plan (04/19/2017 11:31 AM FUEL PILOT ENGINEER): Goal of treatment , LDL cholesterol less [...] - 11/13/2024 11:59 PM CDT Hospital Encounter [facility] - Imaging [address] [place] [phone] Multiple sclerosis (HCC) Discharge Disposition: Discharge to home or self care 11/13/2024 7:25 AM CDT - 11/13/2024 11:59 PM CDT Hospital Encounter [facility] Imaging [address] [place] [phone] Multiple sclerosis (HCC) Discharge Disposition: Discharge to home or self care 11/07/2024 Telephone [facility] [address] [place] [address] [address] [place] [address] Abida Wlalace NP 11/02/2024 Orders Only [facility] Scanning, Provider 2024 7:12 PM CDT - 2024 11:59 PM CDT Hospital Encounter [address] [phone] Discharge Disposition: Discharge to home or self care 10/17/2024 1:00 PM CDT Infusion [facility] - Infusion [address] [facility] Floor 6 [place] [address] intermediate designer current use 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 inhibitor (Primary Dx); Malignant neoplasm of lower-inner quadrant of left breast in female, estrogen receptor positive (HCC); Bone disorder 10/17/2024 11:30 AM CDT Office Visit [facility] [address] [facility] [address] [place] [address] Juarez Guy MD Malignant neoplasm of lower-inner quadrant of left breast in female, estrogen receptor positive (HCC) 10/17/2024 10:30 AM CDT Lab [facility] - Lab Collection [address] [facility] [address] [place] [address] Malignant neoplasm of lower-inner quadrant of left breast in female, estrogen receptor positive (HCC) 10/17/2024 Telephone [facility] [address] [facility] [address] [place] [phone] Tariq Milligan MD orthopedics (Schedule an apt) 10/17/2024 Telephone [facility] [place] [id number] [phone] Yves Munoz MD 10/16/2024 10:00 AM CDT Office Visit [facility] [address] [place] [phone] Yves Munoz MD Multiple sclerosis (HCC) (Primary Dx); Acute left ankle pain 09/21/2024 2:45 PM CDT Office Visit [facility] at [address] [place] [address] Kael Falcon MD 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 (Primary Dx); Hypertension associated with diabetes (CMS/HCC); Mixed diabetic hyperlipidemia associated with type 2 diabetes mellitus (CMS/HCC) (HCC); Nonischemic cardiomyopathy (CMS/HCC) (HCC); PVC's (premature ventricular contractions); Obstructive sleep apnea 09/18/2024 Telephone [facility] [address] [place] [address] [address], [place] [address] Ofelia Saavedra MD from Last 3 [...] Barb Mays Alive Mother's Brother 1 Bird Cleis Mother's Brother 2 Sabas Celis Other 1 [...] Frequency of Binge Drinking Not on file 02/1 11/2024 PHQ-2 Answer Date Recorded PHQ-2 Total Score [...] on file Legal Sex Female 9:07 AM FUEL PILOT ENGINEER Gender Identity Female 02/22/2024 11:51 AM CDT [...] Ratio, Urine 09/27/2021 , 05/19/2020 Covid-19 Vaccine (4 - 2023-2 5 season) 2024 04/07/2021, 08/01/2020, 07/11/2020 Depression Screening 02/11/2024 02/10/2023, 02/11/2022, 02/12/2021, Additional history exists Well Visit 65+ 10/25/2024 Influenza Vaccine (#1) 2025 01/22/2021, 2018 Breast Cancer Screening-Mammogram 01/25/2025 01/26/2024, 02/03/2023, 02/18/2022, Additional history exists Dilated Eye Exam 03/26/2025 03/26/2024, , 03/04/2022, Additional history exists Fall Risk Assessment 07/09/2025 07/09/2024, 09/11/19 22 Lipid Panel 09/21/2025 09/21/2024, 04/, 03/01/2023, Additional history exists eGFR 10/17/2025 10/17/2024, 03/24, 04/03/2024, Additional history exists Osteoporosis Screening-Bone Density Scan 05/09/2026 05/09/2024, 04/02/2022 Colon Cancer Screening-Colonoscopy 08/13/2030 08/13/2020 Hepatitis C Screening Completed 04/03/2015 Zoster Vaccine Completed 04/07/2020, 03/07/2019 Colon Cancer Screening-CT Colonography Discontinued 08/13/2020 Colon Cancer Screening-DNA Stool Discontinued 08/14/19 Colon Cancer Screening-FIT Discontinued 08/13/2020 Colon Cancer Screening-Sigmoidoscopy Discontinued 08/13/2020 Medical Devices Implanted Type Area Exhibits Coordinator Device Identifier Shelf Expiration Date Model / Serial / Lot [employer] Peripheral Vascular Powerport Clearvue Airguard 8fr 1 Lumen Lightweight Intermediate Latex Free [id number] - [id number] Implanted:Qty: 1 on 09/14/2021 by Anne-Marie Mireles MD PhD at [facility] Catheter Right: Clavicle [employer] [id number] 06/22/2022 [id number] / / [id number] Description:Right mid clavic ular region in the IJ [employer] [id number] - [id number] - [id number] Implanted:Qty: 1 on 05/28/2021 by Sarah Correa MD at [facility] Lens Right: Eye [employer] [id number] 11/20/2023 [id number] / [id number] / [id number] Description:[id number] 21.5D Righ t eye [employer] [id number] - [id number] - [id number] Implanted:Qty: 1 on 07/30/2021 by Sarah Correa MD at [facility] Lens Left: Lens [employer] [id number] 11/20/2023 [id number] / [id number] / Bard Peripheral Vascular [id number] Ghiatas 20ga 20cm 7cm Beaded Needle Breast Wire Localization - [id number] Implanted:Qty: 1 on 08/07/2021 at [facility]ascular [id number] / / Procedures Procedure Name Priority Date/Time [...] 2:46 PM CDT 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 DEXA AXIAL SKELETON BONE DENSITY 1 OR MORE SITES Schedule Routine, Read Routine (OP Routine) 05/09/2024 8:38 AM FUEL PILOT ENGINEER intermediate designer current use 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 inhibitor Malignant neoplasm [...] SERUM HEPATITIS PANEL Routine 04/03/2015 7:47 AM FUEL PILOT ENGINEER from Last 3 Months or Most Recently [...] IMG MRI PROCEDURES Fi nal Result * MRI [...] [place] MRI PROCEDURES Fi nal Result * SCAN - PATHOLOGY (11/02/2024) us Provider Scanning Final Result * Misc Path Refer (10/29/2024 1:02 PM CDT) Desired Testing Breast Cancer Index Performing Lab [facility] Specimen Collected Date 07/08/21 [facility] Path Result See scanned report [facility] Tissue 10/29/2024 1:02 PM CDT 11/03/2024 3:06 PM CDT Juarez Guy MD LAB BLOOD ORDERAB LES Final Result [facility] Junior Tejal Roman [place] [address] * eGFR (10/17/2024 10:39 AM CDT) eGFR [...] LAB BLOOD ORDERAB LES Final Result [facility] [place] [address] * Differential, auto (10/17/2024 10:39 AM CDT) Neutrophil abs 3.14 1.50 - 6.50 K/cumm Comment:Testing performed by : [facility], [address] [place] [phone] Lymphocyte abs 2.03 0.80 - 3.30 K/cumm [facility] Comment:Testing performed by : [facility], [address] [place] [phone] Monocyte abs 0.44 0.20 - 0.80 K/cumm [facility] Comment:Testing performed by : [facility], [address] [place] [phone] Eosinophil abs 0.10 0.00 - 0.50 K/cumm [facility] Comment:Testing performed by : [facility], [address] [place] [phone] Basophil abs 0.02 0.00 - 0.10 K/cumm [facility] Comment:Testing performed by : [facility], [address] [place] [phone] Neutrophil pct 54.9 % [facility] Comment: Interpretive Data Percent cell count reference ranges are not reported, since discordance with absolute values may lead to misinterpretation of CBC data. Current Interpretive Data was last revised on 2017. Testing performed by: [facility], [address] [place] [phone] Lymphocyte pct 35.4 % [facility] Comment: Interpretive Data Percent cell count reference ranges are not reported, since discordance with absolute values may lead to misinterpretation of CBC data. Current Interpretive Data was last revised on 2017. Testing performed by: [facility], [address] [place] [phone] Monocyte pct 7.6 % [facility] Comment: Interpretive Data Percent cell count reference ranges are not reported, since discordance with absolute values may lead to misinterpretation of CBC data. Current Interpretive Data was last revised on 2017. Testing performed by: [facility], [address] [place] [phone] Eosinophil pct 1.7 % [facility] Comment: Interpretive Data Percent cell count reference ranges are not reported, since discordance with absolute values may lead to misinterpretation of CBC data. Current Interpretive Data was last revised on 2017. Testing performed by: [facility], [address] [place] [phone] Basophil pct 0.3 % [facility] Comment: Interpretive Data Percent cell count reference ranges are not reported, since discordance with absolute values may lead to misinterpretation of CBC data. Current Interpretive Data was last revised on 2017. Testing performed by: [facility], [address] [place] [address] Blood 10/17/2024 10:3 9 AM CDT 10/17/2024 10:49 AM CDT us Juarez Guy MD LAB BLOOD ORDERAB LES Final Result [facility] [place] [address] * CBC with auto differential (10/17/2024 10:39 AM CDT) WBC 5.72 3.80 - 9.90 K/cumm Comment:Testing performed by : [facility], [address] [place] [address] Hgb 13.0 11.9 - 15.5 g/dL [facility] Comment:Testing performed by : [facility], [address] [place] [address] Hct 38.3 35.6 - 45.5 % [facility] Comment:Testing performed by : [facility], [address] [place] [address] Plt 238 150 - 400 K/cumm [facility] Comment:Testing performed by : [facility], [address] [place] [address] MPV 7.3 6.8 - 10.4 fL [facility] Comment:Testing performed by : [facility], [address] [place] [address] RBC 4.07 3.90 - 5.20 M/cumm [facility] Comment:Testing performed by : [facility], [address] [place] [address] MCV 94.1 81.3 - 96.4 fL [facility] Comment:Testing performed by : [facility], [address] [place], [place] [phone] MCH 31.9 27.1 - 33.3 pg [facility] Comment:Testing performed by : [facility], [address] [place], [place] [phone] MCHC 33.9 32.3 - 35.7 g/dL [facility] Comment:Testing performed by : [facility], [address] [place], [place] [phone] RDW CV 12.3 11.1 - 14.9 % [facility] Comment:Testing performed by : [facility], [address] [place], [place] [phone] NRBC abs 0.00 0.00 - 0.01 K/cumm [facility] Comment:Testing performed by : [facility], [address] [place], [place] [phone] Blood 10/17/2024 10:3 9 AM CDT 10/17/2024 10:49 AM CDT us Juarez Guy MD LAB BLOOD ORDERAB LES Final Result [facility] [place] [address] * Comprehensive metabolic panel (10/17/2024 10:39 AM CDT) Sodium 142 135 - 145 mmol/L Potassium, pl 4.2 3.3 - 4.9 mmol/L [facility] Chloride 103 97 - 110 mmol/L [facility] CO2 30 22 - 32 mmol/L [facility] Anion gap 9 2 - 15 mmol/L [facility] BUN 9 6 - 25 mg/dL [facility] Creatinine 0.73 0.60 - 1.10 mg/dL [facility] Glucose 95 70 - 199 mg/dL [facility] Comment: Interpretive Data Fasting glucose >/= [...] Calcium 9.2 8.5 - 10.3 mg/dL [facility] Bilirubin, total 0.2 0.1 - 1.2 mg/dL [facility] Protein, pl 7.6 6.5 - 8.5 g/dL [facility] Albumin 4.3 3.5 - 5.0 g/dL [facility] Alk phos 90 40 - 130 Units/L [facility] ALT 22 7 - 45 Units/L [facility] AST 22 10 - 45 Units/L [facility] Blood 10/17/2024 10:3 9 AM CDT 10/17/2024 10:49 AM CDT us Juarez Guy MD LAB BLOOD ORDERAB LES Final Result [facility] [place] [address] * (ABNORMAL) POCT lipid panel (09/21/2024 2:46 [...] 1 or 2 Site (05/09/2024 8:38 AM FUEL PILOT ENGINEER) Anatomical Region Laterality Modality Body N/A Radiographic Yessy ging Narrative 05/09/2024 2:47 PM FUEL PILOT ENGINEER Patient Name: Fadia [place] Date of : 1960 Date of scan: 05/09/2024 Bone mineral density was performed on a HoloMediaSilo Discovery Densitometer. Based on machine cross-calibration and [...] by the International Society of Clinical Densitometry. [id number] us Juarez Guy MD IMG DXA PROCEDURE [...] ed Result - Final Performing Organization Address City/[facility] Co de Phone Number EXTERNAL LAB * Hemoglobin A1c (09/27/2020 9:37 AM CDT) SCRIBED Hemoglobin A1c 5.7 0.0 - 5.7 EXTERNAL LAB Blood specimen (specimen) Historical Provider LAB BLOOD ORDERABLES Edit ed Result - Final Performing Organization Address City/[facility]/ZIP Co de Phone Number EXTERNAL LAB * COLONOSCOPY (08/13/2020 12:02 PM CDT) Anatomical Region Laterality Modality Other Narrative Procedure Note Markus Becerra MD - 08/13/2020 12:02 PM CDT [facility] Endoscopy Lab Patient Name: [...] for surveillance. Procedure Code(s): --- Professional --- 29341, Colonoscopy, flexible; with biopsy, singleor multiple Diagnosis Code(s): --- Professional --- Z12.11, Encounter for screening for malignantneoplasm of colon K63.5, Polyp of colon CPT copyright 2019 [employer]. All rights reserved. The codes documented in this report are preliminary and upon integrated circuit ic layout designer reviewmay be revised to meet current compliance requirements. Electronically signed by Markus Becerra MD Markus Becerra M.D. 08/13/2020 12:37:39 PM Number of Addenda: 0 Note Initiated On: 08/13/2020 12:02 PM Markus Becerra MD ENDOSCOPY PROCEDURES Final Resul t * Diabetic Eye Exam (12/27/2018) Historical Provider HEALTH MAINTENANCE Edited Result - Final * Serum Hepatitis panel (04/03/2015 7:47 AM FUEL PILOT ENGINEER) HBV surface ag Negative Negative HISTO RICAL RESULTS HBV core ab, IgM Negative Negative HISTORICAL RESULTS HCV ab Negative Negative HISTORICAL RESULTS HAV ab, IgM Negative Negative HISTORIC AL RESULTS Serum 04/03/2015 7:47 AM FUEL PILOT ENGINEER Narrative HISTORICAL RESULTS - 04/03/2015 10:47 AM FUEL PILOT ENGINEER Send Duplicate Reports to: Thomas Chanel [address] [place] [address] [address] Markus Becerra MD LAB BLOOD ORDERABLES Final Resul t HISTORICAL RESULTS from Last 3 Months or Most Recently Relevant to Health Maintenance Insurance [employer] SENIOR [facility] MEDICARE [facility] Address: [id number] [place] [phone] MEDICARE [employer] SENIOR SUPPLEMENT MEDICARE [employer] SENIOR SUPPLEMENT Care Teams Study Hall Supervisor Relationship Specialty Start Date End Date José Miguel Page MD PCP - General Internal Medicine 09/05/18 Esteban Ritter MD Consulting Physician Cardiology 06/18/21 Juarez Guy MD [address] [place] [address] Consulting Physician Medical Oncology 08/31/21 Bill Romo MD [address] [facility] # [address] [place] [address] Radiation Oncologist Radiation Oncology 09/11/21 Anne-Marie Mireles MD PhD [address] [facility] [id number] [place] [address] Surgeon Surgical Oncology 09/11/21
--- OUTSIDE RECORDS SUMMARY | 2024-12-18 09:33 | XMS_ITS | Encounter Summary ---
Author Organization [facility] Address [address] [place] [address] Care Team Providers Care Street Sweeper Operator Name Role Phone José Miguel Page MD Primary Care Provider Esteban Ritter MD Unavailable Juarez Guy MD Unavailable Bill Romo MD Unavailable Anne-Marie Mireles MD PhD Unavaila ble Encounter Details Date Type Department Care Team (Late st Contact Info) Description 07/23/2024 Orders Only [facility] [place] [facility] Information Management [address] [place] [id number] Scanning, Provider Social History Tobacco Use Types [...] on file Legal Sex Female 9:07 AM LOSS CONTROL REPRESENTATIVE Gender Identity Female 02/22/2024 11:51 AM CDT Sexual Orientation Straight 08/29/2018 12 :15 PM CDT Occupation Industry Job Start Date Job End Date disabled Not on file Not on file Not on file documented as of this encounter Plan of Treatment Not on file documented as of this encounter Procedures Procedure Name Priority Date/Time Associated Diagnosis Comments CARDIOLOGY DOCUMENT SCAN 07/23/2024 documented in this encounter Results * Cardiology Document Scan (07/23/2024) Anatomical Region Laterality Modality Other us Provider Scanning CV CARDIAC SERVICES PROCEDURES Final Result documented in this encounter Visit Diagnoses Not on filedocumented in this encounter Care Teams Street Sweeper Operator Relationship Specialty Start Date End Date José Miguel Page MD PCP - General Internal Medicine 09/05/18 Esteban Ritter MD Consulting Physician Cardiology 06/18/21 Juarez Guy MD [address] [place] [address] Consulting Physician Medical Oncology 08/31/21 Bill Romo MD [address] [facility] [address] [place] [address] Radiation Oncologist Radiation Oncology 09/11/21 Anne-Marie Mireles MD PhD [address] [facility] [place] [id number] [place] [address] Surgeon Surgical Oncology 09/11/21 documented as of this encounter
--- OUTSIDE RECORDS SUMMARY | 2024-12-18 09:33 | XMS_ITS | Clinical Summary ---
Author Organization [facility] Administrative Offices Address [address] [place] [phone] Care Team Providers Care Administrative Assistant Front Desk Name Role Phone José Miguel Page MD [...] B [employer] SUPP [employer]ESS[employer] Care Teams Administrative Assistant Front Desk Relationship Specialty Start Date End Date José Miguel Page MD [address] [place] [address] PCP - General Internal Medicine 10/31/18
--- OUTSIDE RECORDS SUMMARY | 2024-12-18 09:34 | XMS_ITS | Encounter Summary ---
Author Organization [facility] Address [address] [place] [address] Phone Care Team Providers Care Trolley Car Mechanic Name Role Phone José Miguel Page MD Primary Care Provider [phone] Esteban Ritter MD Unavailable [phone] Juarez Guy MD Unavailable Bill Romo MD [...] on file Legal Sex Female 9:07 AM FLAT SPRING ASSEMBLER Gender Identity Female 02/22/2024 11:51 AM CDT [...] on filedocumented in this encounter Care Teams Trolley Car Mechanic Relationship Specialty Start Date End Date José Miguel Page MD PCP - General Internal Medicine 09/05/18 Esteban Ritter MD Consulting Physician Cardiology 06/18/21 Juarez Guy MD [address] [place] [address] Consulting Physician Medical Oncology 08/31/21 Bill Romo MD [address] [facility] [address] [place] [address] Radiation Oncologist Radiation Oncology 09/11/21 Anne-Marie Mireles MD PhD [address] [facility] [id number] [place] [address] Surgeon Surgical Oncology 09/11/21 documented as of this encounter
[2024-12-18 09:43] LABS: Hematocrit 40.3 % (35.0-42.0); Hemoglobin 13.1 g/dL (11.7-13.8); Mean Corpuscular HGB Conc 32.5 g/dL (32-36); Mean Corpuscular Hemoglobin 31.9 pg (27.0-31.0); Mean Corpuscular Volume 98.1 fL (78.0-102.0); Platelet Count Result 229 K/mm3 (150-420); Red Blood Count 4.11 M/mm3 (4.20-5.40); White Blood Count 7.6 K/mm3 (4.8-10.8)
[2024-12-18 10:12] LABS: Anion Gap 9 mmol/L (4-12); Blood Urea Nitrogen 13 mg/dL (7-17); Calcium 9.2 mg/dL (8.4-10.2); Carbon Dioxide 29 mmol/L (22-30); Chloride 105 mmol/L (98-107); Estimated Glomerular Filt Rate > 60; Glucose 126 mg/dL (65-110); Osmolality Calculated 298 mOsm/kg (285-295); Potassium 4.0 mmol/L (3.4-5.0); Sodium 143 mmol/L (137-145)
== END 2024-12-18 09:19 | disposition home or self-care (01) ==
PROVIDERS: PCP Internal Medicine; Visit Provider Internal Medicine
DX: R30.0 Dysuria (principal); R50.9 Fever, unspecified
CPT/HCPCS: 36415; 80048; 80053; 85027; 87040

== ENCOUNTER 2024-12-26 15:52 | Outpatient (CLI) | payer MEDICARE, SELFPAY ==
--- OUTSIDE RECORDS SUMMARY | 2024-12-26 15:57 | XMS_ITS | Clinical Summary ---
Author Organization [facility] Administrative Offices Address [address] [place] [phone] Care Team Providers Care Vice President Talent Management Name Role Phone José Miguel Page MD [...] B [employer] MED[employer] SUPP [employer]ESSI Care Teams Vice President Talent Management Relationship Specialty Start Date End Date José Miguel Page MD [address] [place] [address] PCP - General Internal Medicine 10/31/18
--- OUTSIDE RECORDS SUMMARY | 2024-12-26 15:57 | XMS_ITS | Clinical Summary ---
Author Organization [facility] Address [address] [place] [address] Care Team Providers Care Medical Service Technician Name Role Phone José Miguel Page MD Primary Care Provider [phone] Esteban Ritter MD Unavailable [phone] Juarez Guy MD Unavailable Bill Romo MD [...] nausea 30 tablet 11 05/29/19 25 Active nitrofurantoin monohydrate (MACROBID) 100 mg [...] MORNING 90 tablet 3 12/04/19 25 Active carBAMazepine XR (TEGretol XR) 200 mg 12 hr tablet TAKE ONE TABLET BY MOUTH TWICE A DAY 60 tablet 4 12/20/19 25 Active metoprolol XL (TOPROL-XL) 100 mg 24 hr tabletIndications :Nonischemic cardiomyopathy (HCC) TAKE 1 TABLET BY MOUTH EVERY DAY 90 tablet 3 12/12/19 24 025 Discontinued losartan (COZAAR) 25 mg tabletIndications :Nonischemic cardiomyopathy (HCC) TAKE 1 TABLET BY MOUTH EVERY DAY IN THE MORNING 90 tablet 3 12/12/19 24 025 Discontinued carBAMazepine XR (TEGretol XR) 200 mg 12 hr tablet TAKE ONE TABLET BY MOUTH TWICE A DAY 60 tablet 5 07/18/19 25 025 Discontinued Active Problems Problem Noted Date Diagnosed Date 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 Patient reports [...] 05/29/2024 Assessment & Plan (05/29/2024 10:41 AM LUMBER CHECKER): Alternating constipation with episodes of fecal smearing/incontinence. [...] 05/29/2024 Assessment & Plan (05/29/2024 10:56 AM LUMBER CHECKER): Intermittent. Worse with movement. 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 Assessment & Plan (07/31/2021 10:32 AM LUMBER CHECKER): POD1 Extraction Cataract - Phacoemulsification And Lens [...] concerns. Assessment & Plan (07/06/2021 2:12 PM LUMBER CHECKER): POM#1 s/p CEIOL OD - doing well with no concerns - denies pain - off all drops - pleased with vision - CEIOL OS scheduled for July Assessment & Plan (06/05/2021 10:48 AM LUMBER CHECKER): POW1 Extraction Cataract - Phacoemulsification And Lens [...] call. Assessment & Plan (05/29/2021 8:14 AM LUMBER CHECKER): POD1 Extraction Cataract - Phacoemulsification And Lens [...] (06/13/2018): Added automatically from request for surgery [id number] Assessment & Plan (05/29/2024 10:16 AM LUMBER CHECKER): Longstanding dysphagia symptoms. Prior EGDs and manometry testing were unrevealing. Symptoms suspected to possibly be related to her multiple sclerosis. Recent modified barium swallow study detailed below. 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 With normal LFTs. [...] lipids Assessment & Plan (05/09/2018 11:27 AM LUMBER CHECKER): Goal of treatment , LDL cholesterol less [...] 04/07/2017 Assessment & Plan (05/29/2024 10:22 AM LUMBER CHECKER): Currently well controlled. Recommend decreasing Pantoprazole to [...] 08/21 Assessment & Plan (03/26/2024 12:42 PM LUMBER CHECKER): No diabetic retinopathy (DR) . Stressed importance [...] PCP/endo. Assessment & Plan (05/08/2020 12:20 PM LUMBER CHECKER): Will add Lo pt with CHF SE [...] Metformin Assessment & Plan (05/10/2019 2:49 PM LUMBER CHECKER): Hba1c was Lab Results Component Value Date [...] Metformin Assessment & Plan (05/09/2018 11:26 AM LUMBER CHECKER): Hba1c was Lab Results Component Value Date [...] benign Assessment & Plan (05/08/2020 12:20 PM LUMBER CHECKER): Goal blood pressure is less than 140/85 [...] microalbumin Assessment & Plan (05/10/2019 2:50 PM LUMBER CHECKER): Goal blood pressure is less than 140/85 Low salt diet recommended Daily aerobic exercise Continue current meds, including MICHAEL-I or ARB Assessment & Plan (11/09/2018 12:20 PM CDT): Goal blood pressure is less than 140/85 Low salt diet recommended Daily aerobic exercise Continue current meds, including MICHAEL-I or ARB Assessment & Plan (05/09/2018 11:26 AM LUMBER CHECKER): Goal blood pressure is less than 140/85 [...] neuritis Assessment & Plan (03/26/2024 12:42 PM LUMBER CHECKER): Residual optic atrophy right eye (OD) No sign of active inflammation both eyes (OU) Assessment & Plan (11/28/2019 5:12 PM CDT): Residual optic atrophy right eye (OD) No sign of active inflammation both eyes (OU) Impaired cognition 12/12/2012 Overview (08/26/2016): Cognitive impairment Resolved Problems Problem Noted Date Diagnosed Date Resolved Date Encounter for person [facility] 09/10/2021 09/06/2023 Breast cancer 07/17/2021 09/22/2021 Overview (07/17/2021): Added automatically from request for surgery [id number] Fecal smearing 01/31/2020 09/06/2023 Encounter for screening colonoscopy 11/08/2017 09/06/2023 Dyslipidemia associated with type 2 diabetes mellitus (CMS/HCC) 08/31/2016 11/25/2021 Overview (10/15/2016): DM type 2 with diabetic dyslipidemia Assessment & Plan (05/10/2019 2:50 PM LUMBER CHECKER): .Goal of treatment , LDL cholesterol less [...] daily Assessment & Plan (04/19/2017 11:32 AM LUMBER CHECKER): Hba1c was 5.7 today, indicating adequate DM [...] 11/25/2021 Assessment & Plan (04/19/2017 11:31 AM LUMBER CHECKER): Goal of treatment , LDL cholesterol less [...] Encounter [facility] - Imaging [address] [place] [phone] Multiple sclerosis (HCC) Discharge Disposition: Discharge to home or self care 11/13/2024 7:25 AM CDT - 11/13/2024 11:59 PM CDT Hospital Encounter [facility] - [facility] [address] [place] [phone] Multiple sclerosis (HCC) Discharge Disposition: Discharge to home or self care 11/07/2024 Telephone [facility] [address] [place] [address] [address] [place] [address] Abida Wallace NP 11/02/2024 Orders Only [facility] Scanning, Provider 2024 7:12 PM CDT - 2024 11:59 PM CDT Hospital Encounter [address] [address] Discharge Disposition: Discharge to home or self care 10/17/2024 1:00 PM CDT Infusion [facility] - Infusion [address] [facility] [address] [place] [address] retirement current use 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 inhibitor (Primary Dx); Malignant neoplasm of lower-inner quadrant of left breast in female, estrogen receptor positive (HCC); Bone disorder 10/17/2024 11:30 AM CDT Office Visit [facility] [address] [facility] [address] [place] [address] Juarez Guy MD Malignant neoplasm of lower-inner quadrant of left breast in female, estrogen receptor positive (HCC) 10/17/2024 10:30 AM CDT Lab [facility] - Lab Collection [address] [facility] [address] [place] [address] Malignant neoplasm of lower-inner quadrant of left breast in female, estrogen receptor positive (HCC) 10/17/2024 Telephone [facility] [address] [facility] [place] [phone] Tariq Milligan MD orthopedics (Schedule an apt) 10/17/2024 Telephone [facility] [address] [address] Yves Munoz MD 10/16/2024 10:00 AM CDT Office Visit [facility] [address] [address] Yves Munoz MD Multiple sclerosis (HCC) (Primary Dx); Acute left ankle pain from Last 3 Months Immunizations Immunization Administration [...] CHF (congestive heart failur e) (HCC) Cardiomyopathy Cardiomyopathy Headache Depression Type 2 diabetes mellitus Overweight Heart disease cardiomyopathy Neuromuscular disorder Multiple Scelrosis Smoking Quit in Motion sickness Sleep apnea CPAP (kind of hi t and miss, not every night) Breast cancer (HCC) Cataract Obesity Family History Medical History Relation Name Comments Prostate cancer Brother 1 esohageal cancer Brother 1 Cancer Brother 2 Jace Mays Cancer Brother 3 Huber Mays Cardiomyopathy Father Jace Romano Davon Cardio myopathy; Cause of : Cardiomyopathy Diabetes Father Jace Romano Davon Diabetes mellitus; Heart disease Father Jace Romano Davon Skin cancer Father Jace Juan Antonio Mays Heart disease Maternal Grandfather Major Celis Arthritis Mother Barb Mays Diabetes Mother [...] Brother 1 Bird Celis Mother's Brother 2 Saabs Celis Other 1 Other 2 Other 3 [...] on file Legal Sex Female 9:07 AM LUMBER CHECKER Gender Identity Female 02/22/2024 11:51 AM CDT [...] 08/13/2020 Colon Cancer Screening-DNA Stool Discontinued 08/14/19 21 Colon Cancer Screening-FIT Discontinued 08/13/2020 Colon Cancer Screening-Sigmoidoscopy Discontinued 08/13/2020 Medical Devices Implanted Type Area Yoke Presser Device Identifier Shelf Expiration Date Model / Serial / Lot Bard Peripheral Vascular Powerport Clearvue Airguard 8fr 1 Lumen Lightweight Intermediate Latex Free [id number] - [id number] Implanted:Qty: 1 on 09/14/2021 by Anne-Marie Mireles MD PhD at [facility] Catheter Right: Clavicle Bard Peripheral Vascular [id number] 06/22/2022 [id number] / / [id number] Description:Right mid clavic ular region in the IJ [employer] [id number] - [id number] - [id number] Implanted:Qty: 1 on 05/28/2021 by Sarah Correa MD at [facility] Lens Right: Eye [employer] [id number] 11/20/2023 [id number] / [id number] / [id number] Description:[id number] 21.5D Righ t eye [employer] [id number] - [id number] - [id number] Implanted:Qty: 1 on 07/30/2021 by Sarah Correa MD at [facility] Lens Left: Lens [employer] [id number] 11/20/2023 [id number] / [id number] / Bard Peripheral Vascular 88790 [place] 20ga 20cm 7cm Beaded Needle Breast Wire Localization - [id number] Implanted:Qty: 1 on 08/07/2021 at [facility] Peripheral Vascular [id number] / / Procedures Procedure Name Priority Date/Time [...] 2:46 PM CDT Coronary artery disease of [place] artery of [place] heart with stable angina pectoris DEXA AXIAL SKELETON BONE DENSITY 1 OR MORE SITES Schedule Routine, Read Routine (OP Routine) 05/09/2024 8:38 AM LUMBER CHECKER intermodal dispatcher current use 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 inhibitor Malignant neoplasm [...] SERUM HEPATITIS PANEL Routine 04/03/2015 7:47 AM LUMBER CHECKER from Last 3 Months or Most Recently [...] lesions or abnormal enhancement. Electronically signed by: Mari Menjivar 11/13/2024 10:24 AM CDT MRI BRAIN W [...] Misc Path Refer (10/29/2024 1:02 PM CDT) [facility] Desired Testing Breast Cancer Index Performing Lab [facility]3] Specimen Collected Date 07/08/21 [facility]3] Path Result See scanned report [facility] Tissue 10/29/2024 1:02 PM CDT 11/03/2024 3:06 PM CDT Juarez Guy MD LAB BLOOD ORDERAB LES Final Result [facility]3] [address] [place] [address] * eGFR (10/17/2024 10:39 AM CDT) [facility] eGFR >90 >=60 mL/min/1. 73 m2 [...] MD LAB BLOOD ORDERAB LES Final Result [facility] [place] [address] * Differential, auto (10/17/2024 10:39 AM CDT) Neutrophil abs 3.14 1.50 - 6.50 K/cumm Comment:Testing performed by : [facility], [address] [place], [place] [phone] Lymphocyte abs 2.03 0.80 - 3.30 K/cumm [facility] Comment:Testing performed by : [facility], [address] [place] [phone] Monocyte abs 0.44 0.20 - 0.80 K/cumm [facility] Comment:Testing performed by : [facility], [address] [place] [address] Eosinophil abs 0.10 0.00 - 0.50 K/cumm [facility] Comment:Testing performed by : [facility], [address] [place] [address] Basophil abs 0.02 0.00 - 0.10 K/cumm [facility] Comment:Testing performed by : [facility], [address] [place] [address] Neutrophil pct 54.9 % [facility] Comment: Interpretive Data Percent cell count reference ranges are not reported, since discordance with absolute values may lead to misinterpretation of CBC data. Current Interpretive Data was last revised on 2017. Testing performed by: [facility], [address] [place] [phone] Lymphocyte pct 35.4 % [facility] Comment: Interpretive Data Percent cell count reference ranges are not reported, since discordance with absolute values may lead to misinterpretation of CBC data. Current Interpretive Data was last revised on 2017. Testing performed by: [facility], [address] [place] [phone] Monocyte pct 7.6 % [facility] Comment: Interpretive Data Percent cell count reference ranges are not reported, since discordance with absolute values may lead to misinterpretation of CBC data. Current Interpretive Data was last revised on 2017. Testing performed by: [facility], [address] [place] [phone] Eosinophil pct 1.7 % [facility] Comment: Interpretive Data Percent cell count reference ranges are not reported, since discordance with absolute values may lead to misinterpretation of CBC data. Current Interpretive Data was last revised on 2017. Testing performed by: [facility], [address] [place] [phone] Basophil pct 0.3 % [facility] Comment: Interpretive Data Percent cell count reference ranges are not reported, since discordance with absolute values may lead to misinterpretation of CBC data. Current Interpretive Data was last revised on 2017. Testing performed by: [facility], [address] [place] [phone] Blood 10/17/2024 10:3 9 AM CDT 10/17/2024 10:49 AM CDT us Juarez Guy MD LAB BLOOD ORDERAB LES Final Result [facility] [place] [address] * CBC with auto differential (10/17/2024 10:39 AM CDT) WBC 5.72 3.80 - 9.90 K/cumm Comment:Testing performed by : [facility], [address] [place] [address] Hgb 13.0 11.9 - 15.5 g/dL [facility]ER BJ Comment:Testing performed by : [facility], [address] [place] [address] Hct 38.3 35.6 - 45.5 % [facility] Comment:Testing performed by : [facility], [address] [place] [address] Plt 238 150 - 400 K/cumm [facility] BJ Comment:Testing performed by : [facility], [address] [place] [address] MPV 7.3 6.8 - 10.4 fL [facility]J Comment:Testing performed by : [facility], [address] [place] [address] RBC 4.07 3.90 - 5.20 M/cumm [facility] Comment:Testing performed by : [facility], [address] [place] [address] MCV 94.1 81.3 - 96.4 fL [facility]J Comment:Testing performed by : [facility], [address] [place] [address] MCH 31.9 27.1 - 33.3 pg [facility] BJ Comment:Testing performed by : [facility], [address] [place] [address] MCHC 33.9 32.3 - 35.7 g/dL [facility]J Comment:Testing performed by : [facility], [address] [place] [address] RDW CV 12.3 11.1 - 14.9 % [facility] BJ Comment:Testing performed by : [facility], [address] [place] [address] NRBC abs 0.00 0.00 - 0.01 K/cumm [facility] Comment:Testing performed by : [facility], [address] [place] [address] Blood 10/17/2024 10:3 9 AM CDT 10/17/2024 10:49 AM CDT Juarez Guy MD LAB BLOOD ORDERAB LES Final Result [facility] Department [place] [address] * Comprehensive metabolic panel (10/17/2024 10:39 AM CDT) Sodium 142 135 - 145 mmol/L Potassium, pl 4.2 3.3 - 4.9 mmol/L [facility] Chloride 103 97 - 110 mmol/L [facility] CO2 30 22 - 32 mmol/L [facility] Anion gap 9 2 - 15 mmol/L [facility] BUN 9 6 - 25 mg/dL [facility] Creatinine 0.73 0.60 - 1.10 mg/dL [facility] Glucose 95 70 - 199 mg/dL [facility] Comment: Interpretive Data Fasting glucose [...] 2022. Calcium 9.2 8.5 - 10.3 mg/dL [facility] Bilirubin, total 0.2 0.1 - 1.2 mg/dL [facility] Protein, pl 7.6 6.5 - 8.5 g/dL [facility] Albumin 4.3 3.5 - 5.0 g/dL [facility] Alk phos 90 40 - 130 Units/L [facility] ALT 22 7 - 45 Units/L [facility] AST 22 10 - 45 Units/L [facility] Blood 10/17/2024 10:3 9 AM CDT 10/17/2024 10:49 AM CDT us Juarez Guy MD LAB BLOOD ORDERAB LES Final Result [facility] [place] [address] * (ABNORMAL) POCT lipid panel (09/21/2024 2:46 [...] 1 or 2 Site (05/09/2024 8:38 AM LUMBER CHECKER) Anatomical Region Laterality Modality Body N/A Radiographic Yessy ging Narrative 05/09/2024 2:47 PM LUMBER CHECKER Patient Name: Fadia Welch Date of : 1960 Date of scan: 05/09/2024 Bone mineral density was performed on a [employer] Densitometer. Based on machine cross-calibration and [...] mineral density scan were prepared by Marni Alvarado (R M)(W[facility] who is accredited by the International Society of Clinical Densitometry. The overall patient assessment and scan interpretation were performed by Madi Noe M.D. who is certified by the International Society of Clinical Densitometry. [id number] us Juarez Guy MD IMG DXA PROCEDURE [...] MD - 08/13/2020 12:02 PM CDT [facility] Patient Name: Fadia Welch [...] for surveillance. Procedure Code(s): --- Professional --- 26767, Colonoscopy, flexible; with biopsy, singleor multiple Diagnosis Code(s): --- Professional --- Z12.11, Encounter for screening for malignantneoplasm of colon K63.5, Polyp of colon CPT copyright 2019 [employer]. All rights reserved. The codes documented in this report are preliminary and upon system trainer reviewmay be revised to meet current compliance requirements. Electronically signed by Markus Becerra MD Markus Becerra M.D. 08/13/2020 12:37:39 PM Number of Addenda: 0 Note Initiated On: 08/13/2020 12:02 PM Markus Becerra MD ENDOSCOPY PROCEDURES Final Resul t * Diabetic Eye Exam (12/27/2018) Historical Provider HEALTH MAINTENANCE Edited Result - Final * Serum Hepatitis panel (04/03/2015 7:47 AM LUMBER CHECKER) HBV surface ag Negative Negative HISTO RICAL RESULTS HBV core ab, IgM Negative Negative HISTORICAL RESULTS HCV ab Negative Negative HISTORICAL RESULTS HAV ab, IgM Negative Negative HISTORI SAMANTHA RESULTS Serum 04/03/2015 7:47 AM LUMBER CHECKER Narrative HISTORICAL RESULTS - 04/03/2015 10:47 AM LUMBER CHECKER Send Duplicate Reports to: Thomas Chanel [address] [place] [address] Markus Becerra MD LAB BLOOD ORDERABLES Final Resul t HISTORICAL RESULTS from Last 3 Months or Most Recently Relevant to Health Maintenance Insurance T SENIOR SUPPLEMENT MEDICARE MEDICARE AETNA SENIOR SUPPLEMENT MEDICARE AETNA SENIOR SUPPLEMENT Care Teams Medical Service Technician Relationship Specialty Start Date End Date José Miguel Page MD PCP - General Internal Medicine 09/05/18 Esteban Ritter MD Consulting Physician Cardiology 06/18/21 Juarez Guy MD [address] [place] [address] Consulting Physician Medical Oncology 08/31/21 Bill Romo MD [address] [facility] [address] [place], [place] [id number] Radiation Oncologist Radiation Oncology 09/11/21 Anne-Marie Mireles MD PhD [id number] [place] [address] Surgeon Surgical Oncology 09/11/21
--- OUTSIDE RECORDS SUMMARY | 2024-12-26 15:57 | XMS_ITS | Encounter Summary ---
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 Gender Identity Female 02/22/2024 11:51 AM CDT [...] on filedocumented in this encounter Care Teams Etl Architect Relationship Specialty Start Date End Date José Miguel Page MD PCP - General Internal Medicine 09/05/18 Esteban Ritter MD Consulting Physician Cardiology 06/18/21 Juarez Guy MD [address] [place] [address] Consulting Physician Medical Oncology 08/31/21 Bill Romo MD [address] [facility] [address] [place] [address] Radiation Oncologist Radiation Oncology 09/11/21 Anne-Marie Mireles MD PhD [address] [facility] [id number] [place] [address] Surgeon Surgical Oncology 09/11/21 documented as of this encounter
--- OUTSIDE RECORDS SUMMARY | 2024-12-26 15:57 | XMS_ITS | Encounter Summary ---
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 [address] [place] [address] Radiation Oncologist Radiation Oncology 09/11/21 Anne-Marie Mireles MD PhD [address] [facility] [id number] [place] [address] Surgeon Surgical Oncology 09/11/21 documented as of this encounter
--- OUTSIDE RECORDS SUMMARY | 2024-12-26 15:57 | XMS_ITS ---
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 Patient reports [...] 05/29/2024 Assessment & Plan (05/29/2024 10:41 AM WOOD GETTER): Alternating constipation with episodes of fecal smearing/incontinence. [...] 05/29/2024 Assessment & Plan (05/29/2024 10:56 AM WOOD GETTER): Intermittent. Worse with movement. Associated low back [...] follow-up surveillance of breast c ancer 01/26/2022 penit[facility] current use 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 inhibitor 06/2021 Bone disorder 01/22/2022 Dehydration 09/25/2021 Trigeminal neuralgia 09/19/2021 Numbness of toes 09/19/2021 Malignant neoplasm of lower- inner quadrant of left breast in female, estrogen receptor positive 09/04/2021 Cancer Staging:Clinical stage from 07/08/2021:Stage IA(cT1, cN0, cM0, G3, ER+, SD+, HER2-) - Unsigned Pathologic stage from 08/07/2021:Stage IA(pT1c, pN0(sn), cM0, G3, ER+, SD+, HER2- ) - Unsigned Generalized abdominal pain 06/18/2021 Overview (06/18/2021): Added automatically from request for surgery [id number] H/O cardiomyopathy 11/14/2020 Chronic heart failure with [...] 07/29/2020 Assessment & Plan (05/29/2024 11:08 AM WOOD GETTER): Fecal incontinence with urge incontinence and passage [...] 11/28/2019 Assessment & Plan (03/26/2024 12:42 PM WOOD GETTER): Lenses centered and stable with clear capsules, [...] call. Assessment & Plan (07/31/2021 10:32 AM WOOD GETTER): POD1 Extraction Cataract - Phacoemulsification And Lens [...] concerns. Assessment & Plan (07/06/2021 2:12 PM WOOD GETTER): POM#1 s/p CEIOL OD - doing well with no concerns - denies pain - off all drops - pleased with vision - CEIOL OS scheduled for July Assessment & Plan (06/05/2021 10:48 AM WOOD GETTER): POW1 Extraction Cataract - Phacoemulsification And Lens [...] call. Assessment & Plan (05/29/2021 8:14 AM WOOD GETTER): POD1 Extraction Cataract - Phacoemulsification And Lens [...] (06/13/2018): Added automatically from request for surgery [id number] Assessment & Plan (05/29/2024 10:16 AM WOOD GETTER): Longstanding dysphagia symptoms. Prior EGDs and manometry testing were unrevealing. Symptoms suspected to possibly be related to her multiple sclerosis. Recent modified barium swallow study detailed below. Subsequent [employer] evaluation - per their note unremarkable oropharyngeal [...] 11/08/2017 Assessment & Plan (05/29/2024 10:46 AM WOOD GETTER): Seen on previous imaging. With normal LFTs. [...] a associated with type 2 diabetes mellitus ([facility]) 10/27/2017 Assessment & Plan (11/01/2019 10:04 AM [...] lipids Assessment & Plan (05/09/2018 11:27 AM WOOD GETTER): Goal of treatment , LDL cholesterol less [...] 04/07/2017 Assessment & Plan (05/29/2024 10:22 AM WOOD GETTER): Currently well controlled. Recommend decreasing Pantoprazole to [...] 08/21 Assessment & Plan (03/26/2024 12:42 PM WOOD GETTER): No diabetic retinopathy (DR) . Stressed importance [...] PCP/endo. Assessment & Plan (05/08/2020 12:20 PM WOOD GETTER): Will add Lo, pt with CHF SE [...] Metformin Assessment & Plan (05/10/2019 2:49 PM WOOD GETTER): Hba1c was Lab Results Component Value Date [...] Metformin Assessment & Plan (05/09/2018 11:26 AM WOOD GETTER): Hba1c was Lab Results Component Value Date [...] benign Assessment & Plan (05/08/2020 12:20 PM WOOD GETTER): Goal blood pressure is less than 140/85 [...] microalbumin Assessment & Plan (05/10/2019 2:50 PM WOOD GETTER): Goal blood pressure is less than 140/85 Low salt diet recommended Daily aerobic exercise Continue current meds, including MICHAEL-I or ARB Assessment & Plan (11/09/2018 12:20 PM CDT): Goal blood pressure is less than 140/85 Low salt diet recommended Daily aerobic exercise Continue current meds, including MICHAEL-I or ARB Assessment & Plan (05/09/2018 11:26 AM WOOD GETTER): Goal blood pressure is less than 140/85 [...] neuritis Assessment & Plan (03/26/2024 12:42 PM WOOD GETTER): Residual optic atrophy right eye (OD) No [...] left breast in female, estrogen receptor positive (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 current use 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 inhibitorBone disorder Treatment [...] Diagnosed Date Resolved Date Encounter for person [facility] 09/10/2021 09/06/2023 Breast cancer 07/17/2021 09/22/2021 Overview (07/17/2021): Added automatically from request for surgery [id number] Fecal smearing 01/31/2020 09/06/2023 Encounter for screening colonoscopy 11/08/2017 09/06/2023 Dyslipidemia associated with type 2 diabetes mellitus ([facility]) 08/31/2016 11/25/2021 Overview (10/15/2016): DM type 2 with diabetic dyslipidemia Assessment & Plan (05/10/2019 2:50 PM WOOD GETTER): .Goal of treatment , LDL cholesterol less [...] daily Assessment & Plan (04/19/2017 11:32 AM WOOD GETTER): Hba1c was 5.7 today, indicating adequate DM [...] 11/25/2021 Assessment & Plan (04/19/2017 11:31 AM WOOD GETTER): Goal of treatment , LDL cholesterol less [...]
[2024-12-26 16:20] LABS: Add Urine Microscopic? YES; Appearance Urine Clear (Clear); Glucose Urine UA Negative (Negative); Leukocyte Esterase Ur 1+ LEU/UL (Negative); Nitrate Urine Negative (Negative); Specific Grav Ur 1.010 (1.010-1.020)
== END 2024-12-26 15:53 | disposition home or self-care (01) ==
PROVIDERS: PCP Internal Medicine; Visit Provider Internal Medicine
DX: N39.0 Urinary tract infection, site not specified (principal)
CPT/HCPCS: 81001; 87086

== ENCOUNTER 2025-01-08 15:55 | Outpatient (RCR) | payer MEDICARE, SELFPAY ==
--- NOTE | 2025-01-08 17:48 | OPREHPOC ---
Outpatient Therapy Plan of Care This is a Multidisciplinary Plan of Care that may contain components documented by all disciplines (PT, OT, and ST.) PT Problem 1 PT Problem #1 Knowledge Deficit PT Goal 1 Goal / Goal Update The patient will be independent in a home exercise program. Target Visit 2 PT Problem 2 PT Problem #2 Pain PT Goal 1 Goal / Goal Update The patient will report no greater than 2/10 left heel pain with walking for 20 mins while shopping. Target Visit 10 PT Problem 3 PT Problem #3 Impaired Functional Mobility PT Goal 1 Goal / Goal Update The patient will demonstrate 20% or less self perceived disability per the LEFS questionnaire. The patient will ambulate 1,200 feet during the 6 MWT without increased left Achilles pain noted. Target Visit 10 PT Problem 4 PT Problem #4 Impaired Strength PT Goal 1 Goal / Goal Update The patient will demonstrate 4/5 or greater left ankle strength in all planes. Target Visit 10
--- NOTE | 2025-01-08 17:48 | PTOPEVAL1 ---
Assessment and note entered by Claudine Roy, PT Evaluation Information Assessment Status Evaluation Diagnosis chronic L achilles tendonitis ICD-10 Condition Codes (PT) Pain in left ankle and joints of left foot M25.572 Onset 05/23/24 Subjective Information Fadia Davis reports she started having pain in her left achilles tendon in April 2024-May 2024. She did not have an injury prior to the onset of pain and notes the pain gradually worsened. She finally went to her doctor and diagnostic testing was ordered. She had an x-ray on 10/31/24 that showed a plantar calcaneal spur and a MRI on 11/25/24 that showed achilles tendonosis and bursitis as well as a longitudinal split tear of the peroneus brevis tendon. She wore a boot for 6 weeks and just came out of it. The pain is still present and she was referred to PT and an solar energy specialist. She has pain on the lower calf that worsens with standing and walking. She will see an solar energy specialist Feb 23, 2025 . Reported Pain Level Pain Score 1: Self Report Assessment PT Clinical Summary Fadia Davis presents with chronic left Achilles pain that started in May 2024 for unknown reasons. X-ray and MRI revealed plantar calcaneal bone spur, Achilles tendonosis and bursitis, and a longitudinal tear in the peroneus brevis tendon. She has difficulty with walking, standing, squatting, and running. She objectively demonstrates tenderness in the distal left Achilles, painful left ankle dorsiflexion and inversion, decreased left foot and ankle strength, and altered gait. She will benefit from skilled PT to address these limitations. Plan of Care Interventions Electrical Stimulation,Gait Training,Hot Pack/Cold Pack,Intermittent Compression Pump,Manual Therapy ,Neuro Re-education,Patient/Caregiver Education, Therapeutic Activities,Therapeutic Exercise PT Services Indicated Yes Treatment Frequency and 2 times a week for 10 visits Duration These treatments will address the objective and functional deficits as defined above. The patient will be advanced safely and appropriately in order for the patient to progress towards his/her prior level of function. Additional exercises will be introduced and as well as a comprehensive home exercise program upon discharge, if needed, ?to ensure carryover of functional gains achieved in the clinic. This treatment plan has been reviewed and agreement upon by the patient.
--- NOTE | 2025-02-07 11:04 | OPREHPOC ---
Outpatient Therapy Plan of Care This is a Multidisciplinary Plan of Care that may contain components documented by all disciplines (PT, OT, and ST.) PT Problem 1 PT Problem #1 Knowledge Deficit PT Goal 1 Goal / Goal Update The patient will be independent in a home exercise program. Target Visit 2 Progress Met PT Problem 2 PT Problem #2 Pain PT Goal 1 Goal / Goal Update The patient will report no greater than 2/10 left heel pain with walking for 20 mins while shopping. Target Visit 10 Progress Met PT Problem 3 PT Problem #3 Impaired Functional Mobility PT Goal 1 Goal / Goal Update The patient will demonstrate 20% or less self perceived disability per the LEFS questionnaire. - not met The patient will ambulate 1,200 feet during the 6 MWT without increased left Achilles pain noted. - not assessed Target Visit 10 Progress Partially Met PT Problem 4 PT Problem #4 Impaired Strength PT Goal 1 Goal / Goal Update The patient will demonstrate 4/5 or greater left ankle strength in all planes. Target Visit 10 Progress Met
--- NOTE | 2025-02-07 11:05 | PTOPDC ---
Assessment and note entered by Claudine Roy, PT Evaluation Information Assessment Status Discharge Diagnosis chronic L achilles tendonitis ICD-10 Condition Codes (PT) Pain in left ankle and joints of left foot M25.572 Onset 05/23/24 Subjective Information Fadia Davis reports she is doing better overall. She still gets some pain off and on. She is wearing better shoes with a heel lift and is doing exerciss at home. She will be seeing an search marketing specialist next week regarding the tear she has. Reported Pain Level Pain Score 1: Self Report Assessment PT Clinical Summary Fadia Davis has completed 9 skilled PT visits for chronic left Achilles pain that started in May 2024 for unknown reasons. X-ray and MRI revealed plantar calcaneal bone spur, Achilles tendonosis and bursitis, and a longitudinal tear in the peroneus brevis tendon. She is seeing an search marketing specialist next week for her tear. She is reporting less pain overall and is able to get around a little easier. She is performing home exercises and wearing better shoes with a heel lift. She demonstrates increased left ankle and foot AROM, improved strength, and improved gait. She will be discharged from skilled PT. Plan of Care PT Services Indicated No
== END 2025-02-07 20:00 | disposition home or self-care (01) ==
LOC: CHSPT 15:55
PROVIDERS: PCP Internal Medicine; Visit Provider Internal Medicine
DX: M76.62 Achilles tendinitis, left leg (principal)
CPT/HCPCS: 97110; 97112; 97140; 97150; 97161